=== PATIENT | male | born 1950 | race Caucasian/White ===

== ENCOUNTER → 2019-05-21 14:17 | Outpatient (CLI) | payer MEDICARE, SELFPAY ==
--- NOTE | ~2019-05-21 | XR_ITS ---
XR toe 2nd RT min 2V 05/21/2019 14:43 Indication: Contusion of the right second toe Procedure: 3 views right second toe Comparison: No prior studies for comparison. Findings: Mild polyarticular osteoarthritis. Arterial calcifications are present. No acute fracture o r traumatic malalignment is seen. No focal soft tissue abnormality. No foreign bodies. Impression: 1: No acute fracture. Reviewed, dictated and finalized at location A. Impression: 1: No acute fracture.
== END ==
PROVIDERS: PCP Family Medicine; Visit Provider Physician Assistant
DX: S90.129A Contusion of unspecified lesser toe(s) without damage to nail, initial encounter (principal)
CPT/HCPCS: 73660

== ENCOUNTER 2019-06-08 11:21 | Inpatient (IN) | payer MEDICARE, SELFPAY ==
--- NOTE | ~2019-06-08 | US_ITS ---
EXAMINATION: US renal BI DATE: 06/10/2019 08:31 INDICATION: Right kidney disease with acute renal insufficiency TECHNIQUE: Multiple ultrasound grayscale images of the kidneys were obtained. COMPARISON: 08/19/2017 FINDINGS: The right kidney measures 11.5 x 5.5 x 6.1 cm. The left kidney measures 11.1 x 5.9 x 7.6 cm. The kidn eys demonstrate normal echogenicity. There is no hydronephrosis in either kidney. No stones identifi ed. There is diffuse bladder wall thickening. Prostatomegaly which impresses upon the base of the araceli dder. IMPRESSION: 1. Normal kidneys without hydronephrosis. 2. Diffuse bladder wall thickening with differential including chronic outlet obstruction from the en larged prostate or cystitis either acute or chronic. Reviewed, dictated and finalized at location A. IMPRESSION: 1. Normal kidneys without hydronephrosis. 2. Diffuse bladder wall thickening with differential including chronic outlet o bstruction from the enlarged prostate or cystitis either acute or chronic.
--- NOTE | ~2019-06-08 | XR_ITS ---
EXAMINATION: XR ribs BI 3V w CXR 2V INDICATION: Bilateral rib pain after fall TECHNIQUE: AP and lateral views of the chest and 3 views of the bilateral ribs were obtained on 10 ra diographs. COMPARISON: 08/18/2017 FINDINGS: The lungs are free of acute opacities. There is no pleural effusion or pneumothorax. The ca rdiomediastinal silhouette is normal. There are healed fractures of the right fifth through ninth rib s and the left sixth and seventh ribs. There is an acute displaced fracture of the left rib. There is a nondisplaced left ninth rib fracture. IMPRESSION: 1. Acute, displaced left 10th rib fracture an nondisplaced left ninth rib fracture. 2. Healed bilateral rib fractures. Reviewed, dictated and finalized at location B. IMPRESSION: 1. Acute, displaced left 10th rib fracture an nondisplaced left ninth rib fract ure. 2. Healed bilateral rib fractures.
[2019-06-08 11:20] VITALS: BP 134/59; PULSE 76; RESP 12; TEMP 36.6; O2SAT 93
--- NOTE | 2019-06-08 11:57 | ECG_ITS ---
Measurements Intervals [place] Rate: 74 P: 40 AK: 240 QRS: -47 QRSD: 154 T: 14 QT: 415 QTc: 461 Interpretive Statements SINUS RHYTHM WITH SINUS ARRHYTHMIA WITH FIRST DEGREE AV BLOCK ATRIAL PREMATURE COMPLEX RIGHT BUNDLE BRANCH BLOCK LEFT ANTERIOR FASCICULAR BLOCK BASELINE ARTIFACT- I, II, AVR, AVL, AVF ABNORMAL ECG Electronically Signed On 06-08-2019 14:46:39 CDT by Yury Lawrence D.O.
[2019-06-08 12:07] LABS: Basophils Percent Auto 0.3 % (0.2-1.2); Eosinophils Absolute Auto 0.1 K/mm3 (0-0.3); Hematocrit 35.9 % (42.0-52.0); Hemoglobin 11.8 g/dL (14.0-18.0); Immature Granulocyte Absolute 0.06 K/mm3 (0.00-0.031); Immature Granulocyte Percent A 0.5 % (0-0.5); Lymphocytes Absolute Auto 0.84 K/mm3 (0.9-3.2); Lymphocytes Percent Auto 6.7 % (18.3-44.2); Mean Corpuscular HGB Conc 32.9 g/dl (32-36); Mean Corpuscular Hemoglobin 30.4 pg (26-34); Mean Corpuscular Volume 92.5 fl (80-100); Mean Platelet Volume 10.2 fl (7.4-10.4); Monocytes Percent Auto 7.9 % (2.6-8.5); Neutrophils Absolute Auto 10.6 K/mm3 (1.3-6.7); Neutrophils Percent Auto 83.6 % (45.5-73.1); Platelet Count Result 182 k/mm3 (150-375); Red Blood Count 3.88 M/mm3 (4.6-6.20); White Blood Count 12.6 K/mm3 (4.5-10.0)
[2019-06-08 12:16] LABS: INR 1.1; Prothrombin Time 14.2 Seconds (11.1-14.7)
[2019-06-08 12:17] LABS: Partial Thromboplastin Time 30.1 SECONDS (22.3-36.8)
[2019-06-08 12:24] LABS: Alanine Aminotransferase 13 U/L (4-50); Albumin Level 3.7 g/dL (3.5-5.1); Alkaline Phosphatase 58 U/L (38-126); Aspartate Amino Transferase 21 U/L (17-59); Bilirubin,Total 0.8 mg/dL (0.2-1.3); Blood Urea Nitrogen 52 mg/dL (9-20); Calcium 8.4 mg/dL (8.4-10.2); Carbon Dioxide 26 mmol/L (22-30); Chloride 103 mmol/L (98-107); Estimated Glomerular Filt Rate 19; Glucose 165 mg/dL (75-110); Potassium 4.3 mmol/L (3.4-5.0); Sodium 134 mmol/L (137-145)
[2019-06-08] MEDS: SODIUM CHLORIDE 0.9% IV 1,000 ML 999 ML IV CONT (13:12)
--- NOTE | 2019-06-08 13:12 | ED.GIBLEED ---
HPI - GI Bleed General Chief complaint: GI Bleed Stated complaint: bloody stools Time Seen by Provider: 06/08/19 11:33 Source: patient Mode of arrival: ambulatory History of Present Illness HPI Narrative: This is a 68 year old male that presents to the ER for multiple falls since yesterday. Reports he falls a lot at baseline, but since yesterday has had a couple ground level falls resulting in bilateral rib pain. Reports he was getting lightheaded when he stood up. Denies hitting his head or loss of consciousness. Reports over the last couple of days he has had multiple episodes of diarrhea with bright red blood. Reports no previous history of GI bleed. Reports he had a colonoscopy here about 5 years ago which showed 2 polyps that were removed. Denies fever, chest pain, shortness of breath, abdominal pain, dysuria, neck pain, back pain, or numbness. Related Data Home Medications Medication Instructions Recorded Confirmed amlodipine 2.5 mg tablet 2.5 mg PO DAILY 01/26/19 05/18/19 aspirin 81 mg tablet,delayed 81 mg PO DAILY 01/26/19 05/18/19 release atorvastatin 10 mg tablet 10 mg PO DAILY 01/26/19 05/18/19 blood sugar diagnostic #10 each 01/26/19 05/18/19 clopidogrel 75 mg tablet 75 mg PO DAILY 01/26/19 05/18/19 duloxetine 60 mg capsule,delayed 60 mg PO DAILY 01/26/19 05/18/19 release indapamide 2.5 mg tablet 2.5 mg PO DAILY 01/26/19 05/18/19 insulin detemir U-100 100 unit/mL 70 unit SUB-Q DAILY ml 01/26/19 05/18/19 (3 mL) subcutaneous pen insulin lispro 100 unit/mL 6 unit SUB-Q .COMPLEX 01/26/19 05/18/19 subcutaneous pen pen needle, diabetic 32 gauge x #50 each 01/26/19 05/18/19 1/ tamsulosin 0.4 mg capsule 0.4 mg PO DAILY 01/26/19 05/18/19 eszopiclone 3 mg tablet 3 mg PO .QHS tablet 01/29/19 05/18/19 eszopiclone 1 mg tablet 1 mg PO ONCE 05/18/19 05/18/19 lisinopril 40 mg PO DAILY 06/08/19 Allergies Allergy/AdvReac Type Severity Reaction Status Date / Time barley Allergy Severe abdominal Verified 05/21/19 13:33 pain wheat Allergy Severe abdominal Verified 05/21/19 13:33 pain atorvastatin Allergy Unknown Muscle pain Verified 06/08/19 11:26 pregabalin Allergy Unknown Unknown Verified 06/08/19 11:26 rosuvastatin Allergy Unknown Muscle pain Verified 06/08/19 11:26 [id number]-[id number] Reductase Allergy Unknown muscle Verified 06/08/19 11:26 Inhibitor crampin Barley Flour Allergy Severe abdominal Uncoded 05/21/19 13:33 pain Oat Allergy Severe abdominal Uncoded 05/21/19 13:33 pain Confluence Allergy Severe abdominal Uncoded 05/21/19 13:33 pain Confluence Flour Allergy Severe abdominal Uncoded 05/21/19 13:33 pain Gluten Flour Allergy Intermediate Other Uncoded 05/21/19 13:33 Review of Systems Review of Systems: Narrative: CONSTITUTIONAL: Denies fever CARDIOVASCULAR: Denies chest pain, or edema. RESPIRATORY: Denies dyspnea. GASTROINTESTINAL: Reports diarrhea. Denies abdominal pain, nausea, vomiting GENITOURINARY: Denies dysuria or hematuria. MUSCULOSKELETAL: Reports myalgia. Denies back pain NEUROLOGIC: Denies headache, numbness All systems reviewed & are unremarkable except as noted in HPI and below PMFSH Past Medical History Medical History (Updated 06/08/19 @ 15:06 by Diana Plummer PA-C) Chronic insomnia History of CVA (cerebrovascular accident) HLD (hyperlipidemia) HTN (hypertension), benign Long-term insulin use Surgical History Surgical History (System 02/19/19 @ 12:10 by [place] Plummer) H/O vitrectomy History of cervical spinal surgery Status post cataract extraction Social History Social History (Updated 05/21/19 @ 13:34 by Arlin Diaz) Smoking packs per day: 1 Smoking cigarettes per day: 20.0 Years smoked: 12 Smoking pack-years: 12.00 Smoking status: Former smoker Tobacco type: cigarettes Second hand tobacco smoke exposure: No Smoking end date: 03/14/11 Alcohol intake: never Substance use: never Substance use type: does not use
[2019-06-08 13:53] LABS: Add Urine Microscopic? YES; Appearance Urine Clear (Clear); Bacteria Urine Trace /hpf; Bilirubin Urine Negative (Negative); Blood Urine 1+ (Negative); Color Urine Yellow (Yellow); Glucose Urine UA Negative (Negative); Ketones Urine Negative (Negative); Leukocyte Esterase Ur 1+ LEU/UL (Negative); Mucus Urine Rare /lpf; Nitrate Urine Negative (Negative); Protein Urine 3+ mg/dL (Negative); RBC Urine 0-2 /hpf (0-2); Specific Grav Ur 1.017 (1.001-1.035); Squamous Epithelial Cell Urine Rare /hpf (Few); Urobilinogen Urine Negative mg/dL (<2.0)
[2019-06-08 13:55] VITALS: BP 123/57; BP 141/123; BP 150/62; PULSE 75; PULSE 80; PULSE 86
[2019-06-08 15:12] LABS: Hematocrit 36.2 % (42.0-52.0); Hemoglobin 11.8 g/dL (14.0-18.0)
[2019-06-08 16:18] VITALS: BP 167/63; PULSE 109; RESP 16; O2SAT 100
--- NOTE | 2019-06-08 16:21 | ADMGEN ---
This patient, Dewayne Fagan, was admitted to 3 [facility] Surg Room 312-01. Patient/family oriented to hospital policies and general routines including ID bracelet, bed and alarms, visiting hours, pain management, procedures, bathroom and other care routines, personal items, smoking policy, room service/diet, and visiting hours. Valuables list has been completed. Information on how to activate the Rapid Response Team has been discussed. Patient/Family are encouraged to report perceived risks to care and to ask questions if they do not understand what they are told or what they should do.
[2019-06-08 16:23] VITALS: BMI 37.7
[2019-06-08 16:38] VITALS: BP 162/78; PULSE 69; RESP 18; TEMP 37; O2SAT 99
[2019-06-08] MEDS: SODIUM CHLORIDE 0.9% IV 1,000 ML 125 ML IV CONT (17:09)
--- NOTE | 2019-06-08 17:23 | PM.CNNEP ---
Assessment and Plan Assessment and plan (1) SERGIO (acute kidney injury): Code(s): N17.9 - Acute kidney failure, unspecified Status: Acute (2) Chronic kidney disease, stage IV (severe): Code(s): N18.4 - Chronic kidney disease, stage 4 (severe) Status: Chronic (3) Acute GI bleeding: Code(s): K92.2 - Gastrointestinal hemorrhage, unspecified Status: Acute (4) Diabetes: Code(s): E11.9 - Type 2 diabetes mellitus without complications Status: Chronic (5) Rib fractures: Code(s): S22.39XA - Fracture of one rib, unspecified side, initial encounter for closed fracture Status: Acute (6) Multiple falls: Code(s): R29.6 - Repeated falls Status: Chronic Assessment and Plan: . Additional Plan Dewayne appears to have an acute kidney injury/acute renal failure on top of his baseline kidney disease based on his admission labs. As already noted, his baseline creatinine normally runs around 2-2.6 mg/dL with admission creatinine of 3.3 mg/dL. My concern would be that given his symptoms on presentation perhaps maybe relative hypotension or GI blood loss may have precipitated this rise in his creatinine carried this could been further worsened by the fact that he is on diuretic therapy (indapamide) as well as an Herman inhibitor (lisinopril). For further evaluation of his rise in his creatinine, I will check urine electrolytes, urine senna fills and a renal ultrasound to make sure we are not missing any time a anatomical issues/ problems. His independent and lisinopril will be held and gentle IV fluid resuscitation has already been instituted. Hopefully, with conservative therapy, his kidney function will improve but I cannot deny the possibility that given his risk factors, this could also be a component of simple kidney disease progression. He has no critical electrolyte abnormalities and his volume status appears to be stable but I would follow the trend of these two parameters as well as urine output to assess improvement in his kidney function. I will continue follow the patient with you while he remains hospitalized to make further conditions based on his hospital course. Thank you for allowing me to participate in the care this patient. History of Present Illness Reason for Consult Consult date: 06/08/19 Reason for consult: acute renal failure (on chronic kidney disease) Chief Complaint Chief complaint: GI bleed/SERGIO History of Present Illness Narrative: The patient is a 68 year old male with a past medical history as outlined below who presented to the [facility] ER with a complaint of bright red rectal bleeding. The patient has been having recurrent falls -- yesterday he fell as he was getting out of the shower and had a very difficult time getting up. He attributes this fall to generalized weakness. No precipitating symptoms before the fall with regard to chest pain, shortness of breath, dizziness or lightheadedness; no reported loss of consciousness or seizure like activity either. His frequent falling started about 3 days ago -- he fell between the toilet and wall in the bathroom and hurt his ribs with resulting bilateral rib pain with deep breaths. Further complicating matters is that he has noted hematochezia for the past 2 - 3 days as well. He has no previous history of GI bleeds and denies any history of diverticular disease or hemorrhoids but he is on ASA and plavix as well as a history of celiac disease. Work-up and evaluation in the emergency room demonstrated the patient to be hemodynamically stable with routine blood tests that demonstrated his hemoglobin/ hematocrit to be little bit lower than baseline associated with an elevated BUN and creatinine above his baseline. His chest x-ray demonstrated bilateral rib fractures. Due to the above symptoms and labs/imaging as noted, he was admitted to the hospital for further care. Renal consultation was
--- NOTE | 2019-06-08 18:24 | PC.NURSE ---
Patient attempted to have a bowel movement. It appeared to only be blood. Spoke with Nae in the lab and said she said not to send it as this would not give accurate results for WBC smear and stool culture.
[2019-06-08 21:39] LABS: Hematocrit 35.9 % (42.0-52.0); Hemoglobin 11.7 g/dL (14.0-18.0)
[2019-06-08 22:00] VITALS: BP 183/63; PULSE 92; RESP 18; TEMP 37.1; O2SAT 99
[2019-06-09] VITALS (7 sets, daily range): BP systolic 150–163; BP diastolic 62–70; PULSE 56–88; RESP 16–20; TEMP 36.6–37.2; O2SAT 96–100
[2019-06-09] MEDS: carvediloL 25 MG TABLET PO ×3 (00:31→20:19)
[2019-06-09] MEDS: MELATONIN 3 MG TABLET PO (00:31)
[2019-06-09] MEDS: SODIUM CHLORIDE 0.9% IV 1,000 ML 125 ML IV CONT ×3 (00:32→18:52)
--- NOTE | 2019-06-09 03:29 | PM.IMHP ---
H&P: HPI History of Present Illness Chief complaint: GI bleed/SERGIO Narrative: This is a pleasant 68 year old Diabetic male who presented to the hospital with a complaint of bright red rectal bleeding for the past two days. Yesterday the patient fell as he was getting out of the shower and had a very difficult time getting up. He believes he fell because he was just very weak. He denies any chest pain or shortness of breath. No loss of consciosness or seizure like activity. No loss of urine or tongue biting reported. The patient is known to be on aspirin and plavix but is not on any anticoagulants. He has no previous history of GI bleeds and denies any history of diverticular disease or hemorrhoids. He does however have a history of celiac disease. He reports having multiple recent falls including a fall three days ago when he fell between the toilet and wall in the bathroom and hurt his ribs b/l. Since then he has had bilateral rib pain with deep breaths. CXR demonstrated b/l rib fractures as well as an acute left sided displaced rib fracture. The patient was also found to have an H/H of 11.7/35.9. GI has been consulted by ER provider and we have been asked to admit the patient to the hospital for further care. He also denies fevers, chills, cough, sore throat, chest pain, abdominal pain, dysuria, hematuria, or focal neurological deficits. He reports diarrhea 2 days ago. No other complaints. His last colonoscopy was 5 years ago when he had 2 polyps removed. Review of Systems Review of Systems: All systems reviewed & are unremarkable except as noted in HPI and below PMFSH Past Medical History Medical History Chronic insomnia History of CVA (cerebrovascular accident) HLD (hyperlipidemia) HTN (hypertension), benign Long-term insulin use Surgical History Surgical History H/O vitrectomy History of cervical spinal surgery Status post cataract extraction Family History Family History Father Celiac disease Son Celiac disease Sibling Family history of obesity Hypertension Cerebrovascular accident Family history of diabetes mellitus in first degree relative Family history of heart disease in male family member before age 55 Grandparent Family history of mental disorder Mother Cerebrovascular accident Family history of arthritis Family history of hearing loss Father Family history of congestive heart failure Family history of heart disease in male family member before age 55 Social History Social History Smoking packs per day: 1 Smoking cigarettes per day: 20.0 Years smoked: 18 Smoking pack-years: 18.00 Smoking status: Former smoker Tobacco type: cigarettes, pipe and cigars Second hand tobacco smoke exposure: No Smoking end date: 03/14/11 Alcohol intake: former Substance use: never Substance use type: does not use Gender identity (if verbalized by the patient): Male Spiritual care concerns: No Agree to blood products: Yes Meds Home Medications and Allergies Home Medications Medication Instructions Recorded Confirmed Type amlodipine 2.5 mg tablet 2.5 mg PO DAILY 01/26/19 06/08/19 History aspirin 81 mg tablet,delayed 81 mg PO DAILY 01/26/19 06/08/19 History release atorvastatin 10 mg tablet 10 mg PO DAILY 01/26/19 06/08/19 History blood sugar diagnostic #10 each 01/26/19 06/08/19 History clopidogrel 75 mg tablet 75 mg PO DAILY 01/26/19 06/08/19 History duloxetine 60 mg capsule,delayed 60 mg PO DAILY 01/26/19 06/08/19 History release indapamide 2.5 mg tablet 2.5 mg PO DAILY 01/26/19 06/08/19 History insulin detemir U-100 100 unit/mL 70 unit SUB-Q DAILY ml 01/26/19 06/08/19 History (3 mL) subcutaneous pen insulin lispro 100 unit/mL 6 unit SUB-Q .COMPLE
[2019-06-09 06:46] LABS: Blood Urea Nitrogen 41 mg/dL (9-20); Carbon Dioxide 26 mmol/L (22-30); Chloride 106 mmol/L (98-107); Estimated CRCL calculation 30 ml/min; Estimated Glomerular Filt Rate 21; Glucose 213 mg/dL (75-110); Potassium 3.7 mmol/L (3.4-5.0); Sodium 136 mmol/L (137-145)
[2019-06-09 06:54] LABS: Basophils Absolute Auto 0.1 K/mm3 (0.0-0.1); Basophils Percent Auto 0.4 % (0.2-1.2); Eosinophils Absolute Auto 0.2 K/mm3 (0-0.3); Eosinophils Percent Auto 1.5 % (0-4.4); Hematocrit 33.5 % (42.0-52.0); Hemoglobin 10.8 g/dL (14.0-18.0); Immature Granulocyte Absolute 0.05 K/mm3 (0.00-0.031); Immature Granulocyte Percent A 0.4 % (0-0.5); Lymphocytes Absolute Auto 1.28 K/mm3 (0.9-3.2); Lymphocytes Percent Auto 11.1 % (18.3-44.2); Mean Corpuscular HGB Conc 32.2 g/dl (32-36); Mean Corpuscular Hemoglobin 30.3 pg (26-34); Mean Corpuscular Volume 94.1 fl (80-100); Mean Platelet Volume 10.8 fl (7.4-10.4); Monocytes Absolute Auto 1.1 K/mm3 (0.1-0.6); Monocytes Percent Auto 9.1 % (2.6-8.5); Neutrophils Absolute Auto 8.9 K/mm3 (1.3-6.7); Neutrophils Percent Auto 77.5 % (45.5-73.1); Platelet Count Result 174 k/mm3 (150-375); Red Blood Count 3.56 M/mm3 (4.6-6.20); Red Cell Distribution Width 13.1 % (11.5-14.5); White Blood Count 11.5 K/mm3 (4.5-10.0)
[2019-06-09 08:21] LABS: Hematocrit 33.2 % (42.0-52.0); Hemoglobin 10.8 g/dL (14.0-18.0)
--- NOTE | 2019-06-09 09:48 | WPDGICN ---
Assessment and Plan Assessment and plan (1) Acute diarrhea: Code(s): R19.7 - Diarrhea, unspecified Status: Acute Assessment and Plan: due to sudden onset I suspect this is infectious. Ischemic colitis possible but I would expect significant abdominal pain and he has had none. Stool cultures have been ordered but specimens provided by the patient were discarded because they were bloody I explained to the staff that it is okay to send stool that has blood in it. Will also start antibiotics (2) Acute GI bleeding: Code(s): K92.2 - Gastrointestinal hemorrhage, unspecified Status: Acute Assessment and Plan: Secondary to whenever is causing colitis (3) Chronic kidney disease, stage IV (severe): Code(s): N18.4 - Chronic kidney disease, stage 4 (severe) Status: Chronic Assessment and Plan: being followed by Nephrology. GI Consult Note Consult date/time: 06/09/19 09:48 HPI: Dewayne Fagan is a 68 year old male Admitted yesterday because of rectal bleeding diarrhea and recent falls. He states that he has been following occasionally because he had a stroke 2 years ago leaving him with residual weakness in his left side. In particular his left knee seems to get about. On Tuesday he fell and injured infected certain he cracked ribs as left side and possibly also on the right. The next day he began having diarrhea and towards the end of this 1st round of diarrhea he saw blood in his stools. Since then his stools have been more blood than anything. He denies abdominal pain. He has had a prior colonoscopy that revealed polyps. He has never had diverticulitis he denies nausea or vomiting he had not been traveling recently. He denies fever or chills. There is no history of liver disease jaundice hepatitis or pancreatic disease. He carries a diagnosis of celiac disease. This was First diagnosed in his father, and 2 of his sons have the same diagnosis. He is an insulin-dependent diabetic. He has chronic kidney disease followed and managed by Dr. Song. He has hypertension and had a stroke a few years ago Review of Systems Review of Systems: All systems reviewed & are unremarkable except as noted in HPI and below PMFSH Past Medical History Medical History Chronic insomnia History of CVA (cerebrovascular accident) HLD (hyperlipidemia) HTN (hypertension), benign Long-term insulin use Surgical History Surgical History H/O vitrectomy History of cervical spinal surgery Status post cataract extraction Family History Family History Father Celiac disease Son Celiac disease Sibling Family history of obesity Hypertension Cerebrovascular accident Family history of diabetes mellitus in first degree relative Family history of heart disease in male family member before age 55 Grandparent Family history of mental disorder Mother Cerebrovascular accident Family history of arthritis Family history of hearing loss Father Family history of congestive heart failure Family history of heart disease in male family member before age 55 Social History Social History Smoking packs per day: 1 Smoking cigarettes per day: 20.0 Years smoked: 18 Smoking pack-years: 18.00 Smoking status: Former smoker Tobacco type: cigarettes, pipe and cigars Second hand tobacco smoke exposure: No Smoking end date: 03/14/11 Alcohol intake: former Substance use: never Substance use type: does not use Gender identity (if verbalized by the patient): Male Spiritual care concerns: No Agree to blood products: Yes Meds Home Medications and Allergies Home Medications Medication Instructions Recorded Confirmed Type amlodipine 2.5 mg tablet 2.5 mg
[2019-06-09] MEDS: AMLODIPINE BESYLATE 2.5 MG TABLET PO (09:54)
[2019-06-09] MEDS: DULOXETINE 60 MG CAPSULE.DR PO (09:54)
[2019-06-09] MEDS: ATORVASTATIN 10 MG TABLET PO (09:54)
[2019-06-09] MEDS: lisinopriL 20 MG TABLET 40 MG PO (09:55)
[2019-06-09] MEDS: INDAPAMIDE 2.5 MG TABLET PO (09:55)
[2019-06-09] MEDS: TAMSULOSIN HCL 0.4 MG CAPSULE PO (09:56)
[2019-06-09] MEDS: INSULIN ASPART (*BKC) 100 UNITS/ML SUB-Q ×2 (10:08→12:32)
[2019-06-09 10:13] LABS: Glucose Point of Care 221 (65-105)
[2019-06-09] MEDS: levoFLOXacin 500 MG/D5W 100 ML 500 MG/100 ML BAG 100 MG IVPB (12:30)
[2019-06-09] MEDS: INSULIN DETEMIR 100 UNITS/ML 20 UNITS SUB-Q (12:33)
[2019-06-09 12:58] LABS: Glucose Point of Care 290 (65-105)
--- NOTE | 2019-06-09 13:52 | PM.PNNEP ---
Progress Note: A&P Assessment and Plan (1) SERGIO (acute kidney injury): Code(s): N17.9 - Acute kidney failure, unspecified Status: Acute Assessment and Plan: etiology not clear due to low H/H(?) relative hypoperfusion + concurrent use of diuretic and ROLDAN-I(?) no critical electrolytes and making some urine (2) Chronic kidney disease, stage IV (severe): Code(s): N18.4 - Chronic kidney disease, stage 4 (severe) Status: Chronic Assessment and Plan: baseline creatinine due to HTN, DM, vascular disease, and age component of disease progression contributing to # 1(?) (3) Acute GI bleeding: Code(s): K92.2 - Gastrointestinal hemorrhage, unspecified Status: Acute Assessment and Plan: Gi consultation recommnedations noted follow H/H (4) Diabetes: Qualifiers: Chronic kidney disease stage: stage 4 (severe) Diabetes mellitus complication detail: with chronic kidney disease Diabetes mellitus complication status: with kidney complications 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 stock clerk insulin use: with intermediate use Diabetes mellitus type: type 2 Qualified Code(s): E11.22 - Type 2 diabetes mellitus with diabetic chronic kidney disease; N18.4 - Chronic kidney disease, stage 4 (severe); Z79.4 - milk receiver (current) use of insulin Code(s): E11.9 - Type 2 diabetes mellitus without complications Status: Chronic Assessment and Plan: follow accuchecks on Levemir and SSI (5) Rib fractures: Qualifiers: Encounter type: initial encounter Fracture type: closed Laterality: bilateral Rib fracture type: multiple ribs Qualified Code(s): S22.43XA - Multiple fractures of ribs, bilateral, initial encounter for closed fracture Code(s): S22.39XA - Fracture of one rib, unspecified side, initial encounter for closed fracture Status: Acute Assessment and Plan: due to frequent falling pain control (6) Multiple falls: Code(s): R29.6 - Repeated falls Status: Chronic Assessment and Plan: etiology? PT/OT Will continue to follow. Subjective Date/time seen: 06/09/19 13:52 No apparent distress voiced at the time of my visit; seen by GI earlier today with assesment/recommendations noted; no events overnight or earlier this AM. Exam Narrative: Exam Narrative: General: WD/WN male in NAD Heart: normal S1 and S2; no rub Lungs: clear to auscultation Abdomen: soft, nontender, nondistended, positive bowel sounds Extremities: no cyanosis or clubbing; no edema Skin: warm and dry Objective Data Vital Signs Vital Signs: Vital Signs Temp Pulse Resp BP Pulse Ox 06/09/19 09:53 72 06/09/19 09:50 72 16 163/70 H 97 06/09/19 06:00 36.6 C 68 18 154/65 H 96 06/09/19 00:31 88 06/08/19 22:00 37.1 C 92 18 183/63 H 99 06/08/19 16:38 37.0 C 69 18 162/78 H 99 06/08/19 16:18 109 H 16 167/63 H 100 Intake/Output Intake/Output: Intake & Output 06/06/19 06/07/19 06/08/19 06/09/19 23:59 23:59 23:59 23:59 Intake Total 1510 2150 Output Total 200 350 Balance 1310 1800 Meds/Results Medications: Active Medications Generic Name Dose Route Start Last Admin Trade Name Freq PRN Reason Stop Dose Admin Hydrocodone Bitart/Acetaminophen 1 tab 06/09/19 03:21 Chloe 5-325 Mg PO 06/10/19 07:00 Q4H PRN Moderate Pain (4-6) Amlodipine Besylate 2.5 mg 06/09/19 09:00 06/09/19 09:54 Norvasc PO 2.5 mg DAILY EMMA Administration Atorvastatin Calcium 10 mg 06/09/19 09:00 06/09/19 09:54 Lipitor PO 10 mg DAILY EMMA Administration Carvedilol 25 mg 06/08/19 23:30 06/09/19 09:53 Coreg PO 25 mg Q12HR EMMA Administration Dextrose 12.5 gm 06/09/19 03:24 Dextrose 50% Syringe IV PUSH PRN PRN Hypoglycemia Protocol Duloxetine HCl 60 mg 06/09/19 09:00 06/09/19 09:54 Cymbalta PO 60 mg DAILY EMMA Administration Glu
--- NOTE | 2019-06-09 15:54 | PM.IMPN ---
Progress Note: A&P Assessment and Plan (1) Acute GI bleeding: Code(s): K92.2 - Gastrointestinal hemorrhage, unspecified Status: Acute Assessment and Plan: , transfuse prn. Looks to be acute blood loss anemia from lower GI bleed. GI has seen and feels is probably infectious in etiology and has started antibiotics.. Hold ASA and plavix therapy. Repeat colonoscopy to follow (2) Rib fractures: Qualifiers: Encounter type: initial encounter Rib fracture type: multiple ribs Fracture type: closed Laterality: bilateral Qualified Code(s): S22.43XA - Multiple fractures of ribs, bilateral, initial encounter for closed fracture Code(s): S22.39XA - Fracture of one rib, unspecified side, initial encounter for closed fracture Status: Acute Assessment and Plan: Pain control as needed. (3) Multiple falls: Code(s): R29.6 - Repeated falls Status: Chronic Assessment and Plan: Fall precautions. (4) Chronic kidney disease, stage IV (severe): Code(s): N18.4 - Chronic kidney disease, stage 4 (severe) Status: Chronic Assessment and Plan: Nephrology has been consulted by ER provider. Creatinine similar to what it has been in the past (5) Diabetes: Qualifiers: Diabetes mellitus type: type 2 Diabetes mellitus manager action insulin use: with manager action use Diabetes mellitus complication status: with kidney complications Diabetes mellitus complication detail: with chronic kidney disease Chronic kidney disease stage: stage 4 (severe) Qualified Code(s): E11.22 - Type 2 diabetes mellitus with diabetic chronic kidney disease; N18.4 - Chronic kidney disease, stage 4 (severe); Z79.4 - [facility] (current) use of insulin Code(s): E11.9 - Type 2 diabetes mellitus without complications Status: Chronic Assessment and Plan: Accuchecks, SSI coverage, Continue home insulin therapy. Hypoglycemic protocol. Blood sugar low this a.m. slowly decrease HS left Meritus 25 units (6) HLD (hyperlipidemia): Qualifiers: Hyperlipidemia type: unspecified Qualified Code(s): E78.5 - Hyperlipidemia, unspecified Code(s): E78.5 - Hyperlipidemia, unspecified Status: Chronic Assessment and Plan: Continue atorvastatin. (7) HTN (hypertension), benign: Code(s): I10 - Essential (primary) hypertension Status: Chronic Assessment and Plan: Stable. Monitor blood presure. Continue coreg. Subjective Date/time seen: 06/09/19 15:54 Interval history: Date of visit 06/08 60-year-old hypertensive type 2 diabetic with stage 3-4 renal failure admitted with bloody loose stools. Seen by GI and AFib feel is probably of infectious in etiology. Antibiotics have been added. Been over 5 years since his last colonoscope been scheduled for that soon. No abdominal pain no fever no chills Exam Narrative: Exam Narrative: Blood pressure 150/62 pulse is 56 regular afebrile Lungs clear CV regular rate rhythm no murmurs Had a soft nontender Extremities without edema distal pulses are 2+ Objective Data Vital Signs Vital Signs: Vital Signs - 24 hr 06/08/19 16:18 06/08/19 16:38 06/08/19 22:00 Temperature 37.0 C 37.1 C Pulse Rate 109 H 69 92 Respiratory Rate 16 18 18 Blood Pressure 167/63 H 162/78 H 183/63 H Pulse Oximetry 100 99 99 06/09/19 00:31 06/09/19 06:00 06/09/19 09:50 Temperature 36.6 C Pulse Rate 88 68 72 Respiratory Rate 18 16 Blood Pressure 154/65 H 163/70 H Pulse Oximetry 96 97 06/09/19 09:53 06/09/19 14:00 Temperature 37.2 C Pulse Rate 72 56 L Respiratory Rate 20 Blood Pressure 158/62 H Pulse Oximetry 96 Intake/Output Intake/Output: Intake & Output 06/06/19 06/07/19 06/08/19 06/09/19 23:59 23:59 23:59 23:59 Intake Total 1510 2270 Output Total 200 350 Balance 1310 1920 Meds/Results Medications: Active Medications Generic Name Dose Route Start Last Admin Trade N
[2019-06-09 16:14] LABS: Hematocrit 32.7 % (42.0-52.0); Hemoglobin 10.7 g/dL (14.0-18.0); Mean Corpuscular HGB Conc 32.7 g/dl (32-36); Mean Corpuscular Hemoglobin 30.7 pg (26-34); Mean Platelet Volume 10.3 fl (7.4-10.4); Platelet Count Result 169 k/mm3 (150-375); Red Blood Count 3.48 M/mm3 (4.6-6.20); Red Cell Distribution Width 13.2 % (11.5-14.5)
[2019-06-09 17:34] LABS: Glucose Point of Care 124 (65-105)
[2019-06-09] MEDS: INSULIN DETEMIR 100 UNITS/ML 30 UNITS SUB-Q (20:18)
[2019-06-09 20:48] LABS: Creatinine Urine 44.9 mg/dL
[2019-06-09 20:49] LABS: Sodium Urine Random 110 meq/L
[2019-06-09 20:54] LABS: Total Protein Urine Random 225 mg/dL
[2019-06-09 21:32] LABS: Glucose Point of Care 167 (65-105)
[2019-06-10] VITALS (7 sets, daily range): BP systolic 146–184; BP diastolic 45–82; PULSE 46–80; RESP 18; TEMP 36.4–37; O2SAT 96–98
[2019-06-10] MEDS: SODIUM CHLORIDE 0.9% IV 1,000 ML 125 ML IV CONT (03:22)
[2019-06-10 06:43] LABS: Basophils Percent Auto 0.3 % (0.2-1.2); Eosinophils Absolute Auto 0.2 K/mm3 (0-0.3); Eosinophils Percent Auto 2.7 % (0-4.4); Hematocrit 33.4 % (42.0-52.0); Hemoglobin 10.8 g/dL (14.0-18.0); Immature Granulocyte Absolute 0.02 K/mm3 (0.00-0.031); Immature Granulocyte Percent A 0.2 % (0-0.5); Lymphocytes Absolute Auto 1.29 K/mm3 (0.9-3.2); Lymphocytes Percent Auto 14.9 % (18.3-44.2); Mean Corpuscular HGB Conc 32.3 g/dl (32-36); Mean Corpuscular Hemoglobin 30.6 pg (26-34); Mean Corpuscular Volume 94.6 fl (80-100); Mean Platelet Volume 10.3 fl (7.4-10.4); Monocytes Absolute Auto 0.9 K/mm3 (0.1-0.6); Monocytes Percent Auto 9.9 % (2.6-8.5); Neutrophils Absolute Auto 6.2 K/mm3 (1.3-6.7); Platelet Count Result 171 k/mm3 (150-375); Red Blood Count 3.53 M/mm3 (4.6-6.20); Red Cell Distribution Width 13.1 % (11.5-14.5); White Blood Count 8.7 K/mm3 (4.5-10.0)
[2019-06-10 07:36] LABS: Blood Urea Nitrogen 28 mg/dL (9-20); Calcium 8.3 mg/dL (8.4-10.2); Carbon Dioxide 26 mmol/L (22-30); Chloride 108 mmol/L (98-107); Estimated CRCL calculation 37 ml/min; Estimated Glomerular Filt Rate 27; Glucose 122 mg/dL (75-110); Potassium 3.6 mmol/L (3.4-5.0); Sodium 137 mmol/L (137-145)
[2019-06-10 09:29] LABS: Glucose Point of Care 151 (65-105)
--- NOTE | 2019-06-10 09:37 | PM.PNNEP ---
Progress Note: A&P Assessment and Plan (1) SERGIO (acute kidney injury): Code(s): N17.9 - Acute kidney failure, unspecified Status: Acute Assessment and Plan: etiology not clear but resolving due to low H/H(?) relative hypoperfusion + concurrent use of diuretic and ROLDAN-I(?) no critical electrolytes and making urine creatinine appears back to baseline (2) Chronic kidney disease, stage IV (severe): Code(s): N18.4 - Chronic kidney disease, stage 4 (severe) Status: Chronic Assessment and Plan: due to HTN, DM, vascular disease, and age creatinine usually runs ~ 2.0 - 2.6mg/dl (3) Acute GI bleeding: Code(s): K92.2 - Gastrointestinal hemorrhage, unspecified Status: Acute Assessment and Plan: Gastroenterology following follow H/H -- fairly stable suspect infection precipitated anemia secondary to inflammation further intervention now versus as an outpatient? (4) Diabetes: Qualifiers: Chronic kidney disease stage: stage 4 (severe) Diabetes mellitus complication detail: with chronic kidney disease Diabetes mellitus complication status: with kidney complications Diabetes mellitus residential insulin use: with supervisor intermediates use Diabetes mellitus type: type 2 Qualified Code(s): E11.22 - Type 2 diabetes mellitus with diabetic chronic kidney disease; N18.4 - Chronic kidney disease, stage 4 (severe); Z79.4 - [facility] (current) use of insulin Code(s): E11.9 - Type 2 diabetes mellitus without complications Status: Chronic Assessment and Plan: follow accuchecks on Levemir and SSI (5) Rib fractures: Qualifiers: Encounter type: initial encounter Fracture type: closed Laterality: bilateral Rib fracture type: multiple ribs Qualified Code(s): S22.43XA - Multiple fractures of ribs, bilateral, initial encounter for closed fracture Code(s): S22.39XA - Fracture of one rib, unspecified side, initial encounter for closed fracture Status: Acute Assessment and Plan: due to frequent falling pain control (6) Multiple falls: Code(s): R29.6 - Repeated falls Status: Chronic Assessment and Plan: etiology? continue PT/OT Will continue to follow. Subjective Date/time seen: 06/10/19 09:37 Seems to be doing reasonably well; no new issues or problems voiced at this time; has not been walking around much so he does not know if he is stable on his feet as of yet. Exam Narrative: Exam Narrative: General: WD/WN male in NAD Heart: normal S1 and S2; no rub Lungs: clear to auscultation Abdomen: soft, nontender, nondistended, positive bowel sounds Extremities: no cyanosis or clubbing; no edema Skin: warm and intact Objective Data Vital Signs Vital Signs: Vital Signs Temp Pulse Resp BP Pulse Ox 06/10/19 09:22 46 L 06/10/19 09:17 46 L 18 146/45 H 98 06/10/19 06:00 36.4 C 57 L 18 184/82 H 98 06/09/19 22:00 36.6 C 84 16 150/67 H 100 06/09/19 20:19 86 06/09/19 14:00 37.2 C 56 L 20 158/62 H 96 06/09/19 09:53 72 06/09/19 09:50 72 16 163/70 H 97 Intake/Output Intake/Output: Intake & Output 06/07/19 06/08/19 06/09/19 06/10/19 23:59 23:59 23:59 23:59 Intake Total 1510 3890 1350 Output Total 200 950 Balance 1310 2940 1350 Meds/Results Medications: Active Medications Generic Name Dose Route Start Last Admin Trade Name Freq PRN Reason Stop Dose Admin Amlodipine Besylate 2.5 mg 06/09/19 09:00 06/09/19 09:54 Norvasc PO 2.5 mg DAILY EMMA Administration Atorvastatin Calcium 10 mg 06/09/19 09:00 06/09/19 09:54 Lipitor PO 10 mg DAILY EMMA Administration Carvedilol 25 mg 06/08/19 23:30 06/10/19 09:22 Coreg PO Not Given Q12HR EMMA Dextrose 12.5 gm 06/09/19 03:24 Dextrose 50% Syringe IV PUSH PRN PRN Hypoglycemia Protocol Duloxetine HCl 60 mg 06/09/19 09:00 06/09/19 09:54
[2019-06-10] MEDS: AMLODIPINE BESYLATE 2.5 MG TABLET PO (09:56)
[2019-06-10] MEDS: ATORVASTATIN 10 MG TABLET PO (09:57)
[2019-06-10] MEDS: TAMSULOSIN HCL 0.4 MG CAPSULE PO (09:57)
[2019-06-10] MEDS: DULOXETINE 60 MG CAPSULE.DR PO (09:57)
[2019-06-10] MEDS: lisinopriL 20 MG TABLET 40 MG PO (09:57)
[2019-06-10] MEDS: levoFLOXacin 500 MG/D5W 100 ML 500 MG/100 ML BAG 100 MG IVPB (09:58)
--- NOTE | 2019-06-10 10:28 | WPDGIPROGNO ---
Progress Note: A&P Assessment and Plan (1) Acute diarrhea: Code(s): R19.7 - Diarrhea, unspecified Status: Acute Assessment and Plan: No stools today. C dif is Negative, other cultures pending (2) Acute GI bleeding: Code(s): K92.2 - Gastrointestinal hemorrhage, unspecified Status: Acute Assessment and Plan: No further bleedin, stble counts from my perspective, he can be treated as OP, home on 5 days of Levaquin, and call office for culture rsults tomorrow Subjective Date/time seen: 06/10/19 10:28 Review of Systems Gastrointestinal: Gastrointestinal: Denies hematochezia, Denies GI cramping, Denies diarrhea and Denies vomiting Exam GI: GI Palp: No abdominal tenderness and No Guarding due to palpation present (GI) Auscultation: normal bowel sounds Objective Data Vital Signs Vital Signs: Vital Signs - 24 hr 06/09/19 14:00 06/09/19 20:19 06/09/19 22:00 Temperature 37.2 C 36.6 C Pulse Rate 56 L 86 84 Respiratory Rate 20 16 Blood Pressure 158/62 H 150/67 H Pulse Oximetry 96 100 06/10/19 06:00 06/10/19 09:17 06/10/19 09:22 Temperature 36.4 C Pulse Rate 57 L 46 L 46 L Respiratory Rate 18 18 Blood Pressure 184/82 H 146/45 H Pulse Oximetry 98 98 Intake/Output Intake/Output: Intake & Output 06/07/19 06/08/19 06/09/19 06/10/19 23:59 23:59 23:59 23:59 Intake Total 1510 3890 1350 Output Total 200 950 Balance 1310 2940 1350 Meds/Results Medications: Active Medications Generic Name Dose Route Start Last Admin Trade Name Freq PRN Reason Stop Dose Admin Amlodipine Besylate 2.5 mg 06/09/19 09:00 06/10/19 09:56 Norvasc PO 2.5 mg DAILY EMMA Administration Atorvastatin Calcium 10 mg 06/09/19 09:00 06/10/19 09:57 Lipitor PO 10 mg DAILY EMMA Administration Carvedilol 25 mg 06/08/19 23:30 06/10/19 09:22 Coreg PO Not Given Q12HR EMMA Dextrose 12.5 gm 06/09/19 03:24 Dextrose 50% Syringe IV PUSH PRN PRN Hypoglycemia Protocol Duloxetine HCl 60 mg 06/09/19 09:00 06/10/19 09:57 Cymbalta PO 60 mg DAILY EMMA Administration Glucagon 1 mg 06/09/19 03:24 Glucagon For Inj IM PRN PRN Hypoglycemia Protocol Glucose 15 gm 06/09/19 03:24 Glutose 15 PO PRN PRN Hypoglycemia Protocol Sodium Chloride 1,000 mls @ 75 mls/hr 06/08/19 14:40 06/10/19 03:22 Normal Saline Iv IV CONT 125 mls/hr .[id number] EMMA Administration Dextrose 1,000 mls @ 100 mls/hr 06/09/19 03:24 Dextrose 5% 1,000 Ml IVPB PRN PRN Hypoglycemia Protocol Levofloxacin/Dextrose 500 mg in 100 mls @ 100 mls/hr 06/09/19 10:00 06/10/19 09:58 Levaquin 500 Mg/D5w 100 Ml IVPB 100 mls/hr Q24H EMMA Administration Indapamide 2.5 mg 06/09/19 09:00 06/10/19 09:47 Lozol PO Not Given DAILY EMMA Insulin Aspart 3 - 6 units 06/09/19 08:00 06/10/19 09:16 Novolog SUB-Q Not Given [facility] Protocol Insulin Detemir 50 units 06/10/19 09:07 Levemir SUB-Q HS EMMA Lisinopril 40 mg 06/09/19 09:00 06/10/19 09:57 Prinivil PO 40 mg DAILY EMMA Administration Melatonin 3 mg 06/09/19 00:14 06/09/19 00:31 Melatonin PO 3 mg HS PRN Administration Insomnia Tamsulosin HCl 0.4 mg 06/09/19 09:00 06/10/19 09:57 Flomax PO 0.4 mg DAILY EMMA Administration Radiology Results: ITS Impressions Ribs w/Chest X-Ray 06/08/19 12:27 IMPRESSION: 1. Acute, displaced left 10th rib fracture an nondisplaced left ninth rib fracture. 2. Healed bilateral rib fractures. Renal Ultrasound 06/10/19 08:54 IMPRESSION: 1. Normal kidneys without hydronephrosis. 2. Diffuse bladder wall thickening with differential including chronic outlet obstruction from the enlarged prostate or cystitis either acute or chronic. Labs Labs: Laboratory Results - last 24 hr 06/09/19 06/09/19 06/09/19 12:29 16:00 17:28 WBC 10.0 RB
[2019-06-10] MEDS: ACETAMINOPHEN 325 MG TABLET 650 MG PO (13:09)
[2019-06-10] MEDS: SODIUM CHLORIDE 0.9% IV 1,000 ML 75 ML IV CONT (13:13)
--- NOTE | 2019-06-10 14:49 | PM.IMPN ---
Progress Note: A&P Assessment and Plan (1) Acute GI bleeding: Code(s): K92.2 - Gastrointestinal hemorrhage, unspecified Status: Acute Assessment and Plan: Looks to be acute blood loss anemia from lower GI bleed. GI has seen and feels is probably infectious in etiology and has started antibiotics.. Hold ASA and plavix therapy. Repeat colonoscopy to follow (2) Rib fractures: Qualifiers: Encounter type: initial encounter Rib fracture type: multiple ribs Fracture type: closed Laterality: bilateral Qualified Code(s): S22.43XA - Multiple fractures of ribs, bilateral, initial encounter for closed fracture Code(s): S22.39XA - Fracture of one rib, unspecified side, initial encounter for closed fracture Status: Acute Assessment and Plan: Pain control as needed. (3) Multiple falls: Code(s): R29.6 - Repeated falls Status: Chronic Assessment and Plan: Fall precautions. (4) Chronic kidney disease, stage IV (severe): Code(s): N18.4 - Chronic kidney disease, stage 4 (severe) Status: Chronic Assessment and Plan: Nephrology has been consulted by ER provider. 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 Hypoglycemic protocol. Blood sugar low this a.m. slowly decrease HS dose some (6) HLD (hyperlipidemia): Qualifiers: Hyperlipidemia type: unspecified Qualified Code(s): E78.5 - Hyperlipidemia, unspecified Code(s): E78.5 - Hyperlipidemia, unspecified Status: Chronic Assessment and Plan: Continue atorvastatin. (7) HTN (hypertension), benign: Code(s): I10 - Essential (primary) hypertension Status: Chronic Assessment and Plan: Stable. Monitor blood presure. Continue coreg. Subjective Date/time seen: 06/10/19 14:49 Interval history: Date of visit 06/09 60-year-old hypertensive type 2 diabetic with stage 3-4 renal failure admitted with bloody loose stools. Seen by GI and AFib feel is probably of infectious in etiology. Antibiotics have been added. Been over 5 years since his last colonoscope been scheduled for that soon. No abdominal pain no fever no chills Exam Narrative: Exam Narrative: Blood pressure 146/45 pulse is 78 regular afebrile Lungs clear CV regular rate rhythm no murmurs Had a soft nontender Extremities without edema distal pulses are 2+ Objective Data Vital Signs Vital Signs: Vital Signs - 24 hr 06/09/19 20:19 06/09/19 22:00 06/10/19 06:00 Temperature 36.6 C 36.4 C Pulse Rate 86 84 57 L Respiratory Rate 16 18 Blood Pressure 150/67 H 184/82 H Pulse Oximetry 100 98 06/10/19 09:17 06/10/19 09:22 Temperature Pulse Rate 46 L 46 L Respiratory Rate 18 Blood Pressure 146/45 H Pulse Oximetry 98 Intake/Output Intake/Output: Intake & Output 06/07/19 06/08/19 06/09/19 06/10/19 23:59 23:59 23:59 23:59 Intake Total 1510 3890 2570 Output Total 200 950 Balance 1310 2940 2570 Meds/Results Medications: Active Medications Generic Name Dose Route Start Last Admin Trade Name Freq PRN Reason Stop Dose Admin Acetaminophen 650 mg 06/10/19 11:45 06/10/19 13:09 Tylenol Tablet PO 650 mg Q6H PRN Administration Mild Pain
[2019-06-10] MEDS: carvediloL 25 MG TABLET PO (20:38)
[2019-06-10] MEDS: INSULIN DETEMIR 100 UNITS/ML 50 UNITS SUB-Q (20:45)
[2019-06-10 21:07] LABS: Glucose Point of Care 210 (65-105)
[2019-06-11 06:00] VITALS: BP 183/71; PULSE 61; RESP 18; TEMP 36.8; O2SAT 97
[2019-06-11 06:19] LABS: Basophils Percent Auto 0.5 % (0.2-1.2); Eosinophils Absolute Auto 0.3 K/mm3 (0-0.3); Eosinophils Percent Auto 3.1 % (0-4.4); Hematocrit 33.4 % (42.0-52.0); Hemoglobin 10.7 g/dL (14.0-18.0); Immature Granulocyte Absolute 0.03 K/mm3 (0.00-0.031); Immature Granulocyte Percent A 0.4 % (0-0.5); Lymphocytes Percent Auto 17.5 % (18.3-44.2); Mean Corpuscular Hemoglobin 30.1 pg (26-34); Mean Corpuscular Volume 93.8 fl (80-100); Mean Platelet Volume 10.2 fl (7.4-10.4); Monocytes Absolute Auto 0.9 K/mm3 (0.1-0.6); Monocytes Percent Auto 10.6 % (2.6-8.5); Neutrophils Absolute Auto 5.5 K/mm3 (1.3-6.7); Neutrophils Percent Auto 67.9 % (45.5-73.1); Platelet Count Result 179 k/mm3 (150-375); Red Blood Count 3.56 M/mm3 (4.6-6.20); Red Cell Distribution Width 12.8 % (11.5-14.5)
[2019-06-11 06:37] LABS: Blood Urea Nitrogen 28 mg/dL (9-20); Carbon Dioxide 26 mmol/L (22-30); Chloride 105 mmol/L (98-107); Estimated CRCL calculation 37 ml/min; Estimated Glomerular Filt Rate 27; Glucose 111 mg/dL (75-110); Potassium 3.6 mmol/L (3.4-5.0); Sodium 140 mmol/L (137-145)
--- NOTE | 2019-06-11 08:11 | PM.PNNEP ---
Progress Note: A&P Assessment and Plan (1) SERGIO (acute kidney injury): Code(s): N17.9 - Acute kidney failure, unspecified Status: Acute Assessment and Plan: etiology not clear Perhaps dehydration/hypoperfusion from anemia Improved with fluids and supportive care He is back to his baseline (2) Chronic kidney disease, stage IV (severe): Code(s): N18.4 - Chronic kidney disease, stage 4 (severe) Status: Chronic Assessment and Plan: due to HTN, DM, vascular disease, and age creatinine usually runs ~ 2.0 - 2.6mg/dl (3) Diabetes: Qualifiers: Diabetes mellitus type: type 2 Diabetes mellitus shelter insulin use: with shelter use Diabetes mellitus complication status: with kidney complications Diabetes mellitus complication detail: with chronic kidney disease Chronic kidney disease stage: stage 4 (severe) Qualified Code(s): E11.22 - Type 2 diabetes mellitus with diabetic chronic kidney disease; N18.4 - Chronic kidney disease, stage 4 (severe); Z79.4 - [facility] (current) use of insulin Code(s): E11.9 - Type 2 diabetes mellitus without complications Status: Chronic Assessment and Plan: follow accuchecks on Levemir and SSI (4) Rib fractures: Qualifiers: Encounter type: initial encounter Rib fracture type: multiple ribs Fracture type: closed Laterality: bilateral Qualified Code(s): S22.43XA - Multiple fractures of ribs, bilateral, initial encounter for closed fracture Code(s): S22.39XA - Fracture of one rib, unspecified side, initial encounter for closed fracture Status: Acute Assessment and Plan: due to frequent falling pain control (5) Multiple falls: Code(s): R29.6 - Repeated falls Status: Chronic Assessment and Plan: etiology? continue PT/OT Will continue to follow. (6) Anemia: Code(s): D64.9 - Anemia, unspecified Status: Acute Assessment and Plan: Hemoglobin has been low. GI saw and feels that is not from GI bleeding Considering colonoscopy as an outpatient Patient has renal insufficiency and also had infection which could lead to anemia as well. Hemoglobin is too good for EPO administration. Subjective Date/time seen: 06/11/19 08:11 Interval history: Patient is feeling okay today. He says he enjoyed his regular food yesterday. No nausea and vomiting. He has a little bit of a dry cough. No fever. Review of Systems Cardiovascular: Cardiovascular: Reports no additional cardiovascular complaints Respiratory: Respiratory: Reports no additional respiratory complaints Gastrointestinal: Gastrointestinal: Reports no additional gastrointestinal complaints Genitourinary: Genitourinary: Reports no additional male genitourinary complaints Exam Narrative: Exam Narrative: General: WD/WN male in NAD Heart: normal S1 and S2; no rub Lungs: clear Abdomen: soft, nontender, nondistended, positive bowel sounds Extremities: no cyanosis or clubbing; no edema Skin: warm and intact without rash Objective Data Vital Signs Vital Signs: Vital Signs - 24 hr 06/10/19 09:17 06/10/19 09:22 06/10/19 14:00 Temperature 36.7 C Pulse Rate 46 L 46 L 80 Respiratory Rate 18 18 Blood Pressure 146/45 H 179/73 H Pulse Oximetry 98 98 06/10/19 20:00 06/10/19 20:38 06/10/19 22:00 Temperature 37.0 C Pulse Rate 80 80 80 Respiratory Rate 18 18 Blood Pressure 168/63 H Pulse Oximetry 98 96 06/11/19 06:00 Temperature 36.8 C Pulse Rate 61 Respiratory Rate 18 Blood Pressure 183/71 H Pulse Oximetry 97 Intake/Output Intake/Output: Intake & Output 06/08/19 06/09/19 06/10/19 06/11/19 23:59 23:59 23:59 23:59 Intake Total 1510 3890 4200 120 Output Total 200 950 Balance 1310 2940 4200 120 Meds/Results Medications: Active Medications Generic Name Dose Route Start Last Admin Trade Name Freq PRN Reason Stop Dose Admin Acetaminop
[2019-06-11 09:24] VITALS: PULSE 61
[2019-06-11] MEDS: ATORVASTATIN 10 MG TABLET PO (09:24)
[2019-06-11] MEDS: AMLODIPINE BESYLATE 2.5 MG TABLET PO (09:24)
[2019-06-11] MEDS: DULOXETINE 60 MG CAPSULE.DR PO (09:24)
[2019-06-11] MEDS: carvediloL 25 MG TABLET PO (09:24)
[2019-06-11] MEDS: levoFLOXacin 500 MG/D5W 100 ML 500 MG/100 ML BAG 100 MG IVPB (09:25)
[2019-06-11] MEDS: INDAPAMIDE 2.5 MG TABLET PO (09:25)
[2019-06-11] MEDS: TAMSULOSIN HCL 0.4 MG CAPSULE PO (09:25)
[2019-06-11] MEDS: lisinopriL 20 MG TABLET 40 MG PO (09:25)
[2019-06-11 09:42] LABS: Glucose Point of Care 162 (65-105)
--- NOTE | 2019-06-11 17:20 | PM.DS ---
DS: Diagnosis Admitting Diagnosis Admitting Diagnosis: Gastrointestinal hemorrhage, unspecified Discharge Diagnosis (1) Acute GI bleeding: Code(s): K92.2 - Gastrointestinal hemorrhage, unspecified Status: Acute Assessment and Plan: acute blood loss anemia from lower GI bleed. GI has seen and feels is probably infectious in etiology and has started antibiotics.. Hold ASA for 10 days after discharge and restart plavix therapy. Repeat colonoscopy to follow as outpatient Hemoglobin remained stable last 3 days and 10.7 the day of discharge (2) Rib fractures: Qualifiers: Encounter type: initial encounter Rib fracture type: multiple ribs Fracture type: closed Laterality: bilateral Qualified Code(s): S22.43XA - Multiple fractures of ribs, bilateral, initial encounter for closed fracture Code(s): S22.39XA - Fracture of one rib, unspecified side, initial encounter for closed fracture Status: Acute Assessment and Plan: Pain control as needed. (3) Multiple falls: Code(s): R29.6 - Repeated falls Status: Chronic Assessment and Plan: Fall precautions. Seen by OT/PT here (4) Chronic kidney disease, stage IV (severe): Code(s): N18.4 - Chronic kidney disease, stage 4 (severe) Status: Chronic Assessment and Plan: . 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 Hypoglycemic protocol. Fasting blood sugar day of discharge 111. Oral intake was less than his Levemir was less and will be increased back to his usual home dose on discharge (6) HLD (hyperlipidemia): Qualifiers: Hyperlipidemia type: unspecified Qualified Code(s): E78.5 - Hyperlipidemia, unspecified Code(s): E78.5 - Hyperlipidemia, unspecified Status: Chronic Assessment and Plan: Continue atorvastatin. (7) HTN (hypertension), benign: Code(s): I10 - Essential (primary) hypertension Status: Chronic Assessment and Plan: Stable. Monitor blood presure. Continue coreg, lisinopril, and indapamide with low-dose amlodipine. Systolic pressures were or is higher in a.m. but came down nicely after meds were taken DS: Summary Hospital Course Hospital Course: 68-year-old white male presented with the primary blood per rectum. Seen in consultation by Gastroenterology who felt that his symptoms were more infectious etiology. Treated with Levaquin for 3 days here and will finished 7 day course at home. Hemoglobin remains stable last 2-3 days prior to discharge to 10.7. He will follow-up with gastroenterology for probable repeat colonoscope. Aspirin will be held for 10 days and Plavix will be restarted Initial creatinine was 3.3 which felt back to baseline at 2.4. Renal sonogram revealed no obstruction but bladder wall thickening compatible with BPH. Patient does relate difficulty starting stream at times and urgency and will continue his Flomax FBS the day of discharge 03/24 and he will resume his usual regime of Levemir and lispro Time Spent with Patient Time attestation: Total time spent providing and/or coordinating discharge services: 35 minutes Exam Narrative: Exam Narrative: Condition on di
[2019-06-14 17:53] LABS: Chloride Rand Ur 108 mmol/L (32-290); Chloride/Creatinine Rand Ur 230 (23-275); Creatinine Random Urine 47 mg/dL (20-320)
== END 2019-06-11 11:35 | disposition home or self-care (01) | DRG 392 ==
LOC: ANHED 15:06 → ANH3MEDSUR 15:52
PROVIDERS: Family Medicine; Internal Medicine Nephrology; Physician Assistant; Admitting Provider Internal Medicine; Emergency Provider Emergency Medicine; PCP Family Medicine; Visit Provider Internal Medicine
DX: A09 Infectious gastroenteritis and colitis, unspecified (principal); S22.43XA Multiple fractures of ribs, bilateral, initial encounter for closed fracture; D62 Acute posthemorrhagic anemia; N17.9 Acute kidney failure, unspecified; N18.4 Chronic kidney disease, stage 4 (severe); I69.354 Hemiplegia and hemiparesis following cerebral infarction affecting left non-dominant side; E11.9 Type 2 diabetes mellitus without complications; I12.9 Hypertensive chronic kidney disease with stage 1 through stage 4 chronic kidney disease, or unspecified chronic kidney disease; Z79.82 Long term (current) use of aspirin; Z79.02 Long term (current) use of antithrombotics/antiplatelets; K90.0 Celiac disease; G47.00 Insomnia, unspecified; E78.5 Hyperlipidemia, unspecified; I10 Essential (primary) hypertension; Z79.4 Long term (current) use of insulin; Z98.49 Cataract extraction status, unspecified eye; Z87.891 Personal history of nicotine dependence; W19.XXXA Unspecified fall, initial encounter; Z91.81 History of falling; T46.5X5A Adverse effect of other antihypertensive drugs, initial encounter; T46.4X5A Adverse effect of angiotensin-converting-enzyme inhibitors, initial encounter; E11.22 Type 2 diabetes mellitus with diabetic chronic kidney disease; E86.0 Dehydration; N40.0 Benign prostatic hyperplasia without lower urinary tract symptoms; R39.15 Urgency of urination
CPT/HCPCS: 36415; 71045; 71111; 76775; 80048; 80053; 81001; 81050; 82436; 82570; 84156; 84300; 85014; 85018; 85025; 85027; 85610; 85730; 85999; 86850; 86900; 86901; 87045; 87046; 87086; 87324; 87427; 89055; 93005; 96361; 96365; 97161; 97165; 99285; A9270; G0378; J0131; J1815; J1956; J7030

== ENCOUNTER 2019-10-12 00:32 | Outpatient (CLI) | payer MEDICARE, SELFPAY ==
[2019-10-12 20:43] LABS: SARS-CoV-2 RNA PCR Negative
== END 2019-10-12 00:33 | disposition home or self-care (01) ==
LOC: ANHCOVIDDT 00:33
PROVIDERS: PCP Family Medicine; Visit Provider Internal Medicine Gastroenterology
DX: Z01.812 Encounter for preprocedural laboratory examination (principal); Z11.59 Encounter for screening for other viral diseases
CPT/HCPCS: 87635; C9803; U0003

== ENCOUNTER 2019-10-15 01:06 | Day surgery (SDC) | payer MEDICARE, SELFPAY ==
[2019-10-08 14:11] VITALS: BMI 37.9
[2019-10-15] MEDS: LACTATED RINGERS 1,000 ML 150 ML IV CONT (07:53)
[2019-10-15 08:00] VITALS: BP 150/50; PULSE 72; RESP 20; TEMP 36.5; O2SAT 99
[2019-10-15 08:00] LABS: Glucose Point of Care 169 (65-105)
--- NOTE | 2019-10-15 08:02 | PM.HPGS ---
History of Present Illness History of Present Illness Consent: Risks, benefits, and alternatives have been discussed and questions answered. Patient agrees to proceed with procedure. Chief complaint: Hx of Polyps Narrative: Dewayne Fagan is a 68 year old W male referred for screening colonoscopy secondary history of colonic polyps. Last colonoscopy was 7 years ago at which time 2 adenomatous polyps were removed. Patient is asymptomatic. His brother did have polyps. Patient was admitted to [facility] in May of this year and seen by Dr. Fuller for bloody diarrhea felt to be infectious in origin symptoms have resolved. Patient discontinued his Plavix 4 days ago [facility] Past Medical History Medical History Anemia Chronic insomnia History of CVA (cerebrovascular accident) HLD (hyperlipidemia) HTN (hypertension), benign Hy kid NOS w cr kid I-IV Long-term insulin use Numbness of arm Surgical History Surgical History H/O vitrectomy History of cervical spinal surgery Status post cataract extraction Family History Family History Father Celiac disease Son Celiac disease Sibling Family history of obesity Hypertension Cerebrovascular accident Family history of diabetes mellitus in first degree relative Family history of heart disease in male family member before age 55 Grandparent Family history of mental disorder Mother Cerebrovascular accident Family history of arthritis Family history of hearing loss Father Family history of congestive heart failure Family history of heart disease in male family member before age 55 Social History Social History Smoking packs per day: 1 Smoking cigarettes per day: 20.0 Years smoked: 18 Smoking pack-years: 18.00 Smoking status: Former smoker Tobacco type: cigarettes, pipe and cigars Second hand tobacco smoke exposure: No Smoking end date: 03/14/11 Alcohol intake: former Substance use: never Substance use type: does not use Gender identity (if verbalized by the patient): Male Spiritual care concerns: No Agree to blood products: Yes Meds Home Medications and Allergies Home Medications Medication Instructions Recorded Confirmed Type amlodipine 2.5 mg tablet 2.5 mg PO DAILY 01/26/19 10/08/19 History blood sugar diagnostic #10 each 01/26/19 06/08/19 History indapamide 2.5 mg tablet 2.5 mg PO DAILY 01/26/19 10/08/19 History insulin lispro 100 unit/mL 6 unit SUB-Q .COMPLEX 01/26/19 10/08/19 History subcutaneous pen pen needle, diabetic 32 gauge x #50 each 01/26/19 06/08/19 History 1/4 carvedilol 25 mg tablet 25 mg PO Q12H #180 tablet 05/04/19 10/08/19 Rx lisinopril 40 mg PO DAILY 06/08/19 10/08/19 History duloxetine 60 mg capsule,delayed 60 mg PO DAILY #90 cap 06/12/19 10/08/19 Rx release tamsulosin 0.4 mg capsule 0.4 mg PO DAILY #90 cap 06/12/19 10/08/19 Rx clopidogrel 75 mg tablet 75 mg PO DAILY #90 tablet 09/07/19 10/08/19 Rx atorvastatin 40 mg PO DAILY 10/08/19 10/08/19 History eszopiclone 1 mg tablet 1 mg PO HS #30 tablet 10/08/19 10/08/19 Rx eszopiclone 3 mg tablet 3 mg PO .QHS #30 tablet 10/08/19 10/08/19 Rx insulin detemir U-100 [Levemir 60 unit SUB-Q DAILY 10/08/19 10/08/19 History FlexTouch U-100 Insuln] Allergies Allergy/AdvReac Type Severity Reaction Status Date / Time barley Allergy Severe abdominal Verified 10/15/19 07:36 pain wheat Allergy Severe abdominal Verified 10/15/19 07:36 pain atorvastatin Allergy Unknown Muscle pain Verified 10/15/19 07:36 pregabalin Allergy Unknown Unknown Verified 10/15/19 07:36 rosuvastatin Allergy Unknown Muscle pain Verified 10/15/19 07:36 Cbvwpsj-Svc-Ebr Reductase Allergy Unknown muscle Verified 10/15/19 07:36 Inhibitor crampin Ba
--- NOTE | 2019-10-15 08:13 | WPDANESEPPF ---
Anes - Initial Pre Proc Eval Procedure: Operation Date: 10/15/19 08:30 Proposed Procedures p Screening Colonoscopy - Kwabena Lopez MD Date/Time: 10/15/19 08:13 Surgeon: Kwabena Lopez MD Pre Op Diagnosis: Hx of Polyps Patient Data Age: 68 Gender: M Height: 1.82 m Weight: 124.9 kg Last Vital Signs Temp 36.5 C 10/15/19 08:00 Pulse 72 10/15/19 08:00 Resp 20 10/15/19 08:00 BP 150/50 H 10/15/19 08:00 Pulse Ox 99 10/15/19 08:00 Allergies Allergy/AdvReac Type Severity Reaction Status Date / Time barley Allergy Severe abdominal Verified 10/15/19 07:36 pain wheat Allergy Severe abdominal Verified 10/15/19 07:36 pain atorvastatin Allergy Unknown Muscle pain Verified 10/15/19 07:36 pregabalin Allergy Unknown Unknown Verified 10/15/19 07:36 rosuvastatin Allergy Unknown Muscle pain Verified 10/15/19 07:36 Yeizrgg-Fzi-Mpm Reductase Allergy Unknown muscle Verified 10/15/19 07:36 Inhibitor crampin Barley Flour Allergy Severe abdominal Uncoded 10/15/19 07:36 pain Oat Allergy Severe abdominal Uncoded 10/15/19 07:36 pain [place] Allergy Severe abdominal Uncoded 10/15/19 07:36 pain [place] Flour Allergy Severe abdominal Uncoded 10/15/19 07:36 pain Gluten Flour Allergy Intermediate Other Uncoded 10/03/19 10:00 Home Medications Medication Instructions Recorded Confirmed Type amlodipine 2.5 mg tablet 2.5 mg PO DAILY 01/26/19 10/08/19 History blood sugar diagnostic #10 each 01/26/19 06/08/19 History indapamide 2.5 mg tablet 2.5 mg PO DAILY 01/26/19 10/08/19 History insulin lispro 100 unit/mL 6 unit SUB-Q .COMPLEX 01/26/19 10/08/19 History subcutaneous pen pen needle, diabetic 32 gauge x #50 each 01/26/19 06/08/19 History 1/4 carvedilol 25 mg tablet 25 mg PO Q12H #180 tablet 05/04/19 10/08/19 Rx lisinopril 40 mg PO DAILY 06/08/19 10/08/19 History duloxetine 60 mg capsule,delayed 60 mg PO DAILY #90 cap 06/12/19 10/08/19 Rx release tamsulosin 0.4 mg capsule 0.4 mg PO DAILY #90 cap 06/12/19 10/08/19 Rx clopidogrel 75 mg tablet 75 mg PO DAILY #90 tablet 09/07/19 10/08/19 Rx atorvastatin 40 mg PO DAILY 10/08/19 10/08/19 History eszopiclone 1 mg tablet 1 mg PO HS #30 tablet 10/08/19 10/08/19 Rx eszopiclone 3 mg tablet 3 mg PO .QHS #30 tablet 10/08/19 10/08/19 Rx insulin detemir U-100 [Levemir 60 unit SUB-Q DAILY 10/08/19 10/08/19 History FlexTouch U-100 Insuln] Laboratory Tests 10/15/19 07:56 POC Capillary Glucose 169 mg/dl H mg/dl (65-105) Patient hx anesthesia problems: none Family hx anesthesia problems: none PMFSH Past Medical History Medical History (Updated 10/15/19 @ 08:14 by Eduin Gao DO) Anemia Chronic insomnia History of CVA (cerebrovascular accident) 2017 - LLE weak HLD (hyperlipidemia) HTN (hypertension), benign Hy kid NOS w cr kid I-IV Long-term insulin use Numbness of arm Type 2 diabetes mellitus with diabetic neuropathy, unspecified Surgical History Surgical History H/O vitrectomy History of cervical spinal surgery Status post cataract extraction Family History Family History Father Celiac disease Son Celiac disease Sibling Family history of obesity Hypertension Cerebrovascular accident Family history of diabetes mellitus in first degree relative Family history of heart disease in male family member before age 55 Grandparent Family history of mental disorder Mother Cerebrovascular accident Family history of arthritis Family history of hearing loss Father Family history of congestive heart failure Family history of heart disease in male family member before age 55 Social History Social History Smoking packs per day: 1 Smoking cigarettes per day: 20.0 Years smoked: 18 Smoking pack-years: 18.00 Smoking
[2019-10-15] MEDS: SODIUM CHLORIDE 0.9% IV 500 ML IV CONT (08:46)
[2019-10-15 09:40] VITALS: BP 113/58; PULSE 64; RESP 22; O2SAT 99
[2019-10-15 09:44] LABS: Glucose Point of Care 168 (65-105)
[2019-10-15 09:50] VITALS: BP 136/65; PULSE 68; RESP 18; O2SAT 100
[2019-10-15 10:00] VITALS: BP 114/63; PULSE 61; RESP 21; O2SAT 99
[2019-10-15 10:10] VITALS: BP 131/71; PULSE 62; RESP 19; O2SAT 97
== END 2019-10-15 10:26 | disposition home or self-care (01) ==
PROVIDERS: PCP Family Medicine; Visit Provider Internal Medicine Gastroenterology
PROC: 0DJD8ZZ Inspection of Lower Intestinal Tract, Via Natural or Artificial Opening Endoscopic (ICD-10-PCS; CPT 45378; principal; 2019-10-15 08:30)
DX: Z12.11 Encounter for screening for malignant neoplasm of colon (principal); D12.2 Benign neoplasm of ascending colon; K63.5 Polyp of colon; K64.8 Other hemorrhoids; I10 Essential (primary) hypertension; E78.5 Hyperlipidemia, unspecified; E11.40 Type 2 diabetes mellitus with diabetic neuropathy, unspecified; Z79.4 Long term (current) use of insulin; Z79.02 Long term (current) use of antithrombotics/antiplatelets; Z87.891 Personal history of nicotine dependence; E66.9 Obesity, unspecified; Z68.37 Body mass index [BMI] 37.0-37.9, adult
CPT/HCPCS: 45380; 45385; 88305; J2704; J7040; J7120

== ENCOUNTER 2019-12-24 10:16 | Outpatient (CLI) | payer MEDICARE, SELFPAY ==
--- NOTE | ~2019-12-24 | MR_ITS ---
EXAMINATION: MR cervical spine wo con DATE: 12/24/2019 11:17 INDICATION: Cervical myelopathy. TECHNIQUE: Magnetic resonance imaging (MRI) of the cervical spine was performed without intravenous c ontrast. Sequences included sagittal T2-weighted FSE, sagittal STIR FSE, sagittal T1-weighted FSE, ax ial MERGE, and axial T2-weighted FSE. COMPARISON: None FINDINGS: There is 2 mm retrolisthesis of C3 on C4. There is interbody fusion at C6-C7. There is mode rately decreased disc height from C3-C4 through C5-C6. At C5-C6, there is increased T2-weighted signa l intensity in the spinal cord, consistent with myelomalacia. The following disc levels are specifica lly discussed: C2-C3: The disc does not extend beyond the endplate margin. There is mild right and moderate left unc overtebral joint osteoarthritis. There is severe bilateral facet joint osteoarthritis. There is mild left neural foraminal stenosis. There is no central canal stenosis. C3-C4: The disc is bulging. There is severe bilateral uncovertebral joint osteoarthritis. There is mi ld bilateral facet joint osteoarthritis. There is severe bilateral neural foraminal stenosis. There i s mild central canal stenosis with ventral indentation of the spinal cord. C4-C5: The disc is bulging. There is moderate bilateral uncovertebral joint osteoarthritis. There is severe right and moderate left facet joint osteoarthritis. There is moderate bilateral neural foramin al stenosis. There is mild central canal stenosis. C5-C6: The disc is bulging. There is severe bilateral uncovertebral joint osteoarthritis. There is mo derate bilateral facet joint osteoarthritis. There is moderate bilateral neural foraminal stenosis. T here is moderate central canal stenosis with ventral and dorsal indentation of spinal cord. C6-C7: There is mild bilateral uncovertebral joint hypertrophy. There is mild bilateral facet joint o steoarthritis. There is mild bilateral neural foraminal stenosis. There is no central canal stenosis. C7-T1: The disc does not extend beyond the endplate margin. There is no uncovertebral joint osteoarth ritis. There is severe right and moderate left facet joint osteoarthritis. There is mild bilateral ne ural foraminal stenosis. There is no central canal stenosis. IMPRESSION: 1. Myelomalacia at C5-C6. 2. Moderate cervical spondylosis. 3. Anterior fusion at C6-C7. Reviewed, dictated and finalized at location A.
== END 2019-12-24 10:17 | disposition home or self-care (01) ==
PROVIDERS: PCP Family Medicine; Visit Provider Psychiatry & Neurology Neurology
DX: G95.9 Disease of spinal cord, unspecified (principal); M47.812 Spondylosis without myelopathy or radiculopathy, cervical region; Z98.1 Arthrodesis status
CPT/HCPCS: 72141

== ENCOUNTER 2020-01-03 09:53 | Outpatient (CLI) | payer MEDICARE, SELFPAY ==
--- NOTE | 2020-01-03 11:30 | NEURO_ITS ---
Patient Number: [id number] Impression: # Complains of numbness of both hands. # Bilateral Carpal Tunnel Syndrome , left more than right. # No ulnar neuropathy. # Needle/EMG exam of Abd Poll Brevis abnormal bilaterally. # Clinical correlation recommended. Nerve Conduction Studies Anti Sensory Summary Table Stim Site NR Peak (ms) P-T Amp (?V) Site1 Site2 Delta-P (ms) Dist (cm) Jason (m/s) Left Median Anti Sensory (2-3nd Digit) NO RESPONSE Wrist NR Wrist 2-3nd Digit 14.0 Wrist NR Wrist 2-3nd Digit 14.0 Right Median Anti Sensory (2-3nd Digit) Wrist 4.8 5.8 Wrist 2-3nd Digit 4.8 14.0 29 Wrist 5.6 18.6 Wrist 2-3nd Digit 4.8 14.0 29 Left Radial Anti Sensory (Base 1st Digit) Wrist 3.0 7.9 Wrist Base 1st Digit 3.0 0.0 Right Radial Anti Sensory (Base 1st Digit) Wrist 3.3 5.9 Wrist Base 1st Digit 3.3 0.0 Left Ulnar Anti Sensory (5th Digit) Wrist 3.1 20.7 Wrist 5th Digit 3.1 14.0 45 Right Ulnar Anti Sensory (5th Digit) Wrist 3.2 19.3 Wrist 5th Digit 3.2 14.0 44 Motor Summary Table Stim Site NR Onset (ms) O-P Amp (mV) Site1 Site2 Delta-0 (ms) Dist (cm) Jason (m/s) Left Median Motor (Abd Poll Brev) Wrist 6.1 1.0 Elbow Wrist 6.9 30.0 43 Elbow 13.0 0.8 Right Median Motor (Abd Poll Brev) Wrist 5.1 1.3 Elbow Wrist 6.1 29.0 48 Elbow 11.2 1.3 Left Ulnar Motor (Abd Dig Minimi) Wrist 3.0 4.3 A Elbow Wrist 6.7 31.0 46 A Elbow 9.7 3.1 Right Ulnar Motor (Abd Dig Minimi) Wrist 3.3 4.4 A Elbow Wrist 6.5 31.0 48 A Elbow 9.8 2.3 F Wave Studies NR F-Lat (ms) L-R F-Lat (ms) Left Median (Mrkrs) (Abd Poll Brev) 34.30 0.83 Right Median (Mrkrs) (Abd Poll Brev) 35.13 0.83 Left Ulnar (Mrkrs) (Abd Dig Min) 29.94 0.02 Right Ulnar (Mrkrs) (Abd Dig Min) 29.92 0.02 EMG Side Muscle Nerve Root Ins Act Fibs Amp Dur Recrt Comment Right 1stDorInt Ulnar C8-T1 Nml Nml Nml Nml Nml Right Ext Indicis Radial (Post Int) C7-8 Nml Nml Nml Nml Nml Right Ext Digitorum Radial (Post Int) C7-8 Nml Nml Nml Nml Nml Right BrachioRad Radial C5-6 Nml Nml Nml Nml Nml Right PronatorTeres Median C6-7 Nml Nml Nml Nml Nml Right Abd Poll Brev Median C8-T1 Nml Nml Nml >12ms Reduced Left 1stDorInt Ulnar C8-T1 Nml Nml Nml Nml Nml Left Ext Indicis Radial (Post Int) C7-8 Nml Nml Nml Nml Nml Left Ext Digitorum Radial (Post Int) C7-8 Nml Nml Nml Nml Nml Left BrachioRad Radial C5-6 Nml Nml Nml Nml Nml Left PronatorTeres Median C6-7 Nml Nml Nml Nml Nml Left Abd Poll Brev Median C8-T1 Nml Nml Nml >12ms Reduced MTDD
== END 2020-01-03 09:54 | disposition home or self-care (01) ==
PROVIDERS: PCP Family Medicine; Visit Provider Family Medicine
DX: R20.0 Anesthesia of skin (principal); G56.03 Carpal tunnel syndrome, bilateral upper limbs
CPT/HCPCS: 95886; 95911

== ENCOUNTER 2020-02-07 11:19 | Inpatient (IN) | payer MEDICARE, SELFPAY ==
[2020-02-07] VITALS (33 sets, daily range): BP systolic 052–168; BP diastolic 56–86; PULSE 55–97; RESP 11–22; TEMP 35.8–36.8; O2SAT 86–100; BMI 37.1
--- NOTE | ~2020-02-07 | CT_ITS ---
EXAMINATION: CT brain wo con DATE: 02/07/2020 11:47 INDICATION: Double vision, walking to the right. History of cerebrovascular accident. Patient on anti coagulant therapy. TECHNIQUE: Computed tomography (CT) of the head was performed without intravenous contrast. The mA wa s adjusted according to patient size. Iterative reconstruction technique was employed. Exam dose: 60 5.33 mGy-cm total exam DLP. COMPARISON: 08/18/2017 CT brain FINDINGS: Bilateral vertebral artery and carotid siphon internal carotid artery calcifications. There is nonspecific diminished attenuation of the subcortical and periventricular cerebral white matter, likely due to chronic small vessel ischemic change. There is moderate central and cortical cerebral v olume loss. No intracranial mass lesion or hemorrhage, midline shift or mass effect or subdural or epidural hemat beny is detected. No orbital mass lesion. No fracture or bone destruction of the cranial vault. Included paranasal sinuses and mastoid air cell s are unremarkable. IMPRESSION: Cerebral atherosclerosis and chronic small vessel ischemic changes of the cerebral white matter Cerebral atrophy Reviewed, dictated and finalized at Location [facility]. Reviewed, dictated and finalized at location A. RHOUSE MECHANIC SUPERVISOR
--- NOTE | ~2020-02-07 | MR_ITS ---
EXAMINATION: MR brain/brain stem wo con DATE: 02/08/2020 09:31 INDICATION: Stroke. Cranial nerve III palsy. TECHNIQUE: Magnetic resonance imaging (MRI) of the brain and brainstem was performed without intraven ous contrast. Sequences included sagittal and axial T1-weighted FSE, axial diffusion-weighted FS EPI, axial T2*-weighted GRE, axial T2-weighted FLAIR Propeller, axial T2-weighted Propeller, small field- of-view coronal FIESTA, small [id number] coronal T1-weighted FSE, and small [id number] axial T1 -weighted SPGR. Apparent diffusion coefficient (ADC) maps were created. COMPARISON: Brain MRI 08/19/2017, head CT 02/07/2020 FINDINGS: There is a punctate old microhemorrhage in left thalamus. There are old lacunar infarcts in the doron and bilateral thalami. There are scattered areas of nonspecific increased T2-weighted signa l intensity in the cerebral white matter. There is no acute ischemic infarct or abnormal mass lesion. The ventricles are normal in size. There is mild mucosal thickening in the ethmoid sinuses. There ar e likely changes of ocular lens replacement surgeries. The mastoid air cells are normal. IMPRESSION: 1. Old lacunar infarcts in the doron and bilateral thalami. 2. Stable extensive nonspecific cerebral white matter disease, which likely represents chronic small vessel ischemic disease. Reviewed, dictated and finalized at location A. RAMMING DEVELOPMENT PROJECT MANAGER IMPRESSION: 1. Old lacunar infarcts in the doron and bilateral thalami. 2. Stable extensive nonspecific cerebral white matter disease, which likely rep resents chronic small vessel ischemic disease.
--- NOTE | ~2020-02-07 | XR_ITS ---
XR chest 1V portable DATE: 02/07/2020 12:11 INDICATION: Double vision, leaning to the right. History of cerebrovascular accident TECHNIQUE: Portable AP chest on 02/07/2020 1203 hours COMPARISON: 06/08/2019 AP and lateral chest PA and lateral chest FINDINGS: Normal heart size. No hilar or mediastinal enlargement. There is mild elevation of the right leaf of the diaphragm. Approximately 1 cm nodular density overlying the right lower lung base, likely corresponding to a mala cified pulmonary granuloma on 07/21/2017 chest radiograph. No pulmonary infiltrate or consolidation, pleural effusion or pulmonary vascular congestion or pneumo thorax. IMPRESSION: No active cardiopulmonary disease Reviewed, dictated and finalized at location A. [facility] TECHNICIAN
--- NOTE | 2020-02-07 11:23 | ECG_ITS ---
Measurements Intervals Mobile Rate: 69 P: 55 MN: 233 QRS: -72 QRSD: 137 T: 19 QT: 402 QTc: 431 Interpretive Statements SINUS RHYTHM WITH FIRST DEGREE AV BLOCK SUPRAVENTRICULAR BIGEMINY AND ATRIAL PREMATURE COMPLEX RIGHT BUNDLE BRANCH BLOCK LEFT ANTERIOR FASCICULAR BLOCK ABNORMAL ECG Electronically Signed On 02-07-2020 16:05:11 FARE COLLECTOR by Yury Lawrence D.O.
[2020-02-07 11:33] LABS: Glucose Point of Care 182 (65-105)
--- NOTE | 2020-02-07 11:34 | ED.NEUROSD ---
HPI - Neuro Symptoms/Deficit General Chief Complaint: Suspected CVA Stated Complaint: double vision Time Seen by Provider: 02/07/20 11:23 History of Present Illness HPI Narrative: Patient is a 69-year-old male who presents ER with concerns for CVA. Patient reports at midnight last night he noticed he had double vision. This is persisted throughout the day. Reports it makes it difficult for him to walk any moves to the right side. When he closes each of his eyes he has normal vision. No loss of vision and visual jones. No arm weakness or numbness. No slurred speech. Has history of previous CVA. He is on Plavix. Related Data Home Medications Medication Instructions Recorded Confirmed amlodipine 2.5 mg tablet 2.5 mg PO DAILY 01/26/19 10/08/19 blood sugar diagnostic #10 each 01/26/19 06/08/19 indapamide 2.5 mg tablet 2.5 mg PO DAILY 01/26/19 10/08/19 pen needle, diabetic 32 gauge x #50 each 01/26/19 06/08/1903/17 lisinopril 40 mg PO DAILY 06/08/19 10/08/19 Allergies Allergy/AdvReac Type Severity Reaction Status Date / Time barley Allergy Severe abdominal Verified 11/01/19 16:08 pain wheat Allergy Severe abdominal Verified 11/01/19 16:08 pain atorvastatin Allergy Unknown Muscle pain Verified 11/01/19 16:08 pregabalin Allergy Unknown Unknown Verified 11/01/19 16:08 rosuvastatin Allergy Unknown Muscle pain Verified 11/01/19 16:08 Mchrbvz-Vwb-Wjw Reductase Allergy Unknown muscle Verified 11/01/19 16:08 Inhibitor crampin Barley Flour Allergy Severe abdominal Uncoded 11/01/19 16:08 pain Oat Allergy Severe abdominal Uncoded 11/01/19 16:08 pain [place] Allergy Severe abdominal Uncoded 11/01/19 16:08 pain [place] Flour Allergy Severe abdominal Uncoded 11/01/19 16:08 pain Gluten Flour Allergy Intermediate Other Uncoded 11/01/19 16:08 Review of Systems Review of Systems: All systems reviewed & are unremarkable except as noted in HPI and below Eyes: Eyes: Denies blurry vision, Denies change in vision and Reports diplopia Neurologic: Denies Abnormal speech present, Reports dizziness, Denies focal weakness and Denies numbness [facility] Past Medical History Medical History (Updated 02/07/20 @ 13:34 by Rk Webber MD) Anemia Arthritis Chronic insomnia Colon polyps History of CVA (cerebrovascular accident) 2018 - LLE weak HLD (hyperlipidemia) HTN (hypertension), benign Hy kid NOS w cr kid I-IV Long-term insulin use Numbness of arm Type 2 diabetes mellitus with diabetic neuropathy, unspecified Surgical History Surgical History H/O vitrectomy History of cervical spinal surgery Status post cataract extraction Family History Family History Father Celiac disease Son Celiac disease Sibling Family history of obesity Hypertension Cerebrovascular accident Family history of diabetes mellitus in first degree relative Family history of heart disease in male family member before age 55 Grandparent Family history of mental disorder Mother Cerebrovascular accident Family history of arthritis Family history of hearing loss Father Family history of congestive heart failure Family history of heart disease in male family member before age 55 Social History Social History Smoking packs per day: 1 Smoking cigarettes per day: 20.0 Years smoked: 18 Smoking pack-years: 18.00 Smoking status: Former smoker Tobacco type: cigarettes, pipe and cigars Second hand tobacco smoke exposure: No Smoking end date: 03/14/11 Alcohol intake: former Substance use: never Substance use type: does not use Gender identity (if verbalized by the patient): Male Spiritual care concerns: No Agree to blood products: Yes Exam Narrative: Exam Narrative: GENERAL: Well-appearing, well-nourished, and in no acute
[2020-02-07 11:38] LABS: Basophils Absolute Auto 0.1 K/mm3 (0.0-0.1); Basophils Percent Auto 0.8 % (0.2-1.2); Eosinophils Absolute Auto 0.2 K/mm3 (0-0.3); Eosinophils Percent Auto 2.6 % (0-4.4); Hematocrit 35.2 % (42.0-52.0); Hemoglobin 11.9 g/dL (14.0-18.0); Immature Granulocyte Absolute 0.02 K/mm3 (0.00-0.031); Immature Granulocyte Percent A 0.3 % (0-0.5); Lymphocytes Absolute Auto 1.19 K/mm3 (0.9-3.2); Lymphocytes Percent Auto 16.4 % (18.3-44.2); Mean Corpuscular HGB Conc 33.8 g/dl (32-36); Mean Corpuscular Hemoglobin 31.4 pg (26-34); Mean Corpuscular Volume 92.9 fl (80-100); Mean Platelet Volume 9.8 fl (7.4-10.4); Monocytes Absolute Auto 0.7 K/mm3 (0.1-0.6); Neutrophils Absolute Auto 5.1 K/mm3 (1.3-6.7); Neutrophils Percent Auto 70.9 % (45.5-73.1); Platelet Count Result 197 k/mm3 (150-375); Red Blood Count 3.79 M/mm3 (4.6-6.20); Red Cell Distribution Width 12.8 % (11.5-14.5); White Blood Count 7.3 K/mm3 (4.5-10.0)
[2020-02-07 11:48] LABS: INR 1.1; Prothrombin Time 14.3 Seconds (11.1-14.7)
[2020-02-07 11:49] LABS: Partial Thromboplastin Time 28.8 SECONDS (22.3-36.8)
[2020-02-07 11:53] LABS: Anion Gap 7 mmol/L (8-16); Blood Urea Nitrogen 60 mg/dL (9-20); Calcium 8.4 mg/dL (8.4-10.2); Carbon Dioxide 30 mmol/L (22-30); Chloride 101 mmol/L (98-107); Estimated CRCL calculation 26 ml/min; Estimated Glomerular Filt Rate 19; Glucose 194 mg/dL (75-110); Potassium 4.1 mmol/L (3.4-5.0); Sodium 138 mmol/L (137-145)
[2020-02-07 12:05] LABS: Troponin I < 0.012 ng/mL (0.000-0.034)
--- NOTE | 2020-02-07 14:45 | PC.NURSE ---
This patient, Dewayne Fagan, was admitted to Medical Room 340-01. Patient/family oriented to hospital policies and general routines including ID bracelet, bed and alarms, visiting hours, pain management, procedures, bathroom and other care routines, personal items, smoking policy, room service/diet, and visiting hours. Information on how to activate the Rapid Response Team has been discussed. Patient/Family are encouraged to report perceived risks to care and to ask questions if they do not understand what they are told or what they should do.
--- NOTE | 2020-02-07 15:00 | PM.IMHP ---
H&P: HPI History of Present Illness Date/Time: 02/07/20 15:00 Chief complaint: Double vision. Narrative: Dewayne Fagan is a 69-year-old male with history of cerebrovascular accident, insulin-dependent diabetes, hypertension, anemia, chronic kidney disease, and several other comorbidities who presented to the emergency department earlier today with reports of double vision. He was in his usual state of health when he went to bed last night and got up several times to urinate as per his usual. One of those times he noticed that his vision was a bit blurry but he did not think much of it. Upon waking this morning he had binocular diplopia and came in for evaluation. Triage note states that the patient was also ?leaning to the right? however he denied this to me. He denies headache, neck ache, vertigo, and focal weakness (aside from his chronic, intermittent left lower leg weakness from previous stroke). No facial droop, dysphagia, or dysarthria. Review of Systems Review of Systems: Narrative: Twelve systems were reviewed with pertinent positives and negatives as per HPI. No fever, chills, or sweats. No recent cold or flu symptoms. Diabetes is well controlled with a recent hemoglobin A1c of 6.2%. He does have neuropathy in his feet, and that is unchanged. From his previous lower okay has some mild left lower extremity weakness, more so in his left knee ?sometimes it just gives out. He recently had an EMG due to symptoms of carpal tunnel. He denies sick contacts. Except as documented, all other systems were reviewed and are negative. [facility] Past Medical History Medical History (Updated 02/07/20 @ 15:34 by Cara De Leon PA-C) Anxiety Arthritis Benign prostatic hyperplasia Celiac disease Cerebrovascular accident (~2018) 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 CAMILLA was unremarkable. Chronic anemia Chronic insomnia Chronic kidney disease, stage 4 (severe) Creatinine ranges between 2.8 and 3.30. Colon polyps Depression Diabetic peripheral neuropathy Hyperlipidemia Hypertension Insulin dependent type 2 diabetes mellitus Kidney stones Numbness of arm Surgical History Surgical History (Updated 02/07/20 @ 15:31 by Cara De Leon PA-C) History of cataract extraction History of cervical spinal surgery History of surgical procedure on eye proper using laser History of vitrectomy Status post cataract extraction Family History Family History Father Celiac disease Son Celiac disease Sibling Family history of obesity Hypertension Cerebrovascular accident Family history of diabetes mellitus in first degree relative Family history of heart disease in male family member before age 55 Grandparent Family history of mental disorder Mother Cerebrovascular accident Family history of arthritis Family history of hearing loss Father Family history of congestive heart failure Family history of heart disease in male family member before age 55 Social History Social History (Updated 02/07/20 @ 19:32 by Cara De Leon PA-C) Social History: Surrogate decision maker: Monica Fagan, . Code status: Full code. Smoking packs per day: 1 Smoking cigarettes per day: 20.0 Years smoked: 18 Smoking pack-years: 18.00 Smoking status: Former smoker Tobacco type: cigarettes, pipe and cigars Second hand tobacco smoke exposure: No Smoking end date: 12/27/07 Alcohol intake: former Substance use: never Substance use type: does not use Additional living arrangements comments: Resides with his in [place]. Additional occupation/education comments: Retired from [employer]. Gender identity (if verbalized by the patient): Male Spiritual care concerns: No Agree to blood products: Yes Meds Home Medications and Allergies Home Medications Medication Instructions Recorded Confirmed T
[2020-02-07] MEDS: SODIUM CHLORIDE 0.9% IV 1,000 ML 100 ML IV CONT (16:12)
[2020-02-07] MEDS: INSULIN ASPART (*BKC) 100 UNITS/ML SUB-Q (22:24)
[2020-02-07 23:02] LABS: Glucose Point of Care 270 (65-105)
[2020-02-08] VITALS (8 sets, daily range): BP systolic 150–188; BP diastolic 63–96; PULSE 52–92; RESP 14–18; TEMP 36.1–36.6; O2SAT 95–100
[2020-02-08 06:07] LABS: Hematocrit 33.6 % (42.0-52.0); Hemoglobin 11.6 g/dL (14.0-18.0); Mean Corpuscular HGB Conc 34.5 g/dl (32-36); Mean Corpuscular Volume 92.6 fl (80-100); Mean Platelet Volume 10.2 fl (7.4-10.4); Platelet Count Result 189 k/mm3 (150-375); Red Blood Count 3.63 M/mm3 (4.6-6.20); Red Cell Distribution Width 12.8 % (11.5-14.5); White Blood Count 6.7 K/mm3 (4.5-10.0)
[2020-02-08 06:22] LABS: Alanine Aminotransferase 14 U/L (4-50); Albumin Level 3.6 g/dL (3.5-5.1); Alkaline Phosphatase 58 U/L (38-126); Anion Gap 9 mmol/L (8-16); Aspartate Amino Transferase 21 U/L (17-59); Bilirubin,Total 0.9 mg/dL (0.2-1.3); Blood Urea Nitrogen 55 mg/dL (9-20); Calcium 8.4 mg/dL (8.4-10.2); Carbon Dioxide 25 mmol/L (22-30); Chloride 105 mmol/L (98-107); Estimated CRCL calculation 31 ml/min; Estimated Glomerular Filt Rate 22; Glucose 200 mg/dL (75-110); Magnesium 2.1 mg/dL (1.6-2.3); Potassium 3.7 mmol/L (3.4-5.0); Sodium 139 mmol/L (137-145)
[2020-02-08 07:35] LABS: Glucose Point of Care 206 (65-105)
[2020-02-08] MEDS: INSULIN ASPART (*BKC) 100 UNITS/ML SUB-Q ×2 (07:42→11:56)
[2020-02-08] MEDS: ASPIRIN 81 MG ENTERIC TABLET PO (10:44)
[2020-02-08 11:27] LABS: Glucose Point of Care 256 (65-105)
--- NOTE | 2020-02-08 11:27 | WPDNEURCNPN ---
Assessment and Plan Assessment and plan (1) Stroke-like symptom: Code(s): R29.90 - Unspecified symptoms and signs involving the nervous system Status: Acute (2) CN III palsy, right eye: Code(s): H49.01 - Third [oculomotor] nerve palsy, right eye Status: Acute (3) Type 2 diabetes mellitus with diabetic neuropathy, unspecified: Code(s): E11.40 - Type 2 diabetes mellitus with diabetic neuropathy, unspecified Status: Acute (4) History of CVA (cerebrovascular accident): Code(s): Z86.73 - Personal history of transient ischemic attack (TIA), and cerebral infarction without residual deficits Status: Acute Additional Plan rule out the possibility of brainstem involvement in addition to the possibility of only isolated 3rd nerve involvement on the basis of Diabetes mellitus Consult date: 02/08/20 Time Seen: 11:15 HPI: Dewayne Fagan is a 69 year old male with history of cerebrovascular accident in addition to 1. Insulin-dependent diabetes mellitus 2. Hypertension 3. Chronic kidney disease 4. Anemia presented to the emergency room of [facility] with complaints of double vision upon waking up this morning he was with binocular diplopia with leaning to the right side without associated headache or neck ache or vertigo but with history of chronic intermittent left lower extremity weakness from previous stroke. Evaluation documented negative CT scan for the bleed except the chronic small-vessel ischemic changes, MRI of the brain is pending and chest x-ray without any acute parenchyma disc disease, routine labs with hyperglycemia and elevated BUN and creatinine PMFSH Past Medical History Medical History Anxiety Arthritis Benign prostatic hyperplasia Celiac disease Cerebrovascular accident (~2018) 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 CAMILLA was unremarkable. Chronic anemia Chronic insomnia Chronic kidney disease, stage 4 (severe) Creatinine ranges between 2.8 and 3.30. Colon polyps Depression Diabetic peripheral neuropathy Hyperlipidemia Hypertension Insulin dependent type 2 diabetes mellitus Kidney stones Numbness of arm Surgical History Surgical History History of cataract extraction History of cervical spinal surgery History of surgical procedure on eye proper using laser History of vitrectomy Status post cataract extraction Family History Family History Father Celiac disease Son Celiac disease Sibling Family history of obesity Hypertension Cerebrovascular accident Family history of diabetes mellitus in first degree relative Family history of heart disease in male family member before age 55 Grandparent Family history of mental disorder Mother Cerebrovascular accident Family history of arthritis Family history of hearing loss Father Family history of congestive heart failure Family history of heart disease in male family member before age 55 Social History Social History Social History: Surrogate decision maker: Monica Fagan, . Code status: Full code. Smoking packs per day: 1 Smoking cigarettes per day: 20.0 Years smoked: 18 Smoking pack-years: 18.00 Smoking status: Former smoker Tobacco type: cigarettes, pipe and cigars Second hand tobacco smoke exposure: No Smoking end date: 12/27/07 Alcohol intake: former Substance use: never Substance use type: does not use Additional living arrangements comments: Resides with his in [place]. Additional occupation/education comments: Retired from [employer]. Gender identity (if verbalized by the patient): Male Spiritual care concerns: No Agree to blood products: Yes Meds Home Medications and Allergies Home Medications Medicat
[2020-02-08] MEDS: carvediloL 25 MG TABLET BY MOUTH (12:05)
[2020-02-08] MEDS: ATORVASTATIN 40 MG TABLET PO (12:05)
[2020-02-08] MEDS: DULoxetine HCL 60 MG CAPSULE.DR PO (12:05)
[2020-02-08] MEDS: TAMSULOSIN HCL 0.4 MG CAPSULE PO (12:05)
--- NOTE | 2020-02-08 16:01 | PM.DS ---
DS: Admitting Diagnosis Admitting Diagnosis Admitting Diagnosis: Double vision. 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: Code(s): E11.49 - Type 2 diabetes mellitus with other diabetic neurological complication; G52.9 - Cranial nerve disorder, unspecified Status: Acute Assessment and Plan: Patient presented with double vision which has improved but not resolved this hospitalization -MRI of the brain is negative for acute pathology -neurology consulted and made the diagnosis of cranial nerve palsy -patient plans to follow-up with neurology in 6 weeks and ophthalmology (2) Hypertension: Code(s): I10 - Essential (primary) hypertension Status: Inactive Assessment and Plan: Last blood pressure 174/96 and was probably running high due to holding his blood pressure medications until we ruled out CVA. Continue home medications and follow-up with primary care physician (3) Insulin dependent type 2 diabetes mellitus: Code(s): E11.9 - Type 2 diabetes mellitus without complications; Z79.4 - ocean transportation intermediary (current) use of insulin Status: Inactive Assessment and Plan: Last glucose 256 -Levemir and Humalog at home (4) Chronic kidney disease, stage 4 (severe): Code(s): N18.4 - Chronic kidney disease, stage 4 (severe) Status: Inactive Assessment and Plan: At baseline -of note, patient is on lisinopril. He should follow up with primary care physician to see if this should be discontinued (5) Chronic anemia: Code(s): D64.9 - Anemia, unspecified Status: Inactive Assessment and Plan: -hgb 11.6, stable (6) Benign prostatic hyperplasia: Code(s): N40.0 - Benign prostatic hyperplasia without lower urinary tract symptoms Status: Inactive Assessment and Plan: Continue flomax (7) CN III palsy, right eye: Code(s): H49.01 - Third [oculomotor] nerve palsy, right eye Status: Acute DS: Summary Hospital Course Reason for hospitalization: double vision Hospital Course: Patient is a 69-year-old male with a past medical history of diabetes, history of CVA, and chronic kidney disease who presented emergency room for double vision. Head CT was negative for acute pathology and chest x-ray was negative. Patient was admitted to the hospitalist service and monitored. Underwent MRI which did not show any acute pathology. His double vision improved as did his neuro exam. The day of discharge he was able to tell me how many fingers I was holding with each individual eye and was able to do [id number] with both eyes open. He was able to read things on the distance such as the clock. No other neurological deficits were noted. He was on telemetry which showed 1 episode of missed beat with a possible 1st degree block. Patient did not have any chest pain, shortness of breath, or passing out. He had his typical foot numbness that he attributes to his peripheral neuropathy and is chronic and unchanged. The day of discharge she had no further complaints and is going to follow-up with neurology and his eye doctor. He was educated about the worrisome signs and symptoms to come back to emergency room for and was discharged in stable condition Status at Discharge Overall status at discharge: patient is progressing back to baseline Time Spent with Patient Time attestation: Total time spent providing and/or coordinating discharge services:36 min Time spent: Greater than 30 minutes Exam Narrative: Exam Narrative: General: Overweight patient resting comfortably in bed in no acute distress HEENT: normocephalic Neck: supple Neuro: Alert and oriented x4. Cranial nerves 2-12 intact. Able to do rapid alternating movement and finger-nose. Able to tell me how many fingers I was holding up with each eye. CV:RRR. Telemetry reviewed which look like normal sinus rhythm with 1 e
== END 2020-02-08 16:59 | disposition home or self-care (01) | DRG 74 ==
LOC: ANHED 13:34 → ANH3MED 14:18
PROVIDERS: Physician Assistant; Admitting Provider Student in an Organized Health Care Education/Training Program; Emergency Provider Emergency Medicine; PCP Family Medicine; Visit Provider Internal Medicine
DX: E11.41 Type 2 diabetes mellitus with diabetic mononeuropathy (principal); N18.4 Chronic kidney disease, stage 4 (severe); H49.01 Third [oculomotor] nerve palsy, right eye; E11.22 Type 2 diabetes mellitus with diabetic chronic kidney disease; I12.9 Hypertensive chronic kidney disease with stage 1 through stage 4 chronic kidney disease, or unspecified chronic kidney disease; E11.42 Type 2 diabetes mellitus with diabetic polyneuropathy; D64.9 Anemia, unspecified; N40.0 Benign prostatic hyperplasia without lower urinary tract symptoms; E78.5 Hyperlipidemia, unspecified; K90.0 Celiac disease; I69.344 Monoplegia of lower limb following cerebral infarction affecting left non-dominant side; Z79.4 Long term (current) use of insulin; Z79.899 Other long term (current) drug therapy; Z86.010 Personal history of colon polyps; Z87.891 Personal history of nicotine dependence; Z98.49 Cataract extraction status, unspecified eye
CPT/HCPCS: 36415; 70450; 70551; 71045; 80048; 80053; 82948; 83735; 84484; 85025; 85027; 85610; 85730; 93005; 96360; 96361; 99285; A9270; G0378; J1815; J7030

== ENCOUNTER 2020-03-15 01:21 | Outpatient (CLI) | payer MEDICARE, SELFPAY ==
[2020-03-15 20:08] LABS: SARS-CoV-2 RNA PCR Negative
== END 2020-03-15 01:22 | disposition home or self-care (01) ==
LOC: ANHCOVIDDT 01:21
PROVIDERS: PCP Family Medicine; Visit Provider Plastic Surgery
DX: Z01.812 Encounter for preprocedural laboratory examination (principal); Z20.822 Contact with and (suspected) exposure to COVID-19
CPT/HCPCS: C9803; U0003

== ENCOUNTER 2020-03-19 01:07 | Day surgery (SDC) | payer MEDICARE, SELFPAY ==
[2020-03-05 15:01] VITALS: BMI 36.6
[2020-03-19 06:38] VITALS: BP 149/67; PULSE 62; RESP 20; TEMP 36.6; O2SAT 99
[2020-03-19] MEDS: LACTATED RINGERS 1,000 ML 30 ML IV CONT (07:09)
[2020-03-19 07:11] LABS: Glucose Point of Care 109 (65-105)
--- NOTE | 2020-03-19 07:12 | WPDHPUPDATE1 ---
History and Physical Update Update Date/Time: 03/19/20 07:12 History and Physical has been reviewed, including an updated exam of the patient. There are NO changes in the patient's condition. Risks, benefits, and alternatives have been discussed and questions answered. Patient agrees to proceed with procedure.
--- NOTE | 2020-03-19 07:37 | WPDANESEPPF ---
Anes - Initial Pre Proc Eval Procedure: Operation Date: 03/19/20 08:30 Proposed Procedures p Bilateral Open Carpal Tunnel Release - Jordan Kyle MD Date/Time: 03/19/20 07:37 Surgeon: Jordan Kyle MD Pre Op Diagnosis: Bilateral Carpal Tunnel Syndrome Patient Data Age: 69 Gender: M Height: 6 ft Weight: 123.6 kg Last Vital Signs Temp 97.9 F 03/19/20 06:38 Pulse 62 03/19/20 06:38 Resp 20 03/19/20 06:38 BP 149/67 H 03/19/20 06:38 Pulse Ox 99 03/19/20 06:38 Allergies Allergy/AdvReac Type Severity Reaction Status Date / Time barley Allergy Severe abdominal Verified 03/19/20 07:18 pain wheat Allergy Severe abdominal Verified 03/19/20 07:18 pain pregabalin Allergy Unknown Confusion Verified 03/19/20 07:18 rosuvastatin Allergy Unknown Muscle pain Verified 03/19/20 07:18 Efmjilj-Ghz-Jna Reductase Allergy Unknown muscle Verified 03/19/20 07:18 Inhibitor crampin Barley Flour Allergy Severe abdominal Uncoded 03/19/20 07:18 pain Oat Allergy Severe abdominal Uncoded 03/19/20 07:18 pain [place] Allergy Severe abdominal Uncoded 03/19/20 07:18 pain [place] Flour Allergy Severe abdominal Uncoded 03/19/20 07:18 pain Gluten Flour Allergy Intermediate Other Uncoded 03/19/20 07:18 Home Medications Medication Instructions Recorded Confirmed Type amlodipine 2.5 mg tablet 2.5 mg PO DAILY 01/26/19 03/19/20 History indapamide 2.5 mg tablet 2.5 mg PO DAILY 01/26/19 03/05/20 History lisinopril 40 mg PO DAILY 06/08/19 03/05/20 History duloxetine 60 mg capsule,delayed 60 mg PO DAILY #90 cap 06/12/19 03/19/20 Rx release tamsulosin 0.4 mg capsule 0.4 mg PO DAILY #90 cap 06/12/19 03/05/20 Rx clopidogrel 75 mg tablet 75 mg PO DAILY #90 tablet 09/07/19 03/19/20 Rx atorvastatin 40 mg tablet 40 mg PO DAILY #30 tablet 01/03/20 03/19/20 Rx carvedilol 25 mg BID 02/08/20 03/19/20 History insulin lispro [Humalog KwikPen 6 unit SUB-Q TIDWM 02/08/20 03/05/20 History Insulin] insulin detemir U-100 100 unit/mL See Rx Instructions .ROUTE 02/10/20 03/05/20 Rx (3 mL) subcutaneous pen .COMPLEX #15 ml blood sugar diagnostic See Rx Instructions .ROUTE 03/03/20 03/05/20 Rx .COMPLEX #100 strip aspirin [Aspirin Low Dose] 81 mg PO DAILY 03/05/20 03/19/20 History cholecalciferol (vitamin D3) 50 mcg PO DAILY 03/05/20 03/19/20 History eszopiclone 1 mg tablet 1 mg PO HS #30 tablet 03/10/20 Rx eszopiclone 3 mg tablet 3 mg PO .QHS #30 tablet 03/10/20 Rx pen needle, diabetic 32 gauge x #100 ea 03/12/20 Rx 1/ Laboratory Tests 03/19/20 07:07 POC Capillary Glucose 109 mg/dl mg/dl (65-105) Patient hx anesthesia problems: none Family hx anesthesia problems: none PMFSH Past Medical History Medical History (Updated 02/13/20 @ 13:27 by Jose Guadalupe Walker MD) Anxiety Arthritis Benign prostatic hyperplasia Carpal tunnel syndrome on both sides Celiac disease Cerebrovascular accident (~2018) 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 CAMILLA was unremarkable. Chronic anemia Chronic insomnia Chronic kidney disease, stage 4 (severe) Creatinine ranges between 2.8 and 3.30. Chronic kidney disease, stage 4 (severe) Colon polyps Depression Diabetic peripheral neuropathy Hy kid NOS w cr kid I-IV Hyperlipidemia Hypertension Insulin dependent type 2 diabetes mellitus Kidney stones Numbness of arm Surgical History Surgical History History of cataract extraction History of cervical spinal surgery History of surgical procedure on eye proper using laser History of vitrectomy Status post cataract extraction Family History Family History Father Celiac disease Son Celiac disease Sibling Family history of obesity Hypertension Cerebrovascular accident Family history of diabetes mellitus in first degree relative Family history of heart disease in male family member b
[2020-03-19] MEDS: LIDO 1%/EPINEPHRINE 1:100,000 50 ML VIAL 20 ML INFILTRATE (08:44)
[2020-03-19] MEDS: BACITRACIN OINTMENT 15 GM TUBE 1 APPLIC TOPICAL (08:53)
[2020-03-19 09:04] VITALS: BP 128/50; PULSE 56; RESP 14; O2SAT 96
--- NOTE | 2020-03-19 09:08 | PM.PROC ---
Procedure Note - Detailed Date of procedure: 03/19/20 Pre-op diagnosis: Bilateral Carpal Tunnel Syndrome Post-op diagnosis: same Procedure performed: Bilateral open carpal tunnel release Description of procedure: The to palmar wrist were marked for carpal tunnel release in the holding area as the patient waited there. His questions were answered. He was taken to the operating room and placed supine on the operating table. A time-out was held and confirmed he was given IV sedation as the extremity was prepped and draped in usual fashion. The 2 sites were remarked and locally infiltrated with 1% lidocaine with epinephrine. The surgery was done on the right side 1st. The tourniquet on the right was inflated to 250 mmHg. She had been placed at the forearm. The incision was made in the palm and carried bluntly through the subcutaneous tissue. Palmaris brevis was in countered and incised. The palmar fascia was divided along with the carpal ligament. With 3 point retraction and placed the full extent of the ligament was divided distally and proximally. No unusual anatomy was noted. The skin wound was closed with interrupted 4-0 nylon suture. The bandage was applied by the circulating nurse as we moved to the left hand. On the left side the carpal tendon incision was made again and dissection was carried bluntly through the subcutaneous tissue to the palmar fascia again on this side there was a fair amount of of palmaris brevis muscle. This was divided with a knife. The palmar fascia and carpal ligament were incised with a 15. Blade. Under 3 point retraction the ligament was divided distally and proximally to completely release it. No unusual anatomy was noted. The wound was closed with intradermal 4-0 nylon suture. The usual bandage was applied. He is discharged with instructions in wound care and follow-up. He has a prescription for hydrocodone 5/325 10. Anesthesia: MAC Surgeon: Jordan Kyle MD Estimated blood loss (mL): 1 Tourniquet time (min): 15 Drains: No Packing: No Pathology: none sent Complications: No immediate complications Condition: stable Disposition: same day
[2020-03-19 09:27] LABS: Glucose Point of Care 117 (65-105)
[2020-03-19 09:30] VITALS: BP 110/62; PULSE 52; RESP 20
[2020-03-19 10:00] VITALS: BP 114/54; PULSE 56; RESP 20
== END 2020-03-19 10:14 | disposition home or self-care (01) ==
PROVIDERS: PCP Family Medicine; Visit Provider Plastic Surgery
PROC: (CPT 64721; principal; 2020-03-19 08:30)
DX: G56.03 Carpal tunnel syndrome, bilateral upper limbs (principal); Z79.4 Long term (current) use of insulin; Z79.02 Long term (current) use of antithrombotics/antiplatelets; Z79.82 Long term (current) use of aspirin; I12.9 Hypertensive chronic kidney disease with stage 1 through stage 4 chronic kidney disease, or unspecified chronic kidney disease; N18.4 Chronic kidney disease, stage 4 (severe); E11.22 Type 2 diabetes mellitus with diabetic chronic kidney disease; E78.5 Hyperlipidemia, unspecified; D64.9 Anemia, unspecified; F41.8 Other specified anxiety disorders; N40.0 Benign prostatic hyperplasia without lower urinary tract symptoms; K90.0 Celiac disease; E11.42 Type 2 diabetes mellitus with diabetic polyneuropathy; Z86.73 Personal history of transient ischemic attack (TIA), and cerebral infarction without residual deficits; Z87.891 Personal history of nicotine dependence; E66.9 Obesity, unspecified; Z68.37 Body mass index [BMI] 37.0-37.9, adult
CPT/HCPCS: 64721; A9270; J2405; J2704; J3010; J7120

== ENCOUNTER 2020-08-29 10:00 | Outpatient (RCR) | payer MEDICARE, SELFPAY ==
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
--- NOTE | 2020-08-04 11:51 | PTOPEVAL ---
PHYSICAL THERAPY RE-EVALUATION AND UPDATED PLAN OF CARE 08-04-20 Refer to the clinical summary below for his status with today's reevaluation compared to the initial eval. Continue PT 2x/week for 3 weeks, to further increase his LE strength and safety with gait balance. Thank you for referring Dewayne Fagan to [facility].? Please review, sign, date and return this plan of care SOLOMON. I agree with and certify that the following plan of care is medically necessary. Referring Physician Date Referring Provider: Jose Guadalupe Walker MD Assessment Status Re-evaluation Subjective Information Alex reports: feel like is Query Text:As Reported By Patient/ walking better; is doing his Family leg exercises at home; in the house,is not using the cane, only when he goes out; has not had any falls; is doing OK on the stairs, but they take a long time to go down and has shortness of breath; agrees to continue therapy; Pain Assessment Timing of Pain Assessment Timing of Pain Assessment Assessment Self Report Self Report Pain Level 0 Pain Score Pain Score 0: Self Report Additional Pain Score Comments some pain in R knee Lower Extremity Muscle Strength Testing General Lower Extremity Strength Gross Lower Extremity Strength functional strength testing: -supine SLR R 20/L 20 reps -side lying hip abduction R to 10' 20 / L to 0' 20 reps - single leg standing without UE use R and L: 1-2 seconds; with 1 UE hold: R 4/ L 2 seconds Transfer Assessment Chair Transfer Assessment Sit to Stand Chair Transfer Ability Independent Stand to Sit Chair Transfer Ability Independent Chair Transfer Comments sit/stand without use of UE's; when fatigued, sits before he is completely backed up to the chair and plops with rotated hips/trunk Balance Assessment Tinetti Balance Assessment Sitting Balance Steady, safe Ability to Arise Able, w/o using arms Attempts to Arise Arises on 1st attempt Immediate Standing Balance Steady w/o support Standing Balance Steady, wide stance Nudged Response Steady Standing with Eyes Closed Steady Step Pattern Turning 360 Degrees Discontinuous steps Stability Turning 360 Degrees Unsteady, grabs/staggers Sitting Down Uses arms or unsteady Initiation of Gait No hesitancy Right Foot Step Length
--- NOTE | 2020-08-29 10:56 | PTOPEVAL ---
PHYSICAL THERAPY DISCHARGE 08-29-20 Refer to the clinical summary for his status with today's reeval, compared to the last reevaluation. The goals were partially achieved. He agrees to discharge and will continue with his home exercises and increase his walking as tolerated, with the R knee pain. Thank you for referring Dewayne Fagan to [facility].? Please review, sign, date and return this plan of care SOLOMON. I agree with and certify that the following plan of care is medically necessary. Referring Physician Date Referring Provider: Jose Guadalupe Walker MD Document 08/29/20 10:00 LAMONTE (Rec: 08/29/20 10:47 LAMONTE [id number]) Assessment Status Discharge Subjective Information Alex reports: in general, am Query Text:As Reported By Patient/ doing better; knee pain is Family limiting him, going to see ortho dr to see about possibility of surgery; have not had any falls; feels like he wants to be finished with the therapy; Pain Assessment Timing of Pain Assessment Timing of Pain Assessment Assessment Pain Scale Pain Scale Used Numeric (1 - 10) Self Report Pain Assessment Right Knee(s) Reported Pain Level 9 Pain Frequency Chronic,Continuous Pain Score Pain Score 9: Self Report Interventions Used Interventions Used By Clinicians Education Lower Extremity Muscle Strength Testing General Lower Extremity Strength Gross Lower Extremity Strength supine SLR R 20 /L reps; side lying hip abduction R 20/ L 20 reps Transfer Assessment Chair Transfer Assessment Sit to Stand Chair Transfer Ability Independent Stand to Sit Chair Transfer Ability Independent Cues Needed for Chair Transfer Verbal Chair Transfer Comments inconsistant with safety: with fatigue, rushes to sit down and is not safe, almost sits on arm rest and half on seat of chair; sit to stand, sometimes required several attempts to stand up/ not able to do on first attempt; Balance Assessment Tinetti Balance Assessment Sitting Balance Steady, safe Ability to Arise Able, w/o using arms Attempts to Arise Arises on 1st attempt Immediate Standing Balance Steady w/o support Standing Balance Steady, wide stance Nudged Response Steady Standing with Eyes Closed Steady Step Pattern Turning 360 Degrees Discontinuous steps Stability Turning 360 Degrees Unsteady, grabs/staggers S
== END 2020-09-01 08:52 | disposition home or self-care (01) ==
LOC: ANHPT 10:00
PROVIDERS: PCP Family Medicine; Referring Provider Family Medicine; Visit Provider Family Medicine
DX: R29.6 Repeated falls (principal); R26.9 Unspecified abnormalities of gait and mobility; Z86.73 Personal history of transient ischemic attack (TIA), and cerebral infarction without residual deficits
CPT/HCPCS: 97110; 97161

== ENCOUNTER → 2020-09-05 11:04 | Outpatient (CLI) | payer MEDICARE, SELFPAY ==
--- NOTE | ~2020-09-05 | XR_ITS ---
EXAMINATION: XR knee RT 3V DATE: 09/05/2020 11:41 INDICATION: Right knee pain TECHNIQUE: Weight bearing anteroposterior, sunrise, and flexed lateral views of the right knee were o btained COMPARISON: None. FINDINGS: Alignment is normal. No fracture. Mild tricompartmental osteoarthritis with mild joint space during the medial and lateral compartments and small marginal osteophytes in all 3 compartments. Small right knee joint effusion. Mild scattered vascular calcifications. Soft tissues are otherwise unremarkable . IMPRESSION: 1. Mild tricompartmental osteoarthritis of the right knee with small right knee joint effusion. No ac tetlin osseous abnormality. Reviewed, dictated and finalized at location A. IMPRESSION: 1. Mild tricompartmental osteoarthritis of the right knee with small right knee joint effusion. No acute osseous abnormality.
== END ==
PROVIDERS: PCP Family Medicine; Visit Provider Physician Assistant
DX: M25.561 Pain in right knee (principal); M17.11 Unilateral primary osteoarthritis, right knee; M25.461 Effusion, right knee
CPT/HCPCS: 73562

== ENCOUNTER 2021-01-20 13:30 | Outpatient (RCR) | payer MEDICARE, SELFPAY ==
--- NOTE | 2020-11-26 12:15 | PTOPEVAL ---
Thank you for referring Dewayne Fagan to [facility].? The patient is scheduled to be seen for therapy? 2x/week for 8 weeks. Please review, sign, date and return this plan of care SOLOMON. I agree with and certify that the following plan of care is medically necessary. Referring Physician Date Attending Provider: Jose Guadalupe Walker MD Diagnosis CVA Onset 2017 Additional Evaluation Detail He received therapy at [facility] form 07/02 to 09/01 to address balance and falls. Per daughter he twisted ankle during his last of therapy and should not have been DC from therapy. Subjective Information He does not perform his HEP. Query Text:As Reported By Patient/ He spends most of his days in Family the recliner watching TV. Does not perform household task. Per daughter he had 4 falls in October. He was able to transfer off the floor without assistance. He will use the cane for most mobility task or rollator for longer community distance. He will go outside on the deck without AD, but furniture walk. Prior Level of Function Home Setting Home Type House,Multiple Levels Environmental Barriers Railing, Ascend Right,Stairs, Greater than 4 Living Situation With Adult Child,With Spouse Support Available Local Family Support Mobility Assistive Devices (Used Last 3 Cane,Walker, Rollator,Walker, Months) Wheeled Comments Additional Prior Level of Function O & A x 3 Comments Pain Assessment Timing of Pain Assessment Assessment Self Report Self Report Pain Level 0 Lower Extremity Muscle Strength Testing Hip Strength Left Hip Flexion Strength 3+ Fair + Hip Extension Strength 3- Fair - Hip Abduction Strength 3- Fair - Right Hip Flexion Strength 3 Fair Hip Extension Strength 3- Fair - Hip Abduction Strength 3- Fair - Knee Strength Left Knee Flexion Strength 3+ Fair + Knee Extension Strength 3 Fair Right Knee Flexion Strength 3 Fair Knee Extension Strength 3+ Fair + Ankle Strength Left Ankle Dorsiflexion Strength 4 Good Right Ankle Dorsiflexion Strength 4 Good Posture Posture Standing Position Head/C-Spine Posture Forward Head Thor
--- NOTE | 2021-01-13 11:29 | PCPTNOTE ---
Patient called & cancelled scheduled appointment this date due to falling & his knee is to sore to exercise today.
--- NOTE | 2021-01-23 10:24 | PCPTNOTE ---
Patient called & cancelled scheduled appointment this date due to due to recovering from colonoscopy.
--- NOTE | 2021-02-13 11:29 | PCPTNOTE ---
Admitting Provider: Attending Provider: Jose Guadalupe Walker MD Patient:Dewayne Fagan Date of :1950 Physical Therapy Discharge Summary Patient has not returned for any further treatments since 01/20/2021, therefore he will be discharged at this time. Patient?s initial visit was on 11/26/2020 10:00 and he had a total 14 of visits with 2 missed visits. The goals have been partially met at this time. Thank you for referring this patient to [facility]. Please review, sign, date and return this discharge summary SOLOMON. I have been updated about the patient's current status and I agree with discharge from the above service at this time. Referring Physician Date
== END 2021-02-17 09:55 | disposition home or self-care (01) ==
LOC: ANHPT 13:30
PROVIDERS: PCP Family Medicine; Visit Provider Family Medicine
DX: I69.30 Unspecified sequelae of cerebral infarction (principal); R26.81 Unsteadiness on feet
CPT/HCPCS: 97110; 97112; 97116; 97163; 97530

== ENCOUNTER 2021-01-22 02:15 | Day surgery (SDC) | payer MEDICARE, SELFPAY ==
[2021-01-08 09:02] VITALS: BMI 36.6
--- NOTE | 2021-01-21 14:26 | WPDANESEPPF ---
Anes - Initial Pre Proc Eval Procedure: Operation Date: 01/22/21 09:00 Proposed Procedures p Screening Colonoscopy - Derik Fuller MD Date/Time: 01/21/21 14:26 Surgeon: Derik Fuller MD Pre Op Diagnosis: hx of colon polyps Patient Data Age: 70 Gender: M Height: 1.83 m Weight: 122.5 kg Allergies Allergy/AdvReac Type Severity Reaction Status Date / Time barley Allergy Severe abdominal Verified 01/22/21 07:44 pain wheat Allergy Severe abdominal Verified 01/22/21 07:44 pain pregabalin Allergy Unknown Confusion Verified 01/22/21 07:44 rosuvastatin Allergy Unknown Muscle pain Verified 01/22/21 07:44 Uvhjomf-MWO-LiS Reductase Allergy Unknown muscle Verified 01/22/21 07:44 Inhibitor crampin [Nsuuwyj-Mmn-Eka Reductase Inhibitor] Barley Flour Allergy Severe abdominal Uncoded 01/22/21 07:44 pain Oat Allergy Severe abdominal Uncoded 01/22/21 07:44 pain [place] Allergy Severe abdominal Uncoded 01/22/21 07:44 pain [place] Flour Allergy Severe abdominal Uncoded 01/22/21 07:44 pain Gluten Flour Allergy Intermediate Other Uncoded 01/22/21 07:44 Home Medications Medication Instructions Recorded Confirmed Type amlodipine 2.5 mg tablet 2.5 mg PO DAILY 01/26/19 01/08/21 History indapamide 2.5 mg tablet 2.5 mg PO DAILY 01/26/19 01/08/21 History lisinopril 40 mg PO DAILY 06/08/19 01/08/21 History blood sugar diagnostic See Rx Instructions .ROUTE 03/03/20 01/08/21 Rx .COMPLEX #100 strip aspirin [Aspirin Low Dose] 81 mg PO DAILY 03/05/20 01/08/21 History cholecalciferol (vitamin D3) 50 mcg PO DAILY 03/05/20 01/08/21 History pen needle, diabetic 32 gauge x #100 ea 03/12/20 11/10/20 Rx 1/4 clopidogrel 75 mg tablet 75 mg PO DAILY #90 tablet 05/30/20 01/08/21 Rx duloxetine 60 mg capsule,delayed 60 mg PO DAILY #90 cap 05/30/20 01/08/21 Rx release tamsulosin 0.4 mg capsule 0.4 mg PO DAILY #90 cap 05/30/20 01/08/21 Rx flash glucose scanning reader #1 ea 06/16/20 11/10/20 Rx flash glucose sensor #1 ea 09/11/20 11/10/20 Rx carvedilol 25 mg tablet 25 mg PO BID #180 tablet 10/17/20 01/08/21 Rx eszopiclone 1 mg tablet 1 mg PO HS #30 tablet 11/06/20 01/08/21 Rx eszopiclone 3 mg tablet 3 mg PO .QHS #30 tablet 11/06/20 01/08/21 Rx insulin detemir U-100 100 unit/mL See Rx Instructions .ROUTE 11/10/20 01/08/21 Rx (3 mL) subcutaneous pen .COMPLEX #15 ml atorvastatin 40 mg tablet See Rx Instructions .ROUTE 12/29/20 01/08/21 Rx .COMPLEX #30 tablet insulin lispro 100 unit/mL 8 unit SUB-Q TIDWM #15 ml 12/30/20 01/08/21 Rx subcutaneous pen Patient hx anesthesia problems: none Family hx anesthesia problems: none Results Review: All pre-operative results and documents have been reviewed as part of the pre-operative evaluation. 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 CAMILLA was unremarkable. Chronic anemia Chronic insomnia Chronic kidney disease, stage 4 (severe) Creatinine ranges between 2.8 and 3.30. Chronic kidney disease, stage 4 (severe) Colon polyps Depression Diabetic peripheral neuropathy History of stroke with current residual effects Hy kid NOS w cr kid I-IV Hyperlipidemia Hypertension Insulin dependent type 2 diabetes mellitus Kidney stones Numbness of arm Surgical History Surgical History History of cataract extraction History of cervical spinal surgery History of surgical procedure on eye proper using laser History of vitrectomy Status post cataract extraction Family History Family History Father Celiac disease Son Celiac disease Sibling Family history of obesity Hypertension Cerebrovascular
--- NOTE | 2021-01-21 16:24 | PM.HPGS ---
History of Present Illness History of Present Illness Consent: Risks, benefits, and alternatives have been discussed and questions answered. Patient agrees to proceed with procedure. Chief complaint: hx of colon polyps Narrative: Dewayne Fagan is a 70 year old male with a history of colon polyps. A little over 1 year ago he had a broad flat polyp that was removed piecemeal, by Dr. Lopez, perhaps not completely. Follow-up in 1 year had been recommended Review of Systems Review of Systems: All systems reviewed & are unremarkable except as noted in HPI and below PMFSH Past Medical History Medical History Anxiety Arthritis Benign prostatic hyperplasia Carpal tunnel syndrome on both sides s/p release Celiac disease Cerebrovascular accident (~2018) 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 CAMILLA was unremarkable. Chronic anemia Chronic insomnia Chronic kidney disease, stage 4 (severe) Creatinine ranges between 2.8 and 3.30. Chronic kidney disease, stage 4 (severe) Colon polyps Depression Diabetic peripheral neuropathy History of stroke with current residual effects Hy kid NOS w cr kid I-IV Hyperlipidemia Hypertension Insulin dependent type 2 diabetes mellitus Kidney stones Numbness of arm Surgical History Surgical History History of cataract extraction History of cervical spinal surgery History of surgical procedure on eye proper using laser History of vitrectomy Status post cataract extraction Family History Family History Father Celiac disease Son Celiac disease Sibling Family history of obesity Hypertension Cerebrovascular accident Family history of diabetes mellitus in first degree relative Family history of heart disease in male family member before age 55 Grandparent Family history of mental disorder Mother Cerebrovascular accident Family history of arthritis Family history of hearing loss Father Family history of congestive heart failure Family history of heart disease in male family member before age 55 Social History Social History Social History: Surrogate decision maker: Monica Fagan, . Code status: Full code. Smoking packs per day: 1 Smoking cigarettes per day: 20.0 Years smoked: 20 Smoking pack-years: 20.00 Smoking status: Former smoker Tobacco type: cigarettes, pipe and cigars Second hand tobacco smoke exposure: No Smoking end date: 03/14/89 Alcohol intake: former Substance use: never Substance use type: does not use Living arrangements: with family Additional living arrangements comments: Resides with his in [place]. Additional occupation/education comments: Retired from [employer]. Gender identity (if verbalized by the patient): Male Spiritual care concerns: No Agree to blood products: Yes Meds Home Medications and Allergies Home Medications Medication Instructions Recorded Confirmed Type amlodipine 2.5 mg tablet 2.5 mg PO DAILY 01/26/19 01/08/21 History indapamide 2.5 mg tablet 2.5 mg PO DAILY 01/26/19 01/08/21 History lisinopril 40 mg PO DAILY 06/08/19 01/08/21 History blood sugar diagnostic See Rx Instructions .ROUTE 03/03/20 01/08/21 Rx .COMPLEX #100 strip aspirin [Aspirin Low Dose] 81 mg PO DAILY 03/05/20 01/08/21 History cholecalciferol (vitamin D3) 50 mcg PO DAILY 03/05/20 01/08/21 History pen needle, diabetic 32 gauge x #100 ea 03/12/20 11/10/20 Rx 1/4 clopidogrel 75 mg tablet 75 mg PO DAILY #90 tablet 05/30/20 01/08/21 Rx duloxetine 60 mg capsule,delayed 60 mg PO DAILY #90 cap 05/30/20 01/08/21 Rx release tamsulosin 0.4 mg capsule 0.4 mg PO DAILY #90 cap 05/30/20 01/08/21 Rx flash glucose scanning reader #1 ea 06/16/20 11/10/20 Rx flash glucos
[2021-01-22 07:46] VITALS: BP 152/70; PULSE 94; RESP 18; TEMP 36.6; O2SAT 94
[2021-01-22] MEDS: LACTATED RINGERS 1,000 ML 150 ML IV CONT (08:01)
[2021-01-22 08:02] LABS: Glucose Point of Care 209 mg/dl (65-105)
[2021-01-22 09:16] VITALS: BP 148/51; PULSE 74; RESP 22; O2SAT 96
[2021-01-22 09:26] VITALS: BP 125/60; PULSE 72; RESP 21; O2SAT 96
[2021-01-22 09:36] VITALS: BP 127/62; PULSE 67; RESP 16; O2SAT 98
== END 2021-01-22 09:50 | disposition home or self-care (01) ==
PROVIDERS: PCP Family Medicine; Visit Provider Internal Medicine Gastroenterology
PROC: 0DJD8ZZ Inspection of Lower Intestinal Tract, Via Natural or Artificial Opening Endoscopic (ICD-10-PCS; CPT 45378; principal; 2021-01-22 09:00)
DX: Z09 Encounter for follow-up examination after completed treatment for conditions other than malignant neoplasm (principal); Z86.010 Personal history of colon polyps; I12.9 Hypertensive chronic kidney disease with stage 1 through stage 4 chronic kidney disease, or unspecified chronic kidney disease; E11.22 Type 2 diabetes mellitus with diabetic chronic kidney disease; N18.4 Chronic kidney disease, stage 4 (severe); E11.42 Type 2 diabetes mellitus with diabetic polyneuropathy; F41.8 Other specified anxiety disorders; N40.0 Benign prostatic hyperplasia without lower urinary tract symptoms; I69.354 Hemiplegia and hemiparesis following cerebral infarction affecting left non-dominant side; E78.5 Hyperlipidemia, unspecified; K90.0 Celiac disease; Z87.891 Personal history of nicotine dependence; Z79.82 Long term (current) use of aspirin; Z79.02 Long term (current) use of antithrombotics/antiplatelets; Z79.4 Long term (current) use of insulin
CPT/HCPCS: 45378; 82948; J2704; J7120

== ENCOUNTER 2021-05-17 14:10 | Emergency (ER) | payer MEDICARE, SELFPAY ==
[2021-05-17 14:28] VITALS: BP 127/51; PULSE 78; RESP 16; TEMP 35.9; O2SAT 78
--- NOTE | 2021-05-17 14:56 | ED.GENADULT ---
HPI - General Adult General Chief complaint: Extremity Injury, Upper Stated complaint: Left arm injury Source: patient and family Mode of arrival: ambulatory Limitations: physical limitation History of Present Illness HPI narrative: Patient presents for evaluation of a wound to the left forearm. He states that he cut himself on a chair at home just [employer]. He has a very difficult time expressing the mechanism of injury, but from what I gather, he was having a challenging time lowering himself to his chair. He lowered himself to the ground and cut himself on the chair in the process. He did not hit his head nor did he have a LOC. He has a skin tear to left forearm. Dry dressing was applied to time of my evaluation. He is diabetic but states his blood sugars have been running between 100-150 at home. Last documented tetanus was 2004. Pt does not know date of last tetanus. He is right hand dominant. He denies considerable pain. No additional complaints or concerns. Related Data Home Medications Medication Instructions Recorded Confirmed amlodipine 2.5 mg tablet 2.5 mg PO DAILY 01/26/19 03/16/21 indapamide 2.5 mg tablet 2.5 mg PO DAILY 01/26/19 03/16/21 lisinopril 40 mg PO DAILY 06/08/19 03/16/21 aspirin [Aspirin Low Dose] 81 mg PO DAILY 03/05/20 03/16/21 cholecalciferol (vitamin D3) 50 mcg PO DAILY 03/05/20 03/16/21 Allergies Allergy/AdvReac Type Severity Reaction Status Date / Time barley Allergy Severe abdominal Verified 04/23/21 13:10 pain wheat Allergy Severe abdominal Verified 04/23/21 13:10 pain pregabalin Allergy Unknown Confusion Verified 04/23/21 13:10 rosuvastatin Allergy Unknown Muscle pain Verified 04/23/21 13:10 Uujtauf-ETT-TeR Reductase Allergy Unknown muscle Verified 04/23/21 13:10 Inhibitor crampin [Kmflchv-Lep-Lnm Reductase Inhibitor] Barley Flour Allergy Severe abdominal Uncoded 03/16/21 14:55 pain Oat Allergy Severe abdominal Uncoded 03/16/21 14:55 pain [place] Allergy Severe abdominal Uncoded 03/16/21 14:55 pain [place] Flour Allergy Severe abdominal Uncoded 03/16/21 14:55 pain Gluten Flour Allergy Intermediate Other Uncoded 01/03/22 14:55 Review of Systems Review of Systems: CONSTITUTIONAL: Denies fever, chills, or sweats. EYES: Denies visual changes, redness, or discharge. ENT: Denies rhinorrhea, congestion, sore throat, or otalgia. CARDIOVASCULAR: Denies chest pain, palpitations, or edema. RESPIRATORY: Denies cough or dyspnea. GASTROINTESTINAL: Denies abdominal pain, nausea, vomiting, or diarrhea. GENITOURINARY: Denies dysuria or hematuria. SKIN: Reports wound to left forearm. Denies rash or itching. MUSCULOSKELETAL: Denies back pain, joint pain, or myalgia. NEUROLOGIC: Denies headache, numbness, dizziness, or weakness. PSYCHIATRIC: Denies anxiety or depression. [facility] Past Medical History Medical History Anxiety Arthritis Benign prostatic hyperplasia Carpal tunnel syndrome on both sides s/p release Celiac disease Cerebrovascular accident (~2018) 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 CAMILLA was unremarkable. Chronic anemia Chronic insomnia Chronic kidney disease, stage 4 (severe) Creatinine ranges between 2.8 and 3.30. Chronic kidney disease, stage 4 (severe) Colon polyps Depression Diabetic peripheral neuropathy History of stroke with current residual effects Hy kid NOS w cr kid I-IV Hyperlipidemia Hypertension Insulin dependent type 2 diabetes mellitus Kidney stones Numbness of arm Surgical History Surgical History History of cataract extraction History of cervical spinal surgery History of surgical procedure on eye proper using laser History of vitrectomy Status post cataract extraction Family History Family History Father Celiac disease Son
[2021-05-17] MEDS: TETANUS,DIPHTHERIA,AC PERTUSSIS ADULT (0.5 ML) BOOSTRIX IM (15:35)
== END 2021-05-17 15:45 | disposition home or self-care (01) ==
PROVIDERS: Emergency Provider Nurse Practitioner; PCP Family Medicine
DX: S51.812A Laceration without foreign body of left forearm, initial encounter (principal); W45.8XXA Other foreign body or object entering through skin, initial encounter; Z23 Encounter for immunization; Z87.891 Personal history of nicotine dependence; N40.0 Benign prostatic hyperplasia without lower urinary tract symptoms; E78.5 Hyperlipidemia, unspecified; I10 Essential (primary) hypertension; I12.9 Hypertensive chronic kidney disease with stage 1 through stage 4 chronic kidney disease, or unspecified chronic kidney disease; E11.22 Type 2 diabetes mellitus with diabetic chronic kidney disease; N18.4 Chronic kidney disease, stage 4 (severe); Z79.4 Long term (current) use of insulin; E11.42 Type 2 diabetes mellitus with diabetic polyneuropathy; I69.354 Hemiplegia and hemiparesis following cerebral infarction affecting left non-dominant side; M19.90 Unspecified osteoarthritis, unspecified site; Z79.82 Long term (current) use of aspirin
CPT/HCPCS: 90471; 90715; 99213; G0463

== ENCOUNTER 2021-07-01 01:22 | Emergency (ER) | payer MEDICARE, SELFPAY ==
[2021-07-01] VITALS (26 sets, daily range): BP systolic 117–168; BP diastolic 51–91; PULSE 64–91; RESP 11–20; TEMP 36.6; O2SAT 96
--- NOTE | ~2021-07-01 | CT_ITS ---
EXAMINATION: CT facial & cervical spine wo EXAM DATE: 07/01/2021 05:43 INDICATION: Fall, facial injury. TECHNIQUE: Spiral CT of the facial bones was acquired in the axial plane. Coronal reformatted images were also reviewed. Spiral CT of the cervical spine was performed without contrast. Axial images we re reviewed. Coronal and sagittal reformatted images were also reviewed. The dose-length product (DL P) for this examination was 630.06 mGy-cm. The exposure was tailored according to patient size, and iterative reconstruction (ASIR) was used as additional dose reduction technique. There is no prior s tudy for comparison. FINDINGS: FACIAL CT: There are bilateral nasal bone nondisplaced fractures, which could be acute given the ove rlying soft tissue swelling. Orbits, mandible, nasal septum appear intact. The orbits, globes and ex traocular muscles are unremarkable. The visualized sinuses and mastoid air cells are well aerated. CERVICAL CT: There is no evidence of acute cervical fracture. The odontoid process is intact. Pre-d ens space is normal. Prevertebral soft tissue is normal. There are no soft tissue abnormalities billy ntified. There is no disc space widening or traumatic vertebral body subluxation suspected. There i s advanced cervical disc disease and arthropathy. A detailed level by level evaluation of spondylosi s can be added as addendum if requested. IMPRESSION: 1. Bilateral nondisplaced nasal bone fractures, probably acute. 2. Advanced cervical spondylosis without fracture. Reviewed, dictated and finalized at location A.
--- NOTE | ~2021-07-01 | CT_ITS ---
EXAMINATION: CT brain wo con EXAM DATE: 07/01/2021 05:43 INDICATION: Fall, head injury. Facial injury. TECHNIQUE: Spiral CT of the head was performed without contrast. Axial, coronal and sagittal images were reviewed. The dose-length product (DLP) for this examination was 681.00 mGy-cm. The exposure w as tailored according to patient size, and iterative reconstruction (ASIR) was used as additional dos e reduction technique. Comparison is made to prior examination from 02/07/2020. FINDINGS: There is no acute intraparenchymal hemorrhage. No evidence of intraparenchymal brain mass lesion. No evidence of acute infarction. Please note that initial head CT has limited sensitivity f or small or acute infarctions. There is moderate periventricular and subcortical hypodensity, nonspec ific but probably related to small vessel ischemic disease. There is moderate prominence of the sul ci and ventricles related to cerebral atrophy. There is intracranial carotid arteriosclerosis. The re are no extra-axial collections. There is no mass effect or midline shift. Is a bone fractures bet ter visualized on facial CT same date Patient has had bilateral ocular lens surgery. Soft tissue is unremarkable. The visualized sinuses and mastoid air cells are well aerated. IMPRESSION: 1. No acute intracranial findings. 2. Chronic age related findings. Reviewed, dictated and finalized at location A.
--- NOTE | 2021-07-01 02:17 | ED.FALL ---
HPI - Fall General Chief Complaint: Fall <Quinton Vega APRN - Last Filed: 07/01/21 02:20> Stated Complaint: GLF HYPOTENSION <Quinton Vega APRN - Last Filed: 07/01/21 02:20> Time Seen by Provider: 07/01/21 02:07 <Quinton Vega APRN - Last Filed: 07/01/21 02:20> History of Present Illness HPI Narrative: 70-year-old male presents to the emergency room via EMS for evaluation of facial injury sustained from a fall from standing position. Patient states that he stood up too quickly out of bed and fell striking his face on the floor. Patient denies syncope or presyncope. Patient states that he is clumsy and falls on semiregular basis. Patient is also on Plavix and aspirin. Patient denies LOC, or altered mental status. Patient denies nausea, vomiting. <Quinton Vega APRN - Last Filed: 07/01/21 02:20> Related Data Home Medications: Home Medications Medication Instructions Recorded Confirmed amlodipine 2.5 mg tablet 2.5 mg PO DAILY 01/26/19 05/19/21 indapamide 2.5 mg tablet 2.5 mg PO DAILY 01/26/19 05/19/21 lisinopril 40 mg PO DAILY 06/08/19 05/19/21 aspirin [Aspirin Low Dose] 81 mg PO DAILY 03/05/20 05/19/21 cholecalciferol (vitamin D3) 50 mcg PO DAILY 03/05/20 05/19/21 <Quinton Vega APRN - Last Filed: 07/01/21 02:20> Allergies/Adverse Reactions: Allergies Allergy/AdvReac Type Severity Reaction Status Date / Time barley Allergy Severe abdominal Verified 05/19/21 13:55 pain wheat Allergy Severe abdominal Verified 05/19/21 13:55 pain pregabalin Allergy Unknown Confusion Verified 05/19/21 13:55 rosuvastatin Allergy Unknown Muscle pain Verified 05/19/21 13:55 Utmgtts-OLL-NiB Reductase Allergy Unknown muscle Verified 05/19/21 13:55 Inhibitor crampin [Rwvuaur-Mhc-Fbw Reductase Inhibitor] Barley Flour Allergy Severe abdominal Uncoded 05/19/21 13:55 pain Oat Allergy Severe abdominal Uncoded 05/19/21 13:55 pain [place] Allergy Severe abdominal Uncoded 05/19/21 13:55 pain [place] Flour Allergy Severe abdominal Uncoded 05/19/21 13:55 pain Gluten Flour Allergy Intermediate Other Uncoded 05/19/21 13:55 <Quinton Vega APRN - Last Filed: 07/01/21 02:20> Review of Systems Review of Systems: CONSTITUTIONAL: Denies fever, chills, or sweats. EYES: Denies visual changes, redness, or discharge. ENT: Denies rhinorrhea, congestion, sore throat, or otalgia. CARDIOVASCULAR: Denies chest pain, palpitations, or edema. RESPIRATORY: Denies cough or dyspnea. GASTROINTESTINAL: Reports constipation GENITOURINARY: Denies dysuria or hematuria. SKIN: Denies rash or itching. MUSCULOSKELETAL: Reports nasal pain NEUROLOGIC: Denies headache, numbness, dizziness, or weakness. PSYCHIATRIC: Denies anxiety or depression. <Quinton Vega APRN - Last Filed: 07/01/21 02:20> [facility] Past Medical History Medical History: Medical History Anxiety Arthritis Benign prostatic hyperplasia Carpal tunnel syndrome on both sides s/p release Celiac disease Cerebrovascular accident (~2018) 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 CAMILLA was unremarkable. Chronic anemia Chronic insomnia Chronic kidney disease, stage 4 (severe) Creatinine ranges between 2.8 and 3.30. Chronic kidney disease, stage 4 (severe) Colon polyps Depression Diabetic peripheral neuropathy History of stroke with current residual effects Hy kid NOS w cr kid I-IV Hyperlipidemia Hypertension Insulin dependent type 2 diabetes mellitus Kidney stones Numbness of arm <Quinton Vega APRN - Last Filed: 07/01/21 02:20> Surgical History Surgical History: Surgical History History of cataract extraction History of cervical spinal surgery History of surgical procedure on eye proper using laser History of vitrectomy Status post cataract extraction <Quinton Vega, AP
[2021-07-01] MEDS: SODIUM CHLORIDE 0.9% IV 500 ML 999 ML IV CONT (03:01)
[2021-07-01 03:16] LABS: Basophils Absolute Auto 0.1 K/mm3 (0.0-0.1); Basophils Percent Auto 0.4 % (0.2-1.2); Eosinophils Percent Auto 0.2 % (0-4.4); Hematocrit 40.1 % (42.0-52.0); Hemoglobin 13.2 g/dL (14.0-18.0); Immature Granulocyte Absolute 0.06 K/mm3 (0.00-0.031); Immature Granulocyte Percent A 0.4 % (0-0.5); Lymphocytes Absolute Auto 0.79 K/mm3 (0.9-3.2); Lymphocytes Percent Auto 5.8 % (18.3-44.2); Mean Corpuscular HGB Conc 32.9 g/dl (32-36); Mean Corpuscular Hemoglobin 32.2 pg (26-34); Mean Corpuscular Volume 97.8 fl (80-100); Mean Platelet Volume 9.5 fl (7.4-10.4); Monocytes Absolute Auto 0.6 K/mm3 (0.1-0.6); Monocytes Percent Auto 4.7 % (2.6-8.5); Neutrophils Percent Auto 88.5 % (45.5-73.1); Platelet Count Result 204 k/mm3 (150-375); Red Cell Distribution Width 13.5 % (11.5-14.5); White Blood Count 13.5 K/mm3 (4.5-10.0)
[2021-07-01 03:27] LABS: INR 1.1; Prothrombin Time 14.1 Seconds (11.1-14.7)
[2021-07-01 03:28] LABS: Partial Thromboplastin Time 26.5 SECONDS (22.3-36.8)
[2021-07-01 03:34] LABS: Alanine Aminotransferase 15 U/L (4-50); Albumin Level 3.6 g/dL (3.5-5.1); Alkaline Phosphatase 67 U/L (38-126); Anion Gap 11 mmol/L (8-16); Aspartate Amino Transferase 31 U/L (17-59); Blood Urea Nitrogen 83 mg/dL (9-20); Calcium 7.6 mg/dL (8.4-10.2); Carbon Dioxide 20 mmol/L (22-30); Chloride 106 mmol/L (98-107); Estimated Glomerular Filt Rate 14; Glucose 233 mg/dL (65-110); Potassium 4.2 mmol/L (3.4-5.0); Sodium 137 mmol/L (137-145)
== END 2021-07-01 08:00 | disposition home or self-care (01) ==
PROVIDERS: Emergency Provider Nurse Practitioner Family; PCP Family Medicine
DX: S02.2XXA Fracture of nasal bones, initial encounter for closed fracture (principal); M47.812 Spondylosis without myelopathy or radiculopathy, cervical region; Z87.891 Personal history of nicotine dependence; M19.90 Unspecified osteoarthritis, unspecified site; N40.0 Benign prostatic hyperplasia without lower urinary tract symptoms; I12.9 Hypertensive chronic kidney disease with stage 1 through stage 4 chronic kidney disease, or unspecified chronic kidney disease; E11.22 Type 2 diabetes mellitus with diabetic chronic kidney disease; N18.4 Chronic kidney disease, stage 4 (severe); F41.9 Anxiety disorder, unspecified; F32.9 Major depressive disorder, single episode, unspecified; Z79.4 Long term (current) use of insulin; E78.5 Hyperlipidemia, unspecified; D64.9 Anemia, unspecified; W01.0XXA Fall on same level from slipping, tripping and stumbling without subsequent striking against object, initial encounter
CPT/HCPCS: 36415; 70450; 70486; 72125; 80053; 85025; 85610; 85730; 96360; 99284; J7040

== ENCOUNTER 2021-07-01 15:39 | Inpatient (IN) | payer MEDICARE, SELFPAY ==
[2021-07-01] VITALS (26 sets, daily range): BP systolic 115–173; BP diastolic 48–136; PULSE 85–108; RESP 13–21; TEMP 36.8–37.1; O2SAT 87–100; BMI 35.8; BMI 37.7
--- NOTE | ~2021-07-01 | NM_ITS ---
EXAMINATION: NM renal flow and function DATE: 07/09/2021 14:13 INDICATION: Acute kidney injury. TECHNIQUE: 8.5 mCi Tc-99m MAG3 was administered IV. The patient was scanned in the supine position. A posterior abdominal radionuclide angiogram was obtained. A subsequent time course of static images of the kidneys, ureters, and bladder was obtained. COMPARISON: CT abdomen and pelvis 07/04/2021 FINDINGS: The posterior abdominal radionuclide angiogram and sequential static images show normal siz e, position, and morphology of the kidneys. Peak renal parenchymal uptake was 10 min in right kidney and 10 min in left kidney (normal peak 3-5 minutes). The relative early renal uptake was 52% on the right and 48% on the left (<40% is abnormal). No abnormalities of the ureters or bladder are seen. T1/2 for clearance of activity from the right kidney and proximal collecting system was >>20 minutes. T1/2 for clearance of activity from the left kidney and proximal collecting system was >>20 minutes. IMPRESSION: 1. Symmetric kidney function. 2. Delayed contrast clearance from the kidneys, consistent with decreased renal function. Reviewed, dictated and finalized at location A. IMPRESSION: 1. Symmetric kidney function. 2. Delayed contrast clearance from the kidneys, consistent with decreased olu l function.
--- NOTE | ~2021-07-01 | CT_ITS ---
EXAMINATION: CT abdomen pelvis wo con DATE: 07/04/2021 15:42 INDICATION: abdominal pain persistent TECHNIQUE: Computed tomography (CT) of the abdomen and pelvis was performed without intravenous contr ast. The dose-length product was 1771.49 mGy-cm. COMPARISON: 07/01/2021. FINDINGS: Lower thorax: Lungs clear. Aortic valve and coronary artery calcification. Liver: Normal. Biliary/Gallbladder: Gallbladder is normal. No bile duct dilation. Spleen: Normal. Pancreas: No mass or duct dilation. Adrenals:No mass. Kidneys: Moderate bilateral perinephric stranding. Mild pelviectasis caliectasis and ureterectasis bi laterally. No stone or mass. GI tract: No small or large bowel dilation. Normal appendix. Significant interval reduction in the fi ndings of colitis. Mesentery/Peritoneum: No ascites, mass, or free air. Retroperitoneum: No mass. Pelvis: Marked bladder distention. Marked prostatomegaly. Small bilateral inguinal hernias. Bones/Soft Tissues: Soft tissues and body wall unremarkable. No acute osseous finding. Additional Findings: None. IMPRESSION: Marked bladder distention, with mild bilateral hydronephrosis. Consider ascending infection in the di fferential. Significantly improved colitis. Reviewed, dictated and finalized at location K. IMPRESSION: Marked bladder distention, with mild bilateral hydronephrosis. Consider ascendi ng infection in the differential. Significantly improved colitis.
--- NOTE | ~2021-07-01 | US_ITS ---
EXAMINATION: US renal BI DATE: 07/03/2021 13:01 INDICATION: Renal failure TECHNIQUE: Multiple ultrasound grayscale images of the kidneys were obtained. COMPARISON: None. FINDINGS: The right kidney measures 11.5 x 5.2 x 5.4 cm. The left kidney measures 11.3 x 5.5 x 5.5 cm. The kidn eys demonstrate normal echogenicity. There is no hydronephrosis in either kidney. No stones identifi ed. The bladder is normal. IMPRESSION: 1. Normal kidneys without hydronephrosis. Reviewed, dictated and finalized at location A.
--- NOTE | ~2021-07-01 | CT_ITS ---
EXAMINATION: CT abdomen pelvis wo con DATE: 07/01/2021 17:53 INDICATION: Weakness and bloody stools TECHNIQUE: Computed tomography (CT) of the abdomen and pelvis was performed without intravenous contr ast. The dose-length product (DLP) was 1635.35 mGy-cm. Automated exposure control and iterative recon struction technique were employed. COMPARISON: None FINDINGS: The lung bases are clear. The heart size is normal. Calcified coronary artery atheroscleros is is noted. Punctate calcifications in otherwise normal appearing liver and spleen likely represent healed granulomatous disease. The gallbladder and adrenal glands are normal. There is an area of fatt y infiltration and the tail of the pancreas. The kidneys are unremarkable. There is liquid stool thro ughout the colon to the level of the rectum. There is mild fat stranding surrounding the sigmoid colo n and rectum. There is calcified atherosclerosis of the aorta and many of the other arteries. No path ologically enlarged abdominal or pelvic lymph nodes are identified. There is no free intraperitoneal gas or evidence of bowel obstruction. There is circumferential wall thickening of the bladder. There is severe lumbar spondylosis. IMPRESSION: 1. Liquid stool throughout the colon with fat stranding surrounding the sigmoid colon and rectum, pos sible colitis Reviewed, dictated and finalized at location F. IMPRESSION: 1. Liquid stool throughout the colon with fat stranding surrounding the sigmoid colon and rectum, possible colitis
--- NOTE | ~2021-07-01 | MR_ITS ---
EXAMINATION: MR brain/brain stem wo con DATE: 07/07/2021 15:48 INDICATION: Mental status changes TECHNIQUE: Magnetic resonance imaging (MRI) of the brain and brainstem was performed without intraven ous contrast. Sequences included sagittal and axial T1-weighted SE, axial diffusion-weighted FS SE, a xial T2*-weighted GRE, axial T2-weighted FLAIR. Apparent diffusion coefficient (ADC) maps were create d. COMPARISON: None. FINDINGS: Small old lacunar infarcts in the right central doron and right thalamus. There are no areas of restri cted diffusion to suggest acute infarction. No intracranial hemorrhage or abnormal intracranial mass lesion. There are scattered areas of nonspecific increased T2-weighted signal intensity in the cerebr al white matter, predominantly involving the deep and periventricular white matter. There are no intr aparenchymal signal abnormalities seen on the other pulse sequences. Symmetric prominence of the sulc i and ventricles consistent with moderate age-appropriate diffuse cerebral volume loss. There are no abnormal extra-axial fluid collections. Flow voids are seen in the cerebral arteries on the T2-weight ed sequences consistent with their expected patency. Changes of bilateral intraocular lens replacemen t. Visualized orbits and soft tissues are unremarkable. IMPRESSION: 1. No acute intracranial process. 2. Small old lacunar infarcts at the right thalamus and right doron. 3. Age-related changes including moderate diffuse volume loss and moderate scattered periventricular predominant white matter T2 hyperintensity consistent with chronic small vessel ischemic disease. Reviewed, dictated and finalized at location B. IMPRESSION: 1. No acute intracranial process. 2. Small old lacunar infarcts at the right thalamus and right doron. 3. Age-related changes including moderate diffuse volume loss and moderate scat tered periventricular predominant white matter T2 hyperintensity consistent wit h chronic small vessel ischemic disease.
--- NOTE | ~2021-07-01 | XR_ITS ---
EXAMINATION: XR chest 1V portable DATE: 07/05/2021 11:34 INDICATION: Congestion TECHNIQUE: frontal view of the chest was obtained. COMPARISON: Chest radiograph dated 02/07/2020 FINDINGS: The lungs remain clear with no focal airspace opacities, pulmonary edema, pleural effusion or pneumot horax. The cardiomediastinal silhouette is normal. A few age-indeterminate bilateral rib fractures. IMPRESSION: 1. No acute cardiopulmonary disease. Reviewed, dictated and finalized at location A.
[2021-07-01 17:07] LABS: Hematocrit 36.7 % (42.0-52.0); Hemoglobin 12.1 g/dL (14.0-18.0); Mean Corpuscular Hemoglobin 31.9 pg (26-34); Mean Corpuscular Volume 96.8 fl (80-100); Mean Platelet Volume 9.9 fl (7.4-10.4); Platelet Count Result 225 k/mm3 (150-375); Red Blood Count 3.79 M/mm3 (4.6-6.20); White Blood Count 22.1 K/mm3 (4.5-10.0)
[2021-07-01 17:15] LABS: Anion Gap 13 mmol/L (8-16); Blood Urea Nitrogen 92 mg/dL (9-20); Calcium 8.1 mg/dL (8.4-10.2); Carbon Dioxide 20 mmol/L (22-30); Chloride 100 mmol/L (98-107); Estimated CRCL calculation 16 ml/min; Estimated Glomerular Filt Rate 11; Glucose 317 mg/dL (65-110); Potassium 4.9 mmol/L (3.4-5.0); Sodium 133 mmol/L (137-145)
[2021-07-01 17:36] LABS: Band Neutrophils Percent 7 % (0-6); Lymphocytes Absolute Manual 1.32 K/mm3 (1.1-4.5); Monocytes Absolute Manual 1.54 K/mm3 (0.1-0.90); Monocytes Percent Manual 7 % (3-9); Neutrophils Absolute Manual 19.22 K/mm3 (1.3-6.7); Neutrophils Percent Manual 80 % (46-73); Platelet Estimate Adequate (Adequate); Total Cells Counted 100
[2021-07-01] MEDS: SODIUM CHLORIDE 0.9% IV 1,000 ML 150 ML IV CONT (18:30)
--- NOTE | 2021-07-01 18:51 | ED.GENADULT ---
HPI - General Adult General Chief complaint: Weakness Stated complaint: weakness Time Seen by Provider: 07/01/21 16:34 Source: patient and family Mode of arrival: EMS Limitations: no limitations History of Present Illness HPI narrative: 70-year-old with a history of hypertension, hyperlipidemia, diabetes, anemia, CKD here with complaints of rectal bleeding since this morning. Patient was seen earlier this morning for fall. Patient was discharged home .He states this evening he been having maroon-colored stools. He states he has been feeling lightheaded he denies any fever or chills no history of nausea or vomiting. Onset (ago): day(s) (1) Severity: moderate Exacerbating factors: none Associated symptoms: weakness Treatments prior to arrival: none Related Data Home Medications Medication Instructions Recorded Confirmed amlodipine 2.5 mg tablet 2.5 mg PO DAILY 01/26/19 05/19/21 indapamide 2.5 mg tablet 2.5 mg PO DAILY 01/26/19 05/19/21 lisinopril 40 mg PO DAILY 06/08/19 05/19/21 aspirin [Aspirin Low Dose] 81 mg PO DAILY 03/05/20 05/19/21 cholecalciferol (vitamin D3) 50 mcg PO DAILY 03/05/20 05/19/21 Allergies Allergy/AdvReac Type Severity Reaction Status Date / Time barley Allergy Severe abdominal Verified 05/19/21 13:55 pain wheat Allergy Severe abdominal Verified 05/19/21 13:55 pain pregabalin Allergy Unknown Confusion Verified 05/19/21 13:55 rosuvastatin Allergy Unknown Muscle pain Verified 05/19/21 13:55 Aymtyhc-UZG-FzU Reductase Allergy Unknown muscle Verified 05/19/21 13:55 Inhibitor crampin [Gjtcfed-Ijv-Djc Reductase Inhibitor] Barley Flour Allergy Severe abdominal Uncoded 05/19/21 13:55 pain Oat Allergy Severe abdominal Uncoded 05/19/21 13:55 pain [place] Allergy Severe abdominal Uncoded 05/19/21 13:55 pain [place] Flour Allergy Severe abdominal Uncoded 05/19/21 13:55 pain Gluten Flour Allergy Intermediate Other Uncoded 05/19/21 13:55 Review of Systems Review of Systems: All systems reviewed & are unremarkable except as noted in HPI and below Constitutional: Constitutional: Reports no additional constitutional complaints Eyes: Eyes: Reports no additional eye complaints ENT: Reports system reviewed and no additional complaints, except as documented Cardiovascular: Cardiovascular: Reports no additional cardiovascular complaints Respiratory: Respiratory: Reports no additional respiratory complaints Gastrointestinal: Gastrointestinal: Reports as per HPI Musculoskeletal: Musculoskeletal: Reports no additional musculoskeletal complaints Neurologic: Reports system reviewed and no additional complaints, except as documented Endocrine: Endocrine: Reports no additional endocrine complaints [facility] Past Medical History Medical History Anxiety Arthritis Benign prostatic hyperplasia Carpal tunnel syndrome on both sides s/p release Celiac disease Cerebrovascular accident (~2018) 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 CAMILLA was unremarkable. Chronic anemia Chronic insomnia Chronic kidney disease, stage 4 (severe) Creatinine ranges between 2.8 and 3.30. Chronic kidney disease, stage 4 (severe) Colon polyps Depression Diabetic peripheral neuropathy History of stroke with current residual effects Hy kid NOS w cr kid I-IV Hyperlipidemia Hypertension Insulin dependent type 2 diabetes mellitus Kidney stones Numbness of arm Surgical History Surgical History History of cataract extraction History of cervical spinal surgery History of surgical procedure on eye proper using laser History of vitrectomy Status post cataract extraction Family History Family History Father Celiac disease Son Celiac disease Sibling Family history of obesity Hypertension Cerebrovascular accident Famil
[2021-07-01 19:07] LABS: Lactic Acid Reflex 1.5 mmol/L (0.7-2.1)
[2021-07-01] MEDS: FAMOTIDINE 20 MG/2 ML VIAL IV PUSH (20:17)
[2021-07-01] MEDS: ATORVASTATIN 40 MG TABLET PO (21:42)
[2021-07-01] MEDS: carvediloL 25 MG TABLET PO (21:43)
[2021-07-01] MEDS: SODIUM CHLORIDE 0.9% IV 1,000 ML 999 ML IV CONT (21:44)
[2021-07-01 21:52] LABS: Glucose Point of Care 291 mg/dl (65-105)
[2021-07-01] MEDS: INSULIN GLARGINE (*BKC) 100 UNITS/ML 60 UNITS SUB-Q (22:16)
--- NOTE | 2021-07-02 00:15 | PM.IMHP ---
H&P: HPI History of Present Illness Date/Time: 07/02/21 00:15 Chief Complaint: Bloody stools Narrative: 70-year-old male with past medical history of short-term memory loss, CVA, insulin-dependent diabetes mellitus, chronic kidney disease, hypertension, and celiac disease who presented to the ER with bright red blood per rectum. Source of information is nursing report and review of past medical records. The patient is alert oriented x3 but cannot give details of current situation. 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 At the time of my evaluation the patient had actually denied having had recent falls. When he was initially evaluated in the ER he reported that he fell because he stood up too fast and was just clumsy. Later in the day the called EMS because the patient was becoming more weak. The noted that the patient had incontinent a bloody stools. According to nursing report patient has chronic urinary incontinence. Evidently the patient reported that he ?might have had a bloody stool earlier in the day? but did not mention it during his prior ER visit. EMS noted the patient's glucoses were around 400. The patient was unable to tell as if he had taken his insulin recently. The patient reports 1 time that his rectal bleeding has been going on for 3 weeks with associated diarrhea. When at the 2nd time the patient reported that is been going on for 3 days. Next and he told me that is been going on since last time he had come to the hospital which was earlier that morning. Review of Systems Review of Systems: Review of systems limited. The patient is a poor historian. The patient has residual memory deficits due to prior CVA. [facility] Past Medical History Medical History (Updated 07/02/21 @ 09:25 by Kirti Montana, ) Anxiety Arthritis Benign prostatic hyperplasia Carpal tunnel syndrome on both sides s/p release Celiac disease Cerebrovascular accident (~2018) 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 CAMILLA was unremarkable. Chronic anemia Chronic insomnia Chronic kidney disease, stage 4 (severe) Creatinine ranges between 2.8 and 3.30. Colon polyps Depression Diabetic peripheral neuropathy Diabetic retinopathy History of stroke with current residual effects Hyperlipidemia Hypertension Insulin dependent type 2 diabetes mellitus Kidney stones Numbness of arm Surgical History Surgical History History of cataract extraction History of cervical spinal surgery History of surgical procedure on eye proper using laser History of vitrectomy Status post cataract extraction Family History Family History Father Celiac disease Son Celiac disease Sibling Family history of obesity Hypertension Cerebrovascular accident Family history of diabetes mellitus in first degree relative Family history of heart disease in male family member before age 55 Grandparent Family history of mental disorder Mother Cerebrovascular accident Family history of arthritis Family history of hearing loss Father Family history of congestive heart failure Family history of heart disease in male family member before age 55 Social History Social History Social History: Surrogate decision maker: Monica Fagan, . Code status: Full code. Smoking packs per day: 1 Smoking cigarettes per day: 20.0 Years smoked: 20 Smoking pack-years: 20.00 Smoking status: Former smoker Tobacco type: cigarettes and cigars Second hand tobacco smoke exposure: No Smoking end date: 03/14/89 Alcohol intake: never Substance use: never Substance use type: does not use Additional living arrangements comments:
[2021-07-02 06:00] VITALS: BP 177/70; PULSE 87; RESP 22; TEMP 36.9; O2SAT 100
[2021-07-02 07:07] LABS: Basophils Absolute Auto 0.1 K/mm3 (0.0-0.1); Basophils Percent Auto 0.5 % (0.2-1.2); Eosinophils Percent Auto 0.1 % (0-4.4); Hematocrit 32.8 % (42.0-52.0); Hemoglobin 10.8 g/dL (14.0-18.0); Immature Granulocyte Absolute 0.09 K/mm3 (0.00-0.031); Immature Granulocyte Percent A 0.5 % (0-0.5); Lymphocytes Absolute Auto 1.28 K/mm3 (0.9-3.2); Lymphocytes Percent Auto 7.2 % (18.3-44.2); Mean Corpuscular HGB Conc 32.9 g/dl (32-36); Mean Corpuscular Hemoglobin 32.1 pg (26-34); Mean Corpuscular Volume 97.6 fl (80-100); Mean Platelet Volume 9.4 fl (7.4-10.4); Monocytes Absolute Auto 1.1 K/mm3 (0.1-0.6); Neutrophils Absolute Auto 15.2 K/mm3 (1.3-6.7); Neutrophils Percent Auto 85.7 % (45.5-73.1); Platelet Count Result 186 k/mm3 (150-375); Red Blood Count 3.36 M/mm3 (4.6-6.20); Red Cell Distribution Width 14.1 % (11.5-14.5); White Blood Count 17.8 K/mm3 (4.5-10.0)
[2021-07-02 07:18] LABS: Alanine Aminotransferase 14 U/L (4-50); Albumin Level 3.5 g/dL (3.5-5.1); Alkaline Phosphatase 47 U/L (38-126); Anion Gap 11 mmol/L (8-16); Aspartate Amino Transferase 31 U/L (17-59); Bilirubin,Total 1.1 mg/dL (0.2-1.3); Blood Urea Nitrogen 87 mg/dL (9-20); Calcium 7.9 mg/dL (8.4-10.2); Carbon Dioxide 21 mmol/L (22-30); Chloride 105 mmol/L (98-107); Estimated CRCL calculation 19 ml/min; Estimated Glomerular Filt Rate 12; Glucose 175 mg/dL (65-110); Potassium 3.9 mmol/L (3.4-5.0); Sodium 137 mmol/L (137-145)
[2021-07-02 07:43] LABS: Glucose Point of Care 161 mg/dl (65-105)
[2021-07-02 08:00] VITALS: BP 137/65; PULSE 89; RESP 18; TEMP 36.6; O2SAT 99
[2021-07-02 10:03] VITALS: PULSE 89
[2021-07-02] MEDS: CHOLECALCIFEROL 1,000 UNITS TABLET 2000 UNITS PO (10:03)
[2021-07-02] MEDS: INSULIN ASPART (*BKC) 100 UNITS/ML 6 UNITS SUB-Q ×3 (10:03→17:22)
[2021-07-02] MEDS: carvediloL 25 MG TABLET PO ×2 (10:03→20:17)
[2021-07-02] MEDS: FAMOTIDINE 20 MG/2 ML VIAL IV PUSH ×2 (10:04→20:26)
[2021-07-02] MEDS: TAMSULOSIN HCL 0.4 MG CAPSULE PO (10:04)
[2021-07-02] MEDS: amLODIPine BESYLATE 2.5 MG TABLET PO (10:04)
[2021-07-02 10:40] LABS: Glucose Point of Care 227 mg/dl (65-105)
[2021-07-02 11:43] LABS: Glucose Point of Care 187 mg/dl (65-105)
[2021-07-02 14:00] VITALS: BP 128/59; PULSE 76; RESP 18; TEMP 36.8; O2SAT 97
[2021-07-02 16:45] LABS: Glucose Point of Care 140 mg/dl (65-105)
--- NOTE | 2021-07-02 16:55 | PM.IMPN ---
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.4 - intermediate card tender (current) use of insulin Status: Acute (3) Bright red blood per rectum: Code(s): K62.5 - Hemorrhage of anus and rectum Status: Acute (4) Acute renal failure superimposed on stage 4 chronic kidney disease: Qualifiers: Acute renal failure type: unspecified Qualified Code(s): N17.9 - Acute kidney failure, unspecified; N18.4 - Chronic kidney disease, stage 4 (severe) Code(s): N17.9 - Acute kidney failure, unspecified; N18.4 - Chronic kidney disease, stage 4 (severe) Status: Acute (5) Uncontrolled hypertension: Code(s): I10 - Essential (primary) hypertension Status: Acute Additional Plan # Colitis likely infectious with associated bright red blood per rectum. The patient has been placed on empiric antibiotic therapy with Zosyn. Stool cultures and blood cultures are pending. Gastroenterology has been consulted. Monitor H&H hold aspirin Plavix # GI bleed with bright red blood per rectum. Likely due to underlying colitis. IV Zosyn as ordered stool cultures. GI has been consulted will continue to monitor his H&H # acute on chronic renal failure likely due to colitis and diarrhea. Bladder scan demonstrated only 45 mL of postvoid residual. He is incontinent to his bladder. IV fluid and hydration. Baseline creatinine around 2-3. Will hold the patient's home lisinopril and diuretic therapy. Continue gentle hydration # recurrent falls CT head was negative # acute nondisplaced nasal bone fractures bilaterally noted on CT 07/01/2021 # hypertension uncontrolled on admission resume home medication Coreg and Norvasc hydralazine p.r.n. as ordered # type 2 diabetes mellitus with hyperglycemia on long-term insulin therapy. Home Levemir sliding scale insulin. Adjust as needed # history of BPH # history of cerebrovascular accident 2017 # Chronic anemia # hypertension # hyperlipidemia # history of kidney stones # diabetic peripheral neuropathy # colon polyps # cervical spine surgery # DVT prophylaxis SCDs due to bite with blood per rectum # code status full code Subjective Date/time seen: 07/02/21 16:55 Interval history: HPI:70-year-old male with past medical history of short-term memory loss, CVA, insulin-dependent diabetes mellitus, chronic kidney disease, hypertension, and celiac disease who presented to the ER with bright red blood per rectum. Source of information is nursing report and review of past medical records. The patient is alert oriented x3 but cannot give details of current situation. 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 At the time of my evaluation the patient had actually denied having had recent falls. When he was initially evaluated in the ER he reported that he fell because he stood up too fast and was just clumsy. Later in the day the called EMS because the patient was becoming more weak. The noted that the patient had incontinent a bloody stools. According to nursing report patient has chronic urinary incontinence. Evidently the patient reported that he ?might have had a bloody stool earlier in the day? but did not mention it during his prior ER visit. EMS noted the patient's glucoses were around 400. The patient was unable to tell as if he had taken his insulin recently. The patient reports 1 time that his rectal bleeding has been going on for 3 weeks with associated diarrhea. When at the 2nd time the patient reported that is been going on for 3 days. Next and he told me that is been going on since
[2021-07-02] MEDS: SODIUM CHLORIDE 0.9% IV 1,000 ML 100 ML IV CONT (17:24)
--- NOTE | 2021-07-02 17:41 | WPDGICN ---
Assessment and Plan Assessment and plan (1) Colitis: Code(s): K52.9 - Noninfective gastroenteritis and colitis, unspecified Status: Acute Assessment and Plan: could be infectious vs ischemic colitis on iv antibiotics he had a recent colonoscopy less than a year ago repeat lactic acid, liquid diet for now medical management for now (2) Bright red blood per rectum: Code(s): K62.5 - Hemorrhage of anus and rectum Status: Acute Assessment and Plan: continue to monitor (3) Acute renal failure superimposed on stage 4 chronic kidney disease: Qualifiers: Acute renal failure type: unspecified Qualified Code(s): N17.9 - Acute kidney failure, unspecified; N18.4 - Chronic kidney disease, stage 4 (severe) Code(s): N17.9 - Acute kidney failure, unspecified; N18.4 - Chronic kidney disease, stage 4 (severe) Status: Acute Assessment and Plan: by primary team (4) Type 2 diabetes mellitus with hyperglycemia, with long-term current use of insulin: Code(s): E11.65 - Type 2 diabetes mellitus with hyperglycemia; Z79.4 - custodial (current) use of insulin Status: Acute (5) Fall: Code(s): W19.XXXA - Unspecified fall, initial encounter Status: Acute (6) Celiac disease: Code(s): K90.0 - Celiac disease Status: Inactive (7) Uncontrolled hypertension: Code(s): I10 - Essential (primary) hypertension Status: Acute (8) Multiple falls: Code(s): R29.6 - Repeated falls Status: Chronic (9) Nasal fracture: Code(s): S02.2XXA - Fracture of nasal bones, initial encounter for closed fracture Status: Acute GI Consult Note Consult date/time: 07/02/21 17:41 Reason for consult: rectal bleeding, colitis HPI: Dewayne Fagan is a 70 year old male with history of short-term memory loss, CVA, insulin-dependent diabetes mellitus, chronic kidney disease with creatinine ~ 3, hypertension, and celiac disease who was brought to the ER with bright red blood per rectum. The patient is alert oriented x3 but is poor historian and part of history also obtained from records. He had an episode of fall at home and CT scan demonstrated bilateral nasal bone fractures but then patient returned to ER after noted that he also had loose stool associated with blood and incontinence. Also found to have glucose 400's, wbc 22k, hb 11, creatinine 4, lactic acid normal. CT scan showed colitis, admitted to hospital and started on antibiotics. Stool sample and blood culture pending. Last colonoscopy 01/[address] Fuller and normal (previously had polyp). Review of Systems Constitutional: Constitutional: Reports weakness Eyes: Eyes: Reports no additional eye complaints ENT: Comments: recent fall with nasal fracture Cardiovascular: Cardiovascular: Denies chest pain Respiratory: Respiratory: Denies dyspnea Gastrointestinal: Gastrointestinal: Reports diarrhea Genitourinary: Genitourinary: Reports urinary incontinence Musculoskeletal: Musculoskeletal: Denies back pain Integumentary/Breasts: Skin/Breast: Denies dry skin Neurologic: Denies headache(s) Psychiatric: Psychiatric: Reports no additional psychiatric complaints [facility] Past Medical History Medical History (Updated 07/02/21 @ 17:48 by Jonathan Bolton MD) Anxiety Arthritis Benign prostatic hyperplasia Carpal tunnel syndrome on both sides s/p release Celiac disease Cerebrovascular accident (~2018) 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 CAMILLA was unremarkable. Chronic anemia Chronic insomnia Chronic kidney disease, stage 4 (severe) Creatinine ranges between 2.8 and 3.30. Colon polyps Depression Diabetic peripheral neuropathy Diabetic retinopathy Fall History of stroke with current residual effects Hyperlipidemia Hypertension Insulin dependent type 2 diabetes mellitus Kidney stones Nasal fracture Numbness of arm Surgical History Surgi
[2021-07-02 20:17] VITALS: PULSE 83
[2021-07-02] MEDS: ATORVASTATIN 40 MG TABLET PO (20:17)
[2021-07-02] MEDS: INSULIN GLARGINE (*BKC) 100 UNITS/ML 60 UNITS SUB-Q (20:17)
[2021-07-02 20:32] LABS: Bacteria Urine Trace /hpf; Mucus Urine Rare /lpf; RBC Urine 0-2 /hpf (0-2); Squamous Epithelial Cell Urine Rare /hpf (Few); WBC Urine 0-3 /hpf (0-3)
[2021-07-02 20:38] LABS: Appearance Urine Clear (Clear); Bilirubin Urine Negative (Negative); Blood Urine 2+ (Negative); Color Urine Yellow (Yellow); Glucose Urine UA Negative (Negative); Ketones Urine Negative (Negative); Leukocyte Esterase Ur Negative LEU/UL (NEGATIVE); Nitrate Urine Negative (Negative); Protein Urine 3+ mg/dL (Negative); Urobilinogen Urine 0.2 mg/dL (<2.0)
[2021-07-02 20:59] LABS: Add Urine Microscopic? YES
[2021-07-02 21:48] VITALS: BP 173/76; PULSE 80; RESP 18; TEMP 37; O2SAT 98
[2021-07-02 21:54] LABS: Glucose Point of Care 167 mg/dl (65-105)
[2021-07-03] MEDS: QUEtiapine FUMARATE 25 MG TABLET PO (00:43)
[2021-07-03 06:00] VITALS: BP 109/90; PULSE 103; RESP 20; TEMP 36.7; O2SAT 98
[2021-07-03 06:55] LABS: Basophils Absolute Auto 0.1 K/mm3 (0.0-0.1); Basophils Percent Auto 0.4 % (0.2-1.2); Eosinophils Absolute Auto 0.2 K/mm3 (0-0.3); Eosinophils Percent Auto 1.3 % (0-4.4); Hematocrit 33.4 % (42.0-52.0); Hemoglobin 11.1 g/dL (14.0-18.0); Immature Granulocyte Absolute 0.07 K/mm3 (0.00-0.031); Immature Granulocyte Percent A 0.5 % (0-0.5); Lymphocytes Absolute Auto 1.07 K/mm3 (0.9-3.2); Lymphocytes Percent Auto 7.7 % (18.3-44.2); Mean Corpuscular HGB Conc 33.2 g/dl (32-36); Mean Corpuscular Hemoglobin 32.2 pg (26-34); Mean Corpuscular Volume 96.8 fl (80-100); Mean Platelet Volume 9.8 fl (7.4-10.4); Monocytes Absolute Auto 0.8 K/mm3 (0.1-0.6); Neutrophils Absolute Auto 11.8 K/mm3 (1.3-6.7); Neutrophils Percent Auto 84.1 % (45.5-73.1); Platelet Count Result 202 k/mm3 (150-375); Red Blood Count 3.45 M/mm3 (4.6-6.20); Red Cell Distribution Width 13.9 % (11.5-14.5)
[2021-07-03 07:01] LABS: Lactic Acid Reflex 0.7 mmol/L (0.7-2.1)
[2021-07-03 07:09] LABS: Alanine Aminotransferase 14 U/L (4-50); Albumin Level 3.7 g/dL (3.5-5.1); Alkaline Phosphatase 61 U/L (38-126); Anion Gap 10 mmol/L (8-16); Aspartate Amino Transferase 35 U/L (17-59); Bilirubin,Total 1.6 mg/dL (0.2-1.3); Blood Urea Nitrogen 70 mg/dL (9-20); Calcium 8.2 mg/dL (8.4-10.2); Carbon Dioxide 20 mmol/L (22-30); Chloride 106 mmol/L (98-107); Estimated CRCL calculation 19 ml/min; Estimated Glomerular Filt Rate 13; Glucose 92 mg/dL (65-110); Magnesium 2.2 mg/dL (1.6-2.3); Potassium 3.4 mmol/L (3.4-5.0); Sodium 136 mmol/L (137-145)
[2021-07-03 11:28] VITALS: PULSE 103
[2021-07-03] MEDS: carvediloL 25 MG TABLET PO ×2 (11:28→21:31)
[2021-07-03] MEDS: amLODIPine BESYLATE 2.5 MG TABLET PO (11:28)
[2021-07-03] MEDS: CHOLECALCIFEROL 1,000 UNITS TABLET 2000 UNITS PO (11:28)
[2021-07-03] MEDS: TAMSULOSIN HCL 0.4 MG CAPSULE PO (11:28)
[2021-07-03] MEDS: INSULIN ASPART (*BKC) 100 UNITS/ML 6 UNITS SUB-Q ×2 (11:31→17:15)
--- NOTE | 2021-07-03 11:48 | PM.IMPN ---
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.4 - medical terminologist (current) use of insulin Status: Acute (3) Bright red blood per rectum: Code(s): K62.5 - Hemorrhage of anus and rectum Status: Acute (4) Acute renal failure superimposed on stage 4 chronic kidney disease: Qualifiers: Acute renal failure type: unspecified Qualified Code(s): N17.9 - Acute kidney failure, unspecified; N18.4 - Chronic kidney disease, stage 4 (severe) Code(s): N17.9 - Acute kidney failure, unspecified; N18.4 - Chronic kidney disease, stage 4 (severe) Status: Acute (5) Uncontrolled hypertension: Code(s): I10 - Essential (primary) hypertension Status: Acute Additional Plan # Colitis likely infectious with associated bright red blood per rectum. The patient has been placed on empiric antibiotic therapy with Zosyn. Stool cultures and blood cultures are pending. Gastroenterology has been consulted. Monitor H&H hold aspirin Plavix. Still having intermittent bright red blood per rectum. # GI bleed with bright red blood per rectum. Likely due to underlying colitis. IV Zosyn as ordered stool cultures. GI has been consulted will continue to monitor his H&H # acute on chronic renal failure likely due to colitis and diarrhea. Bladder scan demonstrated only 45 mL of postvoid residual. He is incontinent to his bladder. IV fluid and hydration. Baseline creatinine around 2-3. Will hold the patient's home lisinopril and diuretic therapy. Continue gentle hydration. Renal ultrasound ordered which is pending. Creatinine slowly improved not back to baseline yet. Continue IV hydration # acute encephalopathy likely due to all above. Continue to monitor recent CT head was negative. Delirium most likely # recurrent falls CT head was negative # acute nondisplaced nasal bone fractures bilaterally noted on CT 07/01/2021 # hypertension uncontrolled on admission resume home medication Coreg and Norvasc hydralazine p.r.n. as ordered # type 2 diabetes mellitus with hyperglycemia on long-term insulin therapy. Home Levemir sliding scale insulin. Adjust as needed # history of BPH # history of cerebrovascular accident 2018 # Chronic anemia # hypertension # hyperlipidemia # history of kidney stones # diabetic peripheral neuropathy # colon polyps # cervical spine surgery # DVT prophylaxis SCDs due to bite with blood per rectum # code status full code Subjective Date/time seen: 07/03/21 11:48 Interval history: HPI:70-year-old male with past medical history of short-term memory loss, CVA, insulin-dependent diabetes mellitus, chronic kidney disease, hypertension, and celiac disease who presented to the ER with bright red blood per rectum. Source of information is nursing report and review of past medical records. The patient is alert oriented x3 but cannot give details of current situation. The patient evidently had fallen in the stablehand hours of the and came to the ER for evaluation and had a CT scan which demonstrated bilateral nasal bone fractures. At the time of my evaluation the patient had actually denied having had recent falls. When he was initially evaluated in the ER he reported that he fell because he stood up too fast and was just clumsy. Later in the day the called EMS because the patient was becoming more weak. The noted that the patient had incontinent a bloody stools. According to nursing report patient has chronic urinary incontinence. Evidently the patient reported that he ?might have had a bloody stool earlier in the day? but did not mention it during his prior ER visit. EMS noted the patient's glucoses were around 400. The patie
[2021-07-03 12:32] LABS: Glucose Point of Care 161 mg/dl (65-105)
[2021-07-03] MEDS: FAMOTIDINE 20 MG/2 ML VIAL IV PUSH ×2 (13:42→21:32)
[2021-07-03 14:00] VITALS: BP 80/48; PULSE 60; RESP 18; TEMP 36.1; O2SAT 94
[2021-07-03 14:08] VITALS: O2SAT 96
--- NOTE | 2021-07-03 14:20 | PCOTNOTE ---
The OT treatment was unable to be completed this date. Will continue per plan of care.
--- NOTE | 2021-07-03 15:29 | WPDGIPROGNO ---
Progress Note: A&P Assessment and Plan (1) Colitis: Code(s): K52.9 - Noninfective gastroenteritis and colitis, unspecified Status: Acute Assessment and Plan: could be infections vs ischemic leukocytosis but is trending down and lactic acid normal colonoscopy less than a year ago (2) Bright red blood per rectum: Code(s): K62.5 - Hemorrhage of anus and rectum Status: Acute Assessment and Plan: from colitis hb ~ 10 and stable (3) Type 2 diabetes mellitus with hyperglycemia, with long-term current use of insulin: Code(s): E11.65 - Type 2 diabetes mellitus with hyperglycemia; Z79.4 - detention (current) use of insulin Status: Acute (4) Fall: Code(s): W19.XXXA - Unspecified fall, initial encounter Status: Acute (5) Chronic kidney disease, stage 4 (severe): Code(s): N18.4 - Chronic kidney disease, stage 4 (severe) Status: Acute Assessment and Plan: advanced kidney disease (6) Leukocytosis: Code(s): D72.829 - Elevated white blood cell count, unspecified Status: Acute Assessment and Plan: on abx, wbc trending down Subjective Date/time seen: 07/03/21 15:29 Interval history: he was confused last night and today is resting. is at bedside. Had blood in stool but no abdominal pain Review of Systems Review of Systems: All systems reviewed & are unremarkable except as noted in HPI and below Exam Const: Other: sleepy but arousable, earlier was sleepy HENMT: General nose exam: Normal nares present Eyes: Sclera: sclerae normal Neck: Neck: supple Resp: Auscultation: clear to auscultation bilaterally Cardio: Rate: regular rate GI: GI Palp: Yes Soft to palpation and No Tenderness to palpation present (GI) Auscultation: normal bowel sounds Skin: General skin exam: no rashes or lesions noted Extrem: General: normal to inspection Objective Data Vital Signs Vital Signs: Vital Signs - 24 hr 07/02/21 20:17 07/02/21 21:48 07/03/21 06:00 Temperature 98.6 F 98.0 F Pulse Rate 83 80 103 H Respiratory Rate 18 20 Blood Pressure 173/76 H 109/90 Pulse Oximetry 98 98 07/03/21 11:07/03/21 14:00 Temperature 96.9 F L Pulse Rate 103 H 60 Respiratory Rate 18 Blood Pressure 80/48 L Pulse Oximetry 94 Intake/Output Intake/Output: Intake & Output 06/30/21 07/01/21 07/02/21 07/03/21 23:59 23:59 23:59 23:59 Intake Total 50 1280 468 Output Total 280 Balance 50 1000 468 Meds/Results Medications: Active Medications Generic Name Dose Route Start Last Admin Trade Name Freq PRN Reason Stop Dose Admin Acetaminophen 650 mg 07/01/21 18:34 Acetaminophen 325 Mg Tablet PO Q4H PRN Mild Pain (1-3) or Fever Amlodipine Besylate 2.5 mg 07/02/21 09:00 07/03/21 11:28 Amlodipine Besylate 2.5 Mg Tablet PO 2.5 mg DAILY EMMA Administration Atorvastatin Calcium 40 mg 07/01/21 21:00 07/02/21 20:17 Atorvastatin 40 Mg Tablet PO 40 mg HS EMMA Administration Carvedilol 25 mg 07/01/21 21:00 07/03/21 11:28 Carvedilol 25 Mg Tablet PO 25 mg Q12HR EMMA Administration Dextrose 12.5 gm 07/01/21 20:17 Dextrose 50% 25 Gm/50 Ml Syringe IV PUSH PRN PRN Hypoglycemia Protocol Famotidine 20 mg 07/01/21 21:00 07/03/21 13:42 Famotidine 20 Mg/2 Ml Vial IV PUSH 20 mg Q12HR EMMA Administration Glucagon 1 mg 07/01/21 20:17 Glucagon For Inj 1 Mg Vial IM PRN PRN Hypoglycemia Protocol Glucose 15 gm 07/01/21 20:17 Glucose Oral Gel 15 Gm Of Glucse In 37.5 Gm Tube PO PRN PRN Hypoglycemia Protocol Hydralazine HCl 10 mg 07/02/21 09:31 Hydralazine Hcl 20 Mg/Ml Vial IV PUSH Q4H PRN SBP greater than 160 Piperacillin Sod/Tazobactam Sod 2.25 gm in 50 mls @ 100 mls/hr 07/02/21 05:00 07/03/21 13:54 Zosyn 2.25 Gm/D5w 50 Ml IVPB 100 mls/hr Q8HR EMMA Administration Dextrose 1,000 mls @ 100 mls/
[2021-07-03 15:56] LABS: Glucose Point of Care 157 mg/dl (65-105)
[2021-07-03] MEDS: SODIUM CHLORIDE 0.9% IV 1,000 ML 100 ML IV CONT (17:14)
[2021-07-03 21:31] VITALS: PULSE 94
[2021-07-03] MEDS: ATORVASTATIN 40 MG TABLET PO (21:32)
[2021-07-03 21:52] VITALS: BP 194/77; PULSE 94; RESP 18; TEMP 36.7; O2SAT 97
[2021-07-03 22:08] LABS: Glucose Point of Care 119 mg/dl (65-105)
--- NOTE | 2021-07-03 23:39 | PC.NURSE ---
Patients blood sugar HS was 119. at bedside and states pt has history of low blood sugars and agreed with creative services writer to hold scheduled 60 units of Lantus given patients poor appetite/intake today and current blood sugar
[2021-07-04 06:00] VITALS: BP 164/89; PULSE 54; RESP 16; TEMP 36.8; O2SAT 97
[2021-07-04 08:00] VITALS: PULSE 95; RESP 14; O2SAT 97
[2021-07-04 08:17] LABS: Glucose Point of Care 159 mg/dl (65-105)
[2021-07-04] MEDS: SODIUM CHLORIDE 0.9% IV 1,000 ML 100 ML IV CONT ×2 (09:29→18:56)
[2021-07-04] MEDS: INSULIN ASPART (*BKC) 100 UNITS/ML 6 UNITS SUB-Q ×3 (09:30→18:57)
[2021-07-04] MEDS: CHOLECALCIFEROL 1,000 UNITS TABLET 2000 UNITS PO (09:31)
[2021-07-04] MEDS: TAMSULOSIN HCL 0.4 MG CAPSULE PO (09:31)
[2021-07-04] MEDS: FAMOTIDINE 20 MG/2 ML VIAL IV PUSH ×2 (09:31→21:55)
[2021-07-04] MEDS: amLODIPine BESYLATE 2.5 MG TABLET PO (09:32)
[2021-07-04] MEDS: carvediloL 25 MG TABLET PO ×2 (09:32→21:55)
[2021-07-04 12:28] LABS: Glucose Point of Care 180 mg/dl (65-105)
--- NOTE | 2021-07-04 13:23 | WPDGIPROGNO ---
Progress Note: A&P Assessment and Plan (1) Colitis: Code(s): K52.9 - Noninfective gastroenteritis and colitis, unspecified Status: Acute Assessment and Plan: clinically better could be infectious vs ischemic leukocytosis was trending down normal lactic acid on antibiotics, will advance diet colonoscopy less than a year ago (2) Bright red blood per rectum: Code(s): K62.5 - Hemorrhage of anus and rectum Status: Acute Assessment and Plan: from colitis hb ~ 10 and stable almost resolved (3) Leukocytosis: Code(s): D72.829 - Elevated white blood cell count, unspecified Status: Acute Assessment and Plan: on abx, wbc trending down (4) Chronic kidney disease, stage 4 (severe): Code(s): N18.4 - Chronic kidney disease, stage 4 (severe) Status: Acute Assessment and Plan: advanced kidney disease (5) Fall: Code(s): W19.XXXA - Unspecified fall, initial encounter Status: Acute (6) Type 2 diabetes mellitus with hyperglycemia, with long-term current use of insulin: Code(s): E11.65 - Type 2 diabetes mellitus with hyperglycemia; Z79.4 - terminal manager (current) use of insulin Status: Acute Subjective Date/time seen: 07/04/21 13:23 Interval history: more awake today, says that patient looks better and last BM only with tinged of blood (improved), no pain. Review of Systems Review of Systems: All systems reviewed & are unremarkable except as noted in HPI and below Exam Const: Other: awake, comfortable in bed HENMT: General nose exam: Normal nares present Eyes: Sclera: sclerae normal Neck: Neck: supple Resp: Auscultation: clear to auscultation bilaterally Cardio: Rate: regular rate GI: GI Palp: Yes Soft to palpation and No Tenderness to palpation present (GI) Auscultation: normal bowel sounds Skin: General skin exam: no rashes or lesions noted Neuro: Speech: normal speech Extrem: General: normal to inspection Psych: Affect: normal affect Objective Data Vital Signs Vital Signs: Vital Signs - 24 hr 07/03/21 14:00 07/03/21 14:08 07/03/21 21:31 Temperature 96.9 F L Pulse Rate 60 94 Respiratory Rate 18 Blood Pressure 80/48 L Pulse Oximetry 94 96 07/03/21 21:52 07/04/21 06:00 Temperature 98.1 F 98.3 F Pulse Rate 94 54 L Respiratory Rate 18 16 Blood Pressure 194/77 H 164/89 H Pulse Oximetry 97 97 Intake/Output Intake/Output: Intake & Output 07/01/21 07/02/21 07/03/21 07/04/21 23:59 23:59 23:59 23:59 Intake Total 50 1280 1568 1640 Output Total 280 Balance 50 1000 1568 1640 Meds/Results Medications: Active Medications Generic Name Dose Route Start Last Admin Trade Name Freq PRN Reason Stop Dose Admin Acetaminophen 650 mg 07/01/21 18:34 Acetaminophen 325 Mg Tablet PO Q4H PRN Mild Pain (1-3) or Fever Amlodipine Besylate 2.5 mg 07/02/21 09:00 07/04/21 09:32 Amlodipine Besylate 2.5 Mg Tablet PO 2.5 mg DAILY EMMA Administration Atorvastatin Calcium 40 mg 07/01/21 21:00 07/03/21 21:32 Atorvastatin 40 Mg Tablet PO 40 mg HS EMMA Administration Carvedilol 25 mg 07/01/21 21:00 07/04/21 09:32 Carvedilol 25 Mg Tablet PO 25 mg Q12HR EMMA Administration Dextrose 12.5 gm 07/01/21 20:17 Dextrose 50% 25 Gm/50 Ml Syringe IV PUSH PRN PRN Hypoglycemia Protocol Famotidine 20 mg 07/01/21 21:00 07/04/21 09:31 Famotidine 20 Mg/2 Ml Vial IV PUSH 20 mg Q12HR EMMA Administration Glucagon 1 mg 07/01/21 20:17 Glucagon For Inj 1 Mg Vial IM PRN PRN Hypoglycemia Protocol Glucose 15 gm 07/01/21 20:17 Glucose Oral Gel 15 Gm Of Glucse In 37.5 Gm Tube PO PRN PRN Hypoglycemia Protocol Hydralazine HCl 10 mg 07/02/21 09:31 Hydralazine Hcl 20 Mg/Ml Vial IV PUSH Q4H PRN SBP greater than 160 Piperacillin Sod/Tazobactam Sod 2.25 gm in 50 mls @ 100 mls/hr 07/02/21 05:
[2021-07-04] MEDS: MORPHINE SULFATE (*CRX) 4 MG/ML INJ IV PUSH (13:32)
--- NOTE | 2021-07-04 13:50 | PM.IMPN ---
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.4 - termite treater (current) use of insulin Status: Acute (3) Bright red blood per rectum: Code(s): K62.5 - Hemorrhage of anus and rectum Status: Acute (4) Acute renal failure superimposed on stage 4 chronic kidney disease: Qualifiers: Acute renal failure type: unspecified Qualified Code(s): N17.9 - Acute kidney failure, unspecified; N18.4 - Chronic kidney disease, stage 4 (severe) Code(s): N17.9 - Acute kidney failure, unspecified; N18.4 - Chronic kidney disease, stage 4 (severe) Status: Acute (5) Uncontrolled hypertension: Code(s): I10 - Essential (primary) hypertension Status: Acute Additional Plan # Colitis likely infectious with associated bright red blood per rectum. The patient has been placed on empiric antibiotic therapy with Zosyn. Stool cultures and blood cultures are pending. Gastroenterology has been consulted. Monitor H&H hold aspirin Plavix. Bright red blood per rectum slowing down Abdominal pain is still persistent will check CT abdomen and pelvis to further evaluate repeat lactic acid is well # GI bleed with bright red blood per rectum. Likely due to underlying colitis. IV Zosyn as ordered stool cultures. GI has been consulted will continue to monitor his H&H # acute on chronic renal failure likely due to colitis and diarrhea. Bladder scan demonstrated only 45 mL of postvoid residual. He is incontinent to his bladder. IV fluid and hydration. Baseline creatinine around 2-3. Will hold the patient's home lisinopril and diuretic therapy. Continue gentle hydration. Renal ultrasound ordered is negative for hydronephrosis. Creatinine slowly improved not back to baseline yet. Continue IV hydration # acute encephalopathy likely due to all above. Continue to monitor recent CT head was negative. Delirium most likely # recurrent falls CT head was negative # acute nondisplaced nasal bone fractures bilaterally noted on CT 07/01/2021 # hypertension uncontrolled on admission resume home medication Coreg and Norvasc hydralazine p.r.n. as ordered # type 2 diabetes mellitus with hyperglycemia on long-term insulin therapy. Home Levemir sliding scale insulin. Adjust as needed # history of BPH # history of cerebrovascular accident 2018 # Chronic anemia # hypertension # hyperlipidemia # history of kidney stones # diabetic peripheral neuropathy # colon polyps # cervical spine surgery # DVT prophylaxis SCDs due to bite with blood per rectum # code status full code Subjective Date/time seen: 07/04/21 13:50 Interval history: HPI:70-year-old male with past medical history of short-term memory loss, CVA, insulin-dependent diabetes mellitus, chronic kidney disease, hypertension, and celiac disease who presented to the ER with bright red blood per rectum. Source of information is nursing report and review of past medical records. The patient is alert oriented x3 but cannot give details of current situation. The patient evidently had fallen in the early intervention specialist hours of the and came to the ER for evaluation and had a CT scan which demonstrated bilateral nasal bone fractures. At the time of my evaluation the patient had actually denied having had recent falls. When he was initially evaluated in the ER he reported that he fell because he stood up too fast and was just clumsy. Later in the day the called EMS because the patient was becoming more weak. The noted that the patient had incontinent a bloody stools. According to nursing report patient has chronic urinary incontinence. Evidently the patient reported that he ?might have had
[2021-07-04 13:51] LABS: Basophils Percent Auto 0.3 % (0.2-1.2); Eosinophils Absolute Auto 0.1 K/mm3 (0-0.3); Eosinophils Percent Auto 0.4 % (0-4.4); Hematocrit 32.2 % (42.0-52.0); Hemoglobin 10.6 g/dL (14.0-18.0); Immature Granulocyte Absolute 0.07 K/mm3 (0.00-0.031); Immature Granulocyte Percent A 0.6 % (0-0.5); Lymphocytes Absolute Auto 0.65 K/mm3 (0.9-3.2); Lymphocytes Percent Auto 5.2 % (18.3-44.2); Mean Corpuscular HGB Conc 32.9 g/dl (32-36); Mean Corpuscular Hemoglobin 32.3 pg (26-34); Mean Corpuscular Volume 98.2 fl (80-100); Mean Platelet Volume 9.5 fl (7.4-10.4); Monocytes Percent Auto 7.6 % (2.6-8.5); Neutrophils Absolute Auto 10.8 K/mm3 (1.3-6.7); Neutrophils Percent Auto 85.9 % (45.5-73.1); Platelet Count Result 207 k/mm3 (150-375); Red Blood Count 3.28 M/mm3 (4.6-6.20); White Blood Count 12.5 K/mm3 (4.5-10.0)
[2021-07-04 14:00] VITALS: BP 110/74; PULSE 95; RESP 14; TEMP 36.3; O2SAT 97
[2021-07-04 14:02] LABS: Alanine Aminotransferase 13 U/L (4-50); Albumin Level 3.4 g/dL (3.5-5.1); Alkaline Phosphatase 51 U/L (38-126); Anion Gap 9 mmol/L (8-16); Aspartate Amino Transferase 30 U/L (17-59); Bilirubin,Total 1.7 mg/dL (0.2-1.3); Blood Urea Nitrogen 66 mg/dL (9-20); Calcium 7.9 mg/dL (8.4-10.2); Carbon Dioxide 19 mmol/L (22-30); Chloride 108 mmol/L (98-107); Estimated CRCL calculation 17 ml/min; Estimated Glomerular Filt Rate 11; Glucose 206 mg/dL (65-110); Magnesium 2.2 mg/dL (1.6-2.3); Potassium 3.9 mmol/L (3.4-5.0); Sodium 136 mmol/L (137-145)
--- NOTE | 2021-07-04 14:26 | PCPTNOTE ---
Pt refused physical therapy today. Will cont per POC tomorrow.
[2021-07-04 18:15] LABS: Creatinine Urine 58.6 mg/dL
[2021-07-04 18:16] LABS: Sodium Urine Random 54 meq/L
[2021-07-04 18:56] LABS: Glucose Point of Care 161 mg/dl (65-105)
[2021-07-04 18:58] LABS: Total Protein Urine Random 266 mg/dL; Ur Ttl Prot Creatinine Ratio 4.54 mg/mg (0-0.20)
[2021-07-04 19:58] LABS: Eosinophil Urine Rare % (None Seen)
[2021-07-04 21:33] VITALS: O2SAT 95
[2021-07-04 21:41] VITALS: BP 142/72; PULSE 73; RESP 18; TEMP 35.9; O2SAT 95
[2021-07-04 21:55] VITALS: PULSE 73
[2021-07-04] MEDS: ATORVASTATIN 40 MG TABLET PO (21:55)
[2021-07-04 22:11] LABS: Glucose Point of Care 122 mg/dl (65-105)
[2021-07-05] MEDS: SODIUM CHLORIDE 0.9% IV 1,000 ML 150 ML IV CONT (03:57)
[2021-07-05 06:00] VITALS: BP 142/59; PULSE 66; RESP 18; TEMP 35.9; O2SAT 100
[2021-07-05 07:31] LABS: Albumin Level 3.3 g/dL (3.5-5.1); Anion Gap 8 mmol/L (8-16); Blood Urea Nitrogen 63 mg/dL (9-20); Calcium 8.1 mg/dL (8.4-10.2); Carbon Dioxide 21 mmol/L (22-30); Chloride 111 mmol/L (98-107); Estimated CRCL calculation 17 ml/min; Estimated Glomerular Filt Rate 11; Glucose 130 mg/dL (65-110); Phosphorus 4.8 mg/dL (2.5-4.5); Potassium 3.9 mmol/L (3.4-5.0); Sodium 140 mmol/L (137-145)
[2021-07-05 08:04] LABS: Glucose Point of Care 125 mg/dl (65-105)
[2021-07-05] MEDS: INSULIN ASPART (*BKC) 100 UNITS/ML 6 UNITS SUB-Q ×3 (09:04→17:11)
[2021-07-05 09:05] VITALS: PULSE 66
[2021-07-05] MEDS: carvediloL 25 MG TABLET PO ×2 (09:05→21:14)
[2021-07-05] MEDS: CHOLECALCIFEROL 1,000 UNITS TABLET 2000 UNITS PO (09:05)
[2021-07-05] MEDS: TAMSULOSIN HCL 0.4 MG CAPSULE PO (09:06)
[2021-07-05] MEDS: FAMOTIDINE 20 MG/2 ML VIAL IV PUSH ×2 (09:06→21:13)
[2021-07-05] MEDS: amLODIPine BESYLATE 2.5 MG TABLET PO (09:06)
[2021-07-05] MEDS: SODIUM CHLORIDE 0.9% IV 1,000 ML 50 ML IV CONT (11:23)
[2021-07-05 11:39] LABS: Glucose Point of Care 165 mg/dl (65-105)
--- NOTE | 2021-07-05 11:47 | WPDGIPROGNO ---
Progress Note: A&P Assessment and Plan (1) Colitis: Code(s): K52.9 - Noninfective gastroenteritis and colitis, unspecified Status: Acute Assessment and Plan: clinically better, wbc trending down, no pain could be infectious vs ischemic he had normal lactic acid on antibiotics, he is eating more- advance diet colonoscopy less than a year ago, no need to repeat another one (2) Bright red blood per rectum: Code(s): K62.5 - Hemorrhage of anus and rectum Status: Acute Assessment and Plan: from colitis hb ~ 10 and stable almost resolved (3) Leukocytosis: Code(s): D72.829 - Elevated white blood cell count, unspecified Status: Acute Assessment and Plan: on abx, wbc trending down (4) Chronic kidney disease, stage 4 (severe): Code(s): N18.4 - Chronic kidney disease, stage 4 (severe) Status: Acute Assessment and Plan: advanced kidney disease, will need follow-up with nephrology (5) Fall: Code(s): W19.XXXA - Unspecified fall, initial encounter Status: Acute (6) Type 2 diabetes mellitus with hyperglycemia, with long-term current use of insulin: Code(s): E11.65 - Type 2 diabetes mellitus with hyperglycemia; Z79.4 - assisted (current) use of insulin Status: Acute Subjective Date/time seen: 07/05/21 11:47 Interval history: is at bedside and she can tell that he is doing better. He is up in chair, feels comfortable and denies pain. Review of Systems Review of Systems: All systems reviewed & are unremarkable except as noted in HPI and below Exam Const: Other: awake, up in chair HENMT: General nose exam: Normal nares present Eyes: Sclera: sclerae normal Neck: Neck: supple Resp: Auscultation: clear to auscultation bilaterally Cardio: Rate: regular rate GI: GI Palp: Yes Soft to palpation and No Tenderness to palpation present (GI) Auscultation: normal bowel sounds Skin: General skin exam: no rashes or lesions noted Neuro: Speech: normal speech Extrem: General: normal to inspection Psych: Affect: normal affect Objective Data Vital Signs Vital Signs: Vital Signs - 24 hr 07/04/21 14:00 07/04/21 21:33 07/04/21 21:41 Temperature 97.4 F L 96.7 F L Pulse Rate 95 73 Respiratory Rate 14 18 Blood Pressure 110/74 142/72 H Pulse Oximetry 97 95 95 07/04/21 21:55 07/05/21 06:00 07/05/21 09:05 Temperature 96.7 F L Pulse Rate 73 66 66 Respiratory Rate 18 Blood Pressure 142/59 H Pulse Oximetry 100 Intake/Output Intake/Output: Intake & Output 07/02/21 07/03/21 07/04/21 07/05/21 23:59 23:59 23:59 23:59 Intake Total 1280 1568 3720 2490 Output Total 280 1550 1500 Balance 1000 1568 2170 990 Meds/Results Medications: Active Medications Generic Name Dose Route Start Last Admin Trade Name Freq PRN Reason Stop Dose Admin Acetaminophen 650 mg 07/01/21 18:34 Acetaminophen 325 Mg Tablet PO Q4H PRN Mild Pain (1-3) or Fever Amlodipine Besylate 2.5 mg 07/02/21 09:00 07/05/21 09:06 Amlodipine Besylate 2.5 Mg Tablet PO 2.5 mg DAILY EMMA Administration Atorvastatin Calcium 40 mg 07/01/21 21:00 07/04/21 21:55 Atorvastatin 40 Mg Tablet PO 40 mg HS EMMA Administration Carvedilol 25 mg 07/01/21 21:00 07/05/21 09:05 Carvedilol 25 Mg Tablet PO 25 mg Q12HR EMMA Administration Dextrose 12.5 gm 07/01/21 20:17 Dextrose 50% 25 Gm/50 Ml Syringe IV PUSH PRN PRN Hypoglycemia Protocol Famotidine 20 mg 07/01/21 21:00 07/05/21 09:06 Famotidine 20 Mg/2 Ml Vial IV PUSH 20 mg Q12HR EMMA Administration Fluticasone Propionate 1 spray 07/05/21 11:20 Fluticasone Propionate 0.05% Na Spr 16 Gm Btl (*Bkc) NASAL Q12HR EMMA Glucagon 1 mg 07/01/21 20:17 Glucagon For Inj 1 Mg Vial IM PRN PRN Hypoglycemia Protocol Glucose 15 gm 07/01/21 20:17 Glucose Oral Gel 15 Gm Of Glucse In 37.5 Gm Tube PO
[2021-07-05] MEDS: FLUTICASONE PROPIONATE 0.05% NA SPR 16 GM BTL (*BKC) 1 SPRAY NASAL ×2 (12:30→21:14)
--- NOTE | 2021-07-05 12:38 | PM.CNNEP ---
Assessment and Plan Assessment and plan (1) SERGIO (acute kidney injury): Code(s): N17.9 - Acute kidney failure, unspecified Status: Acute Assessment and Plan: possibly due to a combination of infection (colitis), volume depletion, and urinary retention/obstruction suspect some worsening with ongoing use of diuretic (indapamide) and ROLDAN-I (lisinopril) ELECTRICAL TEST TECHNICIAN evaluation to date: most recent CT scan with mild bilateral hydronephrosis (done on 07/04/21) renal ultrasound without any acute changes (done on 07/03/21) urine electrolytes are nonprerenal urine eosinophils are rare reasonable urine output noted probably okay to reduce/back-off on IVF resuscitation follow trend of repeat labs and UOP (2) Chronic kidney disease, stage IV (severe): Code(s): N18.4 - Chronic kidney disease, stage 4 (severe) Status: Chronic Assessment and Plan: baseline creatinine runs 2.8 - 3.4mg/dl in the last couple of years due to HTN, DM, and age-related change based on outpatient evaluation (3) Colitis: Code(s): K52.9 - Noninfective gastroenteritis and colitis, unspecified Status: Acute Assessment and Plan: as evidence by initial CT scan improvement noted by repeat CT scan follow culture data on antibiotics Gastroenterology following (4) Anemia: Code(s): D64.9 - Anemia, unspecified Status: Acute Assessment and Plan: suspect due to several issues: BRBPR colitis SERGIO CKD acute illness follow trend of H/H (5) Hypertension: Code(s): I10 - Essential (primary) hypertension Status: Chronic Assessment and Plan: reasonable control at this time follow trend of hemodynamics (6) Diabetes: Qualifiers: Chronic kidney disease stage: stage 4 (severe) Diabetes mellitus complication detail: with chronic kidney disease Diabetes mellitus complication status: with kidney complications Diabetes mellitus termite control technician insulin use: with senior living use Diabetes mellitus type: type 2 Qualified Code(s): E11.22 - Type 2 diabetes mellitus with diabetic chronic kidney disease; N18.4 - Chronic kidney disease, stage 4 (severe); Z79.4 - middle or intermediate school principal (current) use of insulin Code(s): E11.9 - Type 2 diabetes mellitus without complications Status: Chronic Assessment and Plan: follow accuchecks glycemic control Discussed case with Dr. Corbett. Will continue to follow. History of Present Illness Reason for Consult Consult date: 07/05/21 Reason for consult: acute renal failure (on chronic kidney disease) Chief Complaint Chief complaint: colitis History of Present Illness Narrative: The patient is 70-year-old male with a past medical history as outlined below who presented to [facility] Emergency room due to complaints of bright red blood per rectum. Most of the information I have obtained is from review of the electronic medical record and discussion with the physicians/nurses involved in his care as the patient is unable to give a complete account of the events that led to his presentation and subsequent admission to the hospital due to his current confusion. Approximately 3-4 days ago, the patient sustained a fall and was evaluated in the ER and found to have bilateral nasal bone fractures. He reported that he fell because he stood up too fast and lost his footing due to his clumsiness. However, over the course of that day, it seems he was becoming more and more weaker. Furthermore, his noted that he was incontinent of stool and the stool itself appeared to be bloody. On his initial ER visit for the a for mentioned fault, he did not mention anything to the physicians or nurses at that time that he had bloody stools. Due to his profound weakness, the nursing staff at his facility called EMS for further evaluation and was reported that he had significant hyperglycemia with blood sugars in the 4
--- NOTE | 2021-07-05 12:38 | P.CONNP_ITS ---
Assessment and Plan Assessment and plan (1) SERGIO (acute kidney injury): Code(s): N17.9 - Acute kidney failure, unspecified Status: Acute Assessment and Plan: * possibly due to a combination of infection (colitis), volume depletion, and urinary retention/obstruction * suspect some worsening with ongoing use of diuretic (indapamide) and ROLDAN-I (lisinopril) RN ACUTE CARE * evaluation to date: * most recent CT scan with mild bilateral hydronephrosis (done on 07/04/21) * renal ultrasound without any acute changes (done on 07/03/21) * urine electrolytes are nonprerenal * urine eosinophils are rare * reasonable urine output noted * probably okay to reduce/back-off on IVF resuscitation * follow trend of repeat labs and UOP (2) Chronic kidney disease, stage IV (severe): Code(s): N18.4 - Chronic kidney disease, stage 4 (severe) Status: Chronic Assessment and Plan: * baseline creatinine runs 2.8 - 3.4mg/dl in the last couple of years * due to HTN, DM, and age-related change based on outpatient evaluation (3) Colitis: Code(s): K52.9 - Noninfective gastroenteritis and colitis, unspecified Status: Acute Assessment and Plan: * as evidence by initial CT scan * improvement noted by repeat CT scan * follow culture data * on antibiotics * Gastroenterology following (4) Anemia: Code(s): D64.9 - Anemia, unspecified Status: Acute Assessment and Plan: * suspect due to several issues: * BRBPR * colitis * SERGIO * CKD * acute illness * follow trend of H/H (5) Hypertension: Code(s): I10 - Essential (primary) hypertension Status: Chronic Assessment and Plan: * reasonable control at this time * follow trend of hemodynamics (6) Diabetes: Qualifiers: Chronic kidney disease stage: stage 4 (severe) Diabetes mellitus complication detail: with chronic kidney disease Diabetes mellitus complication status: with kidney complications Diabetes mellitus jail insulin use: with jail use Diabetes mellitus type: type 2 Qualified Code(s): E11.22 - Type 2 diabetes mellitus with diabetic chronic kidney disease; N18.4 - Chronic kidney disease, stage 4 (severe); Z79.4 - intermediate (current) use of insulin Code(s): E11.9 - Type 2 diabetes mellitus without complications Status: Chronic Assessment and Plan: * follow accuchecks * glycemic control Discussed case with Dr. Corbett. Will continue to follow. History of Present Illness Reason for Consult Consult date: 07/05/21 Reason for consult: acute renal failure (on chronic kidney disease) Chief Complaint Chief complaint: colitis History of Present Illness Narrative: The patient is 70-year-old male with a past medical history as outlined below who presented to [facility] Emergency room due to complaints of bright red blood per rectum. Most of the information I have obtained is from review of the electronic medical record and discussion with the physicians/nurses involved in his care as the patient is unable to give a complete account of the events that led to his presentation and subsequent admission to the hospital due to his current confusion. Approximately 3-4 days ago, the patient sustained a fall and was evaluated in the ER and found to have bilateral nasal bone fractures. He reported that he fell because he stood up too fast and lost his footing due to his clumsiness. However, over the course of that day, it seems he was becoming more and more wea
[2021-07-05 14:00] VITALS: BP 94/53; PULSE 53; RESP 18; TEMP 36.2; O2SAT 99
--- NOTE | 2021-07-05 14:45 | PM.IMPN ---
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 Status: Acute (3) Bright red blood per rectum: Code(s): K62.5 - Hemorrhage of anus and rectum Status: Acute (4) Acute renal failure superimposed on stage 4 chronic kidney disease: Qualifiers: Acute renal failure type: unspecified Qualified Code(s): N17.9 - Acute kidney failure, unspecified; N18.4 - Chronic kidney disease, stage 4 (severe) Code(s): N17.9 - Acute kidney failure, unspecified; N18.4 - Chronic kidney disease, stage 4 (severe) Status: Acute (5) Uncontrolled hypertension: Code(s): I10 - Essential (primary) hypertension Status: Acute Additional Plan # Colitis likely infectious with associated bright red blood per rectum. The patient has been placed on empiric antibiotic therapy with Zosyn. Stool cultures and blood cultures are pending. Gastroenterology has been consulted. Monitor H&H hold aspirin Plavix. Bright red blood per rectum slowing down Abdominal pain is still persistent will check CT abdomen and pelvis to further evaluate repeat lactic acid is well. Be CT scan with improving colitis however noted to have bilateral mild hydronephrosis with bladder distention Continue Zosyn # GI bleed with bright red blood per rectum. Likely due to underlying colitis. IV Zosyn as ordered stool cultures. GI has been consulted will continue to monitor his H&H # acute on chronic renal failure likely due to colitis and diarrhea. Bladder scan demonstrated only 45 mL of postvoid residual. He is incontinent to his bladder. IV fluid and hydration. Baseline creatinine around 2-3. Will hold the patient's home lisinopril and diuretic therapy. Continue gentle hydration. Renal ultrasound ordered is negative for hydronephrosis. Creatinine slowly improved not back to baseline yet. Continue IV hydration Repeat CT scan showed obstruction with bladder distention and bilateral hydronephrosis. Sutton has been placed 07/04/2021 which been draining well. Renal failure is still persistent Renal has been consulted. Discussed with Renal Slow the IV fluid to 50 cc an hour Mildly congestion noted will add Flonase nasal spray. Check chest x-ray # acute encephalopathy likely due to all above. Continue to monitor recent CT head was negative. Delirium most likely # recurrent falls CT head was negative # acute nondisplaced nasal bone fractures bilaterally noted on CT 07/01/2021 # hypertension uncontrolled on admission resume home medication Coreg and Norvasc hydralazine p.r.n. as ordered # type 2 diabetes mellitus with hyperglycemia on long-term insulin therapy. Home Levemir sliding scale insulin. Adjust as needed # history of BPH # history of cerebrovascular accident 2017 # Chronic anemia # hypertension # hyperlipidemia # history of kidney stones # diabetic peripheral neuropathy # colon polyps # cervical spine surgery # DVT prophylaxis SCDs due to blood per rectum # code status full code Subjective Date/time seen: 07/05/21 14:45 Interval history: HPI:70-year-old male with past medical history of short-term memory loss, CVA, insulin-dependent diabetes mellitus, chronic kidney disease, hypertension, and celiac disease who presented to the ER with bright red blood per rectum. Source of information is nursing report and review of past medical records. The patient is alert oriented x3 but cannot give details of current situation. 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 At the time of
[2021-07-05 16:57] LABS: Glucose Point of Care 153 mg/dl (65-105)
[2021-07-05 21:14] VITALS: PULSE 79
[2021-07-05] MEDS: ATORVASTATIN 40 MG TABLET PO (21:14)
[2021-07-05] MEDS: INSULIN GLARGINE (*BKC) 100 UNITS/ML 60 UNITS SUB-Q (21:15)
[2021-07-05 21:44] LABS: Glucose Point of Care 197 mg/dl (65-105)
[2021-07-05 21:59] VITALS: BP 124/54; PULSE 60; RESP 18; TEMP 36.7; O2SAT 97
[2021-07-06] VITALS (7 sets, daily range): BP systolic 137–154; BP diastolic 50–64; PULSE 62–76; RESP 18–20; TEMP 36.7–36.9; O2SAT 96–98
[2021-07-06 06:50] LABS: Basophils Percent Auto 0.4 % (0.2-1.2); Eosinophils Absolute Auto 0.5 K/mm3 (0-0.3); Eosinophils Percent Auto 5.2 % (0-4.4); Hematocrit 29.5 % (42.0-52.0); Hemoglobin 9.8 g/dL (14.0-18.0); Immature Granulocyte Absolute 0.06 K/mm3 (0.00-0.031); Immature Granulocyte Percent A 0.7 % (0-0.5); Lymphocytes Absolute Auto 1.31 K/mm3 (0.9-3.2); Lymphocytes Percent Auto 14.4 % (18.3-44.2); Mean Corpuscular HGB Conc 33.2 g/dl (32-36); Mean Corpuscular Hemoglobin 31.9 pg (26-34); Mean Corpuscular Volume 96.1 fl (80-100); Mean Platelet Volume 9.3 fl (7.4-10.4); Monocytes Percent Auto 10.5 % (2.6-8.5); Neutrophils Absolute Auto 6.3 K/mm3 (1.3-6.7); Neutrophils Percent Auto 68.8 % (45.5-73.1); Platelet Count Result 191 k/mm3 (150-375); Red Blood Count 3.07 M/mm3 (4.6-6.20); Red Cell Distribution Width 13.4 % (11.5-14.5); White Blood Count 9.1 K/mm3 (4.5-10.0)
[2021-07-06 06:58] LABS: Alanine Aminotransferase 17 U/L (4-50); Albumin Level 3.1 g/dL (3.5-5.1); Alkaline Phosphatase 65 U/L (38-126); Anion Gap 7 mmol/L (8-16); Aspartate Amino Transferase 29 U/L (17-59); Bilirubin,Total 0.9 mg/dL (0.2-1.3); Blood Urea Nitrogen 61 mg/dL (9-20); Calcium 7.5 mg/dL (8.4-10.2); Carbon Dioxide 21 mmol/L (22-30); Chloride 110 mmol/L (98-107); Estimated CRCL calculation 19 ml/min; Estimated Glomerular Filt Rate 13; Glucose 181 mg/dL (65-110); Phosphorus 3.5 mg/dL (2.5-4.5); Potassium 3.4 mmol/L (3.4-5.0); Sodium 138 mmol/L (137-145)
[2021-07-06 07:41] LABS: Glucose Point of Care 165 mg/dl (65-105)
[2021-07-06] MEDS: CHOLECALCIFEROL 1,000 UNITS TABLET 2000 UNITS PO (08:21)
[2021-07-06] MEDS: FAMOTIDINE 20 MG/2 ML VIAL IV PUSH ×2 (08:21→22:12)
[2021-07-06] MEDS: FLUTICASONE PROPIONATE 0.05% NA SPR 16 GM BTL (*BKC) 1 SPRAY NASAL ×2 (08:21→22:12)
[2021-07-06] MEDS: amLODIPine BESYLATE 2.5 MG TABLET PO (08:22)
[2021-07-06] MEDS: TAMSULOSIN HCL 0.4 MG CAPSULE PO (08:22)
[2021-07-06] MEDS: carvediloL 25 MG TABLET PO ×2 (08:23→22:05)
--- NOTE | 2021-07-06 08:51 | PC.NURSE ---
pt upset about breakfast deliveried, states pt is gluten free diet, ordered dietian consult, call and reordered tray, encourage to bring food in from home r/t recurrent issue. special delivery carrier Abby called pt advocate, advocate to speak with .
--- NOTE | 2021-07-06 08:54 | PC.NURSE ---
gave dietary phone number to , speaking with dietary department about food products.
[2021-07-06] MEDS: INSULIN ASPART (*BKC) 100 UNITS/ML 6 UNITS SUB-Q ×3 (09:31→17:07)
--- NOTE | 2021-07-06 11:33 | WPDGIPROGNO ---
Progress Note: A&P Assessment and Plan (1) Colitis: Code(s): K52.9 - Noninfective gastroenteritis and colitis, unspecified Status: Acute Assessment and Plan: significantly improved, wbc now is normal could be infectious vs ischemic he had normal lactic acid tolerating diet he can go home with 5 more days of oral antibiotics colonoscopy less than a year ago, no need to repeat another one will follow from [place], call if questions (2) Bright red blood per rectum: Code(s): K62.5 - Hemorrhage of anus and rectum Status: Acute Assessment and Plan: from colitis hb ~ 10 and stable (3) Leukocytosis: Code(s): D72.829 - Elevated white blood cell count, unspecified Status: Acute Assessment and Plan: on abx normal today (4) Chronic kidney disease, stage 4 (severe): Code(s): N18.4 - Chronic kidney disease, stage 4 (severe) Status: Acute Assessment and Plan: advanced kidney disease nephrology on board (5) Fall: Code(s): W19.XXXA - Unspecified fall, initial encounter Status: Acute (6) Type 2 diabetes mellitus with hyperglycemia, with long-term current use of insulin: Code(s): E11.65 - Type 2 diabetes mellitus with hyperglycemia; Z79.4 - USP (current) use of insulin Status: Acute Subjective Date/time seen: 07/06/21 11:33 Interval history: no more diarrhea per , patient is doing well and tolerating diet Review of Systems Review of Systems: All systems reviewed & are unremarkable except as noted in HPI and below Exam Const: Other: awake, up in chair HENMT: General nose exam: Normal nares present Eyes: Sclera: sclerae normal Neck: Neck: supple Resp: Auscultation: clear to auscultation bilaterally Cardio: Rate: regular rate GI: GI Palp: Yes Soft to palpation and No Tenderness to palpation present (GI) Auscultation: normal bowel sounds Skin: General skin exam: no rashes or lesions noted Neuro: Speech: normal speech Extrem: General: normal to inspection Psych: Affect: normal affect Objective Data Vital Signs Vital Signs: Vital Signs - 24 hr 07/05/21 14:00 07/05/21 21:14 07/05/21 21:59 Temperature 97.2 F L 98.1 F Pulse Rate 53 L 79 60 Respiratory Rate 18 18 Blood Pressure 94/53 L 124/54 L Pulse Oximetry 99 97 07/06/21 05:46 07/06/21 08:00 07/06/21 08:23 Temperature 98.1 F Pulse Rate 74 74 74 Respiratory Rate 20 20 Blood Pressure 148/50 H Pulse Oximetry 98 96 07/06/21 08:45 Temperature Pulse Rate Respiratory Rate Blood Pressure Pulse Oximetry 96 Intake/Output Intake/Output: Intake & Output 07/03/21 07/04/21 07/05/21 07/06/21 23:59 23:59 23:59 23:59 Intake Total 1568 3720 3270 1070 Output Total 1550 3350 2350 Balance 1568 3886 -50 -9490 Meds/Results Medications: Active Medications Generic Name Dose Route Start Last Admin Trade Name Freq PRN Reason Stop Dose Admin Acetaminophen 650 mg 07/01/21 18:34 Acetaminophen 325 Mg Tablet PO Q4H PRN Mild Pain (1-3) or Fever Amlodipine Besylate 2.5 mg 07/02/21 09:00 07/06/21 08:22 Amlodipine Besylate 2.5 Mg Tablet PO 2.5 mg DAILY EMMA Administration Atorvastatin Calcium 40 mg 07/01/21 21:00 07/05/21 21:14 Atorvastatin 40 Mg Tablet PO 40 mg HS EMMA Administration Carvedilol 25 mg 07/01/21 21:00 07/06/21 08:23 Carvedilol 25 Mg Tablet PO 25 mg Q12HR EMMA Administration Dextrose 12.5 gm 07/01/21 20:17 Dextrose 50% 25 Gm/50 Ml Syringe IV PUSH PRN PRN Hypoglycemia Protocol Famotidine 20 mg 07/01/21 21:00 07/06/21 08:21 Famotidine 20 Mg/2 Ml Vial IV PUSH 20 mg Q12HR EMMA Administration Fluticasone Propionate 1 spray 07/05/21 11:20 07/06/21 08:21 Fluticasone Propionate 0.05% Na Spr 16 Gm Btl (*Bkc) NASAL 1 spray Q12HR EMMA Administration Glucagon 1 mg 07/01/21 20:17 Glucagon For Inj 1 Mg Vial IM PRN PRN Hy
[2021-07-06 11:44] LABS: Glucose Point of Care 235 mg/dl (65-105)
[2021-07-06] MEDS: INSULIN ASPART (*BKC) 100 UNITS/ML SUB-Q (12:20)
--- NOTE | 2021-07-06 12:57 | P.PNNP_ITS ---
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 * evaluation to date: * most recent CT scan with mild bilateral hydronephrosis (done on 07/04/21) * renal ultrasound without any acute changes (done on 07/03/21) * urine electrolytes are non-prerenal * urine eosinophils are rare * reasonable urine output * follow trend of repeat labs and UOP (2) Chronic kidney disease, stage IV (severe): Code(s): N18.4 - Chronic kidney disease, stage 4 (severe) Status: Chronic Assessment and Plan: * baseline creatinine runs 2.8 - 3.4mg/dl in the last couple of years * due to HTN, DM, and age-related change based on outpatient evaluation (3) Colitis: Code(s): K52.9 - Noninfective gastroenteritis and colitis, unspecified Status: Acute Assessment and Plan: * as evidence by initial CT scan * improvement noted by repeat CT scan * follow culture data * on antibiotics * Gastroenterology following (4) Anemia: Code(s): D64.9 - Anemia, unspecified Status: Acute Assessment and Plan: * suspect due to several issues: * BRBPR * colitis * SERGIO * CKD * acute illness * follow trend of H/H (5) Hypertension: Code(s): I10 - Essential (primary) hypertension Status: Chronic Assessment and Plan: * reasonable control at this time * follow trend of hemodynamics (6) Diabetes: Qualifiers: Chronic kidney disease stage: stage 4 (severe) Diabetes mellitus complication detail: with chronic kidney disease Diabetes mellitus complication status: with kidney complications Diabetes mellitus intermediate teacher insulin use: with intermediate teacher use Diabetes mellitus type: type 2 Qualified Code(s): E11.22 - Type 2 diabetes mellitus with diabetic chronic kidney disease; N18.4 - Chronic kidney disease, stage 4 (severe); Z79.4 - [facility] (current) use of insulin Code(s): E11.9 - Type 2 diabetes mellitus without complications Status: Chronic Assessment and Plan: * follow accuchecks * glycemic control Will continue to follow. Subjective Date/time seen: 07/06/21 12:57 Overall, seems to be making slow and steady improvement -- he states he feels much better in general; tolerating oral intake and having normal bowel movements; good urnie output with joseph catheter in place; no other acute issues/events overnight or earlier this AM. Exam Narrative: General: WD/WN male in NAD Heart: normal S1 and S2; no rub Lungs: clear to auscultation Abdomen: soft, nontender, nondistended, positive bowel sounds Extremities: no cyanosis or clubbing; no edema Skin: warm and dry Objective Data Vital Signs Vital Signs: Vital Signs Temp Pulse Resp BP Pulse Ox 07/06/21 08:45 96 07/06/21 08:23 74 07/06/21 08:00 74 20 96 07/06/21 05:46 36.7 C 74 20 148/50 H 98 07/05/21 21:59 36.7 C 60 18 124/54 L 97 07/05/21 21:14 79 07/05/21 14:00 36.2 C L 53 L 18 94/53 L 99 Intake/Output Intake/Ou
--- NOTE | 2021-07-06 12:57 | PM.PNNEP ---
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: most recent CT scan with mild bilateral hydronephrosis (done on 07/04/21) renal ultrasound without any acute changes (done on 07/03/21) urine electrolytes are non-prerenal urine eosinophils are rare reasonable urine output follow trend of repeat labs and UOP (2) Chronic kidney disease, stage IV (severe): Code(s): N18.4 - Chronic kidney disease, stage 4 (severe) Status: Chronic Assessment and Plan: baseline creatinine runs 2.8 - 3.4mg/dl in the last couple of years due to HTN, DM, and age-related change based on outpatient evaluation (3) Colitis: Code(s): K52.9 - Noninfective gastroenteritis and colitis, unspecified Status: Acute Assessment and Plan: as evidence by initial CT scan improvement noted by repeat CT scan follow culture data on antibiotics Gastroenterology following (4) Anemia: Code(s): D64.9 - Anemia, unspecified Status: Acute Assessment and Plan: suspect due to several issues: BRBPR colitis SERGIO CKD acute illness follow trend of H/H (5) Hypertension: Code(s): I10 - Essential (primary) hypertension Status: Chronic Assessment and Plan: reasonable control at this time follow trend of hemodynamics (6) Diabetes: Qualifiers: Chronic kidney disease stage: stage 4 (severe) Diabetes mellitus complication detail: with chronic kidney disease Diabetes mellitus complication status: with kidney complications 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 Subjective Date/time seen: 07/06/21 12:57 Overall, seems to be making slow and steady improvement -- he states he feels much better in general; tolerating oral intake and having normal bowel movements; good urnie output with joseph catheter in place; no other acute issues/events overnight or earlier this AM. Exam Narrative: General: WD/WN male in NAD Heart: normal S1 and S2; no rub Lungs: clear to auscultation Abdomen: soft, nontender, nondistended, positive bowel sounds Extremities: no cyanosis or clubbing; no edema Skin: warm and dry Objective Data Vital Signs Vital Signs: Vital Signs Temp Pulse Resp BP Pulse Ox 07/06/21 08:45 96 07/06/21 08:23 74 07/06/21 08:00 74 20 96 07/06/21 05:46 36.7 C 74 20 148/50 H 98 07/05/21 21:59 36.7 C 60 18 124/54 L 97 07/05/21 21:14 79 07/05/21 14:00 36.2 C L 53 L 18 94/53 L 99 Intake/Output Intake/Output: Intake & Output 07/03/21 07/04/21 07/05/21 07/06/21 23:59 23:59 23:59 23:59 Intake Total 1568 3720 3270 1660 Output Total 1550 3350 2350 Balance 1568 2170 -80 -416 Meds/Results Medications: Active Medications Generic Name Dose Route Start Last Admin Trade Name Freq PRN Reason Stop Dose Admin Acetaminophen 650 mg 07/01/21 18:34 Acetaminophen 325 Mg Tablet PO Q4H PRN Mild Pain (1-3) or Fever Amlodipine Besylate 2.5 mg 07/02/21 09:00 07/06/21 08:22 Amlodipine Besylate 2.5 Mg Tablet PO 2.5 mg DAILY EMMA Administration Atorvastatin Calcium 40 mg 07/01/21 21:00 07/05/21 2
[2021-07-06] MEDS: SODIUM CHLORIDE 0.9% IV 1,000 ML 50 ML IV CONT (13:07)
--- NOTE | 2021-07-06 14:53 | PM.IMPN ---
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 Status: Acute (3) Bright red blood per rectum: Code(s): K62.5 - Hemorrhage of anus and rectum Status: Acute (4) Acute renal failure superimposed on stage 4 chronic kidney disease: Qualifiers: Acute renal failure type: unspecified Qualified Code(s): N17.9 - Acute kidney failure, unspecified; N18.4 - Chronic kidney disease, stage 4 (severe) Code(s): N17.9 - Acute kidney failure, unspecified; N18.4 - Chronic kidney disease, stage 4 (severe) Status: Acute (5) Uncontrolled hypertension: Code(s): I10 - Essential (primary) hypertension Status: Acute Additional Plan # Colitis likely infectious with associated bright red blood per rectum. The patient has been placed on empiric antibiotic therapy with Zosyn. Stool cultures and blood cultures are pending. Gastroenterology has been consulted. Monitor H&H hold aspirin Plavix. Bright red blood per rectum slowing down Abdominal pain is still persistent will check CT abdomen and pelvis to further evaluate repeat lactic acid is well. Be CT scan with improving colitis however noted to have bilateral mild hydronephrosis with bladder distention Continue Zosyn (start date 07/02/21) # GI bleed with bright red blood per rectum. Likely due to underlying colitis. IV Zosyn as ordered stool cultures. GI has been consulted; will continue to monitor his H&H. # acute on chronic renal failure likely due to colitis and diarrhea. Bladder scan demonstrated only 45 mL of postvoid residual. He is incontinent to his bladder. IV fluid and hydration. Baseline creatinine around 2-3. Will hold the patient's home lisinopril and diuretic therapy. Continue gentle hydration. Renal ultrasound ordered is negative for hydronephrosis. Creatinine slowly improved not back to baseline yet. Continue IV hydration Repeat CT scan showed obstruction with bladder distention and bilateral hydronephrosis. Joseph has been placed 07/04/2021 which been draining well. Renal failure is still persistent Renal has been consulted. Discussed with Renal Slow the IV fluid to 50 cc an hour Mildly congestion noted will add Flonase nasal spray. Chest x-ray negative for any congestion. will stop ivf. # acute encephalopathy likely due to all above. Continue to monitor recent CT head was negative. Delirium most likely. this has imporved. # recurrent falls CT head was negative # acute nondisplaced nasal bone fractures bilaterally noted on CT 07/01/2021 # hypertension uncontrolled on admission resume home medication Coreg and Norvasc hydralazine p.r.n. as ordered # type 2 diabetes mellitus with hyperglycemia on long-term insulin therapy. Home Levemir sliding scale insulin. Adjust as needed # history of BPH # history of cerebrovascular accident 2017 # Chronic anemia # hypertension # hyperlipidemia # history of kidney stones # diabetic peripheral neuropathy # colon polyps # cervical spine surgery # DVT prophylaxis SCDs due to blood per rectum # code status full code # urinary retention with bilateral hydronephrosis: joseph placed 07/04/2021. drainging well. renal function improving now. Subjective Date/time seen: 07/06/21 14:53 Interval history: HPI:70-year-old male with past medical history of short-term memory loss, CVA, insulin-dependent diabetes mellitus, chronic kidney disease, hypertension, and celiac disease who presented to the ER with bright red blood per rectum. Source of information is nursing report and review of past medical records. The patient is alert oriented x3 but cannot give details of curre
[2021-07-06 16:16] LABS: Glucose Point of Care 116 mg/dl (65-105)
[2021-07-06] MEDS: polyethylene glycoL 3350 17 GM POWD.PACK PO (16:24)
[2021-07-06] MEDS: ATORVASTATIN 40 MG TABLET PO (22:05)
[2021-07-06 22:27] LABS: Glucose Point of Care 126 mg/dl (65-105)
[2021-07-07] VITALS (10 sets, daily range): BP systolic 125–155; BP diastolic 69–95; PULSE 54–84; RESP 16–20; TEMP 36.3–36.9; O2SAT 94–98
--- NOTE | 2021-07-07 07:10 | PC.NURSE ---
critical PTT >200.0 provider notified, lab to redraw.
[2021-07-07 07:31] LABS: Glucose Point of Care 129 mg/dl (65-105)
[2021-07-07] MEDS: FAMOTIDINE 20 MG/2 ML VIAL IV PUSH ×2 (08:23→21:12)
[2021-07-07] MEDS: carvediloL 25 MG TABLET PO ×2 (08:23→21:12)
[2021-07-07] MEDS: amLODIPine BESYLATE 2.5 MG TABLET PO (08:23)
[2021-07-07] MEDS: INSULIN ASPART (*BKC) 100 UNITS/ML 6 UNITS SUB-Q ×3 (08:23→17:17)
[2021-07-07] MEDS: TAMSULOSIN HCL 0.4 MG CAPSULE PO (08:23)
[2021-07-07] MEDS: FLUTICASONE PROPIONATE 0.05% NA SPR 16 GM BTL (*BKC) 1 SPRAY NASAL ×2 (08:23→21:12)
[2021-07-07] MEDS: CHOLECALCIFEROL 1,000 UNITS TABLET 2000 UNITS PO (08:23)
[2021-07-07 09:24] LABS: Albumin Level 3.3 g/dL (3.5-5.1); Anion Gap 6 mmol/L (8-16); Blood Urea Nitrogen 55 mg/dL (9-20); Carbon Dioxide 25 mmol/L (22-30); Chloride 108 mmol/L (98-107); Estimated CRCL calculation 20 ml/min; Estimated Glomerular Filt Rate 14; Glucose 151 mg/dL (65-110); Phosphorus 4.1 mg/dL (2.5-4.5); Potassium 3.4 mmol/L (3.4-5.0); Sodium 139 mmol/L (137-145)
[2021-07-07] MEDS: polyethylene glycoL 3350 17 GM POWD.PACK PO (10:12)
--- NOTE | 2021-07-07 10:23 | PM.PNNEP ---
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: most recent CT scan with mild bilateral hydronephrosis (done on 07/04/21) renal ultrasound without any acute changes (done on 07/03/21) urine electrolytes are non-prerenal urine eosinophils are rare reasonable urine output follow trend of repeat labs and UOP (2) Chronic kidney disease, stage IV (severe): Code(s): N18.4 - Chronic kidney disease, stage 4 (severe) Status: Chronic Assessment and Plan: baseline creatinine runs 2.8 - 3.4mg/dl in the last couple of years due to HTN, DM, and age-related change based on outpatient evaluation (3) Colitis: Code(s): K52.9 - Noninfective gastroenteritis and colitis, unspecified Status: Acute Assessment and Plan: as evidence by initial CT scan improvement noted by repeat CT scan follow culture data on antibiotics Gastroenterology following (4) Anemia: Code(s): D64.9 - Anemia, unspecified Status: Acute Assessment and Plan: suspect due to several issues: BRBPR colitis SERGIO CKD acute illness follow trend of H/H (5) Hypertension: Code(s): I10 - Essential (primary) hypertension Status: Chronic Assessment and Plan: reasonable control at this time follow trend of hemodynamics (6) Diabetes: Qualifiers: Diabetes mellitus type: type 2 Diabetes mellitus intermediate designer insulin use: with intermediate designer use Diabetes mellitus complication status: with kidney complications Diabetes mellitus complication detail: with chronic kidney disease Chronic kidney disease stage: stage 4 (severe) Qualified Code(s): E11.22 - Type 2 diabetes mellitus with diabetic chronic kidney disease; N18.4 - Chronic kidney disease, stage 4 (severe); Z79.4 - senior care (current) use of insulin Code(s): E11.9 - Type 2 diabetes mellitus without complications Status: Chronic Assessment and Plan: follow accuchecks glycemic control Will continue to follow. Subjective Date/time seen: 07/07/21 10:23 Continues to feel better each day; mentation seems to improving as well; eating and drinking okay without any issues or problems; continues to make good urine output as well; no issues/evetns overnight or earlier this morning. Exam Narrative: General: WD/WN male in NAD Heart: normal S1 and S2; no rub Lungs: clear to auscultation Abdomen: soft, nontender, nondistended, positive bowel sounds Extremities: no cyanosis or clubbing; no edema Skin: warm and intact Objective Data Vital Signs Vital Signs: Vital Signs Temp Pulse Resp BP Pulse Ox 07/07/21 08:23 80 07/07/21 08:00 80 20 97 07/07/21 05:36 36.5 C 54 L 20 155/69 H 97 07/06/21 22:05 76 07/06/21 21:55 36.9 C 62 18 154/62 H 97 07/06/21 14:00 36.9 C 73 20 137/64 97 Intake/Output Intake/Output: Intake & Output 07/04/21 07/05/21 07/06/21 07/07/21 23:59 23:59 23:59 23:59 Intake Total 3720 3270 2110 650 Output Total 1550 3350 3700 2250 Balance 2170 -80 -1590 -1600 Meds/Results Medications: Active Medications Generic Name Dose Route Start Last Admin Trade Name Freq PRN Reason Stop Dose Admin Acetaminophen 650 mg 07/01/21 18:34 Acetaminophen 325 Mg Tablet PO Q4H PRN Mild Pain (1-3) or Fever Amlodipine Besylate 2.5 mg 07/02/21 09:00 07/07/21 08:23 Amlodipine Besylate 2.5 Mg Tablet PO 2.5 mg DAILY EMMA Administration Atorvastatin Calcium 40 mg 07/01/21 21:00 07/06/21 22:05 Atorvastatin 40 Mg Tablet PO 40 mg HS EMMA Admi
--- NOTE | 2021-07-07 10:23 | P.PNNP_ITS ---
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 TRIALS NURSE * evaluation to date: * most recent CT scan with mild bilateral hydronephrosis (done on 07/04/21) * renal ultrasound without any acute changes (done on 07/03/21) * urine electrolytes are non-prerenal * urine eosinophils are rare * reasonable urine output * follow trend of repeat labs and UOP (2) Chronic kidney disease, stage IV (severe): Code(s): N18.4 - Chronic kidney disease, stage 4 (severe) Status: Chronic Assessment and Plan: * baseline creatinine runs 2.8 - 3.4mg/dl in the last couple of years * due to HTN, DM, and age-related change based on outpatient evaluation (3) Colitis: Code(s): K52.9 - Noninfective gastroenteritis and colitis, unspecified Status: Acute Assessment and Plan: * as evidence by initial CT scan * improvement noted by repeat CT scan * follow culture data * on antibiotics * Gastroenterology following (4) Anemia: Code(s): D64.9 - Anemia, unspecified Status: Acute Assessment and Plan: * suspect due to several issues: * BRBPR * colitis * SERGIO * CKD * acute illness * follow trend of H/H (5) Hypertension: Code(s): I10 - Essential (primary) hypertension Status: Chronic Assessment and Plan: * reasonable control at this time * follow trend of hemodynamics (6) Diabetes: Qualifiers: Diabetes mellitus type: type 2 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 Subjective Date/time seen: 07/07/21 10:23 Continues to feel better each day; mentation seems to improving as well; eating and drinking okay without any issues or problems; continues to make good urine output as well; no issues/evetns overnight or earlier this morning. Exam Narrative: General: WD/WN male in NAD Heart: normal S1 and S2; no rub Lungs: clear to auscultation Abdomen: soft, nontender, nondistended, positive bowel sounds Extremities: no cyanosis or clubbing; no edema Skin: warm and intact Objective Data Vital Signs Vital Signs: Vital Signs Temp Pulse Resp BP Pulse Ox 07/07/21 08:23 80 07/07/21 08:00 80 20 97 07/07/21 05:36 36.5 C 54 L 20 155/69 H 97 07/06/21 22:05 76 07/06/21 21:55 36.9 C 62 18 154/62 H 97 07/06/21 14:00 36.9 C 73 20 137/64 97 Intake/Output Intake/Output: Intake & Output 07/04/21 0
[2021-07-07 11:48] LABS: Glucose Point of Care 247 mg/dl (65-105)
[2021-07-07] MEDS: INSULIN ASPART (*BKC) 100 UNITS/ML SUB-Q ×2 (13:39→17:17)
--- NOTE | 2021-07-07 14:02 | PC.NURSE ---
Reported to Md Corbett that was concerned about pt, pt wasn't eating by himself, sleepy, and not following command, assessed by this nurse. Pt didn't follow commands, would not tell me his name, did respond to pain. Pt acted annoyed by assessment. Bs 264 insulin gave since pt started eating again. reported pt not able to use straw, this nurse asked pt to drink, pt was able to use straw, placed on tele 84 Sr. Reported to Md Corbett stated pt was awake this morning, and had difficulty sleeping last night. Later therapy admitted but pt made very inappropriate remarks to therapeutist. Informed Md Corbett again.
--- NOTE | 2021-07-07 14:11 | PCOTNOTE ---
Attempted to work with pt. however, pt. refusing to communicate only making very inappropriate statements to ARNOLD, confirming this was out of character - tried to encourage participation prior to remarks, however pt. unwilling to participate frequently grabbing at self. Will continue plan of care tomorrow. RN notified, RN confirmed was contacted and aware of status.
--- NOTE | 2021-07-07 14:15 | PM.IMPN ---
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.4 - lobsterman (current) use of insulin Status: Acute (3) Bright red blood per rectum: Code(s): K62.5 - Hemorrhage of anus and rectum Status: Acute (4) Acute renal failure superimposed on stage 4 chronic kidney disease: Qualifiers: Acute renal failure type: unspecified Qualified Code(s): N17.9 - Acute kidney failure, unspecified; N18.4 - Chronic kidney disease, stage 4 (severe) Code(s): N17.9 - Acute kidney failure, unspecified; N18.4 - Chronic kidney disease, stage 4 (severe) Status: Acute (5) Uncontrolled hypertension: Code(s): I10 - Essential (primary) hypertension Status: Acute Additional Plan # Colitis likely infectious with associated bright red blood per rectum. The patient has been placed on empiric antibiotic therapy with Zosyn. Stool cultures and blood cultures are pending. Gastroenterology has been consulted. Monitor H&H hold aspirin Plavix. Bright red blood per rectum slowing down Abdominal pain is still persistent hence [address] abdomen and pelvis to further evaluate repeat lactic acid is well. His CT scan noted with improving colitis however noted to have bilateral mild hydronephrosis with bladder distention, lactic acid remained normal Continue Zosyn (start date 07/02/21) # GI bleed with bright red blood per rectum. Likely due to underlying colitis. IV Zosyn as ordered stool cultures. GI has been consulted; will continue to monitor his H&H. # acute on chronic renal failure likely due to colitis and diarrhea. Bladder scan demonstrated only 45 mL of postvoid residual. He is incontinent to his bladder. IV fluid and hydration. Baseline creatinine around 2-3. Will hold the patient's home lisinopril and diuretic therapy. Continue gentle hydration. Renal ultrasound ordered is negative for hydronephrosis. Creatinine slowly improved not back to baseline yet. Continue IV hydration Repeat CT scan showed obstruction with bladder distention and bilateral hydronephrosis. Joseph has been placed 07/04/2021 which been draining well. Renal failure is still persistent Renal has been consulted. Discussed with Renal Slow the IV fluid to 50 cc an hour Mildly congestion noted will add Flonase nasal spray. Chest x-ray negative for any congestion. Stopped IV fluid 07/06/2021 # acute encephalopathy likely due to all above. Continue to monitor recent CT head was negative. Delirium most likely. this has imporved. # recurrent falls CT head was negative # acute nondisplaced nasal bone fractures bilaterally noted on CT 07/01/2021 # hypertension uncontrolled on admission resume home medication Coreg and Norvasc hydralazine p.r.n. as ordered # type 2 diabetes mellitus with hyperglycemia on long-term insulin therapy. Home Levemir sliding scale insulin. Adjust as needed # history of BPH # history of cerebrovascular accident 2017 # Chronic anemia # hypertension # hyperlipidemia # history of kidney stones # diabetic peripheral neuropathy # colon polyps # cervical spine surgery # DVT prophylaxis SCDs due to blood per rectum # code status full code # urinary retention with bilateral hydronephrosis: joseph placed 07/04/2021. drainging well. renal function improving now. Good amount a urine Subjective Date/time seen: 07/07/21 14:15 Interval history: HPI:70-year-old male with past medical history of short-term memory loss, CVA, insulin-dependent diabetes mellitus, chronic kidney disease, hypertension, and celiac disease who presented to the ER with bright red blood per rectum. Source of information is nursing report and review of past medica
--- NOTE | 2021-07-07 14:26 | PC.NURSE ---
On 07/07/21, the student, Petty Brandon, provided care and completed [place] documentation on this patient. I have reviewed the student's documentation and agree with the findings. At time of VS check, student reported to myself that pt's mental status had changed and he was behaving inappropriately. I assessed the patient and notified the primary RN, Jojo, of pt condition. at bedside. RN Jojo aware of pt condition.
[2021-07-07 14:28] LABS: Glucose Point of Care 264 mg/dl (65-105)
--- NOTE | 2021-07-07 14:32 | PC.NURSE ---
Called Md Corbett again, remains concerned, inquired about MRI, and stroke work up. Awaiting call back.
--- NOTE | 2021-07-07 14:48 | PC.NURSE ---
MRI of brain r/t change in mental status reported by .
--- NOTE | 2021-07-07 15:02 | ECG_ITS ---
Measurements Intervals Bantry Rate: 75 P: 26 PA: 206 QRS: -73 QRSD: 136 T: -4 QT: 403 QTc: 452 Interpretive Statements SINUS RHYTHM WITH MARKED SINUS ARRHYTHMIA RIGHT BUNDLE BRANCH BLOCK [120+ ms QRS DURATION, UPRIGHT V1, 40+ ms S IN I/aVL/V4/V5/V6] LEFT ANTERIOR FASCICULAR BLOCK [QRS AXIS <= -45, QR IN I, RS IN II] POOR R-WAVE PROGRESSION COMPARED TO ECG 02/07/2020 11:26:25 SINUS ARRHYTHMIA NOW PRESENT Electronically Signed On 07-08-2021 13:39:11 CDT by Christianne Vieira M.D.
--- NOTE | 2021-07-07 15:34 | PC.NURSE ---
pt at mri of brain.
[2021-07-07] MEDS: SODIUM CHLORIDE 0.9% IV 1,000 ML 50 ML IV CONT (16:13)
[2021-07-07 16:14] LABS: Add Urine Microscopic? YES; Appearance Urine Cloudy (Clear); Bacteria Urine Trace /hpf; Bilirubin Urine Negative (Negative); Blood Urine 2+ (Negative); Color Urine Yellow (Yellow); Glucose Urine UA 2+ mg/dL (Negative); Ketones Urine Negative (Negative); Leukocyte Esterase Ur Negative LEU/UL (Negative); Mucus Urine Rare /lpf; Nitrate Urine Negative (Negative); Protein Urine 3+ mg/dL (Negative); RBC Urine >75 /hpf (0-2); Specific Grav Ur 1.014 (1.001-1.035); Squamous Epithelial Cell Urine Rare /hpf (Few); Urobilinogen Urine Negative mg/dL (<2.0); WBC Urine 31-50 /hpf
--- NOTE | 2021-07-07 16:19 | PC.NURSE ---
ekg done, sinus rhythm with sinus arrhythmia RBBB 120 ms qrs duration upright v1 40 ms s in I/avl/v4/v5/v6 left anteroir fascicular block -45 qr in I rs in II possible septal myocardial infarction of indeterminate age 30 ms q wave in V1/v2 abnormal ekg vent rate 75 pr 206ms qrs 136 ms qt/qtc 403/432 ms prt axes 26-73 -4 reported to MD Corbett.
--- NOTE | 2021-07-07 16:25 | PC.NURSE ---
ua sent to lab for analysis.
[2021-07-07 16:29] LABS: Alveolar/Arterial O2 Gradient 25.8 mmHg; Base Excess ABG -1.9 mEq/l (+/-2.0); Fractional Inspired Oxygen 21 %; HCO3 ABG 21.8 mEq/l (22.0-26.0); Oxygen Content ABG 13.8 %vol (16.0-22.0); Oxygen Saturation ABG 96.7 % (95.0-100.0); Oxyhemoglobin 95.3 % THb (90.0-100.0); PO2 ABG 84.4 mmHg (80.0-100.0); PO2 FiO2 Ratio Arterial Blood 4.02 %; Total Hemoglobin 10.2 g/dL (12.0-18.0); pH ABG 7.437 (7.350-7.450)
[2021-07-07 16:30] LABS: Modified Allen's Test Pass; Site Drawn LEFT RADIAL
[2021-07-07 17:03] LABS: Glucose Point of Care 214 mg/dl (65-105)
--- NOTE | 2021-07-07 17:25 | PC.NURSE ---
called Md Corbett to report ABG's and urine culture sent for reflex. Awaiting call back.
--- NOTE | 2021-07-07 18:21 | PC.NURSE ---
inquired about sleeping pill to help with sleeping, pt takes luesta 4mg pO at HS, MD Corbett to restart medication tonight to help with sleeping. Son to bring in luesta from home, pharmacy will need to verify medication once here. Pt to start tonight at [facility].
--- NOTE | 2021-07-07 20:19 | PHAR ---
DRUG NAME: ESZOPICLONE INGREDIENTS: ESZOPICLONE -- 3 MG RELATED DOCUMENTS: DRUGDEX EVALUATIONS - ESZOPICLONE COLOR: BLUE SHAPE: [place] IMPRINT: E9 , 93 FORM: ORAL TABLET
--- NOTE | 2021-07-07 20:55 | PHAR ---
DRUG NAME: ESZOPICLONE INGREDIENTS: ESZOPICLONE -- 1 MG RELATED DOCUMENTS: DRUGDEX EVALUATIONS - ESZOPICLONE COLOR: LIGHT BLUE SHAPE: [place] IMPRINT: E7 , 93 FORM: ORAL TABLET
[2021-07-07] MEDS: ATORVASTATIN 40 MG TABLET PO (21:12)
[2021-07-07] MEDS: INSULIN GLARGINE (*BKC) 100 UNITS/ML 60 UNITS SUB-Q (21:19)
[2021-07-07 21:30] LABS: Glucose Point of Care 141 mg/dl (65-105)
[2021-07-08 06:00] VITALS: BP 163/86; PULSE 76; RESP 18; TEMP 36.5; O2SAT 98
[2021-07-08 06:05] LABS: Basophils Percent Auto 0.4 % (0.2-1.2); Eosinophils Absolute Auto 0.4 K/mm3 (0-0.3); Eosinophils Percent Auto 3.9 % (0-4.4); Hemoglobin 10.1 g/dL (14.0-18.0); Immature Granulocyte Absolute 0.05 K/mm3 (0.00-0.031); Immature Granulocyte Percent A 0.5 % (0-0.5); Lymphocytes Absolute Auto 1.86 K/mm3 (0.9-3.2); Lymphocytes Percent Auto 17.8 % (18.3-44.2); Mean Corpuscular HGB Conc 33.7 g/dl (32-36); Mean Corpuscular Volume 94.9 fl (80-100); Mean Platelet Volume 9.4 fl (7.4-10.4); Monocytes Absolute Auto 1.1 K/mm3 (0.1-0.6); Monocytes Percent Auto 10.8 % (2.6-8.5); Neutrophils Percent Auto 66.6 % (45.5-73.1); Platelet Count Result 211 k/mm3 (150-375); Red Blood Count 3.16 M/mm3 (4.6-6.20); Red Cell Distribution Width 12.9 % (11.5-14.5); White Blood Count 10.5 K/mm3 (4.5-10.0)
[2021-07-08 06:15] LABS: Alanine Aminotransferase 16 U/L (4-50); Albumin Level 3.2 g/dL (3.5-5.1); Alkaline Phosphatase 41 U/L (38-126); Anion Gap 6 mmol/L (8-16); Aspartate Amino Transferase 26 U/L (17-59); Bilirubin,Total 1.1 mg/dL (0.2-1.3); Blood Urea Nitrogen 52 mg/dL (9-20); Calcium 7.9 mg/dL (8.4-10.2); Carbon Dioxide 26 mmol/L (22-30); Chloride 107 mmol/L (98-107); Estimated CRCL calculation 21 ml/min; Estimated Glomerular Filt Rate 14; Glucose 118 mg/dL (65-110); Magnesium 1.5 mg/dL (1.6-2.3); Phosphorus 4.1 mg/dL (2.5-4.5); Potassium 3.5 mmol/L (3.4-5.0); Sodium 139 mmol/L (137-145)
[2021-07-08 07:23] LABS: Glucose Point of Care 112 mg/dl (65-105)
[2021-07-08] MEDS: amLODIPine BESYLATE 2.5 MG TABLET PO (08:37)
[2021-07-08] MEDS: INSULIN ASPART (*BKC) 100 UNITS/ML 6 UNITS SUB-Q ×3 (08:38→17:03)
[2021-07-08] MEDS: carvediloL 25 MG TABLET PO ×2 (08:38→20:33)
[2021-07-08] MEDS: CHOLECALCIFEROL 1,000 UNITS TABLET 2000 UNITS PO (08:38)
[2021-07-08] MEDS: TAMSULOSIN HCL 0.4 MG CAPSULE PO (08:38)
[2021-07-08] MEDS: FLUTICASONE PROPIONATE 0.05% NA SPR 16 GM BTL (*BKC) 1 SPRAY NASAL ×2 (08:38→20:33)
--- NOTE | 2021-07-08 10:30 | PM.IMPN ---
Progress Note: A&P Additional Plan #Acute colitis likely infectious with associated bright red blood per rectum: -continue empiric antibiotic therapy with Zosyn (start date is 07/02/21) -stool cultures and blood cultures are in process. -Gastroenterology has been consulted. Monitoring H&H hold aspirin Plavix. -Bright red blood per rectum slowing down -Abdominal pain was persistent hence the patient has had 3 CT abdomen and pelvis exams for further evaluation. His CT scan noted improving colitis however noted to have bilateral mild hydronephrosis with bladder distention, lactic acid remained normal. #GI bleed with bright red blood per rectum. Likely due to underlying colitis. IV Zosyn as ordered stool cultures. GI is following; will continue to monitor his H&H. #Acute on chronic renal failure likely due to colitis and diarrhea: -Bladder scan demonstrated only 45 mL of postvoid residual. He is incontinent to his bladder. IV fluid and hydration. Baseline creatinine around 2-3. -Hold the patient's home lisinopril and diuretic therapy. -Continue gentle hydration. -Renal ultrasound ordered is negative for hydronephrosis. Creatinine slowly improved not back to baseline yet. Continue IV hydration -Repeat CT scan showed obstruction with bladder distention and bilateral hydronephrosis. Joseph has been placed 07/04/2021 which been draining well. -Renal failure is still persistent -Cosmetology Instructor is following, the patient was on slow IV fluid of 50 cc an hour -Mildly congestion noted will add Flonase nasal spray. Chest x-ray negative for any congestion. -Stopped IV fluid 07/06/2021. #Acute hypomagnesemia: -Mg of 1.5 -related to diuresis. -IV MgS 4gram given -check magnesium level tomorrow. #Acute encephalopathy likely due to all above. Continue to monitor recent CT head was negative. Delirium most likely. this has improved. # recurrent falls CT head was negative # acute nondisplaced nasal bone fractures bilaterally noted on CT 07/01/2021 # hypertension uncontrolled on admission resume home medication Coreg and Norvasc hydralazine p.r.n. as ordered # type 2 diabetes mellitus with hyperglycemia on long-term insulin therapy. Home Levemir sliding scale insulin. Adjust as needed # history of BPH # history of cerebrovascular accident 2017 # Chronic anemia # hypertension # hyperlipidemia # history of kidney stones # diabetic peripheral neuropathy # colon polyps # cervical spine surgery #Depression and Chronic pain: home Cymbalta restarted on 07/08/21. # DVT prophylaxis SCDs due to blood per rectum # code status full code # urinary retention with bilateral hydronephrosis: joseph placed 07/04/2021. draining well. renal function improving now. Good amount a urine Time Spent With Patient Time with patient: 15 - 25 minutes Subjective Date/time seen: 07/08/21 10:30 Patient seen lying comfortably in bed, he denies having any complains. His was present at bedside, all questions were answered, she asked that his home Cymbalta be restarted. Review of Systems Review of Systems: All systems reviewed & are unremarkable except as noted in HPI and below Exam Const: General: cooperative, comfortable and no acute distress Resp: Effort & Inspection: normal respiratory effort and able to speak in complete sentences Auscultation: clear to auscultation bilaterally Cardio: Rate: regular rate Rhythm: regular rhythm Heart sounds: S1 normal heart sound present and S2 normal heart sound present GI: Inspection: normal to inspection Auscultation: normal bowel sounds Skin: General skin exam: normal color Extrem: General: normal to inspection Objective Data Vital Signs Vital Signs: Vital Signs - 24 hr 07/07/21 14:00 07/07/21 14:17 07/07/21 14:52 Temperature 97.4 F L Pulse Rate 84 80 75 Respiratory Rate 18 16 Blood Pressure 153/90 H 125/89 Pulse Oximetry 98 95 07/07/21 20:00 07/07/21 21:12 07/07
[2021-07-08 11:42] LABS: Glucose Point of Care 106 mg/dl (65-105)
--- NOTE | 2021-07-08 11:43 | PCOTNOTE ---
Attempted to see pt. for occupational therapy treatment. Pt. refused to participate in treatment.
[2021-07-08] MEDS: MAGNESIUM SULF 4 GM/WATER100ML 4 GM/100 ML BAG IVPB (12:09)
--- NOTE | 2021-07-08 12:53 | PM.PNNEP ---
Progress Note: A&P Assessment and Plan (1) SERGIO (acute kidney injury): Code(s): N17.9 - Acute kidney failure, unspecified Status: Acute Assessment and Plan: slow improvement noted possibly due to a combination of infection (colitis), volume depletion, and urinary retention/obstruction suspect some worsening with ongoing use of diuretic (indapamide) and ROLDAN-I (lisinopril) [facility] SH[employer] LEAD evaluation to date: most recent CT scan with mild bilateral hydronephrosis (done on 07/04/21) renal ultrasound without any acute changes (done on 07/03/21) urine electrolytes are non-prerenal urine eosinophils are rare reasonable urine output possible slow recovery due to component of ATN(?) check renal scan tomorrow follow trend of repeat labs and UOP (2) Chronic kidney disease, stage IV (severe): Code(s): N18.4 - Chronic kidney disease, stage 4 (severe) Status: Chronic Assessment and Plan: baseline creatinine runs 2.8 - 3.4mg/dl in the last couple of years due to HTN, DM, and age-related change based on outpatient evaluation (3) Colitis: Code(s): K52.9 - Noninfective gastroenteritis and colitis, unspecified Status: Acute Assessment and Plan: as evidence by initial CT scan improvement noted by repeat CT scan follow culture data on antibiotics Gastroenterology following (4) Anemia: Code(s): D64.9 - Anemia, unspecified Status: Acute Assessment and Plan: suspect due to several issues: BRBPR colitis SERGIO CKD acute illness follow trend of H/H (5) Hypertension: Code(s): I10 - Essential (primary) hypertension Status: Chronic Assessment and Plan: reasonable control at this time follow trend of hemodynamics (6) Diabetes: Qualifiers: Diabetes mellitus type: type 2 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 Subjective Date/time seen: 07/08/21 12:53 Continues to make slow improvement as noted by mentation as well as slow improvement in kidney function; continues to make good urine output at this time; at bedside and we discussed the situation; no apparent distress noted otherwise. Exam Narrative: General: WD/WN male in NAD Heart: normal S1 and S2; no rub Lungs: clear to auscultation Abdomen: soft, nontender, nondistended, positive bowel sounds Extremities: no cyanosis or clubbing; no edema Skin: no rash or nodules Objective Data Vital Signs Vital Signs: Vital Signs Temp Pulse Resp BP Pulse Ox 07/08/21 06:00 36.5 C 76 18 163/86 H 98 07/07/21 22:40 94 07/07/21 21:59 36.9 C 66 18 136/95 H 98 07/07/21 21:12 73 07/07/21 20:00 60 Intake/Output Intake/Output: Intake & Output 07/05/21 07/06/21 07/07/21 07/08/21 23:59 23:59 23:59 23:59 Intake Total 3270 2110 2170 4988 Output Total 3350 3700 4600 2150 Balance -80 -2200 -7700 2838 Meds/Results Medications: Active Medications Generic Name Dose Route Start Last Admin Trade Name Freq PRN Reason Stop Dose Admin Acetaminophen 650 mg 07/01/21 18:34 07/08/21 14:31 Acetaminophen 325 Mg Tablet PO 650 mg Q4H PRN Administration Mild Pain (1-3) or Fever Amlodipine Besylate 2.5 mg 07/02/21 09:00 07/08/21 08:37 Amlodipine Besylate 2.5 Mg Tablet PO 2.5 mg DAILY EMMA Administration Atorvastatin Calcium 40 mg
--- NOTE | 2021-07-08 12:53 | P.PNNP_ITS ---
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 * evaluation to date: * most recent CT scan with mild bilateral hydronephrosis (done on 07/04/21) * renal ultrasound without any acute changes (done on 07/03/21) * urine electrolytes are non-prerenal * urine eosinophils are rare * reasonable urine output * possible slow recovery due to component of ATN(?) * check renal scan tomorrow * follow trend of repeat labs and UOP (2) Chronic kidney disease, stage IV (severe): Code(s): N18.4 - Chronic kidney disease, stage 4 (severe) Status: Chronic Assessment and Plan: * baseline creatinine runs 2.8 - 3.4mg/dl in the last couple of years * due to HTN, DM, and age-related change based on outpatient evaluation (3) Colitis: Code(s): K52.9 - Noninfective gastroenteritis and colitis, unspecified Status: Acute Assessment and Plan: * as evidence by initial CT scan * improvement noted by repeat CT scan * follow culture data * on antibiotics * Gastroenterology following (4) Anemia: Code(s): D64.9 - Anemia, unspecified Status: Acute Assessment and Plan: * suspect due to several issues: * BRBPR * colitis * SERGIO * CKD * acute illness * follow trend of H/H (5) Hypertension: Code(s): I10 - Essential (primary) hypertension Status: Chronic Assessment and Plan: * reasonable control at this time * follow trend of hemodynamics (6) Diabetes: Qualifiers: Diabetes mellitus type: type 2 Diabetes mellitus mcc insulin use: with mcc use Diabetes mellitus complication status: with kidney complications Diabetes mellitus complication detail: with chronic kidney disease Chronic kidney disease stage: stage 4 (severe) Qualified Code(s): E11.22 - Type 2 diabetes mellitus with diabetic chronic kidney disease; N18.4 - Chronic kidney disease, stage 4 (severe); Z79.4 - MCC (current) use of insulin Code(s): E11.9 - Type 2 diabetes mellitus without complications Status: Chronic Assessment and Plan: * follow accuchecks * glycemic control Will continue to follow. Subjective Date/time seen: 07/08/21 12:53 Continues to make slow improvement as noted by mentation as well as slow improvement in kidney function; continues to make good urine output at this time; at bedside and we discussed the situation; no apparent distress noted otherwise. Exam Narrative: General: WD/WN male in NAD Heart: normal S1 and S2; no rub Lungs: clear to auscultation Abdomen: soft, nontender, nondistended, positive bowel sounds Extremities: no cyanosis or clubbing; no edema Skin: no rash or nodules Objective Data Vital Signs Vital Signs: Vital Signs Temp Pulse Resp BP Pulse Ox 07/08/21 06:00 36.5 C 76 18 163/86 H 98 07/07/21 22:40 94 07/07/21 21:59 36.9 C 66 18 136/95 H 98 07/07/21 21:12 73 07/07/21 20:00 60 Intake/Output Intake/Output: In
[2021-07-08 14:00] VITALS: BP 142/84; PULSE 56; RESP 12; TEMP 36.6; O2SAT 99
[2021-07-08 14:07] LABS: Chloride Rand Ur 54 mmol/L (32-290); Chloride/Creatinine Rand Ur 93 (23-275); Creatinine Random Urine 58 mg/dL (20-320)
[2021-07-08] MEDS: ACETAMINOPHEN 325 MG TABLET 650 MG PO (14:31)
[2021-07-08 16:19] LABS: Glucose Point of Care 176 mg/dl (65-105)
[2021-07-08] MEDS: DULoxetine HCL 60 MG CAPSULE.DR PO (17:03)
[2021-07-08] MEDS: SODIUM CHLORIDE 0.9% IV 1,000 ML 50 ML IV CONT (18:31)
[2021-07-08 20:27] LABS: Glucose Point of Care 191 mg/dl (65-105)
[2021-07-08 20:33] VITALS: PULSE 59
[2021-07-08] MEDS: FAMOTIDINE 20 MG/2 ML VIAL IV PUSH (20:33)
[2021-07-08] MEDS: INSULIN GLARGINE (*BKC) 100 UNITS/ML 60 UNITS SUB-Q (20:33)
[2021-07-08] MEDS: ATORVASTATIN 40 MG TABLET PO (20:34)
[2021-07-08 21:21] VITALS: O2SAT 96
[2021-07-08 21:47] VITALS: BP 166/80; PULSE 59; RESP 16; TEMP 36.8; O2SAT 93
[2021-07-09] VITALS (8 sets, daily range): BP systolic 140–182; BP diastolic 51–73; PULSE 54–71; RESP 15–19; TEMP 36.1–36.5; O2SAT 96–98
[2021-07-09] MEDS: hydrALAZINE HCL 20 MG/ML VIAL 10 MG IV PUSH (05:56)
[2021-07-09 06:17] LABS: Anion Gap 9 mmol/L (8-16); Blood Urea Nitrogen 53 mg/dL (9-20); Calcium 7.8 mg/dL (8.4-10.2); Carbon Dioxide 23 mmol/L (22-30); Chloride 107 mmol/L (98-107); Estimated CRCL calculation 22 ml/min; Estimated Glomerular Filt Rate 15; Glucose 150 mg/dL (65-110); Magnesium 2.3 mg/dL (1.6-2.3); Potassium 3.5 mmol/L (3.4-5.0); Sodium 139 mmol/L (137-145)
[2021-07-09 07:43] LABS: Glucose Point of Care 151 mg/dl (65-105)
[2021-07-09] MEDS: TAMSULOSIN HCL 0.4 MG CAPSULE PO (08:23)
[2021-07-09] MEDS: carvediloL 25 MG TABLET PO ×2 (08:23→20:33)
[2021-07-09] MEDS: DULoxetine HCL 60 MG CAPSULE.DR PO (08:23)
[2021-07-09] MEDS: INSULIN ASPART (*BKC) 100 UNITS/ML 6 UNITS SUB-Q ×3 (08:23→17:15)
[2021-07-09] MEDS: CHOLECALCIFEROL 1,000 UNITS TABLET 2000 UNITS PO (08:23)
--- NOTE | 2021-07-09 08:23 | PM.IMPN ---
Progress Note: A&P Additional Plan #Acute colitis likely infectious with associated bright red blood per rectum: -continue empiric antibiotic therapy with Zosyn (start date was 07/02/21) -stool cultures and blood cultures are in process. -Gastroenterology is following. -Monitoring H&H hold aspirin Plavix. -Bright red blood per rectum slowing down -Abdominal pain was persistent hence the patient has had 3 CT abdomen and pelvis exams for further evaluation. His CT scan noted improving colitis however noted to have bilateral mild hydronephrosis with bladder distention, lactic acid remained normal. -No tenderness on abdominal exam, no hematochezia/ melena. #GI bleed with bright red blood per rectum. Likely due to underlying colitis. IV Zosyn as ordered stool cultures. GI is following; will continue to monitor his H&H. -no further bleeding. #Acute on chronic renal failure likely due to colitis and diarrhea: slowly resolving -Bladder scan demonstrated only 45 mL of postvoid residual. He is incontinent to his bladder. IV fluid and hydration. Baseline creatinine around 2-3. -Hold the patient's home lisinopril and diuretic therapy. -Continue gentle hydration. -Renal ultrasound ordered is negative for hydronephrosis. Creatinine slowly improved not back to baseline yet. Continue IV hydration -Repeat CT scan showed obstruction with bladder distention and bilateral hydronephrosis. Joseph has been placed 07/04/2021 which been draining well. -Renal failure is still persistent -Echocardiologist is following, the patient was on slow IV fluid of 50 cc an hour -Mildly congestion noted will add Flonase nasal spray. Chest x-ray negative for any congestion. -Stopped IV fluid 07/06/2021. -Creatinine is down to 2.9 from max of 5.2 on admission, follow up [facility] tomorrow. #Penile pain around his Joseph: -likely local irritation hence lidocaine urojet X1 ordered. -do urinalysis to r/o UTI (although the patient is already on IV Zosyn) #Acute hypomagnesemia: resolved -Mg of 1.5, related to diuresis--> managed with IV MgS 4gram, improved to 2.3 today. #Acute encephalopathy likely due to all above. Continue to monitor recent CT head was negative. Delirium most likely. this has improved. # recurrent falls CT head was negative # acute nondisplaced nasal bone fractures bilaterally noted on CT 07/01/2021 # hypertension uncontrolled on admission resume home medication Coreg and Norvasc hydralazine p.r.n. as ordered # type 2 diabetes mellitus with hyperglycemia on long-term insulin therapy. Home Levemir sliding scale insulin. Adjust as needed # history of BPH # history of cerebrovascular accident 2017 # Chronic anemia # hypertension # hyperlipidemia # history of kidney stones # diabetic peripheral neuropathy # colon polyps # cervical spine surgery #Depression and Chronic pain: home Cymbalta restarted on 07/08/21. # DVT prophylaxis SCDs due to blood per rectum # code status full code # urinary retention with bilateral hydronephrosis: joseph placed 07/04/2021. draining well. renal function improving now. Good amount a urine Subjective Date/time seen: 07/09/21 08:23 Patient seen sitting up in chair. He endorsed malaise and also complained of pain at the tip of his penis around the Joseph catheter. was present at bedside, all questions were answered. Exam Const: General: cooperative, comfortable and no acute distress Resp: Effort & Inspection: normal respiratory effort and able to speak in complete sentences Auscultation: clear to auscultation bilaterally Cardio: Rate: regular rate Rhythm: regular rhythm Heart sounds: S1 normal heart sound present GI: Inspection: normal to inspection GI Palp: Yes Soft to palpation Auscultation: normal bowel sounds Extrem: General: normal to inspection Objective Data Vital Signs Vital Signs: Vital Signs - 24 hr 07/08/21 14:00 07/08/21 20:33 07/08/21 21:21 Temperature 97.8 F Pulse
[2021-07-09] MEDS: FAMOTIDINE 20 MG/2 ML VIAL IV PUSH ×2 (08:24→20:33)
[2021-07-09] MEDS: FLUTICASONE PROPIONATE 0.05% NA SPR 16 GM BTL (*BKC) 1 SPRAY NASAL ×2 (08:24→20:33)
[2021-07-09] MEDS: amLODIPine BESYLATE 5 MG TABLET PO (08:53)
[2021-07-09] MEDS: ACETAMINOPHEN 325 MG TABLET 650 MG PO (10:10)
--- NOTE | 2021-07-09 12:03 | P.PNNP_ITS ---
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 * evaluation to date: * most recent CT scan with mild bilateral hydronephrosis (done on 07/04/21) * renal ultrasound without any acute changes (done on 07/03/21) * urine electrolytes are non-prerenal * urine eosinophils are rare * reasonable urine output * possible slow recovery due to component of ATN(?) * check renal scan tomorrow * follow trend of repeat labs and UOP (2) Chronic kidney disease, stage IV (severe): Code(s): N18.4 - Chronic kidney disease, stage 4 (severe) Status: Chronic Assessment and Plan: * baseline creatinine runs 2.8 - 3.4mg/dl in the last couple of years * due to HTN, DM, and age-related change based on outpatient evaluation (3) Colitis: Code(s): K52.9 - Noninfective gastroenteritis and colitis, unspecified Status: Acute Assessment and Plan: * as evidence by initial CT scan * improvement noted by repeat CT scan * follow culture data * on antibiotics * Gastroenterology following (4) Anemia: Code(s): D64.9 - Anemia, unspecified Status: Acute Assessment and Plan: * suspect due to several issues: * BRBPR * colitis * SERGIO * CKD * acute illness * follow trend of H/H (5) Hypertension: Code(s): I10 - Essential (primary) hypertension Status: Chronic Assessment and Plan: * reasonable control at this time * follow trend of hemodynamics (6) Diabetes: Qualifiers: Chronic kidney disease stage: stage 4 (severe) Diabetes mellitus complication detail: with chronic kidney disease Diabetes mellitus complication status: with kidney complications Diabetes mellitus intermediate card tender insulin use: with intermediate card tender use Diabetes mellitus type: type 2 Qualified Code(s): E11.22 - Type 2 diabetes mellitus with diabetic chronic kidney disease; N18.4 - Chronic kidney disease, stage 4 (severe); Z79.4 - USP (current) use of insulin Code(s): E11.9 - Type 2 diabetes mellitus without complications Status: Chronic Assessment and Plan: * follow accuchecks * glycemic control Will continue to follow. Subjective Date/time seen: 07/09/21 12:03 No apparent distress voiced aside from generalized fatigue along with joseph catheter presence; renal function continues to slowly improve and good urine output; scheduled for renal scan this afternoon; no other issues/events overn ight or earlier this AM. Exam Narrative: General: WD/WN male in NAD Heart: normal S1 and S2; no rub Lungs: clear to auscultation Abdomen: soft, nontender, nondistended, positive bowel sounds Extremities: no cyanosis or clubbing; no edema Skin: warm and dry Objective Data Vital Signs Vital Signs: Vital Signs Temp Pulse Resp BP Pulse Ox 07/09/21 08:23 59 L 07/09/21 06:57 36.4 C 59 L 18 182/73 H 98 07/09/21 06:36 141/51 H 07/09/21 06:00 36.4 C 71 15 182/73 H 98 07/08/21 21:47 36.8 C 59 L 16 166/80 H 93 07/08/21 21:21 96
--- NOTE | 2021-07-09 12:03 | PM.PNNEP ---
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: most recent CT scan with mild bilateral hydronephrosis (done on 07/04/21) renal ultrasound without any acute changes (done on 07/03/21) urine electrolytes are non-prerenal urine eosinophils are rare reasonable urine output possible slow recovery due to component of ATN(?) check renal scan tomorrow follow trend of repeat labs and UOP (2) Chronic kidney disease, stage IV (severe): Code(s): N18.4 - Chronic kidney disease, stage 4 (severe) Status: Chronic Assessment and Plan: baseline creatinine runs 2.8 - 3.4mg/dl in the last couple of years due to HTN, DM, and age-related change based on outpatient evaluation (3) Colitis: Code(s): K52.9 - Noninfective gastroenteritis and colitis, unspecified Status: Acute Assessment and Plan: as evidence by initial CT scan improvement noted by repeat CT scan follow culture data on antibiotics Gastroenterology following (4) Anemia: Code(s): D64.9 - Anemia, unspecified Status: Acute Assessment and Plan: suspect due to several issues: BRBPR colitis SERGIO CKD acute illness follow trend of H/H (5) Hypertension: Code(s): I10 - Essential (primary) hypertension Status: Chronic Assessment and Plan: reasonable control at this time follow trend of hemodynamics (6) Diabetes: Qualifiers: Chronic kidney disease stage: stage 4 (severe) Diabetes mellitus complication detail: with chronic kidney disease Diabetes mellitus complication status: with kidney complications Diabetes mellitus terminal supervisor insulin use: with terminal supervisor use Diabetes mellitus type: type 2 Qualified Code(s): E11.22 - Type 2 diabetes mellitus with diabetic chronic kidney disease; N18.4 - Chronic kidney disease, stage 4 (severe); 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 Subjective Date/time seen: 07/09/21 12:03 No apparent distress voiced aside from generalized fatigue along with joseph catheter presence; renal function continues to slowly improve and good urine output; scheduled for renal scan this afternoon; no other issues/events overnight or earlier this AM. Exam Narrative: General: WD/WN male in NAD Heart: normal S1 and S2; no rub Lungs: clear to auscultation Abdomen: soft, nontender, nondistended, positive bowel sounds Extremities: no cyanosis or clubbing; no edema Skin: warm and dry Objective Data Vital Signs Vital Signs: Vital Signs Temp Pulse Resp BP Pulse Ox 07/09/21 08:23 59 L 07/09/21 06:57 36.4 C 59 L 18 182/73 H 98 07/09/21 06:36 141/51 H 07/09/21 06:00 36.4 C 71 15 182/73 H 98 07/08/21 21:47 36.8 C 59 L 16 166/80 H 93 07/08/21 21:21 96 07/08/21 20:33 59 L Intake/Output Intake/Output: Intake & Output 07/06/21 07/07/21 07/08/21 07/09/21 23:59 23:59 23:59 23:59 Intake Total 2110 2170 5038 600 Output Total 3700 4600 2150 1200 Balance -1590 -2430 2888 -600 Meds/Results Medications: Active Medications Generic Name Dose Route Start Last Admin Trade Name Freq PRN Reason Stop Dose Admin Acetaminophen 650 mg 07/01/21 18:34 07/09/21 10:10 Acetaminophen 325 Mg Tablet PO 650 mg Q4H PRN Administration Mild Pain (1-3) or Fever Amlodipine Besylate 5 mg 07/09/21 09:00 07/09/21 08:53 Amlodipine Besylate
[2021-07-09 12:18] LABS: Glucose Point of Care 182 mg/dl (65-105)
[2021-07-09] MEDS: SODIUM CHLORIDE 0.9% IV 1,000 ML 50 ML IV CONT (14:18)
[2021-07-09 15:13] LABS: Add Urine Microscopic? YES; Appearance Urine Cloudy (Clear); Bacteria Urine Trace /hpf; Bilirubin Urine Negative (Negative); Blood Urine 2+ (Negative); Color Urine Yellow (Yellow); Glucose Urine UA 1+ mg/dL (Negative); Ketones Urine Negative (Negative); Leukocyte Esterase Ur Negative LEU/UL (NEGATIVE); Mucus Urine Rare /lpf; Nitrate Urine Negative (Negative); Protein Urine 3+ mg/dL (Negative); RBC Urine >75 /hpf (0-2); Specific Grav Ur 1.017 (1.001-1.035); Squamous Epithelial Cell Urine Rare /hpf (Few); Urobilinogen Urine Negative mg/dL (<2.0)
--- NOTE | 2021-07-09 15:34 | PCOTNOTE ---
The OT treatment was not completed 07/09/21. Will continue per plan of care.
[2021-07-09] MEDS: LIDOCAINE HCL 2% GEL UROJET 10 ML PKG MUCOUS MEM (17:30)
[2021-07-09 19:57] LABS: Glucose Point of Care 213 mg/dl (65-105)
[2021-07-09] MEDS: ATORVASTATIN 40 MG TABLET PO (20:32)
[2021-07-09] MEDS: INSULIN GLARGINE (*BKC) 100 UNITS/ML 60 UNITS SUB-Q (20:33)
[2021-07-10 05:40] VITALS: BP 171/69; PULSE 70; RESP 16; TEMP 36.9; O2SAT 99
[2021-07-10 06:17] LABS: Basophils Percent Auto 0.5 % (0.2-1.2); Eosinophils Absolute Auto 0.3 K/mm3 (0-0.3); Eosinophils Percent Auto 3.4 % (0-4.4); Hematocrit 29.8 % (42.0-52.0); Hemoglobin 9.8 g/dL (14.0-18.0); Immature Granulocyte Absolute 0.05 K/mm3 (0.00-0.031); Immature Granulocyte Percent A 0.6 % (0-0.5); Lymphocytes Absolute Auto 1.42 K/mm3 (0.9-3.2); Lymphocytes Percent Auto 17.7 % (18.3-44.2); Mean Corpuscular HGB Conc 32.9 g/dl (32-36); Mean Corpuscular Volume 97.4 fl (80-100); Mean Platelet Volume 9.4 fl (7.4-10.4); Monocytes Absolute Auto 0.8 K/mm3 (0.1-0.6); Monocytes Percent Auto 9.3 % (2.6-8.5); Neutrophils Absolute Auto 5.5 K/mm3 (1.3-6.7); Neutrophils Percent Auto 68.5 % (45.5-73.1); Platelet Count Result 236 k/mm3 (150-375); Red Blood Count 3.06 M/mm3 (4.6-6.20)
[2021-07-10 06:33] LABS: Anion Gap 5 mmol/L (8-16); Blood Urea Nitrogen 54 mg/dL (9-20); Calcium 7.7 mg/dL (8.4-10.2); Carbon Dioxide 24 mmol/L (22-30); Chloride 108 mmol/L (98-107); Estimated CRCL calculation 22 ml/min; Estimated Glomerular Filt Rate 15; Glucose 101 mg/dL (65-110); Potassium 3.5 mmol/L (3.4-5.0); Sodium 137 mmol/L (137-145)
[2021-07-10 08:08] LABS: Glucose Point of Care 98 mg/dl (65-105)
[2021-07-10] MEDS: carvediloL 25 MG TABLET PO ×2 (08:34→20:46)
[2021-07-10] MEDS: DULoxetine HCL 60 MG CAPSULE.DR PO (08:34)
[2021-07-10] MEDS: FAMOTIDINE 20 MG/2 ML VIAL IV PUSH ×2 (08:34→20:46)
[2021-07-10] MEDS: amLODIPine BESYLATE 5 MG TABLET PO (08:34)
[2021-07-10] MEDS: polyethylene glycoL 3350 17 GM POWD.PACK PO (08:34)
[2021-07-10] MEDS: FLUTICASONE PROPIONATE 0.05% NA SPR 16 GM BTL (*BKC) 1 SPRAY NASAL ×2 (08:34→20:46)
[2021-07-10] MEDS: CHOLECALCIFEROL 1,000 UNITS TABLET 2000 UNITS PO (08:34)
[2021-07-10] MEDS: TAMSULOSIN HCL 0.4 MG CAPSULE PO (08:34)
[2021-07-10] MEDS: INSULIN ASPART (*BKC) 100 UNITS/ML 6 UNITS SUB-Q ×2 (08:35→17:26)
[2021-07-10] MEDS: SODIUM CHLORIDE 0.9% IV 1,000 ML 50 ML IV CONT (08:39)
[2021-07-10] MEDS: ACETAMINOPHEN 325 MG TABLET 650 MG PO (09:25)
--- NOTE | 2021-07-10 10:40 | P.PNNP_ITS ---
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: * most recent CT scan with mild bilateral hydronephrosis (done on 07/04/21) * renal ultrasound without any acute changes (done on 07/03/21) * urine electrolytes are non-prerenal * urine eosinophils are rare * reasonable urine output * possible slow recovery due to component of ATN * renal scan seems consistent with ATN as well * there may be a component of kidney disease progression as well * follow trend of repeat labs and UOP (2) Chronic kidney disease, stage IV (severe): Code(s): N18.4 - Chronic kidney disease, stage 4 (severe) Status: Chronic Assessment and Plan: * baseline creatinine runs 2.8 - 3.4mg/dl in the last couple of years * due to HTN, DM, and age-related change based on outpatient evaluation (3) Colitis: Code(s): K52.9 - Noninfective gastroenteritis and colitis, unspecified Status: Acute Assessment and Plan: * as evidence by initial CT scan * improvement noted by repeat CT scan * follow culture data * on antibiotics * Gastroenterology following (4) Anemia: Code(s): D64.9 - Anemia, unspecified Status: Acute Assessment and Plan: * suspect due to several issues: * BRBPR * colitis * SERGIO * CKD * acute illness * follow trend of H/H (5) Hypertension: Code(s): I10 - Essential (primary) hypertension Status: Chronic Assessment and Plan: * a bit elevated at this time * pain issues may be playing a role * follow trend of hemodynamics (6) Diabetes: Qualifiers: Chronic kidney disease stage: stage 4 (severe) Diabetes mellitus complication detail: with chronic kidney disease Diabetes mellitus complication status: with kidney complications Diabetes mellitus termination clerk insulin use: with snf use Diabetes mellitus type: type 2 Qualified Code(s): E11.22 - Type 2 diabetes mellitus with diabetic chronic kidney disease; N18.4 - Chronic kidney disease, stage 4 (severe); Z79.4 - detention (current) use of insulin Code(s): E11.9 - Type 2 diabetes mellitus without complications Status: Chronic Assessment and Plan: * follow accuchecks * glycemic control Will continue to follow. Subjective Date/time seen: 07/10/21 10:40 Appears to be doing fairly well; major complaint is that of discomfort with joseph catheter; mentation seems stable if not better; continues to make good urine output; no apparent distress voiced; at bedside and we discussed the situation. Exam Narrative: General: WD/WN male in NAD Heart: normal S1 and S2; no rub Lungs: clear to auscultation Abdomen: soft, nontender, nondistended, positive bowel sounds Extremities: no cyanosis or clubbing; trace edema Skin: warm and intact Objective Data Vital Signs Vital Signs: Vital Signs Temp Pulse Resp BP Pulse Ox 07/10/21 05:40 36.9 C 70 16 171/69 H 99 07/09/21 21:40 36.1 C L 54 L 16 176/57 H 98 07/09/21 21:22
--- NOTE | 2021-07-10 10:40 | PM.PNNEP ---
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: most recent CT scan with mild bilateral hydronephrosis (done on 07/04/21) renal ultrasound without any acute changes (done on 07/03/21) urine electrolytes are non-prerenal urine eosinophils are rare reasonable urine output possible slow recovery due to component of ATN renal scan seems consistent with ATN as well there may be a component of kidney disease progression as well follow trend of repeat labs and UOP (2) Chronic kidney disease, stage IV (severe): Code(s): N18.4 - Chronic kidney disease, stage 4 (severe) Status: Chronic Assessment and Plan: baseline creatinine runs 2.8 - 3.4mg/dl in the last couple of years due to HTN, DM, and age-related change based on outpatient evaluation (3) Colitis: Code(s): K52.9 - Noninfective gastroenteritis and colitis, unspecified Status: Acute Assessment and Plan: as evidence by initial CT scan improvement noted by repeat CT scan follow culture data on antibiotics Gastroenterology following (4) Anemia: Code(s): D64.9 - Anemia, unspecified Status: Acute Assessment and Plan: suspect due to several issues: BRBPR colitis SERGIO CKD acute illness follow trend of H/H (5) Hypertension: Code(s): I10 - Essential (primary) hypertension Status: Chronic Assessment and Plan: a bit elevated at this time pain issues may be playing a role follow trend of hemodynamics (6) Diabetes: Qualifiers: Chronic kidney disease stage: stage 4 (severe) Diabetes mellitus complication detail: with chronic kidney disease Diabetes mellitus complication status: with kidney complications Diabetes mellitus terminal makeup operator insulin use: with terminal makeup operator use Diabetes mellitus type: type 2 Qualified Code(s): E11.22 - Type 2 diabetes mellitus with diabetic chronic kidney disease; N18.4 - Chronic kidney disease, stage 4 (severe); Z79.4 - terminal makeup operator (current) use of insulin Code(s): E11.9 - Type 2 diabetes mellitus without complications Status: Chronic Assessment and Plan: follow accuchecks glycemic control Will continue to follow. Subjective Date/time seen: 07/10/21 10:40 Appears to be doing fairly well; major complaint is that of discomfort with joseph catheter; mentation seems stable if not better; continues to make good urine output; no apparent distress voiced; at bedside and we discussed the situation. Exam Narrative: General: WD/WN male in NAD Heart: normal S1 and S2; no rub Lungs: clear to auscultation Abdomen: soft, nontender, nondistended, positive bowel sounds Extremities: no cyanosis or clubbing; trace edema Skin: warm and intact Objective Data Vital Signs Vital Signs: Vital Signs Temp Pulse Resp BP Pulse Ox 07/10/21 05:40 36.9 C 70 16 171/69 H 99 07/09/21 21:40 36.1 C L 54 L 16 176/57 H 98 07/09/21 21:22 96 07/09/21 20:33 60 07/09/21 14:00 36.5 C 66 19 140/66 96 Intake/Output Intake/Output: Intake & Output 07/07/21 07/08/21 07/09/21 07/10/21 23:59 23:59 23:59 23:59 Intake Total 2170 5038 2390 1870 Output Total 4600 2150 1800 1000 Balance -2430 2888 590 870 Meds/Results Medications: Active Medications Generic Name Dose Route Start Last Admin Trade Name Freq PRN Reason Stop Dose Admin Acetaminophen 650 mg 07/01/21 18:34 07/10/21 09:25 Acetaminophen 325 Mg Tablet PO 650 mg Q4H PRN Administration Mild Pain (1-3) or Fever Amlodipine
--- NOTE | 2021-07-10 10:42 | PM.IMPN ---
Progress Note: A&P Additional Plan #Acute colitis likely infectious with associated bright red blood per rectum: -continue empiric antibiotic therapy with Zosyn (start date was 07/02/21) -stool cultures and blood cultures are in process. -Gastroenterology is following. -Monitoring H&H hold aspirin Plavix. -Bright red blood per rectum slowing down -Abdominal pain was persistent hence the patient has had 3 CT abdomen and pelvis exams for further evaluation. His CT scan noted improving colitis however noted to have bilateral mild hydronephrosis with bladder distention, lactic acid remained normal. -No tenderness on abdominal exam, no hematochezia/ melena. #GI bleed with bright red blood per rectum. Likely due to underlying colitis. IV Zosyn as ordered stool cultures. GI is following; will continue to monitor his H&H. -no further bleeding. -Hb is stable between 9-10 #Acute on chronic renal failure likely due to colitis and diarrhea: slowly resolving, ? ATN -Bladder scan demonstrated only 45 mL of postvoid residual. He is incontinent to his bladder. IV fluid and hydration. Baseline creatinine around 2-3. -Hold the patient's home lisinopril and diuretic therapy. -Continue gentle hydration. -Renal ultrasound ordered is negative for hydronephrosis. Creatinine slowly improved not back to baseline yet. Continue IV hydration -Repeat CT scan showed obstruction with bladder distention and bilateral hydronephrosis. Joseph has been placed 07/04/2021 which been draining well. -Renal failure is still persistent -Director Of Student Aid is following, the patient was on slow IV fluid of 50 cc an hour -Mildly congestion noted will add Flonase nasal spray. Chest x-ray negative for any congestion. -Stopped IV fluid 07/06/2021. -Creatinine is currently 4.0 from max of 5.2 on admission, per redye hand it is possibly ATN -renal scan on 07/09/21 reports decreased contrast clearance. -follow up BMP tomorrow. #Penile tip pain around his Joseph since 07/09/21: -likely local irritation hence lidocaine urojet X1 given on 07/09/21 with some temporary improvement. -urine culture from 07/07/21 finalized with no growth. -equivocal urinalysis on 07/09/21, the patient is already on IV Zosyn. -follow up urine culture from 07/09/21. -discontinue joseph for a trial of void today, however if he fails it then he will need Joseph to be replaced. The patient was happy with this plan. #Acute hypomagnesemia: resolved -Mg of 1.5, related to diuresis--> managed with IV MgS 4gram, improved to 2.3 today. #Acute encephalopathy likely due to all above. Continue to monitor recent CT head was negative. Delirium most likely. this has improved. # recurrent falls CT head was negative # acute nondisplaced nasal bone fractures bilaterally noted on CT 07/01/2021 # hypertension uncontrolled on admission resume home medication Coreg and Norvasc hydralazine p.r.n. as ordered # type 2 diabetes mellitus with hyperglycemia on long-term insulin therapy. Home Levemir sliding scale insulin. Adjust as needed # history of BPH # history of cerebrovascular accident 2017 # Chronic anemia # hypertension # hyperlipidemia # history of kidney stones # diabetic peripheral neuropathy # colon polyps # cervical spine surgery #Depression and Chronic pain: home Cymbalta restarted on 07/08/21. # DVT prophylaxis SCDs due to blood per rectum # code status full code # urinary retention with bilateral hydronephrosis: joseph placed 07/04/2021. draining well. Time Spent With Patient Time with patient: 15 - 25 minutes Subjective Date/time seen: 07/10/21 10:42 Patient seen lying in bed, at bedside. He endorsed penile tip pain, says the lidocaine urogel only worked temporarily yesterday. No new complains. Exam Const: General: cooperative, comfortable and no acute distress Chest: Chest palpation & inspection: normal inspection of the chest Resp: Effort & Inspection: normal respiratory effort and ab
--- NOTE | 2021-07-10 11:33 | PCOTNOTE ---
Attempted to see patient this am, however patient refused stating, I don't want to get up because of the pain. Pt reported pain from catheter. RN present and aware. Pt laying crooked in bed, however patient refused assistance with repositioning. I don't want to move.
[2021-07-10 12:18] LABS: Glucose Point of Care 67 mg/dl (65-105)
[2021-07-10 12:42] LABS: Glucose Point of Care 99 mg/dl (65-105)
[2021-07-10 14:00] VITALS: BP 150/54; PULSE 56; RESP 18; TEMP 36.5; O2SAT 97
[2021-07-10 16:58] LABS: Glucose Point of Care 190 mg/dl (65-105)
[2021-07-10 20:46] VITALS: PULSE 82
[2021-07-10] MEDS: ATORVASTATIN 40 MG TABLET PO (20:46)
[2021-07-10] MEDS: INSULIN GLARGINE (*BKC) 100 UNITS/ML 60 UNITS SUB-Q (20:47)
[2021-07-10 21:55] VITALS: BP 154/85; PULSE 61; RESP 18; TEMP 36.9; O2SAT 98
[2021-07-10 21:59] LABS: Glucose Point of Care 198 mg/dl (65-105)
[2021-07-11] VITALS (8 sets, daily range): BP systolic 123–165; BP diastolic 50–100; PULSE 63–83; RESP 16–20; TEMP 36–36.7; O2SAT 97
[2021-07-11] MEDS: hydrALAZINE HCL 20 MG/ML VIAL 10 MG IV PUSH (05:29)
[2021-07-11 07:52] LABS: Glucose Point of Care 65 mg/dl (65-105)
--- NOTE | 2021-07-11 07:53 | PC.NURSE ---
x2 juices given pt bs 65, all insulin held, provider informed, protocol implemented.
[2021-07-11] MEDS: CHOLECALCIFEROL 1,000 UNITS TABLET 2000 UNITS PO (08:10)
[2021-07-11] MEDS: FAMOTIDINE 20 MG/2 ML VIAL IV PUSH ×2 (08:10→20:53)
[2021-07-11] MEDS: FLUTICASONE PROPIONATE 0.05% NA SPR 16 GM BTL (*BKC) 1 SPRAY NASAL ×2 (08:10→20:55)
[2021-07-11] MEDS: TAMSULOSIN HCL 0.4 MG CAPSULE PO (08:10)
[2021-07-11] MEDS: amLODIPine BESYLATE 5 MG TABLET PO (08:10)
[2021-07-11] MEDS: DULoxetine HCL 60 MG CAPSULE.DR PO (08:11)
[2021-07-11] MEDS: carvediloL 25 MG TABLET PO ×2 (08:11→20:53)
[2021-07-11 08:17] LABS: Glucose Point of Care 65 mg/dl (65-105)
--- NOTE | 2021-07-11 08:32 | PM.IMPN ---
Progress Note: A&P Additional Plan #Acute colitis likely infectious with associated bright red blood per rectum: improving -continue empiric antibiotic therapy with IV Zosyn (start date was 07/02/21) -stool cultures and blood cultures are in process. -Gastroenterology is following. -Monitoring H&H hold aspirin Plavix. -Bright red blood per rectum slowing down -Abdominal pain was persistent hence the patient has had 3 CT abdomen and pelvis exams for further evaluation. His CT scan noted improving colitis however noted to have bilateral mild hydronephrosis with bladder distention, lactic acid remained normal. -No tenderness on abdominal exam, no hematochezia/ melena. -today is day 10 of IV Zosyn, recommend to switch to PO antibiotics from tomorrow. #GI bleed with bright red blood per rectum. Likely due to underlying colitis. IV Zosyn as ordered stool cultures. GI is following; will continue to monitor his H&H. -no further bleeding. -Hb is stable between 9-10 #Acute on chronic renal failure likely due to colitis and diarrhea: slowly resolving, ? ATN VS CKD progression -Bladder scan demonstrated only 45 mL of postvoid residual. He is incontinent to his bladder. IV fluid and hydration. Baseline creatinine around 2-3. -Hold the patient's home lisinopril and diuretic therapy. -Continue gentle hydration. -Renal ultrasound ordered is negative for hydronephrosis. Creatinine slowly improved not back to baseline yet. Continue IV hydration -Repeat CT scan showed obstruction with bladder distention and bilateral hydronephrosis. Joseph has been placed 07/04/2021 which been draining well. -Renal failure is still persistent -Glass Breaker is following, the patient was on slow IV fluid of 50 cc an hour -Mildly congestion noted will add Flonase nasal spray. Chest x-ray negative for any congestion. -Stopped IV fluid 07/06/2021. -Creatinine is currently 4.0 from max of 5.2 on admission, per hydrate thickener operator it is possibly ATN -renal scan on 07/09/21 reported decreased contrast clearance. -follow up BMP tomorrow. #Penile tip pain around his Joseph since 07/09/21: -likely local irritation hence lidocaine urojet X1 given on 07/09/21 with some temporary improvement. -urine culture from 07/07/21 finalized with no growth. -equivocal urinalysis on 07/09/21, the patient is already on IV Zosyn. -follow up urine culture from 07/09/21. -failed his trial of void on 07/10/21. -hence a fresh new Joseph was placed, patient stated that he no longer has pain with this new joseph. #Type 2 diabetes mellitus with hyperglycemia: #Fasting hypoglycemia today: -FBG of 65 hence his AM insulin was held and orange juice was giveen. -on long-term insulin therapy. Home Levemir sliding scale insulin. Adjust as needed #Acute hypomagnesemia: resolved -Mg of 1.5, related to diuresis--> managed with IV MgS 4gram, improved to 2.3 most recently #Acute encephalopathy likely due to all above. Continue to monitor recent CT head was negative. Delirium most likely. this has improved. # recurrent falls CT head was negative # acute nondisplaced nasal bone fractures bilaterally noted on CT 07/01/2021 # hypertension uncontrolled on admission resume home medication Coreg and Norvasc hydralazine p.r.n. as ordered # history of BPH # history of cerebrovascular accident 2017 # Chronic anemia # hypertension # hyperlipidemia # history of kidney stones # diabetic peripheral neuropathy # colon polyps # cervical spine surgery #Depression and Chronic pain: home Cymbalta restarted on 07/08/21. # DVT prophylaxis SCDs due to blood per rectum # code status full code # urinary retention with bilateral hydronephrosis: joseph placed 07/04/2021. Time Spent With Patient Time with patient: 15 - 25 minutes Subjective Date/time seen: 07/11/21 08:32 Patient seen sitting up in bedside chair. He endorsed feeling well, he no longer had pain at the tip of penis since he got a new Joseph catheter placed.
[2021-07-11] MEDS: GLUCOSE ORAL GEL 15 GM OF GLUCSE IN 37.5 GM TUBE PO (08:37)
[2021-07-11 09:46] LABS: Glucose Point of Care 107 mg/dl (65-105)
--- NOTE | 2021-07-11 10:02 | P.PNNP_ITS ---
Progress Note: A&P Assessment and Plan (1) SERGIO (acute kidney injury): Code(s): N17.9 - Acute kidney failure, unspecified Status: Acute Assessment and Plan: * was slowly improving but a tad up again by AM labs * possibly due to a combination of infection (colitis), volume depletion, and urinary retention/obstruction * evaluation to date: * most recent CT scan with mild bilateral hydronephrosis (done on 07/04/21) * renal ultrasound without any acute changes (done on 07/03/21) * urine electrolytes are non-prerenal * urine eosinophils are rare * renal scan shows uptake without excretion. * reasonable urine output * there may be a component of kidney disease progression as well * Check another creatinine tomorrow. (2) Chronic kidney disease, stage IV (severe): Code(s): N18.4 - Chronic kidney disease, stage 4 (severe) Status: Chronic Assessment and Plan: * baseline creatinine runs 2.8 - 3.4mg/dl in the last couple of years * due to HTN, DM, and age-related change based on outpatient evaluation (3) Colitis: Code(s): K52.9 - Noninfective gastroenteritis and colitis, unspecified Status: Acute Assessment and Plan: * as evidence by initial CT scan * improvement noted by repeat CT scan * Symptoms better. * Gastroenterology following (4) Anemia: Code(s): D64.9 - Anemia, unspecified Status: Acute Assessment and Plan: * suspect due to several issues: * BRBPR * colitis * SERGIO * CKD * acute illness * Hemoglobin 9.8 yesterday. Check another tomorrow (5) Hypertension: Code(s): I10 - Essential (primary) hypertension Status: Chronic Assessment and Plan: * systolic 150-170. * He is on amlodipine 5 and carvedilol 25. * Will increase former to 10 * follow trend of hemodynamics (6) Diabetes: Qualifiers: Diabetes mellitus type: type 2 Diabetes mellitus rat exterminator insulin use: with rat exterminator use Diabetes mellitus complication status: with kidney complications Diabetes mellitus complication detail: with chronic kidney disease Chronic kidney disease stage: stage 4 (severe) Qualified Code(s): E11.22 - Type 2 diabetes mellitus with diabetic chronic kidney disease; N18.4 - Chronic kidney disease, stage 4 (severe); Z79.4 - technician terminal and repeater (current) use of insulin Code(s): E11.9 - Type 2 diabetes mellitus without complications Status: Chronic Assessment and Plan: * follow accuchecks * glycemic control Will continue to follow. Subjective Date/time seen: 07/11/21 10:02 Interval history: Patient feels okay. No chest pain or shortness of breath. His belly is doing fine. No diarrhea or constipation. He is regular. He has been eating well he says. Exam Narrative: General: WD/WN male in NAD Heart: normal S1 and S2; no rub Or gallop Lungs: clear to auscultation Abdomen: soft, nontender, nondistended, positive bowel sounds Extremities: no cyanosis or clubbing; trace edema Skin: no rash Objective Data Vital Signs Vital Signs: Vital Signs - 24 hr 07/10/21 14:00 07/10/21 20:46 07/10/21 21:55 Temperature 36.5 C 36.9 C Pulse Rate 56 L 82 61 Respiratory Rate 18 18 Blood Pressure 150/54 H 154/85 H Pulse Oximetry 97 98 07/11/21 05:44 07/11/21 06:37 07/11/21 08:00 Temperature 36.7 C
--- NOTE | 2021-07-11 10:02 | PM.PNNEP ---
Progress Note: A&P Assessment and Plan (1) SERGIO (acute kidney injury): Code(s): N17.9 - Acute kidney failure, unspecified Status: Acute Assessment and Plan: was slowly improving but a tad up again by AM labs possibly due to a combination of infection (colitis), volume depletion, and urinary retention/obstruction evaluation to date: most recent CT scan with mild bilateral hydronephrosis (done on 07/04/21) renal ultrasound without any acute changes (done on 07/03/21) urine electrolytes are non-prerenal urine eosinophils are rare renal scan shows uptake without excretion. reasonable urine output there may be a component of kidney disease progression as well Check another creatinine tomorrow. (2) Chronic kidney disease, stage IV (severe): Code(s): N18.4 - Chronic kidney disease, stage 4 (severe) Status: Chronic Assessment and Plan: baseline creatinine runs 2.8 - 3.4mg/dl in the last couple of years due to HTN, DM, and age-related change based on outpatient evaluation (3) Colitis: Code(s): K52.9 - Noninfective gastroenteritis and colitis, unspecified Status: Acute Assessment and Plan: as evidence by initial CT scan improvement noted by repeat CT scan Symptoms better. Gastroenterology following (4) Anemia: Code(s): D64.9 - Anemia, unspecified Status: Acute Assessment and Plan: suspect due to several issues: BRBPR colitis SERGIO CKD acute illness Hemoglobin 9.8 yesterday. Check another tomorrow (5) Hypertension: Code(s): I10 - Essential (primary) hypertension Status: Chronic Assessment and Plan: systolic 150-170. He is on amlodipine 5 and carvedilol 25. Will increase former to 10 follow trend of hemodynamics (6) Diabetes: Qualifiers: Diabetes mellitus type: type 2 Diabetes mellitus termination clerk insulin use: with termination clerk use Diabetes mellitus complication status: with kidney complications Diabetes mellitus complication detail: with chronic kidney disease Chronic kidney disease stage: stage 4 (severe) Qualified Code(s): E11.22 - Type 2 diabetes mellitus with diabetic chronic kidney disease; N18.4 - Chronic kidney disease, stage 4 (severe); Z79.4 - jail (current) use of insulin Code(s): E11.9 - Type 2 diabetes mellitus without complications Status: Chronic Assessment and Plan: follow accuchecks glycemic control Will continue to follow. Subjective Date/time seen: 07/11/21 10:02 Interval history: Patient feels okay. No chest pain or shortness of breath. His belly is doing fine. No diarrhea or constipation. He is regular. He has been eating well he says. Exam Narrative: General: WD/WN male in NAD Heart: normal S1 and S2; no rub Or gallop Lungs: clear to auscultation Abdomen: soft, nontender, nondistended, positive bowel sounds Extremities: no cyanosis or clubbing; trace edema Skin: no rash Objective Data Vital Signs Vital Signs: Vital Signs - 24 hr 07/10/21 14:00 07/10/21 20:46 07/10/21 21:55 Temperature 36.5 C 36.9 C Pulse Rate 56 L 82 61 Respiratory Rate 18 18 Blood Pressure 150/54 H 154/85 H Pulse Oximetry 97 98 07/11/21 05:44 07/11/21 06:37 07/11/21 08:00 Temperature 36.7 C Pulse Rate 63 66 Respiratory Rate 18 18 Blood Pressure 165/85 H 157/50 H Pulse Oximetry 97 97 07/11/21 08:11 Temperature Pulse Rate 66 Respiratory Rate Blood Pressure Pulse Oximetry Intake/Output Intake/Output: Intake & Output 07/08/21 07/09/21 07/10/21 07/11/21 23:59 23:59 23:59 23:59 Intake Total 5038 2390 3000 Output Total 2150 1800 1900 1250 Balance 2888 590 1100 -1250 Meds/Results Medications: Active Medications Generic Name Dose Route Start Last Admin Trade Name Michelle PRN Reason Stop Dose Admin Acetaminophen 650 mg 07/01/21 18:34 07/10/21 09:25 Acetaminophen 325
[2021-07-11] MEDS: polyethylene glycoL 3350 17 GM POWD.PACK PO (10:49)
--- NOTE | 2021-07-11 11:20 | PC.NURSE ---
spoke with MD Davis about zosyn x10 days 07/12/21 , awaiting orders.
--- NOTE | 2021-07-11 11:23 | PC.NURSE ---
Md Galvan to discontinue zosyn and start PO abt therapy today, awaiting Md to place orders.
[2021-07-11 11:41] LABS: Glucose Point of Care 133 mg/dl (65-105)
[2021-07-11 16:36] LABS: Glucose Point of Care 164 mg/dl (65-105)
--- NOTE | 2021-07-11 16:37 | PC.NURSE ---
bm this shift stool sample sent to lab for analysis.
[2021-07-11] MEDS: ATORVASTATIN 40 MG TABLET PO (20:53)
[2021-07-11 21:31] LABS: Glucose Point of Care 191 mg/dl (65-105)
[2021-07-12 05:48] VITALS: BP 159/59; PULSE 80; RESP 16; TEMP 37.3; O2SAT 97
[2021-07-12 06:14] LABS: Basophils Absolute Auto 0.1 K/mm3 (0.0-0.1); Basophils Percent Auto 0.7 % (0.2-1.2); Eosinophils Absolute Auto 0.1 K/mm3 (0-0.3); Eosinophils Percent Auto 1.3 % (0-4.4); Hematocrit 29.5 % (42.0-52.0); Hemoglobin 9.5 g/dL (14.0-18.0); Immature Granulocyte Absolute 0.03 K/mm3 (0.00-0.031); Immature Granulocyte Percent A 0.3 % (0-0.5); Lymphocytes Percent Auto 15.7 % (18.3-44.2); Mean Corpuscular HGB Conc 32.2 g/dl (32-36); Mean Corpuscular Hemoglobin 31.8 pg (26-34); Mean Corpuscular Volume 98.7 fl (80-100); Mean Platelet Volume 9.6 fl (7.4-10.4); Monocytes Absolute Auto 0.8 K/mm3 (0.1-0.6); Monocytes Percent Auto 8.8 % (2.6-8.5); Neutrophils Absolute Auto 6.5 K/mm3 (1.3-6.7); Neutrophils Percent Auto 73.2 % (45.5-73.1); Platelet Count Result 244 k/mm3 (150-375); Red Blood Count 2.99 M/mm3 (4.6-6.20); Red Cell Distribution Width 12.9 % (11.5-14.5); White Blood Count 8.9 K/mm3 (4.5-10.0)
[2021-07-12 06:25] LABS: Potassium 3.3 mmol/L (3.4-5.0)
[2021-07-12 06:29] LABS: Alanine Aminotransferase 15 U/L (4-50); Albumin Level 3.2 g/dL (3.5-5.1); Alkaline Phosphatase 46 U/L (38-126); Anion Gap 9 mmol/L (8-16); Aspartate Amino Transferase 21 U/L (17-59); Bilirubin,Total 0.8 mg/dL (0.2-1.3); Blood Urea Nitrogen 49 mg/dL (9-20); Calcium 7.8 mg/dL (8.4-10.2); Carbon Dioxide 21 mmol/L (22-30); Chloride 108 mmol/L (98-107); Estimated CRCL calculation 22 ml/min; Estimated Glomerular Filt Rate 15; Glucose 71 mg/dL (65-110); Phosphorus 4.6 mg/dL (2.5-4.5); Sodium 138 mmol/L (137-145)
[2021-07-12 07:36] LABS: Glucose Point of Care 68 mg/dl (65-105)
[2021-07-12 08:06] VITALS: PULSE 80
[2021-07-12] MEDS: CHOLECALCIFEROL 1,000 UNITS TABLET 2000 UNITS PO (08:06)
[2021-07-12] MEDS: carvediloL 25 MG TABLET PO ×2 (08:06→20:48)
[2021-07-12] MEDS: FAMOTIDINE 20 MG/2 ML VIAL IV PUSH ×2 (08:07→20:50)
[2021-07-12] MEDS: DULoxetine HCL 60 MG CAPSULE.DR PO (08:07)
[2021-07-12] MEDS: amLODIPine BESYLATE 5 MG TABLET 10 MG PO (08:07)
[2021-07-12] MEDS: FLUTICASONE PROPIONATE 0.05% NA SPR 16 GM BTL (*BKC) 1 SPRAY NASAL ×2 (08:07→20:47)
[2021-07-12] MEDS: TAMSULOSIN HCL 0.4 MG CAPSULE PO (08:07)
[2021-07-12 08:20] LABS: Glucose Point of Care 89 mg/dl (65-105)
--- NOTE | 2021-07-12 09:36 | P.PNNP_ITS ---
Progress Note: A&P Assessment and Plan (1) SERGIO (acute kidney injury): Code(s): N17.9 - Acute kidney failure, unspecified Status: Acute Assessment and Plan: * acute kidney injury * possibly due to a combination of infection (colitis), volume depletion, and urinary retention/obstruction * evaluation to date: * most recent CT scan with mild bilateral hydronephrosis (done on 07/04/21) * renal ultrasound without any acute changes (done on 07/03/21) * urine electrolytes are non-prerenal * urine eosinophils are rare * renal scan shows uptake without excretion. * creatinine seems to be stabilizing at around 4. May have some improvement over the next few weeks. * there may be a component of kidney disease progression as well * He is off of his IV fluids. He is eating well. (2) Chronic kidney disease, stage IV (severe): Code(s): N18.4 - Chronic kidney disease, stage 4 (severe) Status: Chronic Assessment and Plan: * baseline creatinine runs 2.8 - 3.4mg/dl in the last couple of years * due to HTN, DM, and age-related change based on outpatient evaluation (3) Colitis: Code(s): K52.9 - Noninfective gastroenteritis and colitis, unspecified Status: Acute Assessment and Plan: * as evidence by initial CT scan * improvement noted by repeat CT scan * Symptoms better. * Gastroenterology following (4) Anemia: Code(s): D64.9 - Anemia, unspecified Status: Acute Assessment and Plan: * suspect due to several issues: * BRBPR * colitis * SERGIO * CKD * acute illness * Hemoglobin 9.5 Today. (5) Hypertension: Code(s): I10 - Essential (primary) hypertension Status: Chronic Assessment and Plan: * systolic 120 to 150. * He is on amlodipine 10 and carvedilol 25. (6) Diabetes: Qualifiers: Diabetes mellitus type: type 2 Diabetes mellitus balloon design printer insulin use: with balloon design printer use Diabetes mellitus complication status: with kidney complications Diabetes mellitus complication detail: with chronic kidney disease Chronic kidney disease stage: stage 4 (severe) Qualified Code(s): E11.22 - Type 2 diabetes mellitus with diabetic chronic kidney disease; N18.4 - Chronic kidney disease, stage 4 (severe); Z79.4 - correction (current) use of insulin Code(s): E11.9 - Type 2 diabetes mellitus without complications Status: Chronic Assessment and Plan: * follow accuchecks * glycemic control Will continue to follow. Subjective Date/time seen: 07/12/21 09:36 Interval history: Patient feels okay. Sitting up in a chair. Getting Occupation therapy. Exam Narrative: General: WD/WN male in NAD Heart: normal S1 and S2; no rub or gallop Lungs: clear Abdomen: soft, nontender, nondistended, positive bowel sounds Extremities: no cyanosis or clubbing; trace edema Skin: no rash or subcu nodule Objective Data Vital Signs Vital Signs: Vital Signs - 24 hr 07/11/21 14:00 07/11/21 14:38 07/11/21 20:53 Temperature 36.0 C L Pulse Rate 83 82 Respiratory Rate 20 Blood Pressure 123/55 L Pulse Oximetry 97 97 07/11/21 22:00 07/12/21 05:48 07/12/21 08:06 Temperature 36.7 C 37.3 C Pulse Rate 76 80 80 Respiratory Rate 16 16 Blood Pressure 125/100 H 159/59 H Pulse Oxim
--- NOTE | 2021-07-12 09:36 | PM.PNNEP ---
Progress Note: A&P Assessment and Plan (1) SERGIO (acute kidney injury): Code(s): N17.9 - Acute kidney failure, unspecified Status: Acute Assessment and Plan: acute kidney injury possibly due to a combination of infection (colitis), volume depletion, and urinary retention/obstruction evaluation to date: most recent CT scan with mild bilateral hydronephrosis (done on 07/04/21) renal ultrasound without any acute changes (done on 07/03/21) urine electrolytes are non-prerenal urine eosinophils are rare renal scan shows uptake without excretion. creatinine seems to be stabilizing at around 4. May have some improvement over the next few weeks. there may be a component of kidney disease progression as well He is off of his IV fluids. He is eating well. (2) Chronic kidney disease, stage IV (severe): Code(s): N18.4 - Chronic kidney disease, stage 4 (severe) Status: Chronic Assessment and Plan: baseline creatinine runs 2.8 - 3.4mg/dl in the last couple of years due to HTN, DM, and age-related change based on outpatient evaluation (3) Colitis: Code(s): K52.9 - Noninfective gastroenteritis and colitis, unspecified Status: Acute Assessment and Plan: as evidence by initial CT scan improvement noted by repeat CT scan Symptoms better. Gastroenterology following (4) Anemia: Code(s): D64.9 - Anemia, unspecified Status: Acute Assessment and Plan: suspect due to several issues: BRBPR colitis SERGIO CKD acute illness Hemoglobin 9.5 Today. (5) Hypertension: Code(s): I10 - Essential (primary) hypertension Status: Chronic Assessment and Plan: systolic 120 to 150. He is on amlodipine 10 and carvedilol 25. (6) Diabetes: Qualifiers: Diabetes mellitus type: type 2 Diabetes mellitus senior living insulin use: with termite technician use Diabetes mellitus complication status: with kidney complications Diabetes mellitus complication detail: with chronic kidney disease Chronic kidney disease stage: stage 4 (severe) Qualified Code(s): E11.22 - Type 2 diabetes mellitus with diabetic chronic kidney disease; N18.4 - Chronic kidney disease, stage 4 (severe); Z79.4 - rodent exterminator (current) use of insulin Code(s): E11.9 - Type 2 diabetes mellitus without complications Status: Chronic Assessment and Plan: follow accuchecks glycemic control Will continue to follow. Subjective Date/time seen: 07/12/21 09:36 Interval history: Patient feels okay. Sitting up in a chair. Getting Occupation therapy. Exam Narrative: General: WD/WN male in NAD Heart: normal S1 and S2; no rub or gallop Lungs: clear Abdomen: soft, nontender, nondistended, positive bowel sounds Extremities: no cyanosis or clubbing; trace edema Skin: no rash or subcu nodule Objective Data Vital Signs Vital Signs: Vital Signs - 24 hr 07/11/21 14:00 07/11/21 14:38 07/11/21 20:53 Temperature 36.0 C L Pulse Rate 83 82 Respiratory Rate 20 Blood Pressure 123/55 L Pulse Oximetry 97 97 07/11/21 22:00 07/12/21 05:48 07/12/21 08:06 Temperature 36.7 C 37.3 C Pulse Rate 76 80 80 Respiratory Rate 16 16 Blood Pressure 125/100 H 159/59 H Pulse Oximetry 97 97 Intake/Output Intake/Output: Intake & Output 07/09/21 07/10/21 07/11/21 07/12/21 23:59 23:59 23:59 23:59 Intake Total 2390 3000 1640 500 Output Total 1800 1900 2250 1400 Balance 590 1100 -610 -900 Meds/Results Medications: Active Medications Generic Name Dose Route Start Last Admin Trade Name Freq PRN Reason Stop Dose Admin Acetaminophen 650 mg 07/01/21 18:34 07/10/21 09:25 Acetaminophen 325 Mg Tablet PO 650 mg Q4H PRN Administration Mild Pain (1-3) or Fever Amlodipine Besylate 10 mg 07/12/21 09:00 07/12/21 08:07 Amlodipine Besylate 5 Mg Tablet PO 10 mg DAILY EMMA Administration A
[2021-07-12] MEDS: POTASSIUM CHLORIDE 20 MEQ TABLET PO (10:25)
[2021-07-12 11:54] LABS: Glucose Point of Care 138 mg/dl (65-105)
[2021-07-12] MEDS: INSULIN ASPART (*BKC) 100 UNITS/ML 6 UNITS SUB-Q ×2 (12:20→17:56)
[2021-07-12 14:00] VITALS: BP 135/63; PULSE 66; RESP 18; TEMP 36.5; O2SAT 96
--- NOTE | 2021-07-12 14:02 | PM.IMPN ---
Progress Note: A&P Additional Plan #Acute colitis likely infectious with associated bright red blood per rectum: improving -continue empiric antibiotic therapy with IV Zosyn (start date was 07/02/21) -stool cultures and blood cultures are in process. -Gastroenterology is following. -Monitoring H&H hold aspirin Plavix. -Bright red blood per rectum slowing down -Abdominal pain was persistent hence the patient has had 3 CT abdomen and pelvis exams for further evaluation. His CT scan noted improving colitis however noted to have bilateral mild hydronephrosis with bladder distention, lactic acid remained normal. -No tenderness on abdominal exam, no hematochezia/ melena. -today is day 10 of IV Zosyn, recommend to switch to PO antibiotics from tomorrow. #GI bleed with bright red blood per rectum. Likely due to underlying colitis. IV Zosyn as ordered stool cultures. GI is following; will continue to monitor his H&H. -no further bleeding. -Hb is stable between 9-10 #Acute on chronic renal failure likely due to colitis and diarrhea: slowly resolving, ? ATN VS CKD progression -Bladder scan demonstrated only 45 mL of postvoid residual. He is incontinent to his bladder. IV fluid and hydration. Baseline creatinine around 2-3. -Hold the patient's home lisinopril and diuretic therapy. -Continue gentle hydration. -Renal ultrasound ordered is negative for hydronephrosis. Creatinine slowly improved not back to baseline yet. Continue IV hydration -Repeat CT scan showed obstruction with bladder distention and bilateral hydronephrosis. Joseph has been placed 07/04/2021 which been draining well. -Renal failure is still persistent -Overlock Operator is following, the patient was on slow IV fluid of 50 cc an hour -Mildly congestion noted will add Flonase nasal spray. Chest x-ray negative for any congestion. -Stopped IV fluid 07/06/2021. -Creatinine is currently 4.0 from max of 5.2 on admission, per color grinder it is possibly ATN -renal scan on 07/09/21 reported decreased contrast clearance. -follow up BMP tomorrow. #Penile tip pain around his Joseph since 07/09/21: -likely local irritation hence lidocaine urojet X1 given on 07/09/21 with some temporary improvement. -urine culture from 07/07/21 finalized with no growth. -equivocal urinalysis on 07/09/21, the patient is already on IV Zosyn. -follow up urine culture from 07/09/21. -failed his trial of void on 07/10/21. -hence a fresh new Joseph was placed, patient stated that he no longer has pain with this new joseph. #Type 2 diabetes mellitus with hyperglycemia: #Fasting hypoglycemia today: -FBG of 65 hence his AM insulin was held and orange juice was giveen. -on long-term insulin therapy. Home Levemir sliding scale insulin. Adjust as needed #Acute hypomagnesemia: resolved -Mg of 1.5, related to diuresis--> managed with IV MgS 4gram, improved to 2.3 most recently #Acute encephalopathy likely due to all above. Continue to monitor recent CT head was negative. Delirium most likely. this has improved. # recurrent falls CT head was negative # acute nondisplaced nasal bone fractures bilaterally noted on CT 07/01/2021 # hypertension uncontrolled on admission resume home medication Coreg and Norvasc hydralazine p.r.n. as ordered # history of BPH # history of cerebrovascular accident 2017 # Chronic anemia # hypertension # hyperlipidemia # history of kidney stones # diabetic peripheral neuropathy # colon polyps # cervical spine surgery #Depression and Chronic pain: home Cymbalta restarted on 07/08/21. # DVT prophylaxis SCDs due to blood per rectum # code status full code # urinary retention with bilateral hydronephrosis: joseph placed 07/04/2021. 07/12/2021 Interval history: patient with acute kidney injury with baseline creatinine of 2.8 to 3.4 for last couple of fever however patient presented with acute on chronic kidney disease upon arrival his creatinine was 5.4 seen by Nephrology suspect sec
[2021-07-12 16:56] LABS: Glucose Point of Care 111 mg/dl (65-105)
[2021-07-12 20:33] LABS: Glucose Point of Care 147 mg/dl (65-105)
[2021-07-12 20:48] VITALS: PULSE 65
[2021-07-12] MEDS: ATORVASTATIN 40 MG TABLET PO (20:50)
[2021-07-12] MEDS: INSULIN GLARGINE (*BKC) 100 UNITS/ML 60 UNITS SUB-Q (20:50)
[2021-07-12 21:43] VITALS: BP 183/64; PULSE 63; RESP 16; TEMP 36.5; O2SAT 97
[2021-07-12] MEDS: AMOXICILLIN/CLAVULANATE K 500-125 MG TAB 1 TABLET PO (22:48)
[2021-07-13 05:53] VITALS: PULSE 79
[2021-07-13 05:54] VITALS: BP 163/67; RESP 16; TEMP 36.6; O2SAT 98
[2021-07-13] MEDS: AMOXICILLIN/CLAVULANATE K 500-125 MG TAB 1 TABLET PO (05:54)
[2021-07-13 06:19] LABS: Hematocrit 28.9 % (42.0-52.0); Hemoglobin 9.7 g/dL (14.0-18.0); Mean Corpuscular HGB Conc 33.6 g/dl (32-36); Mean Corpuscular Hemoglobin 31.9 pg (26-34); Mean Corpuscular Volume 95.1 fl (80-100); Mean Platelet Volume 9.6 fl (7.4-10.4); Platelet Count Result 258 k/mm3 (150-375); Red Blood Count 3.04 M/mm3 (4.6-6.20); Red Cell Distribution Width 12.5 % (11.5-14.5); White Blood Count 8.5 K/mm3 (4.5-10.0)
[2021-07-13 06:43] LABS: Anion Gap 7 mmol/L (8-16); Blood Urea Nitrogen 45 mg/dL (9-20); Calcium 7.9 mg/dL (8.4-10.2); Carbon Dioxide 23 mmol/L (22-30); Chloride 107 mmol/L (98-107); Estimated CRCL calculation 23 ml/min; Estimated Glomerular Filt Rate 16; Glucose 52 mg/dL (65-110); Magnesium 1.8 mg/dL (1.6-2.3); Phosphorus 4.7 mg/dL (2.5-4.5); Potassium 3.4 mmol/L (3.4-5.0); Sodium 137 mmol/L (137-145)
--- NOTE | 2021-07-13 07:32 | PC.NURSE ---
0640 Apple juice with sugar is given. 0700 recheck is done, blood sugar remains low, Peanut butter and apple juice is given.
[2021-07-13 07:39] LABS: Glucose Point of Care 90 mg/dl (65-105)
[2021-07-13 07:39] LABS: Glucose Point of Care 65 mg/dl (65-105)
[2021-07-13 07:50] VITALS: BP 154/62
--- NOTE | 2021-07-13 08:42 | P.PNNP_ITS ---
Progress Note: A&P Assessment and Plan (1) SERGIO (acute kidney injury): Code(s): N17.9 - Acute kidney failure, unspecified Status: Acute Assessment and Plan: * acute kidney injury * possibly due to a combination of infection (colitis), volume depletion, and urinary retention/obstruction * evaluation to date: * most recent CT scan with mild bilateral hydronephrosis (done on 07/04/21) * renal ultrasound without any acute changes (done on 07/03/21) * urine electrolytes are non-prerenal * urine eosinophils are rare * renal scan shows uptake without excretion. * creatinine seems to be stabilizing at around 4. this may be a new baseline or he may have some improvement over the next few weeks. * He is off of his IV fluids. He is eating well. * it is okay for discharge from the kidney standpoint. (2) Chronic kidney disease, stage IV (severe): Code(s): N18.4 - Chronic kidney disease, stage 4 (severe) Status: Chronic Assessment and Plan: * baseline creatinine runs 2.8 - 3.4mg/dl in the last couple of years * due to HTN, DM, and age-related change based on outpatient evaluation (3) Colitis: Code(s): K52.9 - Noninfective gastroenteritis and colitis, unspecified Status: Acute Assessment and Plan: * as evidence by initial CT scan * improvement noted by repeat CT scan * Symptoms better. * Gastroenterology following (4) Anemia: Code(s): D64.9 - Anemia, unspecified Status: Acute Assessment and Plan: * suspect due to several issues: * BRBPR * colitis * SERGIO * CKD * acute illness * Hemoglobin 9.5 Today. (5) Hypertension: Code(s): I10 - Essential (primary) hypertension Status: Chronic Assessment and Plan: * systolic 120 to 150. * He is on amlodipine 10 and carvedilol 25. (6) Diabetes: Qualifiers: Diabetes mellitus type: type 2 Diabetes mellitus manager long term care insulin use: with senior living use Diabetes mellitus complication status: with kidney complications Diabetes mellitus complication detail: with chronic kidney disease Chronic kidney disease stage: stage 4 (severe) Qualified Code(s): E11.22 - Type 2 diabetes mellitus with diabetic chronic kidney disease; N18.4 - Chronic kidney disease, stage 4 (severe); Z79.4 - long-term (current) use of insulin Code(s): E11.9 - Type 2 diabetes mellitus without complications Status: Chronic Assessment and Plan: * On Accu-Cheks and sliding-scale insulin per hospitalist. Will continue to follow. Subjective Date/time seen: 07/13/21 08:42 Interval history: Patient feels okay. he is lying in bed. He is about to eat breakfast. He is eager for discharge. He feels strong enough to go home. Exam Narrative: General: WD/WN male in NAD Heart: normal S1 and S2; no rub or gallop Lungs: clear to auscultation Abdomen: soft, nontender, nondistended, positive bowel sounds Extremities: no cyanosis or clubbing; trace edema Skin: no rash Objective Data Vital Signs Vital Signs: Vital Signs - 24 hr 07/12/21 14:00 07/12/21 20:48 07/12/21 21:43 Temperature 36.5 C 36.5 C Pulse Rate 66 65 63 Respiratory Rate 18 16 Blood Pressure 135/63 183/64 H Pulse Oximetry 96 97 07/13/21 05:53 07/13/21 05:54 07/13/21 07:50 Temperature 36.6 C Pulse Rate 79
--- NOTE | 2021-07-13 08:42 | PM.PNNEP ---
Progress Note: A&P Assessment and Plan (1) SERGIO (acute kidney injury): Code(s): N17.9 - Acute kidney failure, unspecified Status: Acute Assessment and Plan: acute kidney injury possibly due to a combination of infection (colitis), volume depletion, and urinary retention/obstruction evaluation to date: most recent CT scan with mild bilateral hydronephrosis (done on 07/04/21) renal ultrasound without any acute changes (done on 07/03/21) urine electrolytes are non-prerenal urine eosinophils are rare renal scan shows uptake without excretion. creatinine seems to be stabilizing at around 4. this may be a new baseline or he may have some improvement over the next few weeks. He is off of his IV fluids. He is eating well. it is okay for discharge from the kidney standpoint. (2) Chronic kidney disease, stage IV (severe): Code(s): N18.4 - Chronic kidney disease, stage 4 (severe) Status: Chronic Assessment and Plan: baseline creatinine runs 2.8 - 3.4mg/dl in the last couple of years due to HTN, DM, and age-related change based on outpatient evaluation (3) Colitis: Code(s): K52.9 - Noninfective gastroenteritis and colitis, unspecified Status: Acute Assessment and Plan: as evidence by initial CT scan improvement noted by repeat CT scan Symptoms better. Gastroenterology following (4) Anemia: Code(s): D64.9 - Anemia, unspecified Status: Acute Assessment and Plan: suspect due to several issues: BRBPR colitis SERGIO CKD acute illness Hemoglobin 9.5 Today. (5) Hypertension: Code(s): I10 - Essential (primary) hypertension Status: Chronic Assessment and Plan: systolic 120 to 150. He is on amlodipine 10 and carvedilol 25. (6) Diabetes: Qualifiers: Diabetes mellitus type: type 2 Diabetes mellitus oysterman insulin use: with oysterman use Diabetes mellitus complication status: with kidney complications Diabetes mellitus complication detail: with chronic kidney disease Chronic kidney disease stage: stage 4 (severe) Qualified Code(s): E11.22 - Type 2 diabetes mellitus with diabetic chronic kidney disease; N18.4 - Chronic kidney disease, stage 4 (severe); Z79.4 - nursing home (current) use of insulin Code(s): E11.9 - Type 2 diabetes mellitus without complications Status: Chronic Assessment and Plan: On Accu-Cheks and sliding-scale insulin per hospitalist. Will continue to follow. Subjective Date/time seen: 07/13/21 08:42 Interval history: Patient feels okay. he is lying in bed. He is about to eat breakfast. He is eager for discharge. He feels strong enough to go home. Exam Narrative: General: WD/WN male in NAD Heart: normal S1 and S2; no rub or gallop Lungs: clear to auscultation Abdomen: soft, nontender, nondistended, positive bowel sounds Extremities: no cyanosis or clubbing; trace edema Skin: no rash Objective Data Vital Signs Vital Signs: Vital Signs - 24 hr 07/12/21 14:00 07/12/21 20:48 07/12/21 21:43 Temperature 36.5 C 36.5 C Pulse Rate 66 65 63 Respiratory Rate 18 16 Blood Pressure 135/63 183/64 H Pulse Oximetry 96 97 07/13/21 05:53 07/13/21 05:54 07/13/21 07:50 Temperature 36.6 C Pulse Rate 79 Respiratory Rate 16 Blood Pressure 163/67 H 154/62 H Pulse Oximetry 98 Intake/Output Intake/Output: Intake & Output 07/10/21 07/11/21 07/12/21 07/13/21 23:59 23:59 23:59 23:59 Intake Total 3000 1640 1550 1720 Output Total 1900 2250 2700 1400 Balance 1100 -610 -1150 320 Meds/Results Medications: Active Medications Generic Name Dose Route Start Last Admin Trade Name Freq PRN Reason Stop Dose Admin Acetaminophen 650 mg 07/01/21 18:34 07/10/21 09:25 Acetaminophen 325 Mg Tablet PO 650 mg Q4H PRN Administration Mild Pain (1-3) or Fever Amlodipine Besylate 10 mg 0
[2021-07-13] MEDS: CHOLECALCIFEROL 1,000 UNITS TABLET 2000 UNITS PO (09:14)
[2021-07-13] MEDS: DULoxetine HCL 60 MG CAPSULE.DR PO (09:15)
[2021-07-13] MEDS: carvediloL 25 MG TABLET PO (09:15)
[2021-07-13] MEDS: amLODIPine BESYLATE 5 MG TABLET 10 MG PO (09:15)
[2021-07-13] MEDS: FAMOTIDINE 20 MG/2 ML VIAL IV PUSH (09:15)
[2021-07-13] MEDS: TAMSULOSIN HCL 0.4 MG CAPSULE PO (09:16)
[2021-07-13] MEDS: FLUTICASONE PROPIONATE 0.05% NA SPR 16 GM BTL (*BKC) 1 SPRAY NASAL (09:16)
--- NOTE | 2021-07-13 09:46 | PCOTNOTE ---
Attempted to see patient this am, however patient refused stating, I don't think that's a good idea. I just had diarrhea, and I don't think it's over yet.
--- NOTE | 2021-07-13 11:19 | PM.DS ---
DS: Admitting Diagnosis Discharge Date 07/13/2021 Admitting Diagnosis bloody stool DS: Discharge Diagnosis Discharge Diagnosis (1) Colitis: Code(s): K52.9 - Noninfective gastroenteritis and colitis, unspecified Status: Acute (2) Type 2 diabetes mellitus with hyperglycemia, with long-term current use of insulin: Code(s): E11.65 - Type 2 diabetes mellitus with hyperglycemia; Z79.4 - termite control servicer (current) use of insulin Status: Acute (3) Bright red blood per rectum: Code(s): K62.5 - Hemorrhage of anus and rectum Status: Acute (4) Acute renal failure superimposed on stage 4 chronic kidney disease: Qualifiers: Acute renal failure type: unspecified Qualified Code(s): N17.9 - Acute kidney failure, unspecified; N18.4 - Chronic kidney disease, stage 4 (severe) Code(s): N17.9 - Acute kidney failure, unspecified; N18.4 - Chronic kidney disease, stage 4 (severe) Status: Acute (5) Uncontrolled hypertension: Code(s): I10 - Essential (primary) hypertension Status: Acute DS: Summary Hospital Course Reason for hospitalization: Chief Complaint: Bloody stools Narrative: 70-year-old male with past medical history of short-term memory loss, CVA, insulin-dependent diabetes mellitus, chronic kidney disease, hypertension, and celiac disease who presented to the ER with bright red blood per rectum. Source of information is nursing report and review of past medical records. The patient is alert oriented x3 but cannot give details of current situation. 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 At the time of my evaluation the patient had actually denied having had recent falls. When he was initially evaluated in the ER he reported that he fell because he stood up too fast and was just clumsy. Later in the day the called EMS because the patient was becoming more weak. The noted that the patient had incontinent a bloody stools. According to nursing report patient has chronic urinary incontinence. Evidently the patient reported that he ?might have had a bloody stool earlier in the day? but did not mention it during his prior ER visit. EMS noted the patient's glucoses were around 400. The patient was unable to tell as if he had taken his insulin recently. The patient reports 1 time that his rectal bleeding has been going on for 3 weeks with associated diarrhea. When at the 2nd time the patient reported that is been going on for 3 days. Next and he told me that is been going on since last time he had come to the hospital which was earlier that morning. Hospital Course: patient with acute kidney injury with baseline creatinine of 2.8 to 3.4 for last couple of years however patient presented with acute on chronic kidney disease upon arrival his creatinine was 5.4 seen by Nephrology suspect secondary to hypertension and diabetes, and now with colitis, patient had been gently hydrated and his creatinine remains 4 this may be his new baseline per special machine operator, in terms of colitis patient was treated with Zosyn 10 days symptoms have improved pain is resolved is able to tolerate his diet, patient remains clinically stable will discharge the patient home tomorrow, patient family is present in the room. today patient is clinically stable discharge the patient today. Status at Discharge Functional status at discharge: uses cane/walker Overall status at discharge: patient is back to baseline Time Spent with Patient Time attestation: Total time spent providing and/or coordinating discharge services: Patient was seen and examined at the time of the discharge Condition at discharge is stable Code status: Full code. Time spent preparing discharge summary, discharge medications, discussing discharge planning with medical case worker and patient is 35 minutes. Time s
[2021-07-13 11:21] LABS: Glucose Point of Care 132 mg/dl (65-105)
[2021-07-13 16:20] LABS: Glucose Point of Care 102 mg/dl (65-105)
== END 2021-07-13 12:25 | disposition home health service (06) | DRG 391 ==
LOC: ANHED 18:52 → ANH3MEDSUR 07-02 07:51
PROVIDERS: Family Medicine; Internal Medicine; Internal Medicine Gastroenterology; Internal Medicine Nephrology; Admitting Provider Family Medicine; Emergency Provider Family Medicine; PCP Family Medicine; Visit Provider Internal Medicine
DX: A09 Infectious gastroenteritis and colitis, unspecified (principal); N17.0 Acute kidney failure with tubular necrosis; K62.5 Hemorrhage of anus and rectum; I69.954 Hemiplegia and hemiparesis following unspecified cerebrovascular disease affecting left non-dominant side; N18.4 Chronic kidney disease, stage 4 (severe); G93.40 Encephalopathy, unspecified; N13.30 Unspecified hydronephrosis; E11.65 Type 2 diabetes mellitus with hyperglycemia; I10 Essential (primary) hypertension; Z87.891 Personal history of nicotine dependence; E78.5 Hyperlipidemia, unspecified; E11.42 Type 2 diabetes mellitus with diabetic polyneuropathy; E11.22 Type 2 diabetes mellitus with diabetic chronic kidney disease; F32.9 Major depressive disorder, single episode, unspecified; F41.9 Anxiety disorder, unspecified; Z79.899 Other long term (current) drug therapy; S02.2XXA Fracture of nasal bones, initial encounter for closed fracture; Z79.4 Long term (current) use of insulin; Z82.49 Family history of ischemic heart disease and other diseases of the circulatory system; Z82.3 Family history of stroke; Z79.82 Long term (current) use of aspirin; R32 Unspecified urinary incontinence; Z91.81 History of falling; Z86.010 Personal history of colon polyps; W19.XXXA Unspecified fall, initial encounter; K90.0 Celiac disease; D72.829 Elevated white blood cell count, unspecified; E83.42 Hypomagnesemia; D64.9 Anemia, unspecified; N40.1 Benign prostatic hyperplasia with lower urinary tract symptoms; R33.9 Retention of urine, unspecified; E86.9 Volume depletion, unspecified
CPT/HCPCS: 36415; 36600; 70450; 70486; 70551; 71045; 72125; 74176; 76775; 78707; 80048; 80053; 80069; 81001; 81050; 82436; 82570; 82805; 82948; 83605; 83735; 84100; 84156; 84300; 85025; 85027; 85610; 85730; 85999; 87040; 87045; 87086; 87427; 93005; 96360; 97110; 97116; 97161; 97166; 97530; 97535; 99284; 99285; A9270; A9562; J0360; J1815; J2270; J2543; J3475; J7030; J7040

== ENCOUNTER 2021-08-06 14:11 | Outpatient (RCR) | payer MEDICARE, SELFPAY ==
[2021-08-06 14:30] LABS: Basophils Absolute Auto 0.1 K/mm3 (0.0-0.1); Basophils Percent Auto 0.5 % (0.2-1.2); Eosinophils Absolute Auto 0.2 K/mm3 (0-0.3); Eosinophils Percent Auto 2.2 % (0-4.4); Hematocrit 35.5 % (42.0-52.0); Hemoglobin 12.3 g/dL (14.0-18.0); Immature Granulocyte Absolute 0.05 K/mm3 (0.00-0.031); Immature Granulocyte Percent A 0.5 % (0-0.5); Lymphocytes Absolute Auto 1.62 K/mm3 (0.9-3.2); Lymphocytes Percent Auto 15.4 % (18.3-44.2); Mean Corpuscular HGB Conc 34.6 g/dl (32-36); Mean Corpuscular Hemoglobin 31.8 pg (26-34); Mean Corpuscular Volume 91.7 fl (80-100); Mean Platelet Volume 10.6 fl (7.4-10.4); Monocytes Absolute Auto 0.9 K/mm3 (0.1-0.6); Monocytes Percent Auto 8.6 % (2.6-8.5); Neutrophils Absolute Auto 7.7 K/mm3 (1.3-6.7); Neutrophils Percent Auto 72.8 % (45.5-73.1); Platelet Count Result 230 k/mm3 (150-375); Red Blood Count 3.87 M/mm3 (4.6-6.20); Red Cell Distribution Width 12.4 % (11.5-14.5); White Blood Count 10.5 K/mm3 (4.5-10.0)
[2021-08-06 14:39] LABS: Alanine Aminotransferase 12 U/L (6-50); Albumin Level 3.7 g/dL (3.5-5.1); Alkaline Phosphatase 89 U/L (38-126); Anion Gap 12 mmol/L (8-16); Aspartate Amino Transferase 19 U/L (17-59); Bilirubin,Total 0.8 mg/dL (0.2-1.3); Blood Urea Nitrogen 48 mg/dL (9-20); Calcium 8.6 mg/dL (8.4-10.2); Carbon Dioxide 26 mmol/L (22-30); Chloride 98 mmol/L (98-107); Estimated Glomerular Filt Rate 17; Glucose 184 mg/dL (65-110); Potassium 3.1 mmol/L (3.4-5.0); Sodium 136 mmol/L (137-145)
[2021-08-06 18:45] LABS: Hemoglobin A1C 6.9 % (<5.7)
== END 2021-11-04 23:59 | disposition home or self-care (01) ==
LOC: HOME HLTH 14:11
PROVIDERS: PCP Family Medicine; Visit Provider Family Medicine
DX: D64.9 Anemia, unspecified (principal); E11.9 Type 2 diabetes mellitus without complications
CPT/HCPCS: 80053; 83036; 85025

== ENCOUNTER 2021-08-12 07:00 | Emergency (ER) | payer MEDICARE, SELFPAY ==
--- NOTE | ~2021-08-12 | XR_ITS ---
EXAMINATION: XR chest 1V 08/12/2021 07:38 INDICATION: Syncope PROCEDURE: AP view of the chest COMPARISON: Comparison to multiple prior studies sequentially, with oldest reviewed study dated 09/2017. FINDINGS: The lungs are clear. The cardiomediastinal silhouette is within normal limits. There are no pleural effusions. There is no pneumothorax suspected. IMPRESSION: 1: NO ACUTE CARDIOPULMONARY DISEASE. Reviewed, dictated and finalized at location A.
--- NOTE | ~2021-08-12 | CT_ITS ---
EXAMINATION: CT cervical spine wo con DATE: 08/12/2021 07:32 INDICATION: CT dated 07/01/2021 TECHNIQUE: Computed tomography (CT) of the cervical spine was performed without intravenous contrast. The dose-length product was 630 mGy-cm. Automated exposure control and iterative reconstruction tech nique were employed. COMPARISON: CT dated 07/01/2021 FINDINGS: There is advanced degenerative disc disease at C3-4 through T1-2. No acute fracture or trau matic malalignment. There is an old T1 spinous process fracture. No acute fracture, subluxation or di slocation. Lung apices are normal. No paraspinal soft tissue abnormality. There is advanced multileve l uncinate hypertrophy. IMPRESSION: 1. No acute abnormality of the cervical spine. 2: Severe cervical spondylosis. Reviewed, dictated and finalized at location A.
--- NOTE | ~2021-08-12 | CT_ITS ---
EXAMINATION: CT brain wo con DATE: 08/12/2021 07:32 INDICATION: Status post fall. Head injury. TECHNIQUE: Computed tomography (CT) of the head was performed without intravenous contrast. The dose- length product was 605.33 mGy-cm. Automated exposure control and iterative reconstruction technique w ere employed. COMPARISON: CT dated 07/01/2021 FINDINGS: Generalized atrophy. There are scattered moderate periventricular and subcortical white mat ter changes, most likely related to small vessel ischemic disease (microangiopathy). No ventriculomeg roseann or midline shift. No acute intracranial hemorrhage, infarction, mass or mass effect. Paranasal si nuses and mastoids are pneumatized. No depressed skull fractures. Midline sagittal images are unremar kable. IMPRESSION: 1. No acute intracranial abnormality. 2: Chronic age-related findings. Reviewed, dictated and finalized at location A.
[2021-08-12 07:11] VITALS: BP 131/77; PULSE 95; RESP 13; TEMP 36.4; O2SAT 99
--- NOTE | 2021-08-12 07:14 | ECG_ITS ---
Measurements Intervals [place] Rate: 94 P: 38 VT: 221 QRS: -81 QRSD: 124 T: 18 QT: 367 QTc: 459 Interpretive Statements SINUS RHYTHM WITH FIRST DEGREE AV BLOCK WITH OCCASIONAL SUPRAVENTRICULAR PREMATURE COMPLEXES RIGHT BUNDLE BRANCH BLOCK [120+ ms QRS DURATION, UPRIGHT V1, 40+ ms S IN I/aVL/V4/V5/V6] LEFT ANTERIOR FASCICULAR BLOCK [QRS AXIS <= -45, QR IN I, RS IN II] ABNORMAL ECG COMPARED TO ECG 07/07/2021 16:01:54 NO SIGNIFICANT CHANGE Electronically Signed On 08-12-2021 11:33:25 CDT by Deep Ohara M.D.
--- NOTE | 2021-08-12 07:24 | ED.GENADULT ---
HPI - General Adult General Chief complaint: Syncope Stated complaint: syncope/ fall Time Seen by Provider: 08/12/21 07:06 History of Present Illness HPI narrative: Patient presents emergency department from home for syncopal episode. Patient states that he was on the toilet defecating when he had a syncopal episode. Per family this present episode lasted for approximately 5 seconds the patient was out the patient did fall off the toilet striking his right head will he also notes mild abrasion over his left finger he denies any other trauma or injury he denies having any chest pain or shortness of breath prior to the episode denies any symptoms following the episode he denies any numbness or tingling patient states last tetanus shot was this spring Related Data Home Medications Medication Instructions Recorded Confirmed amlodipine 2.5 mg tablet 2.5 mg PO DAILY 01/26/19 07/24/21 indapamide 2.5 mg tablet 2.5 mg PO DAILY 01/26/19 07/24/21 lisinopril 40 mg tablet 40 mg PO DAILY 06/08/19 07/24/21 aspirin 81 mg tablet,delayed 81 mg PO DAILY 03/05/20 07/24/21 release (Aspirin Low Dose) cholecalciferol (vitamin D3) 50 50 mcg PO DAILY 03/05/20 07/24/21 mcg (2,000 unit) tablet atorvastatin 40 mg tablet 40 mg PO HS 07/01/21 07/24/21 insulin detemir U-100 100 unit/mL 60 unit subcut HS 07/01/21 07/24/21 (3 mL) subcutaneous pen (Levemir FlexTouch U-100 Insulin) Allergies Allergy/AdvReac Type Severity Reaction Status Date / Time barley Allergy Severe abdominal Verified 08/12/21 07:15 pain wheat Allergy Severe abdominal Verified 08/12/21 07:15 pain pregabalin Allergy Unknown Confusion Verified 08/12/21 07:15 rosuvastatin Allergy Unknown Muscle pain Verified 08/12/21 07:15 Osohfcq-[id number] Reductase Allergy Unknown muscle Verified 08/12/21 07:15 Inhibitor crampin [Psayxkp-Ndt-Lts Reductase Inhibitor] Barley Flour Allergy Severe abdominal Uncoded 08/12/21 07:15 pain Oat Allergy Severe abdominal Uncoded 08/12/21 07:15 pain [place] Allergy Severe abdominal Uncoded 08/12/21 07:15 pain [place] Flour Allergy Severe abdominal Uncoded 08/12/21 07:15 pain Gluten Flour Allergy Intermediate Other Uncoded 08/12/21 07:15 Review of Systems Review of Systems: Gen.: Denies fevers or chills Eyes: Denies eye pain or visual change ENT: Denies congestion Respiratory: Denies shortness of breath or cough CV: See HPI GI: Denies abdominal pain nausea, emesis or diarrhea reports chronic indwelling Sutton catheter Musculoskeletal: Denies back pain or muscle pain Neuro: Denies numbness, tingling, weakness or focal weakness Skin: Reports abrasions Except as documented, all other systems reviewed and negative PMFSH Past Medical History Medical History Anxiety Arthritis Benign prostatic hyperplasia Carpal tunnel syndrome on both sides s/p release Celiac disease Cerebrovascular accident (~2018) 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 CAMILLA was unremarkable. Chronic anemia Chronic insomnia Chronic kidney disease, stage 4 (severe) Creatinine ranges between 2.8 and 3.30. Colon polyps Depression Diabetic peripheral neuropathy Diabetic retinopathy Fall History of stroke with current residual effects Hyperlipidemia Hypertension Insulin dependent type 2 diabetes mellitus Kidney stones Leukocytosis Nasal fracture Numbness of arm Surgical History Surgical History History of cataract extraction History of cervical spinal surgery History of surgical procedure on eye proper using laser History of vitrectomy Status post cataract extraction Family History Family History Father Celiac disease Son Celiac disease Sibling Family history of obesity Hypertension Cerebrovascular accident Family history of diabetes mellitus in f
[2021-08-12 07:27] LABS: Basophils Absolute Auto 0.1 K/mm3 (0.0-0.1); Basophils Percent Auto 0.8 % (0.2-1.2); Eosinophils Absolute Auto 0.2 K/mm3 (0-0.3); Eosinophils Percent Auto 2.4 % (0-4.4); Hematocrit 35.5 % (42.0-52.0); Hemoglobin 12.1 g/dL (14.0-18.0); Immature Granulocyte Absolute 0.03 K/mm3 (0.00-0.031); Immature Granulocyte Percent A 0.4 % (0-0.5); Lymphocytes Absolute Auto 1.22 K/mm3 (0.9-3.2); Mean Corpuscular HGB Conc 34.1 g/dl (32-36); Mean Corpuscular Hemoglobin 31.3 pg (26-34); Mean Platelet Volume 9.4 fl (7.4-10.4); Monocytes Absolute Auto 0.5 K/mm3 (0.1-0.6); Monocytes Percent Auto 5.9 % (2.6-8.5); Neutrophils Absolute Auto 5.7 K/mm3 (1.3-6.7); Neutrophils Percent Auto 74.5 % (45.5-73.1); Platelet Count Result 224 k/mm3 (150-375); Red Blood Count 3.86 M/mm3 (4.6-6.20); Red Cell Distribution Width 12.4 % (11.5-14.5); White Blood Count 7.6 K/mm3 (4.5-10.0)
[2021-08-12] MEDS: SODIUM CHLORIDE 0.9% IV 1,000 ML 999 ML IV CONT (07:37)
[2021-08-12 07:39] LABS: Alanine Aminotransferase 15 U/L (6-50); Albumin Level 3.6 g/dL (3.5-5.1); Alkaline Phosphatase 82 U/L (38-126); Anion Gap 7 mmol/L (8-16); Aspartate Amino Transferase 22 U/L (17-59); Bilirubin,Total 1.1 mg/dL (0.2-1.3); Blood Urea Nitrogen 47 mg/dL (9-20); Calcium 8.6 mg/dL (8.4-10.2); Carbon Dioxide 30 mmol/L (22-30); Chloride 98 mmol/L (98-107); Estimated CRCL calculation 23 ml/min; Estimated Glomerular Filt Rate 17; Glucose 222 mg/dL (65-110); Potassium 3.3 mmol/L (3.4-5.0); Sodium 135 mmol/L (137-145)
[2021-08-12 07:42] VITALS: PULSE 97
[2021-08-12 07:51] LABS: Troponin I 0.031 ng/mL (0.000-0.034)
[2021-08-12 07:55] LABS: INR 1.1; Prothrombin Time 13.7 Seconds (11.1-14.7)
[2021-08-12 07:56] LABS: Partial Thromboplastin Time 32.1 SECONDS (22.3-36.8)
[2021-08-12 08:42] VITALS: BP 128/75; PULSE 89; RESP 19; O2SAT 99
[2021-08-12 08:43] LABS: Appearance Urine Cloudy (Clear); Bilirubin Urine Negative (Negative); Blood Urine 2+ (Negative); Color Urine Yellow (Yellow); Glucose Urine UA Negative (Negative); Ketones Urine Negative (Negative); Leukocyte Esterase Ur 3+ LEU/UL (Negative); Nitrate Urine Negative (Negative); Protein Urine 3+ mg/dL (Negative)
[2021-08-12 08:52] LABS: Mucus Urine Rare /lpf; RBC Urine >75 /hpf (0-2); WBC Clumps Urine Present /HPF; WBC Urine >75 /hpf
[2021-08-12 08:55] LABS: Add Urine Microscopic? YES
[2021-08-12 08:56] LABS: Budding Yeast Urine Present /hpf
[2021-08-12 10:25] VITALS: BP 160/94; PULSE 91; RESP 13; O2SAT 100
[2021-08-12 11:14] LABS: Troponin I 0.031 ng/mL (0.000-0.034)
[2021-08-12 11:58] VITALS: BP 164/81; PULSE 85; RESP 15; O2SAT 96
== END 2021-08-12 12:01 | disposition home or self-care (01) ==
PROVIDERS: Emergency Provider Emergency Medicine; PCP Family Medicine
DX: R55 Syncope and collapse (principal); S00.83XA Contusion of other part of head, initial encounter; E11.22 Type 2 diabetes mellitus with diabetic chronic kidney disease; I12.9 Hypertensive chronic kidney disease with stage 1 through stage 4 chronic kidney disease, or unspecified chronic kidney disease; N18.4 Chronic kidney disease, stage 4 (severe); E11.319 Type 2 diabetes mellitus with unspecified diabetic retinopathy without macular edema; E11.42 Type 2 diabetes mellitus with diabetic polyneuropathy; I69.944 Monoplegia of lower limb following unspecified cerebrovascular disease affecting left non-dominant side; N40.0 Benign prostatic hyperplasia without lower urinary tract symptoms; K90.0 Celiac disease; E78.5 Hyperlipidemia, unspecified; D64.9 Anemia, unspecified; M19.90 Unspecified osteoarthritis, unspecified site; Z87.442 Personal history of urinary calculi; Z79.4 Long term (current) use of insulin; Z79.82 Long term (current) use of aspirin; Z98.49 Cataract extraction status, unspecified eye; Z87.891 Personal history of nicotine dependence; M47.812 Spondylosis without myelopathy or radiculopathy, cervical region; I44.0 Atrioventricular block, first degree; I45.2 Bifascicular block; I49.1 Atrial premature depolarization; W18.11XA Fall from or off toilet without subsequent striking against object, initial encounter
CPT/HCPCS: 36415; 70450; 71045; 72125; 80053; 81001; 84484; 85025; 85610; 85730; 87086; 87147; 87181; 87186; 93005; 96360; 99284; J7030

== ENCOUNTER 2021-08-21 09:31 | Outpatient (NON) | payer MEDICARE, SELFPAY ==
[2021-08-21 10:51] LABS: Anion Gap 9 mmol/L (8-16); Blood Urea Nitrogen 53 mg/dL (9-20); Calcium 8.4 mg/dL (8.4-10.2); Carbon Dioxide 27 mmol/L (22-30); Chloride 102 mmol/L (98-107); Estimated Glomerular Filt Rate 19; Glucose 180 mg/dL (65-110); Potassium 3.6 mmol/L (3.4-5.0); Sodium 138 mmol/L (137-145)
== END 2021-08-21 09:32 | disposition home or self-care (01) ==
PROVIDERS: PCP Family Medicine; Visit Provider Family Medicine
DX: N18.4 Chronic kidney disease, stage 4 (severe) (principal)
CPT/HCPCS: 80048

== ENCOUNTER 2021-10-30 23:55 | Observation (INO) | payer MEDICARE, SELFPAY ==
--- NOTE | ~2021-10-30 | XR_ITS ---
EXAMINATION: XR chest 2V DATE: 10/31/2021 00:59 INDICATION: Arrhythmia. TECHNIQUE: Frontal and lateral views of the chest were obtained. COMPARISON: Chest single view 08/12/2021, CT abdomen and pelvis 07/04/2021 FINDINGS: There is no pneumonia, pleural effusion, or pneumothorax. The heart size is normal. IMPRESSION: 1. No acute cardiopulmonary disease. Reviewed, dictated and finalized at location A.
[2021-10-30 23:57] VITALS: BP 155/76; PULSE 92; RESP 16; TEMP 36.6; O2SAT 97
[2021-10-31] VITALS (27 sets, daily range): BP systolic 128–163; BP diastolic 57–84; PULSE 57–93; RESP 11–18; TEMP 36.5–36.6; O2SAT 97–100; BMI 34.7
--- NOTE | 2021-10-31 00:03 | ECG_ITS ---
Measurements Intervals [place] Rate: 99 P: 36 DC: 211 QRS: -89 QRSD: 150 T: 29 QT: 390 QTc: 500 Interpretive Statements SINUS RHYTHM WITH FIRST DEGREE AV BLOCK WITH OCCASIONAL VENTRICULAR PREMATURE COMPLEXES RIGHT BUNDLE BRANCH BLOCK [120+ ms QRS DURATION, UPRIGHT V1, 40+ ms S IN I/aVL/V4/V5/V6] LEFT ANTERIOR FASCICULAR BLOCK POOR R-WAVE PROGRESSION NO SIGNIFICANT CHANGE COMPARED TO PRIOR TRACING Electronically Signed On 10-31-2021 13:38:23 CDT by Christianne Vieira M.D.
[2021-10-31 00:35] LABS: Basophils Absolute Auto 0.1 K/mm3 (0.0-0.1); Basophils Percent Auto 0.6 % (0.2-1.2); Eosinophils Absolute Auto 0.2 K/mm3 (0-0.3); Eosinophils Percent Auto 1.8 % (0-4.4); Hematocrit 33.4 % (42.0-52.0); Hemoglobin 11.1 g/dL (14.0-18.0); Immature Granulocyte Absolute 0.03 K/mm3 (0.00-0.031); Immature Granulocyte Percent A 0.3 % (0-0.5); Lymphocytes Percent Auto 19.4 % (18.3-44.2); Mean Corpuscular HGB Conc 33.2 g/dl (32-36); Mean Corpuscular Hemoglobin 31.1 pg (26-34); Mean Corpuscular Volume 93.6 fl (80-100); Mean Platelet Volume 9.5 fl (7.4-10.4); Monocytes Absolute Auto 0.8 K/mm3 (0.1-0.6); Monocytes Percent Auto 8.6 % (2.6-8.5); Neutrophils Absolute Auto 6.8 K/mm3 (1.3-6.7); Neutrophils Percent Auto 69.3 % (45.5-73.1); Platelet Count Result 256 k/mm3 (150-375); Red Blood Count 3.57 M/mm3 (4.6-6.20); Red Cell Distribution Width 14.1 % (11.5-14.5); White Blood Count 9.8 K/mm3 (4.5-10.0)
--- NOTE | 2021-10-31 00:35 | PC.NURSE ---
0020- RN called and spoke with Brina to get report on the cardiac event that happened at home, while wearing his halter monitor. July informed RN that pt had been in NSR for the day and then had an 11beat run of V-tach. RN notified Dr. Beal and requested report to be faxed over. 0- RN spoke with Dewayne at the [employer] and requested for the report to be faxed to the ER.
[2021-10-31 00:46] LABS: Prothrombin Time 12.5 Seconds (11.1-14.7)
--- NOTE | 2021-10-31 00:46 | ED.ARRPALP ---
HPI - Arrhythmia/Palpitations General Chief Complaint: Arrhythmia/Palpitations Stated Complaint: heart arrthymias Time Seen by Provider: 10/31/21 00:23 Source: RN notes reviewed History of Present Illness HPI narrative: Patient presents emergency department from home for Holter monitor arrhythmia. The patient states that he is wearing a 30-day Holter monitor is followed by Dr. Ohara. He states he received a call this evening to the ED, the emergency department secondary to an arrhythmia noted on his Holter monitor he states that he was sleeping during the time and does not recall any abnormalities he denies having chest pain shortness of breath. States he has been feeling fine otherwise. States he does have a history of stage IV kidney disease and is followed by Dr. Song Related Data Home Medications Medication Instructions Recorded Confirmed indapamide 2.5 mg tablet 2.5 mg PO DAILY 01/26/19 08/24/21 lisinopril 40 mg tablet 40 mg PO DAILY 06/08/19 08/24/21 aspirin 81 mg tablet,delayed 81 mg PO DAILY 03/05/20 08/24/21 release (Cheko Low Dose Aspirin) cholecalciferol (vitamin D3) 50 50 mcg PO DAILY 03/05/20 08/24/21 mcg (2,000 unit) tablet atorvastatin 40 mg tablet 40 mg PO HS 07/01/21 08/24/21 amlodipine 2.5 mg tablet 5 mg PO DAILY 08/17/21 08/24/21 Allergies Allergy/AdvReac Type Severity Reaction Status Date / Time barley Allergy Severe abdominal Verified 10/31/21 00:01 pain wheat Allergy Severe abdominal Verified 10/31/21 00:01 pain pregabalin AdvReac Unknown Confusion Verified 10/31/21 00:01 rosuvastatin AdvReac Unknown Muscle pain Verified 10/31/21 00:01 Ywyylhr-XXS-PgX Reductase AdvReac Unknown muscle Verified 10/31/21 00:01 Inhibitor crampin [Swrrgvf-Guq-Qqv Reductase Inhibitor] Barley Flour Allergy Severe abdominal Uncoded 10/31/21 00:02 pain Oat Allergy Severe abdominal Uncoded 10/31/21 00:02 pain [place] Allergy Severe abdominal Uncoded 10/31/21 00:02 pain [place] Flour Allergy Severe abdominal Uncoded 10/31/21 00:02 pain Gluten Flour Allergy Intermediate Other Uncoded 10/31/21 00:02 Review of Systems Review of Systems: Gen.: Denies fevers or chills ENT: Denies congestion Respiratory: Denies shortness of breath or cough CV HPI GI: Denies abdominal pain nausea, emesis or diarrhea Musculoskeletal: Denies back pain or muscle pain Neuro: Denies numbness, tingling, weakness or focal weakness Skin: Denies rash Except as documented, all other systems reviewed and negative [facility] Past Medical History Medical History Anxiety Arthritis Benign prostatic hyperplasia Carpal tunnel syndrome on both sides s/p release Celiac disease Cerebrovascular accident (~2018) 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 CAMILLA was unremarkable. Chronic anemia Chronic insomnia Chronic kidney disease, stage 4 (severe) Creatinine ranges between 2.8 and 3.30. Colon polyps Depression Diabetic peripheral neuropathy Diabetic retinopathy Fall History of stroke with current residual effects Hyperlipidemia Hypertension Insulin dependent type 2 diabetes mellitus Kidney stones Leukocytosis Nasal fracture Numbness of arm Surgical History Surgical History History of cataract extraction History of cervical spinal surgery History of surgical procedure on eye proper using laser History of vitrectomy Status post cataract extraction Family History Family History Father Celiac disease Son Celiac disease Sibling Family history of obesity Hypertension Cerebrovascular accident Family history of diabetes mellitus in first degree relative Family history of heart disease in male family member before age 55 Grandparent Family history of mental disorder Mother Cerebrovascular accident Family history of arth
[2021-10-31 00:47] LABS: Alanine Aminotransferase 13 U/L (6-50); Albumin Level 3.8 g/dL (3.5-5.1); Alkaline Phosphatase 90 U/L (38-126); Anion Gap 12 mmol/L (8-16); Aspartate Amino Transferase 29 U/L (17-59); Bilirubin,Total 0.5 mg/dL (0.2-1.3); Blood Urea Nitrogen 75 mg/dL (9-20); Calcium 8.3 mg/dL (8.4-10.2); Carbon Dioxide 26 mmol/L (22-30); Chloride 100 mmol/L (98-107); Estimated CRCL calculation 19 ml/min; Estimated Glomerular Filt Rate 14; Glucose 186 mg/dL (65-110); Lipase 179 U/L (23-300); Magnesium 1.8 mg/dL (1.6-2.3); Partial Thromboplastin Time 29.5 SECONDS (22.3-36.8); Potassium 3.2 mmol/L (3.4-5.0); Sodium 138 mmol/L (137-145)
[2021-10-31 01:13] LABS: Troponin I 0.041 ng/mL (0.000-0.034)
[2021-10-31] MEDS: POTASSIUM CHLORIDE 20 MEQ TABLET PO (02:05)
[2021-10-31] MEDS: METOPROLOL TARTRATE 25 MG TABLET PO (02:05)
[2021-10-31] MEDS: ASPIRIN 81 MG CHEWABLE TABLET 324 MG PO (02:05)
--- NOTE | 2021-10-31 02:45 | ADMGEN ---
This patient, Dewayne Fagan, was admitted to IMU Room 202-01 at 0245. Patient/family oriented to hospital policies and general routines including ID bracelet, bed and alarms, visiting hours, pain management, procedures, bathroom and other care routines, personal items, smoking policy, room service/diet, and visiting hours. Information on how to activate the Rapid Response Team has been discussed. Patient/Family are encouraged to report perceived risks to care and to ask questions if they do not understand what they are told or what they should do.
[2021-10-31 04:04] LABS: Troponin I 0.041 ng/mL (0.000-0.034)
--- NOTE | 2021-10-31 04:09 | PC.NURSE ---
This patient, Dewayne Fagan, was admitted to IMU Room 202-01 at 02:45. Patient/family oriented to hospital policies and general routines including ID bracelet, bed and alarms, visiting hours, pain management, procedures, bathroom and other care routines, personal items, smoking policy, room service/diet, and visiting hours. Information on how to activate the Rapid Response Team has been discussed. Patient/Family are encouraged to report perceived risks to care and to ask questions if they do not understand what they are told or what they should do.
[2021-10-31] MEDS: SODIUM CHLORIDE 0.9% IV 1,000 ML 100 ML IV CONT (04:31)
[2021-10-31 07:16] LABS: Troponin I 0.037 ng/mL (0.000-0.034)
--- NOTE | 2021-10-31 08:09 | PM.IMHP ---
H&P: HPI History of Present Illness Date/Time: 10/31/21 08:09 Chief Complaint: Abnormal heart rhythm Narrative: 70yo male with CKD, DM, CVA and HTN who was sent into the ED from the Holter monitor [employer] when patient had a 11 beat run of VTach. Patient has a Holter in place due to syncope. Review of Systems Review of Systems: All systems reviewed & are unremarkable except as noted in HPI and below PMFSH Past Medical History Medical History Anxiety Arthritis Benign prostatic hyperplasia Carpal tunnel syndrome on both sides s/p release Celiac disease Cerebrovascular accident (~2018) 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 CAMILLA was unremarkable. Chronic anemia Chronic insomnia Chronic kidney disease, stage 4 (severe) Creatinine ranges between 2.8 and 3.30. Colon polyps Depression Diabetic peripheral neuropathy Diabetic retinopathy Fall History of stroke with current residual effects Hyperlipidemia Hypertension Insulin dependent type 2 diabetes mellitus Kidney stones Leukocytosis Nasal fracture Numbness of arm Surgical History Surgical History History of cataract extraction History of cervical spinal surgery History of surgical procedure on eye proper using laser History of vitrectomy Status post cataract extraction Family History Family History Father Celiac disease Son Celiac disease Sibling Family history of obesity Hypertension Cerebrovascular accident Family history of diabetes mellitus in first degree relative Family history of heart disease in male family member before age 55 Grandparent Family history of mental disorder Mother Cerebrovascular accident Family history of arthritis Family history of hearing loss Father Family history of congestive heart failure Family history of heart disease in male family member before age 55 Social History Social History Social History: Surrogate decision maker: Monica Fagan, . Code status: Full code. Smoking packs per day: 1 Smoking cigarettes per day: 20.0 Years smoked: 6 Smoking pack-years: 6.00 Smoking status: Former smoker Tobacco type: cigarettes Second hand tobacco smoke exposure: No Smoking end date: 03/14/89 Alcohol intake: never Substance use: never Substance use type: does not use Additional living arrangements comments: Resides with his in [place]. Additional occupation/education comments: Retired from [employer]. Gender identity (if verbalized by the patient): Male Spiritual care concerns: No Agree to blood products: Yes Meds Home Medications and Allergies Home Medications Medication Instructions Recorded Confirmed Type indapamide 2.5 mg tablet 2.5 mg PO DAILY 01/26/19 10/31/21 History cholecalciferol (vitamin D3) 50 50 mcg PO DAILY 03/05/20 10/31/21 History mcg (2,000 unit) tablet flash glucose scanning reader #1 ea 06/16/20 10/31/21 Rx (FreeStyle Shital 2 [place]) insulin lispro 100 unit/mL See Rx Instructions subcut TIDWM 06/29/21 10/31/21 Rx subcutaneous pen (Humalog KwikPen #15 mL (U-100) Insulin) atorvastatin 40 mg tablet 40 mg PO HS 07/01/21 10/31/21 History pen needle, diabetic 32 gauge x #100 ea 07/20/21 10/31/21 Rx 1/4 duloxetine 60 mg capsule,delayed 60 mg PO DAILY #90 caps 07/30/21 10/31/21 Rx release amlodipine 2.5 mg tablet 5 mg PO DAILY 08/17/21 10/31/21 History eszopiclone 1 mg tablet ([place]) 1 mg PO HS #30 tabs 09/17/21 10/31/21 Rx eszopiclone 3 mg tablet ([place]) 3 mg PO .QHS #30 tabs 09/17/21 10/31/21 Rx flash glucose sensor (FreeStyle #1 ea 10/13/21 10/31/21 Rx Shital 2 Sensor kit) clopidogrel 75 mg PO 1XD 10/31/21 10/31/21 History insulin detemir U-100 100 unit/mL 70 u
--- NOTE | 2021-10-31 09:37 | P.CONCA_ITS ---
Assessment and Plan Assessment and plan (1) Nonsustained ventricular tachycardia: Code(s): I47.2 - Ventricular tachycardia Status: Acute Assessment and Plan: Patient with known nonsustained ventricular tachycardia, being evaluated for it significance and its relationship to an episode of syncope. Outpatient monitoring 09/2021 showed a 26 beat run of V-tach, rate in the 140s Thirty day monitor, last night, showed an 11 beat run of V-tach which prompted his ER visit and admission. * He has been asymptomatic with the nonsustained ventricular tachycardia. * He has good left ventricular systolic function * He had an episode of syncope with no prodrome which may or may not be related to his ventricular arrhythmia * He may have underlying CAD with stress testing showing an old inferior [place]. No clinical event. * His potassium was low which may predispose him to ventricular arrhythmias. * In view of the entire scenario, my index of suspicion that the ventricular tachycardia is malignant and may be the cause of the syncope, and possibility of future sudden cardiac , is overall low, though still possible. * Reviewed the situation with flight reservations manager Dr. Julius Johnston, who has not seen the pt but agreed w/ my assessment. Did not think a Live Vest was necessary. Rec OPT cardiac MRI to eval Anny findings and eval for other types of cardiomyopathy.. * Correct hypokalemia * Resume beta-goyo, carvedilol 12.5 mg BID. * Outpatient follow-up with Dr. Melo recommended. * Has appt w/ Dr. Ohara later this month (2) Syncope: Code(s): R55 - Syncope and collapse Status: Acute Assessment and Plan: One episode of syncope while straining at the toilet, perhaps vasovagal, r/o arrhtymogenic. * No recurrence (3) Abnormal stress test: Code(s): R94.39 - Abnormal result of other cardiovascular function study Status: Acute Assessment and Plan: Small fixed inferior defect with associated inferior wall hypokinesis suggesting an old inferior TX * No clinical event or anginal symptoms. * Continue to treat probable CAD with Plavix, rosuvastatin (4) Acute hypokalemia: Code(s): E87.6 - Hypokalemia Status: Acute Assessment and Plan: Prob induced by indapamide * Given 20 mEq of potassium last night, will give another 40 today * Discharge on 20 mEq daily * Outpatient follow-up of potassium (5) Elevated troponin: Code(s): R77.8 - Other specified abnormalities of plasma proteins Status: Acute Assessment and Plan: Minimally elevated troponin, flat curve, no evidence of ACS * Probably due to hypertension, chronic kidney disease, possible underlying chronic CAD. (6) Hypertension: Code(s): I10 - Essential (primary) hypertension Status: Chronic Assessment and Plan: Tends to run bit high since admission. However has not had his usual medica tions at this morning. * Resume carvedilol, since he is uuufamiliaor w/ it, at 12.5 mg BID (7) Acute renal failure superimposed on stage 4 chronic kidney disease: Qualifiers: Acute renal failure type: unspecified Qualified Code(s): N17.9 - Acute kidney failure, unspecified; N18.4 - Chronic kidney disease, stage 4 (severe) Code(s): N17.9 - Acute kidney failure, unspecified; N18.4 - Chronic kidney disease, stage 4 (severe) Status: Acute Assessment and Plan: Chronic kidney disease with worsening renal function noted. * Tx per Dr. Lockett and Dr. Song (8) Type 2 diabetes mellitus with hyperglycemia, with long-term
--- NOTE | 2021-10-31 09:37 | PM.CNCAR ---
Assessment and Plan Assessment and plan (1) Nonsustained ventricular tachycardia: Code(s): I47.2 - Ventricular tachycardia Status: Acute Assessment and Plan: Patient with known nonsustained ventricular tachycardia, being evaluated for it significance and its relationship to an episode of syncope. Outpatient monitoring 09/2021 showed a 26 beat run of V-tach, rate in the 140s Thirty day monitor, last night, showed an 11 beat run of V-tach which prompted his ER visit and admission. He has been asymptomatic with the nonsustained ventricular tachycardia. He has good left ventricular systolic function He had an episode of syncope with no prodrome which may or may not be related to his ventricular arrhythmia He may have underlying CAD with stress testing showing an old inferior [place]. No clinical event. His potassium was low which may predispose him to ventricular arrhythmias. In view of the entire scenario, my index of suspicion that the ventricular tachycardia is malignant and may be the cause of the syncope, and possibility of future sudden cardiac , is overall low, though still possible. Reviewed the situation with commercial fisherman Dr. Julius Johnston, who has not seen the pt but agreed w/ my assessment. Did not think a Live Vest was necessary. Rec OPT cardiac MRI to eval Anny findings and eval for other types of cardiomyopathy.. Correct hypokalemia Resume beta-goyo, carvedilol 12.5 mg BID. Outpatient follow-up with Dr. Melo recommended. Has appt w/ Dr. Ohara later this month (2) Syncope: Code(s): R55 - Syncope and collapse Status: Acute Assessment and Plan: One episode of syncope while straining at the toilet, perhaps vasovagal, r/o arrhtymogenic. No recurrence (3) Abnormal stress test: Code(s): R94.39 - Abnormal result of other cardiovascular function study Status: Acute Assessment and Plan: Small fixed inferior defect with associated inferior wall hypokinesis suggesting an old inferior PA No clinical event or anginal symptoms. Continue to treat probable CAD with Plavix, rosuvastatin (4) Acute hypokalemia: Code(s): E87.6 - Hypokalemia Status: Acute Assessment and Plan: Prob induced by indapamide Given 20 mEq of potassium last night, will give another 40 today Discharge on 20 mEq daily Outpatient follow-up of potassium (5) Elevated troponin: Code(s): R77.8 - Other specified abnormalities of plasma proteins Status: Acute Assessment and Plan: Minimally elevated troponin, flat curve, no evidence of ACS Probably due to hypertension, chronic kidney disease, possible underlying chronic CAD. (6) Hypertension: Code(s): I10 - Essential (primary) hypertension Status: Chronic Assessment and Plan: Tends to run bit high since admission. However has not had his usual medications at this morning. Resume carvedilol, since he is uuufamiliaor w/ it, at 12.5 mg BID (7) Acute renal failure superimposed on stage 4 chronic kidney disease: Qualifiers: Acute renal failure type: unspecified Qualified Code(s): N17.9 - Acute kidney failure, unspecified; N18.4 - Chronic kidney disease, stage 4 (severe) Code(s): N17.9 - Acute kidney failure, unspecified; N18.4 - Chronic kidney disease, stage 4 (severe) Status: Acute Assessment and Plan: Chronic kidney disease with worsening renal function noted. Tx per Dr. Lockett and Dr. Song (8) Type 2 diabetes mellitus with hyperglycemia, with long-term current use of insulin: Code(s): E11.65 - Type 2 diabetes mellitus with hyperglycemia; Z79.4 - longterm (current) use of insulin Status: Acute Assessment and Plan: Blood sugars are reasonably controlled during this hospital stay Plan Very long discussion and counseling w/ pt and his , who brought in an accurate medication list. Reviewed possible significanc
[2021-10-31] MEDS: POTASSIUM CHLORIDE 20 MEQ TABLET 40 MEQ PO (10:07)
[2021-10-31 12:49] LABS: Glucose Point of Care 229 mg/dl (65-105)
[2021-10-31 14:05] LABS: Anion Gap 11 mmol/L (8-16); Blood Urea Nitrogen 67 mg/dL (9-20); Calcium 8.2 mg/dL (8.4-10.2); Carbon Dioxide 27 mmol/L (22-30); Chloride 102 mmol/L (98-107); Estimated CRCL calculation 21 ml/min; Estimated Glomerular Filt Rate 15; Glucose 246 mg/dL (65-110); Potassium 3.4 mmol/L (3.4-5.0); Sodium 140 mmol/L (137-145)
[2021-10-31] MEDS: INSULIN ASPART (*BKC) 100 UNITS/ML 8 UNITS SUB-Q (14:33)
[2021-10-31] MEDS: INSULIN ASPART (*BKC) 100 UNITS/ML SUB-Q (14:33)
[2021-10-31] MEDS: MIRTAZAPINE 7.5 MG TABLET PO (14:34)
[2021-10-31] MEDS: CLOPIDOGREL BISULFATE 75 MG TABLET PO (14:34)
--- NOTE | 2021-10-31 15:38 | PM.SD2 ---
Same Day Admit/Disch: HPI History of Present Illness Chief complaint: Ventricular Tachycardia Narrative: Dewayne Fagan is a 70yo male with CKD, DM, CVA and HTN who was sent into the ED from the Holter monitor company when patient had a 11 beat run of VTach.? About 1 month ago, patient had a syncopal episode while straining on the toilet. Patient had a 2 day Holter monitor placed which showed a 26 beat nonsustained V-tach (felt to be real). Patient was asymptomatic from this. This occurred in the middle the day around 1:39 p.m.. Patient had a 30 day event recorder placed. He underwent a stress test which showed hypokinesis in the mid inferior segment, EF of 53%. It was felt that this was related to an old [place]. Echocardiogram showed normal LV systolic function. No focal wall motion abnormalities. EF was 69%. No significant valve disease. Around 11:00 p.m. the night before admission, patient was called by the Holter monitor company and was told to present to the emergency room. This was due to the fact the patient had a 11 beat run of nonsustained V-tach. Patient was sleeping at the time. He denies chest pain or palpiations. A complete review of systems was undertaken and there is no complaints with exception of poly urea for the past 2 weeks occasional foamy urine. Patient was seen in the emergency room and was admitted for further care. [facility] Past Medical History Medical History Anxiety Arthritis Benign prostatic hyperplasia Carpal tunnel syndrome on both sides s/p release Celiac disease Cerebrovascular accident (~2018) 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 CAMILLA was unremarkable. Chronic anemia Chronic insomnia Chronic kidney disease, stage 4 (severe) Creatinine ranges between 2.8 and 3.30. Colon polyps Depression Diabetic peripheral neuropathy Diabetic retinopathy Fall History of stroke with current residual effects Hyperlipidemia Hypertension Insulin dependent type 2 diabetes mellitus Kidney stones Leukocytosis Nasal fracture Nonsustained ventricular tachycardia Numbness of arm Syncope Surgical History Surgical History History of cataract extraction History of cervical spinal surgery History of surgical procedure on eye proper using laser History of vitrectomy Status post cataract extraction Family History Family History Father Celiac disease CHF (congestive heart failure) Many years of CHF, 80 y.o. 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 Acute myocardial infarction Small heart attacks Son Celiac disease Sibling Family history of obesity Hypertension Cerebrovascular accident Family history of diabetes mellitus in first degree relative Family history of heart disease in male family member before age 55 Grandparent Family history of mental disorder Mother Cerebrovascular accident Family history of arthritis Family history of hearing loss Father Family history of congestive heart failure Family history of heart disease in male family member before age 55 Social History Social History Social History: Worked for [employer] for 30 years. Two children, a daughter who works at the [employer] and a son Lilliana who was born premature, has some disabilities, and lives w/ pt and . Surrogate decision maker: Monica Fagan, . Code status: Full code. Smoking packs per day: 1 Smoking cigarettes per day: 20.0 Years smoked: 6 Smoking pack-years: 6.00 Smoking status: Former smoker Tobacco type: cigarettes Second hand tobacco smoke exposure: No Smoking end date: 03/14/89 Alcohol intake: never Substance use: never Substance use type: does not use Additional living arrangements comme
== END 2021-10-31 16:38 | disposition home or self-care (01) ==
LOC: ANHED 10-31 01:56 → ANHIMU 10-31 05:13
PROVIDERS: Admitting Provider Internal Medicine; Emergency Provider Emergency Medicine; PCP Family Medicine; Visit Provider Internal Medicine
DX: I12.9 Hypertensive chronic kidney disease with stage 1 through stage 4 chronic kidney disease, or unspecified chronic kidney disease (principal); E11.22 Type 2 diabetes mellitus with diabetic chronic kidney disease; N18.4 Chronic kidney disease, stage 4 (severe); F41.9 Anxiety disorder, unspecified; N40.0 Benign prostatic hyperplasia without lower urinary tract symptoms; D64.9 Anemia, unspecified; G47.00 Insomnia, unspecified; I47.2 Ventricular tachycardia; I45.2 Bifascicular block; I44.0 Atrioventricular block, first degree; R55 Syncope and collapse; F32.A Depression, unspecified; E11.65 Type 2 diabetes mellitus with hyperglycemia; E11.319 Type 2 diabetes mellitus with unspecified diabetic retinopathy without macular edema; N17.9 Acute kidney failure, unspecified; E11.42 Type 2 diabetes mellitus with diabetic polyneuropathy; E78.5 Hyperlipidemia, unspecified; R77.8 Other specified abnormalities of plasma proteins; I69.351 Hemiplegia and hemiparesis following cerebral infarction affecting right dominant side; E87.6 Hypokalemia; R94.39 Abnormal result of other cardiovascular function study; Z87.891 Personal history of nicotine dependence; Z79.4 Long term (current) use of insulin; Z79.02 Long term (current) use of antithrombotics/antiplatelets; Z82.49 Family history of ischemic heart disease and other diseases of the circulatory system; Z83.3 Family history of diabetes mellitus
CPT/HCPCS: 36415; 71046; 80048; 80053; 82948; 83690; 83735; 84484; 85025; 85610; 85730; 93005; 96360; 96361; 99285; A9270; G0378; J1815; J7030

== ENCOUNTER 2021-11-07 08:58 | Emergency (ER) | payer MEDICARE, SELFPAY ==
[2021-11-07] VITALS (9 sets, daily range): BP systolic 127–173; BP diastolic 60–90; PULSE 55–79; RESP 11–20; TEMP 36.7; O2SAT 97–100
[2021-11-07 09:17] LABS: Basophils Percent Auto 0.4 % (0.2-1.2); Eosinophils Absolute Auto 0.1 K/mm3 (0-0.3); Eosinophils Percent Auto 1.5 % (0-4.4); Hematocrit 30.1 % (42.0-52.0); Hemoglobin 9.9 g/dL (14.0-18.0); Immature Granulocyte Absolute 0.03 K/mm3 (0.00-0.031); Immature Granulocyte Percent A 0.3 % (0-0.5); Lymphocytes Absolute Auto 1.07 K/mm3 (0.9-3.2); Lymphocytes Percent Auto 11.6 % (18.3-44.2); Mean Corpuscular HGB Conc 32.9 g/dl (32-36); Mean Corpuscular Hemoglobin 30.3 pg (26-34); Mean Platelet Volume 9.5 fl (7.4-10.4); Monocytes Absolute Auto 0.7 K/mm3 (0.1-0.6); Neutrophils Absolute Auto 7.3 K/mm3 (1.3-6.7); Neutrophils Percent Auto 79.2 % (45.5-73.1); Platelet Count Result 280 k/mm3 (150-375); Red Blood Count 3.27 M/mm3 (4.6-6.20); Red Cell Distribution Width 13.6 % (11.5-14.5); White Blood Count 9.2 K/mm3 (4.5-10.0)
[2021-11-07 09:28] LABS: Alanine Aminotransferase 15 U/L (6-50); Albumin Level 3.8 g/dL (3.5-5.1); Alkaline Phosphatase 74 U/L (38-126); Anion Gap 12 mmol/L (8-16); Aspartate Amino Transferase 22 U/L (17-59); Bilirubin,Total 0.5 mg/dL (0.2-1.3); Blood Urea Nitrogen 80 mg/dL (9-20); Calcium 8.5 mg/dL (8.4-10.2); Carbon Dioxide 23 mmol/L (22-30); Chloride 100 mmol/L (98-107); Estimated CRCL calculation 16 ml/min; Estimated Glomerular Filt Rate 12; Glucose 121 mg/dL (65-110); Potassium 3.1 mmol/L (3.4-5.0); Sodium 135 mmol/L (137-145)
--- NOTE | 2021-11-07 09:35 | ED.MALEGU ---
HPI - Male Genitourinary General Chief complaint: Urogenital-Male Stated complaint: weak, frequent urination Time Seen by Provider: 11/07/21 09:23 History of Present Illness HPI Narrative: Patient is a 70-year-old male with a history of CKD 4, insulin dependent diabetes, HTN, here for evaluation at request of his to recheck my kidney numbers . Patient states that he was recently admitted in the hospital after a Holter monitor revealed that he had sustained V. tach. He was placed under observation, and was told to follow-up as an outpatient with an electrophysiology doctor. During his stay, his kidney function was slightly elevated, his creatinine was 4.2 on admission which improved with fluids. He followed up as an outpatient with his prosthetic lab technician, who expressed concern about his creatinine of 5.1. He does have a history of CKD [address] Song. spoke with on-call nephrology doctor Cassidy who recommended an ER visit. Patient states that he is currently asymptomatic aside from polyuria, notes that patient is at his baseline. Related Data Home Medications Medication Instructions Recorded Confirmed indapamide 2.5 mg tablet 2.5 mg PO DAILY 01/26/19 11/02/21 cholecalciferol (vitamin D3) 50 100 mcg PO HS 03/05/20 11/02/21 mcg (2,000 unit) tablet atorvastatin 40 mg tablet 40 mg PO HS 07/01/21 11/02/21 amlodipine 2.5 mg tablet 5 mg PO DAILY 08/17/21 11/02/21 clopidogrel 75 mg PO DAILY 10/31/21 11/02/21 duloxetine 60 mg capsule,delayed 60 mg PO HS 10/31/21 11/02/21 release insulin detemir U-100 100 unit/mL 40 unit subcut HS 10/31/21 11/02/21 (3 mL) subcutaneous pen (Levemir FlexTouch U-100 Insulin) mirtazapine 7.5 mg PO HS 10/31/21 11/02/21 Allergies Allergy/AdvReac Type Severity Reaction Status Date / Time barley Allergy Severe abdominal Verified 11/02/21 15:37 pain wheat Allergy Severe abdominal Verified 11/02/21 15:37 pain pregabalin AdvReac Unknown Confusion Verified 11/02/21 15:37 rosuvastatin AdvReac Unknown Muscle pain Verified 11/02/21 15:37 Ysqztxp-FYS-CqN Reductase AdvReac Unknown muscle Verified 11/02/21 15:37 Inhibitor crampin [Achcihg-Fbk-Xrf Reductase Inhibitor] Barley Flour Allergy Severe abdominal Uncoded 11/02/21 15:37 pain Oat Allergy Severe abdominal Uncoded 11/02/21 15:37 pain [place] Allergy Severe abdominal Uncoded 11/02/21 15:37 pain [place] Flour Allergy Severe abdominal Uncoded 11/02/21 15:37 pain Gluten Flour Allergy Intermediate Other Uncoded 11/02/21 15:37 Review of Systems Review of Systems: Gen: Denies fevers or chills Eyes: Denies eye pain or visual change ENT: Denies congestion Respiratory: Denies shortness of breath or cough CV: Denies chest pain or palpitations GI: Denies abdominal pain nausea, emesis or diarrhea : denies burning, urgency, frequency or hematuria Musculoskeletal: Denies back pain or muscle pain Neuro: Denies numbness, tingling, weakness or focal weakness Skin: Denies rash Except as documented, all other systems reviewed and negative [facility] Past Medical History Medical History Anxiety Arthritis Benign prostatic hyperplasia Carpal tunnel syndrome on both sides s/p release Celiac disease Cerebrovascular accident (~2018) 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 CAMILLA was unremarkable. Chronic anemia Chronic insomnia Chronic kidney disease, stage 4 (severe) Creatinine ranges between 2.8 and 3.30. Colon polyps Depression Diabetic peripheral neuropathy Diabetic retinopathy DM renal manif type II Fall History of stroke with current residual effects Hyperlipidemia Hypertension Insulin dependent type 2 diabetes mellitus Kidney stones Leukocytosis Nasal fracture Nonsustained ventricular tachycardia Numbness of arm Syncope Surgical History Surgical History (Reviewed 11/07/21 @ 09:37 by Diana Dickerson,
[2021-11-07 09:53] LABS: Magnesium 1.8 mg/dL (1.6-2.3); Phosphorus 4.8 mg/dL (2.5-4.5)
[2021-11-07] MEDS: POTASSIUM CHLORIDE 20 MEQ PACKET (FOR LIQUID) 40 MEQ PO (09:56)
--- NOTE | 2021-11-07 09:59 | PC.NURSE ---
Patient given urinal to attempt to give urine specimen. Patient refusing straight catheter.
[2021-11-07 10:26] LABS: Appearance Urine Clear (Clear); Bilirubin Urine Negative (Negative); Blood Urine 2+ (Negative); Color Urine Yellow (Yellow); Glucose Urine UA Negative (Negative); Ketones Urine Negative (Negative); Leukocyte Esterase Ur 1+ LEU/UL (Negative); Nitrate Urine Negative (Negative); Protein Urine 3+ mg/dL (Negative); Specific Grav Ur 1.015 (1.001-1.035); Urobilinogen Urine 0.2 mg/dL (<2.0); pH Urine 5.5 (5.0-9.0)
[2021-11-07] MEDS: SODIUM CHLORIDE 0.9% IV 1,000 ML 999 ML IV CONT (10:35)
[2021-11-07 10:55] LABS: Add Urine Microscopic? YES; RBC Urine 0-2 /hpf (0-2); Squamous Epithelial Cell Urine Rare /hpf (Few); WBC Urine 51-75 /hpf
== END 2021-11-07 12:15 | disposition home or self-care (01) ==
PROVIDERS: Physician Assistant; Emergency Provider Emergency Medicine; PCP Family Medicine
DX: E11.22 Type 2 diabetes mellitus with diabetic chronic kidney disease (principal); N18.4 Chronic kidney disease, stage 4 (severe); N39.0 Urinary tract infection, site not specified; I12.9 Hypertensive chronic kidney disease with stage 1 through stage 4 chronic kidney disease, or unspecified chronic kidney disease; E11.42 Type 2 diabetes mellitus with diabetic polyneuropathy; E11.319 Type 2 diabetes mellitus with unspecified diabetic retinopathy without macular edema; I69.90 Unspecified sequelae of unspecified cerebrovascular disease; N40.0 Benign prostatic hyperplasia without lower urinary tract symptoms; K90.0 Celiac disease; D64.9 Anemia, unspecified; M19.90 Unspecified osteoarthritis, unspecified site; F41.9 Anxiety disorder, unspecified; F32.A Depression, unspecified; F51.04 Psychophysiologic insomnia; Z86.010 Personal history of colon polyps; Z79.4 Long term (current) use of insulin; Z87.442 Personal history of urinary calculi; Z98.49 Cataract extraction status, unspecified eye
CPT/HCPCS: 36415; 80053; 81001; 83735; 84100; 85025; 87086; 87147; 87181; 87186; 99283; A9270; J7030

== ENCOUNTER → 2021-11-11 13:20 | Outpatient (CLI) | payer MEDICARE, SELFPAY ==
--- NOTE | ~2021-11-11 | US_ITS ---
EXAMINATION: US renal BI DATE: 11/11/2021 13:43 INDICATION: Chronic kidney disease, stage 4 (severe) TECHNIQUE: Multiple grayscale and Doppler ultrasound images of the kidneys were obtained. COMPARISON: 07/04/2021 FINDINGS: The right kidney measures 10.5 x 4.9 x 5.6 cm. The left kidney measures 10.4 x 5.8 x 6.4 cm. The kidn eys demonstrate slightly increased parenchymal echogenicity, with mild scarring/atrophy. No renal mas s detected. There is no hydronephrosis. The bladder wall measures 8mm. IMPRESSION: Medical renal disease. Mild cortical atrophy/scar. Bladder wall thickening may reflect outlet comprom ise or cystitis. Reviewed, dictated and finalized at location K. IMPRESSION: Medical renal disease. Mild cortical atrophy/scar. Bladder wall thickening may reflect outlet compromise or cystitis.
== END ==
PROVIDERS: PCP Internal Medicine Nephrology; Visit Provider Internal Medicine Nephrology
DX: N18.4 Chronic kidney disease, stage 4 (severe) (principal); R93.41 Abnormal radiologic findings on diagnostic imaging of renal pelvis, ureter, or bladder
CPT/HCPCS: 76775

== ENCOUNTER 2021-11-14 09:49 | Emergency (ER) | payer MEDICARE, SELFPAY ==
[2021-11-14 10:20] VITALS: BP 163/76; PULSE 88; RESP 16; TEMP 36.8; O2SAT 99
--- NOTE | 2021-11-14 11:30 | ED.GENADULT ---
HPI - General Adult General Chief complaint: Urogenital-Male Stated complaint: frequent urination Source: patient and family Mode of arrival: ambulatory Limitations: no limitations History of Present Illness HPI narrative: Patient presents for evaluation of generally not feeling well. He states that he feels lousy with symptom onset yesterday. He has a difficult time articulating his specific symptoms. He does endorse hot flashes, and some generalized body aches. He has some urinary frequency which is chronic and unchanged. He was evaluated in the emergency department on 11/07/2021 after he had routine labs drawn that showed an elevation of his creatinine to 5.1 from baseline of 3.5-4. He has underlying chronic kidney disease for which she is under the care of Dr. Song. During the ER stay he had a finding of urinary tract infection on urinalysis. He was treated with Bactrim. Nephrology consultation was obtained and patient was discharged home. Prior to the ER presentation, he had been admitted to the hospital. During that hospital admission he was sustained ventricular tachycardia. He states he had a follow-up appointment with cardiology who has a loop recorder planned for later this month. At the present time he denies any chest pain, shortness of breath, cough, abdominal pain, low back pain, chills, nausea, vomiting, diarrhea. He states he has had multiple prostate exams by urology recently all of which were normal. He has some chronic urinary frequency, urgency, incontinence. He thought he may currently have a urinary tract infection due to generally not feeling well. Therefore he came in for further evaluation. Related Data Home Medications Medication Instructions Recorded Confirmed indapamide 2.5 mg tablet 2.5 mg PO DAILY 01/26/19 11/02/21 cholecalciferol (vitamin D3) 50 100 mcg PO HS 03/05/20 11/02/21 mcg (2,000 unit) tablet atorvastatin 40 mg tablet 40 mg PO HS 07/01/21 11/02/21 amlodipine 2.5 mg tablet 5 mg PO DAILY 08/17/21 11/02/21 clopidogrel 75 mg PO DAILY 10/31/21 11/02/21 duloxetine 60 mg capsule,delayed 60 mg PO HS 10/31/21 11/02/21 release insulin detemir U-100 100 unit/mL 40 unit subcut HS 10/31/21 11/02/21 (3 mL) subcutaneous pen (Levemir FlexTouch U-100 Insulin) mirtazapine 7.5 mg PO HS 10/31/21 11/02/21 sulfamethoxazole 800 tablet 11/14/21 mg-trimethoprim 160 mg tablet Allergies Allergy/AdvReac Type Severity Reaction Status Date / Time barley Allergy Severe abdominal Verified 11/02/21 15:37 pain wheat Allergy Severe abdominal Verified 11/02/21 15:37 pain pregabalin AdvReac Unknown Confusion Verified 11/02/21 15:37 rosuvastatin AdvReac Unknown Muscle pain Verified 11/02/21 15:37 Qljnggd-VAC-EjD Reductase AdvReac Unknown muscle Verified 11/02/21 15:37 Inhibitor crampin [Lgbaxfz-Vvm-Fpf Reductase Inhibitor] Barley Flour Allergy Severe abdominal Uncoded 11/02/21 15:37 pain Oat Allergy Severe abdominal Uncoded 11/02/21 15:37 pain [place] Allergy Severe abdominal Uncoded 11/02/21 15:37 pain [place] Flour Allergy Severe abdominal Uncoded 11/02/21 15:37 pain Gluten Flour Allergy Intermediate Other Uncoded 11/02/21 15:37 Review of Systems Review of Systems: CONSTITUTIONAL: Reports hot flashes and feeling lousy . Denies fever, chills EYES: Denies visual changes, redness, or discharge. ENT: Denies rhinorrhea, congestion, sore throat, or otalgia. CARDIOVASCULAR: Denies chest pain, palpitations, or edema. RESPIRATORY: Denies cough or dyspnea. GASTROINTESTINAL: Denies abdominal pain, nausea, vomiting, or diarrhea. GENITOURINARY: Reports urinary frequency, urgency, incontinence. SKIN: Denies rash or itching. MUSCULOSKELETAL: Reports generalized body aches NEUROLOGIC: Denies headache, numbness, dizziness, or weakness. PSYCHIATRIC: Denies anxiety or depression. [facility] Past Medical History Medical History (Reviewed 11/14/21 @ 11:40 by Quinton Tinoco
== END 2021-11-14 11:36 | disposition home or self-care (01) ==
PROVIDERS: Emergency Provider Nurse Practitioner; PCP Family Medicine
DX: R35.0 Frequency of micturition (principal); R31.29 Other microscopic hematuria; R80.9 Proteinuria, unspecified; I12.9 Hypertensive chronic kidney disease with stage 1 through stage 4 chronic kidney disease, or unspecified chronic kidney disease; E11.22 Type 2 diabetes mellitus with diabetic chronic kidney disease; N18.4 Chronic kidney disease, stage 4 (severe); Z79.4 Long term (current) use of insulin; M19.90 Unspecified osteoarthritis, unspecified site; N40.0 Benign prostatic hyperplasia without lower urinary tract symptoms; D64.9 Anemia, unspecified; E11.42 Type 2 diabetes mellitus with diabetic polyneuropathy; E11.319 Type 2 diabetes mellitus with unspecified diabetic retinopathy without macular edema; E78.5 Hyperlipidemia, unspecified; I69.351 Hemiplegia and hemiparesis following cerebral infarction affecting right dominant side
CPT/HCPCS: 81003; 99212; G0463

== ENCOUNTER 2022-01-27 15:10 | Outpatient (CLI) | payer MEDICARE, SELFPAY ==
--- NOTE | ~2022-01-27 | US_ITS ---
US venous doppler LE RT DATE: 01/27/2022 15:47 INDICATION: Swelling right leg TECHNIQUE: Real-time and color flow imaging and Doppler analysis of the veins of the right lower extr emity COMPARISON: None FINDINGS: There is an approximately 2.6 x 2.6 x 1.3 cm popliteal cyst. There is edema of the right lower extremity. The right greater saphenous vein is patent. There is spontaneous staining is some phasic flow of the right common femoral, femoral and popliteal veins. The peroneal and posterior tibial veins are not demonstrated, likely due to the edema. IMPRESSION: No deep venous thrombosis is detected; the posterior tibial and peroneal veins are nonvis ualized, likely due to edema Right popliteal cyst Reviewed, dictated and finalized at Location A. Reviewed, dictated and finalized at location A. GAUGER IMPRESSION: No deep venous thrombosis is detected; the posterior tibial and per balderas veins are nonvisualized, likely due to edema Right popliteal cyst
== END 2022-01-27 15:11 | disposition home or self-care (01) ==
PROVIDERS: PCP Family Medicine; Visit Provider Nurse Practitioner Family
DX: R60.0 Localized edema (principal); M71.21 Synovial cyst of popliteal space [Baker], right knee
CPT/HCPCS: 93971

== ENCOUNTER 2022-05-26 13:48 | Outpatient (CLI) | payer MEDICARE, SELFPAY ==
--- NOTE | ~2022-05-26 | XR_ITS ---
EXAMINATION: XR chest 2V Exam Date/Time: 05/26/2022 14:15 CDT HISTORY: N18.5 - Chronic kidney disease, stage 5, PRE-OP Comparison: 10/31/2021. RESULT: Lines, tubes, and devices: Loop recorder. Lungs and pleura: Low volumes with crowding. Senescent change. Calcified granulomas. Cardiomediastinal silhouette: Stable. Other: No acute osseous or upper abdominal finding. IMPRESSION: No acute cardiopulmonary process. Reviewed, dictated and finalized at location K.
== END 2022-05-26 13:49 | disposition home or self-care (01) ==
PROVIDERS: PCP Family Medicine; Visit Provider Internal Medicine Nephrology
DX: Z01.811 Encounter for preprocedural respiratory examination (principal); N18.5 Chronic kidney disease, stage 5
CPT/HCPCS: 71046

== ENCOUNTER 2022-06-16 08:01 | Outpatient (CLI) | payer MEDICARE, SELFPAY ==
--- NOTE | 2022-07-12 10:54 | WPDSLEEPSTUD ---
Sleep Study Date of Study: 06/16/22 Ordering Provider: Chente Bateman APRN Interpreting Physician: Lily Aviles MD Sleep Study Type: CPAP Titration Height: 1.88 m Weight: 117.934 kg Body Mass Index: 33.3 Neck Circumference (inches): 16 Artemas: 0 Reason for Sleep Study Obstructive sleep apnea, has not been able to tolerate current pressures; presents for CPAP titration * PSG 01/06/22 @ [facility] ? moderate obstructive sleep apnea, AHI 21.8, events worst in supine position. PLMD noted. Sleep History Dewayne youngblood is a 71-year-old man with a diagnosis of obstructive sleep apnea syndrome, has been on CPAP but has not been able to tolerate the pressures. He has other medical co-morbidities including NIDDM-IR w/ neuropathy and retinopathy, HTN, HLD, CKD IV, h/o CVA, metabolic syndrome, BPH w/ LUTS, and chronic knee pain. He has depression which is controlled on medication. His high blood pressure is controlled. He takes Lunesta 1+3mg for insomnia at night and feels it helps; been on this for around 3 years. Takes melatonin at times. There is a family history of sleep apnea, his son uses CPAP. The patient does not awaken from sleep feeling short of breath. He does not awaken at night with heartburn, belching or coughing. He frequently snores, rarely loud enough that others complain about it. Does not have trouble sleeping with a cold. He does not wake up gasping for breath at night. He does not sweat excessively at night or notice his heart pounding or beating irregularly night. He does not fall asleep during the day, does not fall asleep involuntarily or while driving. He does not have loss of muscle tone with strong emotion. He does not have daytime difficulties due to excessive sleepiness. Does not feel paralyzed on waking or falling asleep. Does not have vivid dreamlike scenes on waking or falling asleep. He does not feel afraid to go to sleep. He rarely has nightmares. He does not remember his dreams. He does not have racing thoughts. He denies feelings of sadness, depression or anxiety. He does not have muscular tension. He does not notice parts of his body jerking. He does not kick at night. He denies having crawling or aching feelings in his legs or any kind of leg pain at night. He does not have morning jaw pain. He does not grind his teeth during sleep. He frequently is bothered by pain during the day but never awakened by pain at night. He does not wake up feeling stiff in the morning with sore achy muscles or pain in the neck and spine. Normal bedtime is 7:00 p.m. falling asleep within 20 minutes waking 4 times at night to urinate. Able to return to sleep easily. These awakenings occur in the middle of the night. He wakes the morning at 9:00 a.m.. Weekend schedule is the same. He estimates getting 8 hours of sleep regularly. He does not take naps in the afternoon or evening. Habits: Former smoker, quit 34 years ago and smoked for 25 years around 1 pack per day.? Denies caffeine use.? No alcohol or recreational substances. 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 CAMILLA was unremarkable. Chronic anemia Chronic insomnia Chronic kidney disease, stage 4 (severe) Creatinine ranges between 2.8 and 3.30. Colon polyps Depression Diabetic peripheral neuropathy Diabetic retinopathy DM renal manif type II Fall History of stroke with current residual effects Hyperlipidemia Hypertension Insulin dependent type 2 diabetes mellitus Kidney stones Leukocytosis Nasal fracture Nonsustained ventricular tachycardia Numbness of arm Obstructive sleep apnea Syncope Surgical History Surgical History
[2022-07-12 12:10] VITALS: BMI 33.3
== END 2022-06-17 06:18 | disposition home or self-care (01) ==
LOC: ANHCSM 08:02
PROVIDERS: PCP Family Medicine; Visit Provider Nurse Practitioner Family
DX: G47.33 Obstructive sleep apnea (adult) (pediatric) (principal); G47.61 Periodic limb movement disorder; N18.4 Chronic kidney disease, stage 4 (severe); E11.22 Type 2 diabetes mellitus with diabetic chronic kidney disease; E78.5 Hyperlipidemia, unspecified; I12.9 Hypertensive chronic kidney disease with stage 1 through stage 4 chronic kidney disease, or unspecified chronic kidney disease; Z87.891 Personal history of nicotine dependence
CPT/HCPCS: 95811

== ENCOUNTER 2022-08-13 10:11 | Outpatient (CLI) | payer MEDICARE, SELFPAY ==
--- NOTE | ~2022-08-13 | XR_ITS ---
EXAMINATION: XR abdomen/kub 1V INDICATION: Abdominal distention, poorly functioning peritoneal dialysis catheter. TECHNIQUE: Supine views of the abdomen were obtained on 2 radiographs. COMPARISON: 05/22/2009 FINDINGS: A peritoneal dialysis catheter coils in the right lower quadrant. Small bowel loops of the left midabdomen are upper limits of normal in diameter. No free intraperitoneal gas is identified. Th ere is moderate osteoarthritis of the hips. Calcified atherosclerosis is noted. A moderate volume of colonic stool is present. IMPRESSION: 1. No radiographic correlate for the patient's symptoms. Reviewed, dictated and finalized at location B.
== END 2022-08-13 10:12 | disposition home or self-care (01) ==
PROVIDERS: PCP Family Medicine; Visit Provider Internal Medicine Nephrology
DX: R14.0 Abdominal distension (gaseous) (principal)
CPT/HCPCS: 74018

== ENCOUNTER 2022-09-07 14:06 | Inpatient (IN) | payer MEDICARE, SELFPAY ==
--- NOTE | ~2022-09-07 | MR_ITS ---
EXAMINATION: MRA brain wo con DATE: 09/08/2022 12:32 INDICATION: Concern for acute stroke presenting with vertigo and multiple falls. TECHNIQUE: Magnetic resonance angiography (MRA) of the brain was performed without intravenous contrast by the 3 D [id number] technique. COMPARISON: Head CT dated 09/07/2022 and MRI dated 07/07/2021 FINDINGS: There is normal flow related signal seen within the vertebral, basilar and internal carotid arteries. There is no proximal stenosis. There are no aneurysms identified. Both A1 and P1 segments are pat ent. Flow in the cerebral arteries is symmetric. A few small old lacunar infarcts at the bilateral t halami and in the right central doron. IMPRESSION: 1. Normal MR angiogram of the cerebral vessels with no hemodynamically significant stenosis or aneury sm. 2. Small old lacunar infarcts at the bilateral thalami and right central doron. Reviewed, dictated and finalized at location A. IMPRESSION: 1. Normal MR angiogram of the cerebral vessels with no hemodynamically signific ant stenosis or aneurysm. 2. Small old lacunar infarcts at the bilateral thalami and right central doron.
--- NOTE | ~2022-09-07 | CT_ITS ---
EXAMINATION: CT brain wo con DATE: 09/07/2022 14:58 INDICATION: head injury . TECHNIQUE: Computed tomography (CT) of the head was performed without intravenous contrast. The mA wa s adjusted according to patient size. Iterative reconstruction technique was employed. The dose-lengt h product was 756.67 mGy-cm. COMPARISON: 08/12/21. FINDINGS: No acute intracranial hemorrhage or extra-axial fluid collection. No hydrocephalus, mass, or herniation. No acute ischemic infarct. Unremarkable dural venous sinus attenuation. No acute osseous abnormality. Small posterior scalp contusions. The aerated spaces are clear. Moderate atrophy and severe chronic white matter change. Atherosclerotic intracranial calcification. Left basal ganglia calcification. Old right thalamic lacunar infarct. Likely small old focal pontine infarct. Bilateral lens replacements. IMPRESSION: No acute intracranial process. Reviewed, dictated and finalized at location K.
--- NOTE | ~2022-09-07 | MR_ITS ---
MRI of the brain Clinical History: Vertigo, CVA Technique: Axial and sagittal T1-weighted images were acquired. These were followed by axial T2-weigh arlene, diffusion weighted, gradient, and FLAIR images. Findings: There is no acute infarct, intracranial hemorrhage, or mass lesion. There is extensive wellness nurse rn edwige white matter disease throughout the periventricular white matter bilaterally. Ventricles and subarachnoid spaces are dilated. Orbits are unremarkable. Paranasal sinuses and mastoi d air cells are clear. Major intracranial flow voids are intact. Sagittal midline structures are intact. IMPRESSION: No acute infarct, intracranial hemorrhage, or mass lesion. Extensive chronic microvascular ischemic change and mild to moderate generalized atrophy. Reviewed, dictated and finalized at location . IMPRESSION: No acute infarct, intracranial hemorrhage, or mass lesion. Extensive chronic microvascular ischemic change and mild to moderate generalize d atrophy.
--- NOTE | ~2022-09-07 | CT_ITS ---
EXAMINATION: CT cervical spine wo con DATE: 09/07/2022 14:58 INDICATION: Multiple falls today. Left-sided weakness. TECHNIQUE: Computed tomography (CT) of the cervical spine was performed without intravenous contrast. Automated exposure control and iterative reconstruction technique were employed. The dose-length pro duct was 497.98 mGy-cm. COMPARISON: 08/12/2021 FINDINGS: Alignment is normal. There is anterior fusion across the C6-C7 disc space. Unchanged minimal chronic anterior wedging at T1 and T2. Cervical vertebral body heights are normal. No acute fracture. There i s moderate disc height loss at C3-C4, C4-C5, C5-C6 and C7-T1, mild disc height loss at C2-C3 and mode rate to severe disc height loss at T1-T2 and T2-T3. Moderate osteoarthritis at the atlantoaxial artic ulation. Atherosclerotic calcifications at the bilateral carotid bulbs. Cervical soft tissues are oth erwise unremarkable. The following disc levels are specifically discussed: C2-C3: Disc is bulging. There is old right and moderate left uncovertebral joint osteoarthritis. Ther e is mild left and right and severe facet joint osteoarthritis. There is mild left neural foraminal s tenosis. There is mild central canal stenosis. C3-C4: Posterior disc osteophyte complex. There is severe bilateral uncovertebral joint osteoarthriti s. There is mild bilateral facet joint osteoarthritis. There is moderate bilateral neural foraminal s tenosis. There is mild central canal stenosis. C4-C5: Posterior disc osteophyte complex. There is severe bilateral uncovertebral joint osteoarthriti s. There is moderate left and severe right facet joint osteoarthritis. There is moderate bilateral ne ural foraminal stenosis. There is mild central canal stenosis. C5-C6: Posterior disc osteophyte complex. There is severe bilateral uncovertebral joint osteoarthriti s. There is moderate bilateral facet joint osteoarthritis. There is mild to moderate right and mild l eft neural foraminal stenosis. There is mild central canal stenosis. C6-C7: Moderate hypertrophic change along the fused disc space and uncovertebral joints. There is mod erate left and severe right facet joint osteoarthritis, the latter with likely fusion. There is bilat eral neural foraminal stenosis. There is no central canal stenosis. C7-T1: The disc does not extend beyond the endplate margin. There is mild bilateral uncovertebral maciej nt osteoarthritis. There is moderate bilateral facet joint osteoarthritis. There is no neural foramin al stenosis. There is no central canal stenosis. IMPRESSION: 1. Severe cervical spondylosis. No acute osseous abnormality. Reviewed, dictated and finalized at location A.
--- NOTE | ~2022-09-07 | US_ITS ---
EXAMINATION: US carotid duplex BI DATE: 09/08/2022 12:58 INDICATION: Stroke presenting with vertigo TECHNIQUE: Grayscale, color Doppler, and pulsed Doppler images of the cervical carotid arteries were obtained. The degree of vessel stenosis is placed in one of the following categories: normal, <50%, 5 0-69%, >=70% but less than near-occlusion, near-occlusion, or total occlusion. Note that percent sten osis relative to normal distal artery lumen diameter is indirectly measured from velocity measurement s as described by Sukh, et al. Radiology 2003; 229:340-346. COMPARISON: None. FINDINGS: RIGHT: The right common carotid artery (CCA) peak systolic velocity (PSV) is 76 cm/s. The right internal car otid artery (ICA) PSV is 142 cm/s. The right ICA end-diastolic velocity (EDV) is 17 cm/s. The right I CA/CCA PSV ratio is 1.9. Grayscale and color Doppler images yield an estimate of 50-69% diameter redu ction from plaque in the ICA. The external carotid artery (ECA) PSV is 116 cm/s. There is antegrade f low in the right vertebral artery. LEFT: The left CCA PSV is 122 cm/s. The left ICA PSV is 96 cm/s. The left ICA EDV is 24 cm/s. The left ICA/ CCA PSV ratio is 0.8. Grayscale and color Doppler images yield an estimate of <50% diameter reduction from plaque in the ICA. The ECA PSV is 196 cm/s. There is antegrade flow in the left vertebral arter y. IMPRESSION: 1. 50-69% stenosis in the right internal carotid artery. 2. <50% stenosis in the left internal carotid artery. Reviewed, dictated and finalized at location A.
[2022-09-07 14:12] VITALS: BP 127/90; PULSE 65; RESP 16; O2SAT 99
[2022-09-07 16:12] VITALS: BP 128/72; PULSE 59; RESP 16; O2SAT 98
--- NOTE | 2022-09-07 16:12 | PC.NURSE ---
pt is requesting to see a provider
--- NOTE | 2022-09-07 16:30 | ED.FALL ---
HPI - Fall General Chief Complaint: Fall Stated Complaint: fall Time Seen by Provider: 09/07/22 15:07 History of Present Illness HPI Narrative: 71-year-old male presented to the emergency department for evaluation after he had 2 falls today. Patient states when he woke up this morning he had some unsteady gait which caused him to fall and strike his head. While patient was being assisted by his son he had a second fall resulting in a skin tear of his left arm. Patient does do peritoneal dialysis, and follows up with Dr. Song. Patient does have prior history of CVA and does take Plavix. Patient Related Data Home Medications Medication Instructions Recorded Confirmed mirtazapine 7.5 mg tablet 7.5 mg PO HS ##0 10/31/21 09/07/22 cholecalciferol (vitamin D3) 125 125 mcg PO DAILY 07/19/22 09/07/22 mcg (5,000 unit) capsule duloxetine 30 mg capsule,delayed 60 mg PO DAILY 07/19/22 09/07/22 release insulin detemir U-100 100 unit/mL 60 unit subcut HS 08/20/22 09/07/22 (3 mL) subcutaneous pen (Levemir FlexTouch U-100 Insulin) lactulose 10 gram/15 mL oral 30 ml PO BID 09/02/22 09/07/22 solution atorvastatin 40 mg tablet 40 mg PO HS 09/07/22 09/07/22 clopidogrel 75 mg tablet 75 mg PO DAILY 09/07/22 09/07/22 insulin lispro 100 unit/mL 1 sliding scale dose subcut TIDWM 09/07/22 09/07/22 subcutaneous pen insulin lispro 100 unit/mL 10 unit subcut TIDWM 09/07/22 09/07/22 subcutaneous pen (Humalog KwikPen (U-100) Insulin) Allergies Allergy/AdvReac Type Severity Reaction Status Date / Time barley Allergy Severe abdominal Verified 09/02/22 13:56 pain wheat Allergy Severe abdominal Verified 09/02/22 13:56 pain pregabalin AdvReac Unknown Confusion Verified 09/02/22 13:56 rosuvastatin AdvReac Unknown Muscle pain Verified 09/02/22 13:56 Actgjhl-JZJ-WpJ Reductase AdvReac Unknown muscle Verified 09/02/22 13:56 Inhibitor crampin [Slmcwgz-Ymy-Jah Reductase Inhibitor] Barley Flour Allergy Severe abdominal Uncoded 09/02/22 13:56 pain Oat Allergy Severe abdominal Uncoded 09/02/22 13:56 pain [place] Allergy Severe abdominal Uncoded 09/02/22 13:56 pain [place] Flour Allergy Severe abdominal Uncoded 09/02/22 13:56 pain Gluten Flour Allergy Intermediate Other Uncoded 09/02/22 13:56 Review of Systems Review of Systems: All systems reviewed & are unremarkable except as noted in HPI and below PMFSH Past Medical History Medical History Anxiety Arthritis Benign prostatic hyperplasia Carpal tunnel syndrome on both sides s/p release Celiac disease Cerebrovascular accident (~2018) 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 CAMILLA was unremarkable. Chronic anemia Chronic insomnia Chronic kidney disease, stage 4 (severe) Creatinine ranges between 2.8 and 3.30. Colon polyps Depression Diabetic peripheral neuropathy Diabetic retinopathy Dialysis patient DM renal manif type II ESRD (end stage renal disease) Fall History of stroke with current residual effects Hyperlipidemia Hypertension Insulin dependent type 2 diabetes mellitus Kidney stones Leukocytosis Nasal fracture Nonsustained ventricular tachycardia Numbness of arm Obstructive sleep apnea Syncope Surgical History Surgical History History of cataract extraction History of cervical spinal surgery History of surgical procedure on eye proper using laser History of vitrectomy Status post cataract extraction Family History Family History Father Celiac disease CHF (congestive heart failure) Many years of CHF, 80 y.o. 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 Acute myocardial infarction Small heart attacks Son Celiac disease Sibling Family history of obesity Hypertension Cerebrovascular accident
[2022-09-07 16:59] LABS: Basophils Absolute Auto 0.1 K/mm3 (0.0-0.1); Basophils Percent Auto 0.6 % (0.2-1.2); Eosinophils Absolute Auto 0.2 K/mm3 (0-0.3); Eosinophils Percent Auto 1.8 % (0-4.4); Hematocrit 38.8 % (42.0-52.0); Hemoglobin 12.6 g/dL (14.0-18.0); Immature Granulocyte Absolute 0.06 K/mm3 (0.00-0.031); Immature Granulocyte Percent A 0.5 % (0-0.5); Lymphocytes Absolute Auto 1.71 K/mm3 (0.9-3.2); Lymphocytes Percent Auto 15.3 % (18.3-44.2); Mean Corpuscular HGB Conc 32.5 g/dl (32-36); Mean Corpuscular Hemoglobin 31.6 pg (26-34); Mean Corpuscular Volume 97.2 fl (80-100); Monocytes Absolute Auto 0.9 K/mm3 (0.1-0.6); Monocytes Percent Auto 7.9 % (2.6-8.5); Neutrophils Absolute Auto 8.3 K/mm3 (1.3-6.7); Neutrophils Percent Auto 73.9 % (45.5-73.1); Platelet Count Result 244 k/mm3 (150-375); Red Blood Count 3.99 M/mm3 (4.6-6.20); Red Cell Distribution Width 13.5 % (11.5-14.5); White Blood Count 11.2 K/mm3 (4.5-10.0)
[2022-09-07 17:08] LABS: Alanine Aminotransferase 33 U/L (6-50); Albumin Level 3.7 g/dL (3.5-5.1); Alkaline Phosphatase 116 U/L (38-126); Anion Gap 12 mmol/L (8-16); Aspartate Amino Transferase 28 U/L (17-59); Bilirubin,Total 0.5 mg/dL (0.2-1.3); Blood Urea Nitrogen 43 mg/dL (9-20); Calcium 7.9 mg/dL (8.4-10.2); Carbon Dioxide 28 mmol/L (22-30); Chloride 96 mmol/L (98-107); Estimated CRCL calculation 12 ml/min; Estimated Glomerular Filt Rate 8; Glucose 193 mg/dL (65-110); Potassium 2.9 mmol/L (3.4-5.0); Sodium 136 mmol/L (137-145)
[2022-09-07] MEDS: ONDANSETRON INJ 4 MG/2 ML VIAL (17:10)
[2022-09-07 17:17] LABS: INR 0.9; Prothrombin Time 12.8 Seconds (11.1-14.7)
[2022-09-07 17:18] LABS: Partial Thromboplastin Time 29.7 SECONDS (22.3-36.8)
[2022-09-07] MEDS: POTASSIUM CHLORIDE 20 MEQ PACKET (FOR LIQUID) 40 MEQ PO (18:07)
[2022-09-07 18:26] VITALS: BP 129/78; PULSE 58; RESP 18; O2SAT 99
[2022-09-07 19:26] LABS: Glucose Point of Care 211 mg/dl (65-105)
[2022-09-07] MEDS: MECLIZINE HCL 25 MG TABLET PO (20:11)
[2022-09-07 21:41] VITALS: BP 118/64; PULSE 66; RESP 14; O2SAT 99
[2022-09-07] MEDS: ONDANSETRON INJ 4 MG/2 ML VIAL IV PUSH (22:04)
[2022-09-07 22:07] VITALS: BMI 33.7
[2022-09-07 22:17] VITALS: BP 135/58; PULSE 109; RESP 20; TEMP 36.1; O2SAT 98
[2022-09-07 22:18] VITALS: BMI 33.7
--- NOTE | 2022-09-07 22:20 | ADMGEN ---
This patient, Dewayne Fagan, was admitted to IMU Room 232-01. Patient/family oriented to hospital policies and general routines including ID bracelet, bed and alarms, visiting hours, pain management, procedures, bathroom and other care routines, personal items, smoking policy, room service/diet, and visiting hours. Information on how to activate the Rapid Response Team has been discussed. Patient/Family are encouraged to report perceived risks to care and to ask questions if they do not understand what they are told or what they should do.
[2022-09-07 23:19] VITALS: BP 134/55; PULSE 74; RESP 20; TEMP 36.1; O2SAT 99
--- NOTE | 2022-09-07 23:24 | ECG_ITS ---
Measurements Intervals [place] Rate: 76 P: 39 IN: 281 QRS: -87 QRSD: 144 T: 27 QT: 447 QTc: 504 Interpretive Statements SINUS RHYTHM WITH FIRST DEGREE AV BLOCK MARKED LEFT AXIS DEVIATION [QRS AXIS < -30] RIGHT BUNDLE BRANCH BLOCK [120+ ms QRS DURATION, UPRIGHT V1, 40+ ms S IN I/aVL/V4/V5/V6] POSSIBLE SEPTAL MYOCARDIAL INFARCTION [30 ms Q WAVE IN V1/V2], PROBABLY OLD ABNORMAL ECG COMPARED TO ECG 10/31/2021 00:09:44 LEFT-AXIS DEVIATION NOW PRESENT Electronically Signed On 09-08-2022 11:56:22 CDT by Quinton Morataya M.D.
--- NOTE | 2022-09-07 23:38 | PC.NURSE ---
Patient called in to report that he is taking Furosemide 80mg BID and that it wasn't on his med list. It has been added to current medication list.
[2022-09-08] VITALS (15 sets, daily range): BP systolic 116–150; BP diastolic 50–68; PULSE 55–86; RESP 18–20; TEMP 36.2–37.2; O2SAT 95–99
[2022-09-08 00:41] LABS: Glucose Point of Care 188 mg/dl (65-105)
--- NOTE | 2022-09-08 02:23 | PM.IMHP ---
H&P: HPI History of Present Illness Date/Time: 09/08/22 02:23 Chief Complaint: Multiple falls Narrative: 71-year-old male with a past medical history of end-stage renal disease on peritoneal dialysis, insulin-dependent diabetes mellitus, and prior CVA who presented to the ER after having 2 falls. The patient woke up in the morning and seemed more unsteady on his feet. He fell and struck his head. CT in the ER was negative. The patient was being assisted by son to walk and had another fall which resulted in him having a skin tear to his left arm. He reports that he was not nauseous until nursing staff was trying to repair the skin tear on his left arm. Then he became acutely nauseous. Since that time he has been having severe bouts of nausea about every 1 and half to 2 hours. While I was at the bedside the patient suddenly began having vomiting of greater than 200 mL at once. Emesis consisted of the water that he had been drinking. He had received Zofran on arrival to the IMU. His the is nausea did not seem to improve with the Zofran. Nursing staff called asked me for more antiemetics. The patient had not had a prior EKG performed in the ER. I ordered EKG it demonstrates some mild QT prolongation. Med time I called the nurse to tell and I could not provide any more antiemetics the patient's nausea had resolved. But again by the time I arrived to the patient's bedside he was vomiting again. He denies any headache or vision changes. He denies any dizziness or lightheadedness. However when he is sitting in the bed he is tending to lean towards the right. Staff has reposition the patient multiple times and he repetitively ends up falling towards the right. The patient has chronic left leg weakness from his prior CVA. The the patient does receive peritoneal dialysis but his abdomen is soft and benign. His potassium was mildly low in the ER he any received 40 mEq in replacement. Patient could not have a CTA of the head and neck due to his history of being on peritoneal dialysis. He was admitted to the hospital for further evaluation neurology and Nephrology were consulted. Patient's blood pressures were controlled. The patient states that he has been taking all of his medications as directed. He thinks that his current symptoms are due to him starting Lasix which was reportedly initiated on the 26th per the patient report. Review of Systems Review of Systems: 12 systems were reviewed with pertinent positives and negatives per HPI. Except as documented in the HPI, all other systems were reviewed and are negative. 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 CAMILLA was unremarkable. Chronic anemia Chronic insomnia Colon polyps Depression Diabetic peripheral neuropathy Diabetic retinopathy Dialysis patient DM renal manif type II End-stage renal disease on peritoneal dialysis History of stroke with current residual effects Hyperlipidemia Hypertension Implantable loop recorder present Insulin dependent type 2 diabetes mellitus Kidney stones Nasal fracture Nonsustained ventricular tachycardia Obstructive sleep apnea Proliferative diabetic retinopathy Status post placement of implantable loop recorder Syncope Surgical History Surgical History (Updated 09/08/22 @ 08:32 by Kirti Montana DO) History of bilateral carpal tunnel release History of cataract extraction History of cervical spinal surgery History of surgical procedure on eye proper using laser History of vitrectomy Status post cataract extraction Family History Family History Father Celiac disease CHF (congestive heart failure) Many years of CHF
--- NOTE | 2022-09-08 03:39 | ECG_ITS ---
Measurements Intervals [place] Rate: 81 P: 35 ND: 271 QRS: -81 QRSD: 132 T: 5 QT: 418 QTc: 486 Interpretive Statements SINUS RHYTHM WITH FIRST DEGREE AV BLOCK RIGHT BUNDLE BRANCH BLOCK [120+ ms QRS DURATION, UPRIGHT V1, 40+ ms S IN I/aVL/V4/V5/V6] LEFT ANTERIOR FASCICULAR BLOCK [QRS AXIS <= -45, QR IN I, RS IN II] POSSIBLE SEPTAL MYOCARDIAL INFARCTION [30 ms Q WAVE IN V1/V2], OF INDETERMINATE AGE ABNORMAL ECG COMPARED TO ECG 09/07/2022 23:31:52 LEFT ANTERIOR FASCICULAR BLOCK NOW PRESENT Electronically Signed On 09-08-2022 11:57:40 CDT by Quinton Morataya M.D.
[2022-09-08 03:46] LABS: Appearance Urine Clear (Clear); Bacteria Urine None Seen /hpf; Bilirubin Urine Negative (Negative); Blood Urine Trace (Negative); Color Urine Yellow (Yellow); Glucose Urine UA Trace mg/dL (Negative); Ketones Urine Negative (Negative); Leukocyte Esterase Ur Negative LEU/UL (Negative); Nitrate Urine Negative (Negative); Protein Urine 2+ mg/dL (Negative); RBC Urine 0-2 /hpf (0-2); Specific Grav Ur 1.014 (1.001-1.035); Squamous Epithelial Cell Urine Occasional /hpf (Few); Urobilinogen Urine 0.2 mg/dL (<2.0); WBC Urine 0-5 /hpf
[2022-09-08] MEDS: diazePAM INJ (*CRX) 10 MG/2 ML SYRINGE 5 MG IV PUSH (03:49)
[2022-09-08 03:53] LABS: Add Urine Microscopic? YES
[2022-09-08 04:53] LABS: Basophils Absolute Auto 0.1 K/mm3 (0.0-0.1); Basophils Percent Auto 0.6 % (0.2-1.2); Eosinophils Absolute Auto 0.1 K/mm3 (0-0.3); Eosinophils Percent Auto 0.8 % (0-4.4); Hemoglobin 12.9 g/dL (14.0-18.0); Immature Granulocyte Absolute 0.06 K/mm3 (0.00-0.031); Immature Granulocyte Percent A 0.5 % (0-0.5); Lymphocytes Absolute Auto 1.56 K/mm3 (0.9-3.2); Lymphocytes Percent Auto 14.1 % (18.3-44.2); Mean Corpuscular HGB Conc 32.3 g/dl (32-36); Mean Corpuscular Hemoglobin 31.6 pg (26-34); Mean Platelet Volume 9.8 fl (7.4-10.4); Monocytes Absolute Auto 0.7 K/mm3 (0.1-0.6); Monocytes Percent Auto 6.5 % (2.6-8.5); Neutrophils Absolute Auto 8.6 K/mm3 (1.3-6.7); Neutrophils Percent Auto 77.5 % (45.5-73.1); Platelet Count Result 236 k/mm3 (150-375); Red Blood Count 4.08 M/mm3 (4.6-6.20); Red Cell Distribution Width 13.4 % (11.5-14.5); White Blood Count 11.1 K/mm3 (4.5-10.0)
[2022-09-08 05:06] LABS: Anion Gap 12 mmol/L (8-16); Blood Urea Nitrogen 48 mg/dL (9-20); Calcium 7.8 mg/dL (8.4-10.2); Carbon Dioxide 26 mmol/L (22-30); Chloride 97 mmol/L (98-107); Estimated CRCL calculation 13 ml/min; Estimated Glomerular Filt Rate 8; Glucose 216 mg/dL (65-110); Magnesium 2.1 mg/dL (1.6-2.3); Phosphorus 6.6 mg/dL (2.5-4.5); Potassium 3.2 mmol/L (3.4-5.0); Sodium 135 mmol/L (137-145)
[2022-09-08 08:04] LABS: Glucose Point of Care 233 mg/dl (65-105)
[2022-09-08] MEDS: PROMETHAZINE HCL 25 MG/ML AMPUL IM (08:44)
--- NOTE | 2022-09-08 09:37 | WPDNEURCNPN ---
Assessment and Plan Assessment and plan (1) Multiple falls: Code(s): R29.6 - Repeated falls Status: Chronic (2) History of CVA (cerebrovascular accident): Code(s): Z86.73 - Personal history of transient ischemic attack (TIA), and cerebral infarction without residual deficits Status: Acute (3) Type 2 diabetes mellitus with diabetic neuropathy, unspecified: Code(s): E11.40 - Type 2 diabetes mellitus with diabetic neuropathy, unspecified Status: Acute (4) ESRD (end stage renal disease): Code(s): N18.6 - End stage renal disease Status: Acute (5) HLD (hyperlipidemia): Qualifiers: Hyperlipidemia type: unspecified Qualified Code(s): E78.5 - Hyperlipidemia, unspecified Code(s): E78.5 - Hyperlipidemia, unspecified Status: Chronic (6) Intractable nausea and vomiting: Code(s): R11.2 - Nausea with vomiting, unspecified Status: Acute Plan Mr. Fagan is a 71 year old male with a history of ESRD and prior stroke presenting due to recurrent fall, dizziness, and leaning to the right. Concern for possible stroke. - Please obtain MRI brain w/o contrast and MRA brain without contrast as well as carotid doppler studies Consult date: 09/08/22 Time Seen: 09:37 Reason for consult: Concern for stroke HPI: Dewayne Fagan is a 71 year old male with a history of ESRD on peritoneal dialysis, diabetes mellitus, prior stroke presenting due to falls. Patient woke up on the day of presentation and seemed more unsteady on his feet. He had a second fall while being assisted by his son to walk which resulted in a laceration on his left arm. When he presented to [facility] ED his CT head was negative. CTA could not be obtained due to his history of peritoneal dialysis. He takes Plavix 75mg daily and Atorvastatin 40mg daily. Most recent A1c was 7.0 and most recent LDL was in the 50s. Patient was subsequently admitted for further evaluation. He was slightly hypokalemic on admission (2.9), which was repleted orally. He has been leaning to the right and falling to the right even while in bed. At baseline he has chronic left lower extremity weakness due to his prior stroke. MRI brain has been ordered but not completed yet. Patient denies any complaints this morning other than nausea and vomiting that he has had since admission. At baseline, due to the prior stroke, his left upper and left lower extremity is weaker. Review of Systems Constitutional: Constitutional: Denies chills, Denies fever(s) and Denies weight loss Eyes: Eyes: Denies diplopia and Denies loss of vision ENT: Reports dizziness, Denies hearing loss and Denies tinnitus Cardiovascular: Cardiovascular: Denies chest pain, Denies syncope and Denies dyspnea Respiratory: Respiratory: Denies cough, Denies dyspnea and Denies wheezing Gastrointestinal: Gastrointestinal: Denies abdominal pain, Denies change in bowel habits, Reports nausea and Reports vomiting Genitourinary: Genitourinary: Denies urinary incontinence Musculoskeletal: Musculoskeletal: Denies arthralgias and Denies joint swelling Integumentary/Breasts: Skin/Breast: Reports new lesions, Denies rash and Reports wounds Neurologic: Reports as per HPI, Reports dizziness, Denies syncope and Denies loss of vision Psychiatric: Psychiatric: Denies anxiety and Denies depression Endocrine: Endocrine: Denies cold intolerance and Denies heat intolerance Hematologic/Lymphatic: Hematologic/Lymphatic: Denies easy bleeding and Denies easy bruising Allergic/Immunologic: Allergic/Immunologic: Denies no additional allergic/immunologic complaints and Denies wheezing PMFSH Past Medical History Medical History Anxiety Arthritis Benign prostatic hyperplasia Carpal tunnel syndrome on both sides s/p release Celiac disease Cerebrovascular accident (~2018) 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 CAMILLA
--- NOTE | 2022-09-08 12:53 | PM.IMPN ---
Progress Note: A&P Assessment and Plan (1) Gait instability: Code(s): R26.81 - Unsteadiness on feet Status: Acute Assessment and Plan: ? related to furosemide, monitor mesa pending appreciate neuro eval (2) Skin tear: Status: Acute (3) Head injury: Qualifiers: Encounter type: initial encounter Qualified Code(s): S09.90XA - Unspecified injury of head, initial encounter Code(s): S09.90XA - Unspecified injury of head, initial encounter Status: Acute (4) Intractable nausea and vomiting: Code(s): R11.2 - Nausea with vomiting, unspecified Status: Acute Assessment and Plan: ? related to furosemide - symptoms occured immediately after starting fuosemide, which is now on hold (5) Diabetes: Qualifiers: Diabetes mellitus type: type 2 Diabetes mellitus long term care pharmacist insulin use: with long term care pharmacist use Diabetes mellitus complication status: with kidney complications Diabetes mellitus complication detail: with chronic kidney disease Chronic kidney disease stage: stage 4 (severe) Qualified Code(s): E11.22 - Type 2 diabetes mellitus with diabetic chronic kidney disease; N18.4 - Chronic kidney disease, stage 4 (severe); Z79.4 - penitentiary (current) use of insulin Code(s): E11.9 - Type 2 diabetes mellitus without complications Status: Chronic Assessment and Plan: monitor bs Subjective Date/time seen: 09/08/22 12:53 Interval history: still having nausea Exam Narrative: Weight 113 kg BMI 33.8 Const: Other: Chronically ill-appearing, obese, mild acute distress with active vomiting, sitting in bed with head of bed at 30? and patient listing to the right side HENMT: Other: Head is normocephalic atraumatic, mucous membranes are tacky, good dentition in upper and lower jaw Eyes: Other: No conjunctival pallor, no scleral icterus, pupils are equal and reactive Neck: Other: Large neck circumference, no JVD Resp: Other: Clear to auscultation bilaterally, no increased work of breathing Cardio: Other: Regular rate, regular rhythm, 2+ bilateral radial pulses, palpable pedal pulses GI: Other: Soft, nontender, nondistended, dialysis catheter in the lower abdomen without drainage Skin: Other: Normal temperature to touch, non jaundice, no pallor Neuro: Other: Alert oriented, speech is clear, no no facial asymmetry, patient has baseline cranial nerve palsy, 5/5 bilateral upper extremity strength, neuro exam was limited as the patient was actively vomiting and retching during my evaluation Extrem: Other: 5/5 upper extremity strength, chronic left lower extremity weakness, normal tone Psych: Other: Appropriate mood and affect, pleasant and cooperative, judgment and insight intact Objective Data Vital Signs Vital Signs: Vital Signs - 24 hr 09/07/22 14:12 09/07/22 16:12 09/07/22 18:26 Temperature Pulse Rate 65 59 L 58 L Respiratory Rate 16 16 18 Blood Pressure 127/90 128/72 129/78 Pulse Oximetry 99 98 99 Oxygen Delivery Room Air 09/07/22 21:41 09/07/22 22:17 09/07/22 23:19 Temperature 97 F L 97 F L Pulse Rate 66 109 H 74 Respiratory Rate 14 20 20 Blood Pressure 118/64 135/58 L 134/55 L Pulse Oximetry 99 98 99 Oxygen Delivery 09/08/22 00:00 09/08/22 02:00 09/08/22 04:00 Temperature 97.9 F Pulse Rate 75 78 82 Respiratory Rate 20 Blood Pressure 139/68 Pulse Oximetry 99 Oxygen Delivery 09/08/22 04:00 09/08/22 06:00 09/08/22 08:00 Temperature 97.4 F L Pulse Rate 84 86 85 Respiratory Rate 18 Blood Pressure 116/50 L Pulse Oximetry 99 Oxygen Delivery Intake/Output Intake/Output: Intake & Output 09/05/22 09/06/22 09/07/22 09/08/22 23:59 23:59 23:59 23:59 Output Total 300 Balance -300 Meds/Results Medications: Active Medications Generic Name Dose Route Start Last Admin Trade Name Freq IA
--- NOTE | 2022-09-08 13:15 | PM.CNNEP ---
Assessment and Plan Assessment and plan (1) ESRD (end stage renal disease): Code(s): N18.6 - End stage renal disease Status: Acute Assessment and Plan: continue nightly peritoneal dialysis follow electroltytes, volume status, and clearance (2) Gait instability: Code(s): R26.81 - Unsteadiness on feet Status: Acute Assessment and Plan: concern is for possible stroke Neurology following with recommendations noted follow-up on pending testing/imaging (3) Hypokalemia: Code(s): E87.6 - Hypokalemia Status: Acute Assessment and Plan: repleted in the ER exacerbated by nausea and vomiting along with dialysis replete PRN may need chronic supplementation (4) Intractable nausea and vomiting: Code(s): R11.2 - Nausea with vomiting, unspecified Status: Acute Assessment and Plan: unclear on etiology likely precipitating factor with regard to hypokalemia antimemetics PRN supportive therapy (5) Diabetes: Qualifiers: Chronic kidney disease stage: stage 4 (severe) Diabetes mellitus complication detail: with chronic kidney disease Diabetes mellitus complication status: with kidney complications Diabetes mellitus nursing home insulin use: with parts counterman use Diabetes mellitus type: type 2 Qualified Code(s): E11.22 - Type 2 diabetes mellitus with diabetic chronic kidney disease; N18.4 - Chronic kidney disease, stage 4 (severe); Z79.4 - buttermaker continuous churn (current) use of insulin Code(s): E11.9 - Type 2 diabetes mellitus without complications Status: Chronic Assessment and Plan: follow accu-cheks glycemic control per hospitalists I will continue follow patient with you while he remains hospitalized and make further recommendations during his hospital course. Thank you for allowing me to participate in care this patient. History of Present Illness Reason for Consult Consult date: 09/08/22 Reason for consult: end stage renal disease Chief Complaint Chief complaint: CVA,Gait Instability,Peritoneal Dialysis,Hypokalem History of Present Illness Narrative: The patient is a 71-year-old male with a past medical history as outlined below who presented to [facility] Emergency room for further evaluation after sustaining 2 falls. Apparently, on the day of admission, the patient was up earlier in the morning and he seemed to be more unsteady on his feet than usual. He apparently fell and struck his head. He did not appear to have any acute trauma from that fall and was being assisted by his son to get up and walk around when he apparently fell again resulting in a skin tear to his left arm. Given the recurrent falls, he presented to the ER for further assessment. Workup and evaluation emergency room demonstrated the patient be hemodynamically stable and he did not have any other acute focal deficits noted. One nursing staff attempted to address the skin tear on his left arm, he became acutely nauseous and had several bouts of nausea and vomiting in the ER. No apparent coffee-ground emesis was noted and it seemed to be just clear liquids/ water that he vomited when he was in the ER. IV antiemetics were administered his seem to help the situation. Routine blood test demonstrated labs consistent with his known history of end-stage renal disease although he was found to be somewhat hypokalemic. CT scan of his head did not demonstrate any acute intracranial pathology. Prior to or after the fall, the patient denies any headaches, vision loss, dizziness, lightheadedness blurry vision palpitations, lightheadedness, or any other systemic symptoms. While he was in the ER, nursing staff had to sit up the patient several times at the scene he was leaning towards his right. As there were concerns that the patient may have had an acute TIA or possible CVA despite the negative CT scan of the head, he was admitted the hospital for further
--- NOTE | 2022-09-08 14:29 | PM.CNCAR ---
Assessment and Plan Assessment and plan (1) Heart block: Code(s): I45.9 - Conduction disorder, unspecified Status: Acute Assessment and Plan: Patient did have a transient episode of complete heart block while undergoing a carotid ultrasound. Episode was brief and not symptomatic. This does not warrant pacemaker implantation. Continue telemetry monitoring any does have a loop recorder in place and follows with Dr. Ohara. No further cardiac workup indicated at this point (2) History of CVA (cerebrovascular accident): Code(s): Z86.73 - Personal history of transient ischemic attack (TIA), and cerebral infarction without residual deficits Status: Acute Assessment and Plan: Workup in progress. Continue anti-platelet agents (3) Syncope: Code(s): R55 - Syncope and collapse Status: Acute Assessment and Plan: History of syncope while straining on the toilet the past. Loop recorder is in place. Likely related to vagal response (4) ESRD (end stage renal disease): Code(s): N18.6 - End stage renal disease Status: Acute Assessment and Plan: Continue peritoneal dialysis History of Present Illness History of Present Illness Consult date/time: 09/08/22 14:29 Requesting physician: Tariq Pierce MD Consult reason: Other (heart block) Reason For Visit: CVA,Gait Instability,Peritoneal Dialysis,Hypokalem Narrative: Date of service 09/08/2022 Reason for consultation: Heart block during carotid ultrasound Requesting provider: Dr. Pierce History patient is a 71-year-old male who has a history of syncope. He follows with Dr. Ohara does have a loop recorder in place. Loop recorder was implanted because he had a syncopal episode 1 and half to 2 years ago while straining on the toilet. He came to the hospital following a fall. Patient stood up in was walking to the bathroom and fell. He did not pass out. He was having difficulty walking straight and was walking to the left. He thinks he was dizzy at the time and fell on his head. This happened on 2 occasions. The 2nd episode was witnessed by his . There was no loss of consciousness. There is concern about stroke/TIA and patient was in the process of having carotid ultrasound performed today whenever he went to a transient complete heart block. It was at the exact time of having external carotid compression. There was no syncopal event or dizziness at that time. He otherwise has been feeling fine from a cardiac perspective and denies any chest pain, shortness of breath, syncope, paroxysmal nocturnal dyspnea, orthopnea, presyncope, palpitations or edema. Review of Systems Review of Systems: All systems reviewed & are unremarkable except as noted in HPI and below Constitutional: Constitutional: Denies chills Eyes: Eyes: Denies blurry vision ENT: Reports Normal hearing present Cardiovascular: Cardiovascular: Denies chest pain, Denies lightheadedness and Denies palpitations Respiratory: Respiratory: Denies dyspnea Gastrointestinal: Gastrointestinal: Denies abdominal pain Genitourinary: Genitourinary: Denies hematuria Musculoskeletal: Musculoskeletal: Denies back pain Integumentary/Breasts: Skin/Breast: Denies erythema Neurologic: Reports abnormal gait Psychiatric: Psychiatric: Denies anxiety and Denies behavioral changes Endocrine: Endocrine: Denies excessive sweating Hematologic/Lymphatic: Hematologic/Lymphatic: Denies easy bleeding Allergic/Immunologic: Allergic/Immunologic: Denies GI upset with certain foods PMFSH Past Medical History Medical History Anxiety Arthritis Benign prostatic hyperplasia Carpal tunnel syndrome on both sides s/p release Celiac disease Cerebrovascular accident (~2018) 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 CAMILLA was unremarkable. Chronic anemia Chronic insomnia Colon poly
[2022-09-08 16:28] LABS: Glucose Point of Care 258 mg/dl (65-105)
[2022-09-08 16:31] LABS: Glucose Point of Care 245 mg/dl (65-105)
[2022-09-08] MEDS: INSULIN ASPART (*BKC) 100 UNITS/ML 10 UNITS SUB-Q (17:37)
[2022-09-08] MEDS: INSULIN ASPART (*BKC) 100 UNITS/ML SUB-Q (17:37)
[2022-09-08] MEDS: LACTULOSE 20 GM/30 ML UDC PO (17:40)
[2022-09-08 20:04] LABS: Glucose Point of Care 241 mg/dl (65-105)
[2022-09-08] MEDS: INSULIN GLARGINE (*BKC) 100 UNITS/ML 60 UNITS SUB-Q (20:39)
[2022-09-08] MEDS: ATORVASTATIN 40 MG TABLET PO (22:00)
[2022-09-08] MEDS: carvediloL 12.5 MG TABLET PO (22:00)
[2022-09-08] MEDS: TRIMETHOBENZAMIDE HCL 200 MG/2 ML VIAL IM (22:00)
[2022-09-08] MEDS: MIRTAZAPINE 7.5 MG TABLET PO (22:00)
[2022-09-09] VITALS (17 sets, daily range): BP systolic 118–158; BP diastolic 51–75; PULSE 65–85; RESP 16–20; TEMP 35.8–36.4; O2SAT 93–98
[2022-09-09] MEDS: diazePAM INJ (*CRX) 10 MG/2 ML SYRINGE 5 MG IV PUSH ×2 (03:06→09:29)
[2022-09-09 09:30] LABS: Glucose Point of Care 184 mg/dl (65-105)
[2022-09-09 09:38] LABS: Hematocrit 39.1 % (42.0-52.0); Hemoglobin 13.1 g/dL (14.0-18.0); Mean Corpuscular HGB Conc 33.5 g/dl (32-36); Mean Corpuscular Volume 95.6 fl (80-100); Mean Platelet Volume 9.6 fl (7.4-10.4); Platelet Count Result 242 k/mm3 (150-375); Red Blood Count 4.09 M/mm3 (4.6-6.20); Red Cell Distribution Width 13.5 % (11.5-14.5)
[2022-09-09 09:47] LABS: Anion Gap 9 mmol/L (8-16); Blood Urea Nitrogen 46 mg/dL (9-20); Calcium 8.3 mg/dL (8.4-10.2); Carbon Dioxide 32 mmol/L (22-30); Chloride 96 mmol/L (98-107); Estimated CRCL calculation 13 ml/min; Estimated Glomerular Filt Rate 9; Glucose 164 mg/dL (65-110); Potassium 2.9 mmol/L (3.4-5.0); Sodium 137 mmol/L (137-145)
[2022-09-09] MEDS: INSULIN ASPART (*BKC) 100 UNITS/ML 10 UNITS SUB-Q ×3 (10:24→17:25)
[2022-09-09] MEDS: amLODIPine BESYLATE 5 MG TABLET PO (10:26)
[2022-09-09] MEDS: DULoxetine HCL 30 MG CAPSULE.DR 60 MG PO (10:26)
[2022-09-09] MEDS: carvediloL 12.5 MG TABLET PO ×2 (10:26→20:06)
[2022-09-09] MEDS: CHOLECALCIFEROL 1,000 UNITS TABLET 5000 UNITS PO (10:27)
[2022-09-09] MEDS: CLOPIDOGREL BISULFATE 75 MG TABLET PO (10:27)
[2022-09-09] MEDS: polyethylene glycoL 3350 17 GM POWD.PACK PO (10:28)
[2022-09-09] MEDS: LACTULOSE 20 GM/30 ML UDC PO ×2 (10:28→17:25)
[2022-09-09 12:14] LABS: Glucose Point of Care 182 mg/dl (65-105)
--- NOTE | 2022-09-09 12:30 | WPDNEUROPN ---
Progress Note: A&P Assessment and Plan (1) Intractable nausea and vomiting: Code(s): R11.2 - Nausea with vomiting, unspecified Status: Acute (2) Type 2 diabetes mellitus with diabetic neuropathy, unspecified: Code(s): E11.40 - Type 2 diabetes mellitus with diabetic neuropathy, unspecified Status: Acute (3) HLD (hyperlipidemia): Qualifiers: Hyperlipidemia type: unspecified Qualified Code(s): E78.5 - Hyperlipidemia, unspecified Code(s): E78.5 - Hyperlipidemia, unspecified Status: Chronic (4) History of CVA (cerebrovascular accident): Code(s): Z86.73 - Personal history of transient ischemic attack (TIA), and cerebral infarction without residual deficits Status: Acute Plan Mr. Fagan is a 71 year old male with a history of ESRD and prior stroke presenting due to recurrent fall, dizziness, and leaning to the right. MRI brain negative for acute stroke. No further neurological work-up needed during this admission. Subjective Date/time seen: 09/09/22 12:30 Interval history: Dewayne Fagan is a 71 year old male with a history of ESRD on peritoneal dialysis, diabetes mellitus, prior stroke presenting due to falls. Patient woke up on the day of presentation and seemed more unsteady on his feet. He had a second fall while being assisted by his son to walk which resulted in a laceration on his left arm. When he presented to [facility] his CT head was negative. CTA could not be obtained due to his history of peritoneal dialysis. He takes Plavix 75mg daily and Atorvastatin 40mg daily. Most recent A1c was 7.0 and most recent LDL was in the 50s. Patient was subsequently admitted for further evaluation. He was slightly hypokalemic on admission (2.9), which was repleted orally. He has been leaning to the right and falling to the right even while in bed. At baseline he has chronic left lower extremity weakness due to his prior stroke. MRI brain negative for acute stroke -- showed chronic microvascular changes. Carotid doppler study showed 50-69% stenosis of R ICA and <50% stenosis of L ICA. MRA brain was negative for stenosis or occlusion. Review of Systems Constitutional: Constitutional: Denies chills, Denies fever(s) and Denies weight loss Eyes: Eyes: Denies diplopia and Denies loss of vision ENT: Reports dizziness, Denies hearing loss and Denies tinnitus Cardiovascular: Cardiovascular: Denies chest pain, Denies syncope and Denies dyspnea Respiratory: Respiratory: Denies cough, Denies dyspnea and Denies wheezing Gastrointestinal: Gastrointestinal: Denies abdominal pain, Denies change in bowel habits, Reports nausea and Reports vomiting Genitourinary: Genitourinary: Denies urinary incontinence Musculoskeletal: Musculoskeletal: Denies arthralgias and Denies joint swelling Integumentary/Breasts: Skin/Breast: Reports new lesions, Denies rash and Reports wounds Neurologic: Reports as per HPI, Reports dizziness, Denies syncope and Denies loss of vision Psychiatric: Psychiatric: Denies anxiety and Denies depression Endocrine: Endocrine: Denies cold intolerance and Denies heat intolerance Hematologic/Lymphatic: Hematologic/Lymphatic: Denies easy bleeding and Denies easy bruising Allergic/Immunologic: Allergic/Immunologic: Denies no additional allergic/immunologic complaints and Denies wheezing Exam Const: General: comfortable and no acute distress Resp: Effort & Inspection: normal respiratory effort Skin: Lesions: lesion noted Wounds: wounds noted Neuro: Other: Awake, alert, face appears symmetric, able to sit up with support. Extrem: General: normal to inspection Psych: Mental Status: mental status grossly normal Affect: normal affect Objective Data Vital Signs Vital Signs: Vital Signs - 24 hr 09/08/22 13:00 09/08/22 14:00 09/08/22 16:00 Temperature 37.2 C Pulse Rate 82 81 77 Respiratory Rate 18 Blood Pressure 150/63 H Pulse Oximetr
[2022-09-09] MEDS: POTASSIUM CHLORIDE INJ 40 MEQ in SODIUM CHLORIDE 0.9% IV 500 ML 130 MEQ IVPB ×2 (12:31→20:05)
--- NOTE | 2022-09-09 12:47 | PM.PNNEP ---
Progress Note: A&P Assessment and Plan (1) ESRD (end stage renal disease): Code(s): N18.6 - End stage renal disease Status: Acute Assessment and Plan: continue nightly peritoneal dialysis follow electroltytes, volume status, and clearance (2) Gait instability: Code(s): R26.81 - Unsteadiness on feet Status: Acute Assessment and Plan: concern is for possible stroke Neurology following with recommendations noted MRI brain negative for acute stroke Carotid doppler study showed 50-69% stenosis of R ICA and <50% stenosis of L ICA MRA brain was negative for stenosis or occlusion. continue medical management (3) Hypokalemia: Code(s): E87.6 - Hypokalemia Status: Acute Assessment and Plan: continue to replace as needed exacerbated by nausea and vomiting along with ongoing dialysis needs may need chronic supplementation (4) Intractable nausea and vomiting: Code(s): R11.2 - Nausea with vomiting, unspecified Status: Acute Assessment and Plan: doing better at this time unclear on etiology likely precipitating factor with regard to hypokalemia antimemetics PRN supportive therapy (5) Diabetes: Qualifiers: Chronic kidney disease stage: stage 4 (severe) Diabetes mellitus complication detail: with chronic kidney disease Diabetes mellitus complication status: with kidney complications Diabetes mellitus usp insulin use: with jailkeeper use Diabetes mellitus type: type 2 Qualified Code(s): E11.22 - Type 2 diabetes mellitus with diabetic chronic kidney disease; N18.4 - Chronic kidney disease, stage 4 (severe); Z79.4 - senior living (current) use of insulin Code(s): E11.9 - Type 2 diabetes mellitus without complications Status: Chronic Assessment and Plan: follow accu-cheks glycemic control per hospitalists Will continue to follow. Subjective Date/time seen: 09/09/22 12:47 Interval history: Follow-up for end stage renal disease on peritoneal dialysis. Tolerated peritoneal dialysis treatment overnight without any issues or problems although no significant ultrafiltration noted (however, volume status seems quite stable); no apparent distress noted at the time of my visit; still having some on/off nausea and vomiting. Exam Narrative: General: WD/WN male in NAD Heart: normal S1 and S2; no rub Lungs: clear to auscultation Abdomen: soft, nontender, nondistended, positive bowel sounds Extremities: no cyanosis or clubbing; no edema Skin: warm and dry Objective Data Vital Signs Vital Signs: Vital Signs Temp Pulse Resp BP Pulse Ox O2 Del Method 09/09/22 12:00 97.1 F L 76 18 125/67 95 09/09/22 08:00 74 09/09/22 07:00 97.6 F 80 18 135/57 L 09/09/22 10:26 85 09/09/22 08:57 93 Room Air 09/09/22 08:00 97.1 F L 75 18 158/75 H 95 09/09/22 06:00 77 09/09/22 04:00 97.6 F 80 18 135/57 L 95 09/09/22 04:00 85 09/09/22 02:00 73 09/09/22 00:00 70 09/08/22 22:00 77 09/09/22 00:00 97.6 F 70 16 134/63 97 09/08/22 22:00 70 09/08/22 20:00 76 09/08/22 20:00 97.1 F L 55 L 20 138/66 97 09/08/22 18:00 79 09/08/22 18:05 97.7 F 78 18 150/62 H 95 Room Air 09/08/22 16:00 97.7 F 77 18 150/62 H 96 09/08/22 16:00 Room Air 09/08/22 16:00 77 09/08/22 14:00 81 Intake/Output Intake/Output: Intake & Output 09/06/22 09/07/22 09/08/22 09/09/22 23:59 23:59 23:59 23:59 Intake Total 100 400 Output Total 310 301 Balance -210 99 Meds/Results Medications: Active Medications Generic Name Dose Route Start Last Admin Trade Name Freq PRN Reason Stop Dose Admin Amlodipine Besylate 5 mg 09/08/22 09:00 09/09/22 10:26 Amlodipine Besylate 5 Mg Tablet PO 5 mg DAILY EMMA Administration Atorvastatin Calcium 40 mg 09/08/22 21:00
--- NOTE | 2022-09-09 12:47 | P.PNNP_ITS ---
Progress Note: A&P Assessment and Plan (1) ESRD (end stage renal disease): Code(s): N18.6 - End stage renal disease Status: Acute Assessment and Plan: * continue nightly peritoneal dialysis * follow electroltytes, volume status, and clearance (2) Gait instability: Code(s): R26.81 - Unsteadiness on feet Status: Acute Assessment and Plan: * concern is for possible stroke * Neurology following with recommendations noted * MRI brain negative for acute stroke * Carotid doppler study showed 50-69% stenosis of R ICA and <50% stenosis of L ICA * MRA brain was negative for stenosis or occlusion. * continue medical management (3) Hypokalemia: Code(s): E87.6 - Hypokalemia Status: Acute Assessment and Plan: * continue to replace as needed * exacerbated by nausea and vomiting along with ongoing dialysis needs * may need chronic supplementation (4) Intractable nausea and vomiting: Code(s): R11.2 - Nausea with vomiting, unspecified Status: Acute Assessment and Plan: * doing better at this time * unclear on etiology * likely precipitating factor with regard to hypokalemia * antimemetics PRN * supportive therapy (5) Diabetes: Qualifiers: Chronic kidney disease stage: stage 4 (severe) Diabetes mellitus complication detail: with chronic kidney disease Diabetes mellitus complication status: with kidney complications Diabetes mellitus retirement insulin use: with watermelon inspector use Diabetes mellitus type: type 2 Qualified Code(s): E11.22 - Type 2 diabetes mellitus with diabetic chronic kidney disease; N18.4 - Chronic kidney disease, stage 4 (severe); Z79.4 - [facility] (current) use of insulin Code(s): E11.9 - Type 2 diabetes mellitus without complications Status: Chronic Assessment and Plan: * follow accu-cheks * glycemic control per hospitalists Will continue to follow. Subjective Date/time seen: 09/09/22 12:47 Interval history: Follow-up for end stage renal disease on peritoneal dialysis. Tolerated peritoneal dialysis treatment overnight without any issues or problems although no significant ultrafiltration noted (however, volume status seems quite stable); no apparent distress noted at the time of my visit; still having some on/off nausea and vomiting. Exam Narrative: General: WD/WN male in NAD Heart: normal S1 and S2; no rub Lungs: clear to auscultation Abdomen: soft, nontender, nondistended, positive bowel sounds Extremities: no cyanosis or clubbing; no edema Skin: warm and dry Objective Data Vital Signs Vital Signs: Vital Signs Temp Pulse Resp BP Pulse Ox O2 Del Method 09/09/22 12:00 97.1 F L 76 18 125/67 95 09/09/22 08:00 74 09/09/22 07:00 97.6 F 80 18 135/57 L 09/09/22 10:26 85 09/09/22 08:57 93 Room Air 09/09/22 08:00 97.1 F L 75 18 158/75 H 95 09/09/22 06:00 77 09/09/22 04:00 97.6 F 80 18 135/57 L 95 09/09/22 04:00 85 09/09/22 02:00 73 09/09/22 00:00 70 09/08/22 22:00 77 09/09/22 00:00 97.6 F 70 16 134/63 97 09/08/22 22:00 70 09/08/22 20:00 76 09/08/22 20:00 97.1 F L 55 L 20 138/66 97 09/08/22 18:00 79 09/08/22 18:05
[2022-09-09 14:47] LABS: Hepatitis B Surface Antigen Negative (Negative)
[2022-09-09 15:04] LABS: Hepatitis B Surface Anti Res Negative
--- NOTE | 2022-09-09 15:23 | PM.IMPN ---
Progress Note: A&P Assessment and Plan (1) Gait instability: Code(s): R26.81 - Unsteadiness on feet Status: Acute Assessment and Plan: ? related to furosemide, monitor mesa pending appreciate neuro eval (2) Skin tear: Status: Acute (3) Head injury: Qualifiers: Encounter type: initial encounter Qualified Code(s): S09.90XA - Unspecified injury of head, initial encounter Code(s): S09.90XA - Unspecified injury of head, initial encounter Status: Acute (4) Intractable nausea and vomiting: Code(s): R11.2 - Nausea with vomiting, unspecified Status: Acute Assessment and Plan: ? related to furosemide - symptoms occured immediately after starting fuosemide, which is now on hold (5) Diabetes: Qualifiers: Diabetes mellitus type: type 2 Diabetes mellitus continuous churn buttermaker insulin use: with continuous churn buttermaker use Diabetes mellitus complication status: with kidney complications Diabetes mellitus complication detail: with chronic kidney disease Chronic kidney disease stage: stage 4 (severe) Qualified Code(s): E11.22 - Type 2 diabetes mellitus with diabetic chronic kidney disease; N18.4 - Chronic kidney disease, stage 4 (severe); Z79.4 - care home (current) use of insulin Code(s): E11.9 - Type 2 diabetes mellitus without complications Status: Chronic Assessment and Plan: monitor bs Subjective Date/time seen: 09/09/22 15:23 Interval history: Feeling a little better Exam Narrative: Weight 113 kg BMI 33.8 Const: Other: Chronically ill-appearing, obese, mild acute distress with active vomiting, sitting in bed with head of bed at 30? and patient listing to the right side HENMT: Other: Head is normocephalic atraumatic, mucous membranes are tacky, good dentition in upper and lower jaw Eyes: Other: No conjunctival pallor, no scleral icterus, pupils are equal and reactive Neck: Other: Large neck circumference, no JVD Resp: Other: Clear to auscultation bilaterally, no increased work of breathing Cardio: Other: Regular rate, regular rhythm, 2+ bilateral radial pulses, palpable pedal pulses GI: Other: Soft, nontender, nondistended, dialysis catheter in the lower abdomen without drainage Skin: Other: Normal temperature to touch, non jaundice, no pallor Neuro: Other: Alert oriented, speech is clear, no no facial asymmetry, patient has baseline cranial nerve palsy, 5/5 bilateral upper extremity strength, neuro exam was limited as the patient was actively vomiting and retching during my evaluation Extrem: Other: 5/5 upper extremity strength, chronic left lower extremity weakness, normal tone Psych: Other: Appropriate mood and affect, pleasant and cooperative, judgment and insight intact Objective Data Vital Signs Vital Signs: Vital Signs - 24 hr 09/08/22 16:00 09/08/22 16:00 09/08/22 16:00 Temperature 97.7 F Pulse Rate 77 77 Respiratory Rate 18 Blood Pressure 150/62 H Pulse Oximetry 96 Oxygen Delivery Room Air 09/08/22 18:05 09/08/22 18:00 09/08/22 20:00 Temperature 97.7 F 97.1 F L Pulse Rate 78 79 55 L Respiratory Rate 18 20 Blood Pressure 150/62 H 138/66 Pulse Oximetry 95 97 Oxygen Delivery Room Air 09/08/22 20:00 09/08/22 22:00 09/09/22 00:00 Temperature 97.6 F Pulse Rate 76 70 70 Respiratory Rate 16 Blood Pressure 134/63 Pulse Oximetry 97 Oxygen Delivery 09/08/22 22:00 09/09/22 00:00 09/09/22 02:00 Temperature Pulse Rate 77 70 73 Respiratory Rate Blood Pressure Pulse Oximetry Oxygen Delivery 09/09/22 04:00 09/09/22 04:00 09/09/22 06:00 Temperature 97.6 F Pulse Rate 85 80 77 Respiratory Rate 18 Blood Pressure 135/57 L Pulse Oximetry 95 Oxygen Delivery 09/09/22 08:00 09/09/22 08:57 09/09/22 10:26 Temperature 97.1 F L Pulse Rate 75 85 Respiratory Rate 18 Blood Pr
[2022-09-09 16:31] LABS: Glucose Point of Care 103 mg/dl (65-105)
[2022-09-09 18:41] LABS: Potassium 2.9 mmol/L (3.4-5.0)
[2022-09-09 19:28] LABS: Magnesium 2.2 mg/dL (1.6-2.3)
[2022-09-09] MEDS: POTASSIUM CHLORIDE 20 MEQ PACKET (FOR LIQUID) 40 MEQ PO (20:06)
[2022-09-09] MEDS: ATORVASTATIN 40 MG TABLET PO (20:06)
[2022-09-09] MEDS: MIRTAZAPINE 7.5 MG TABLET PO (20:06)
[2022-09-09 20:33] LABS: Glucose Point of Care 173 mg/dl (65-105)
[2022-09-09] MEDS: INSULIN GLARGINE (*BKC) 100 UNITS/ML 60 UNITS SUB-Q (21:13)
[2022-09-10] VITALS (13 sets, daily range): BP systolic 114–152; BP diastolic 60–80; PULSE 66–90; RESP 16–67; TEMP 36.1–36.8; O2SAT 91–99
[2022-09-10 04:05] LABS: Potassium 3.6 mmol/L (3.4-5.0)
[2022-09-10 05:00] LABS: Hematocrit 41.1 % (42.0-52.0); Hemoglobin 13.1 g/dL (14.0-18.0); Mean Corpuscular HGB Conc 31.9 g/dl (32-36); Mean Corpuscular Hemoglobin 31.8 pg (26-34); Mean Corpuscular Volume 99.8 fl (80-100); Mean Platelet Volume 9.7 fl (7.4-10.4); Platelet Count Result 201 k/mm3 (150-375); Red Blood Count 4.12 M/mm3 (4.6-6.20); Red Cell Distribution Width 13.5 % (11.5-14.5); White Blood Count 9.2 K/mm3 (4.5-10.0)
[2022-09-10 05:09] LABS: Anion Gap 10 mmol/L (8-16); Blood Urea Nitrogen 41 mg/dL (9-20); Calcium 8.2 mg/dL (8.4-10.2); Carbon Dioxide 28 mmol/L (22-30); Chloride 102 mmol/L (98-107); Estimated CRCL calculation 14 ml/min; Estimated Glomerular Filt Rate 10; Glucose 219 mg/dL (65-110); Magnesium 2.2 mg/dL (1.6-2.3); Potassium 3.3 mmol/L (3.4-5.0); Sodium 140 mmol/L (137-145)
[2022-09-10 08:13] LABS: Glucose Point of Care 175 mg/dl (65-105)
[2022-09-10] MEDS: amLODIPine BESYLATE 5 MG TABLET PO (08:38)
[2022-09-10] MEDS: CLOPIDOGREL BISULFATE 75 MG TABLET PO (08:38)
[2022-09-10] MEDS: POTASSIUM CHLORIDE 20 MEQ ER TABLET 40 MEQ PO (08:38)
[2022-09-10] MEDS: carvediloL 12.5 MG TABLET PO ×2 (08:39→19:54)
[2022-09-10] MEDS: DULoxetine HCL 30 MG CAPSULE.DR 60 MG PO (08:39)
[2022-09-10] MEDS: LACTULOSE 20 GM/30 ML UDC PO ×2 (08:40→17:20)
[2022-09-10] MEDS: CHOLECALCIFEROL 1,000 UNITS TABLET 5000 UNITS PO (08:40)
[2022-09-10] MEDS: polyethylene glycoL 3350 17 GM POWD.PACK PO (08:40)
[2022-09-10] MEDS: INSULIN ASPART (*BKC) 100 UNITS/ML 10 UNITS SUB-Q ×3 (08:40→17:20)
[2022-09-10] MEDS: SULFAMETHOXAZOLE/TRIMETHOPRIM 800/160 MG DS TABLET 1 TAB PO (10:45)
--- NOTE | 2022-09-10 11:30 | PM.PNNEP ---
Progress Note: A&P Assessment and Plan (1) ESRD (end stage renal disease): Code(s): N18.6 - End stage renal disease Status: Acute Assessment and Plan: continue nightly peritoneal dialysis follow electroltytes, volume status, and clearance (2) Gait instability: Code(s): R26.81 - Unsteadiness on feet Status: Acute Assessment and Plan: concern is for possible stroke Neurology following with recommendations noted MRI brain negative for acute stroke Carotid doppler study showed 50-69% stenosis of R ICA and <50% stenosis of L ICA MRA brain was negative for stenosis or occlusion. continue medical management (3) Hypokalemia: Code(s): E87.6 - Hypokalemia Status: Acute Assessment and Plan: continue to replace as needed exacerbated by nausea and vomiting along with ongoing dialysis needs may need chronic supplementation (4) Intractable nausea and vomiting: Code(s): R11.2 - Nausea with vomiting, unspecified Status: Acute Assessment and Plan: doing better at this time unclear on etiology -- due to lasix? likely precipitating factor with regard to hypokalemia antiemetics PRN supportive therapy (5) Diabetes: Qualifiers: Chronic kidney disease stage: stage 4 (severe) Diabetes mellitus complication detail: with chronic kidney disease Diabetes mellitus complication status: with kidney complications Diabetes mellitus senior living insulin use: with senior living use Diabetes mellitus type: type 2 Qualified Code(s): E11.22 - Type 2 diabetes mellitus with diabetic chronic kidney disease; N18.4 - Chronic kidney disease, stage 4 (severe); Z79.4 - terminal computer operator (current) use of insulin Code(s): E11.9 - Type 2 diabetes mellitus without complications Status: Chronic Assessment and Plan: follow accu-cheks glycemic control per hospitalists Will continue to follow. Subjective Date/time seen: 09/10/22 11:30 Interval history: Follow-up for end stage renal disease on peritoneal dialysis. Tolerated peritoneal dialysis treatment yesterday evening without any issues or problems; nausea and vomiting appear to be doing better - he thinks it was lasix that caused these symptoms; potassium improving with supplementation; no apparent distress voiced at this time; no issues/events overnight or earlier today; family at bedside and discussed the situation. Exam Narrative: General: WD/WN male in NAD Heart: normal S1 and S2; no rub Lungs: clear to auscultation Abdomen: soft, nontender, nondistended, positive bowel sounds Extremities: no cyanosis or clubbing; no edema Skin: warm and intact Objective Data Vital Signs Vital Signs: Vital Signs Temp Pulse Resp BP Pulse Ox O2 Del Method 09/10/22 10:00 97 F L 86 18 134/80 98 09/10/22 08:00 71 09/10/22 07:30 97.9 F 71 16 152/67 H 09/10/22 08:00 97.3 F L 68 18 150/71 H 97 09/10/22 08:39 71 09/10/22 04:00 97.4 F L 67 67 H 142/63 H 97 09/10/22 04:00 66 09/10/22 04:00 Room Air 09/10/22 02:00 90 09/10/22 00:00 97.7 F 68 18 124/60 91 09/10/22 00:00 69 09/09/22 23:45 Room Air 09/09/22 20:00 66 09/09/22 21:11 69 98 Room Air 09/09/22 20:00 Room Air 09/09/22 20:00 97.4 F L 66 20 131/70 98 09/09/22 20:06 65 09/09/22 18:00 69 09/09/22 16:00 70 09/09/22 16:45 96.5 F L 68 18 118/51 L 95 09/09/22 14:00 70 09/09/22 16:00 96.5 F L 68 18 118/51 L 98 Intake/Output Intake/Output: Intake & Output 09/07/22 09/08/22 09/09/22 09/10/22 23:59 23:59 23:59 23:59 Intake Total 100 1585 680 Output Total 310 301 729 Balance -210 1284 -49 Meds/Results Medications: Active Medications Generic Name Dose Route Start Last Admin Trade Name Freq PRN Reason Stop Dose Admin Amlodipine Besylate 5 mg 09/08/22 09:00 0
--- NOTE | 2022-09-10 11:30 | P.PNNP_ITS ---
Progress Note: A&P Assessment and Plan (1) ESRD (end stage renal disease): Code(s): N18.6 - End stage renal disease Status: Acute Assessment and Plan: * continue nightly peritoneal dialysis * follow electroltytes, volume status, and clearance (2) Gait instability: Code(s): R26.81 - Unsteadiness on feet Status: Acute Assessment and Plan: * concern is for possible stroke * Neurology following with recommendations noted * MRI brain negative for acute stroke * Carotid doppler study showed 50-69% stenosis of R ICA and <50% stenosis of L ICA * MRA brain was negative for stenosis or occlusion. * continue medical management (3) Hypokalemia: Code(s): E87.6 - Hypokalemia Status: Acute Assessment and Plan: * continue to replace as needed * exacerbated by nausea and vomiting along with ongoing dialysis needs * may need chronic supplementation (4) Intractable nausea and vomiting: Code(s): R11.2 - Nausea with vomiting, unspecified Status: Acute Assessment and Plan: * doing better at this time * unclear on etiology -- due to lasix? * likely precipitating factor with regard to hypokalemia * antiemetics PRN * supportive therapy (5) Diabetes: Qualifiers: Chronic kidney disease stage: stage 4 (severe) Diabetes mellitus complication detail: with chronic kidney disease Diabetes mellitus complication status: with kidney complications Diabetes mellitus internet marketing consultant insulin use: with internet marketing consultant use Diabetes mellitus type: type 2 Qualified Code(s): E11.22 - Type 2 diabetes mellitus with diabetic chronic kidney disease; N18.4 - Chronic kidney disease, stage 4 (severe); Z79.4 - financial sales manager (current) use of insulin Code(s): E11.9 - Type 2 diabetes mellitus without complications Status: Chronic Assessment and Plan: * follow accu-cheks * glycemic control per hospitalists Will continue to follow. Subjective Date/time seen: 09/10/22 11:30 Interval history: Follow-up for end stage renal disease on peritoneal dialysis. Tolerated peritoneal dialysis treatment yesterday evening without any issues or problems; nausea and vomiting appear to be doing better - he thinks it was lasix that caused these symptoms; potassium improving with supplementation; no apparent distress voiced at this time; no issues/events overnight or earlier today; family at bedside and discussed the situation. Exam Narrative: General: WD/WN male in NAD Heart: normal S1 and S2; no rub Lungs: clear to auscultation Abdomen: soft, nontender, nondistended, positive bowel sounds Extremities: no cyanosis or clubbing; no edema Skin: warm and intact Objective Data Vital Signs Vital Signs: Vital Signs Temp Pulse Resp BP Pulse Ox O2 Del Method 09/10/22 10:00 97 F L 86 18 134/80 98 09/10/22 08:00 71 09/10/22 07:30 97.9 F 71 16 152/67 H 09/10/22 08:00 97.3 F L 68 18 150/71 H 97 09/10/22 08:39 71 09/10/22 04:00 97.4 F L 67 67 H 142/63 H 97 09/10/22 04:00 66 09/10/22 04:00 Room Air 09/10/22 02:00 90 09/10/22 00:00 97.7 F 68 18 124/60 91 09/10/22 00:00 69 09/09/22 23:45 Room Air 09/09/22 20:00 66 09/09/22 21:11 69 98 Room Air 09/09/22 20:00
--- NOTE | 2022-09-10 11:44 | PM.IMPN ---
Progress Note: A&P Assessment and Plan (1) Gait instability: Code(s): R26.81 - Unsteadiness on feet Status: Acute Assessment and Plan: Somewhat better Improved. (2) Skin tear: Status: Acute (3) Head injury: Qualifiers: Encounter type: initial encounter Qualified Code(s): S09.90XA - Unspecified injury of head, initial encounter Code(s): S09.90XA - Unspecified injury of head, initial encounter Status: Acute (4) Intractable nausea and vomiting: Code(s): R11.2 - Nausea with vomiting, unspecified Status: Acute Assessment and Plan: Improved. (5) Diabetes: Qualifiers: Diabetes mellitus type: type 2 Diabetes mellitus usp insulin use: with usp use Diabetes mellitus complication status: with kidney complications Diabetes mellitus complication detail: with chronic kidney disease Chronic kidney disease stage: stage 4 (severe) Qualified Code(s): E11.22 - Type 2 diabetes mellitus with diabetic chronic kidney disease; N18.4 - Chronic kidney disease, stage 4 (severe); Z79.4 - senior living (current) use of insulin Code(s): E11.9 - Type 2 diabetes mellitus without complications Status: Chronic Assessment and Plan: monitor bs (6) Vertigo: Code(s): R42 - Dizziness and giddiness Status: Acute Assessment and Plan: Will add meclizine. Subjective Date/time seen: 09/10/22 11:44 Interval history: Nausea and vomiting improved. Mild dizziness this morning. Exam Narrative: Weight 113 kg BMI 33.8 Const: Other: Chronically ill-appearing, obese, mild acute distress with active vomiting, sitting in bed with head of bed at 30? and patient listing to the right side HENMT: Other: Head is normocephalic atraumatic, mucous membranes are tacky, good dentition in upper and lower jaw Eyes: Other: No conjunctival pallor, no scleral icterus, pupils are equal and reactive Neck: Other: Large neck circumference, no JVD Resp: Other: Clear to auscultation bilaterally, no increased work of breathing Cardio: Other: Regular rate, regular rhythm, 2+ bilateral radial pulses, palpable pedal pulses GI: Other: Soft, nontender, nondistended, dialysis catheter in the lower abdomen without drainage Skin: Other: Normal temperature to touch, non jaundice, no pallor Neuro: Other: Alert oriented, speech is clear, no no facial asymmetry, patient has baseline cranial nerve palsy, 5/5 bilateral upper extremity strength, neuro exam was limited as the patient was actively vomiting and retching during my evaluation Extrem: Other: 5/5 upper extremity strength, chronic left lower extremity weakness, normal tone Psych: Other: Appropriate mood and affect, pleasant and cooperative, judgment and insight intact Objective Data Vital Signs Vital Signs: Vital Signs - 24 hr 09/09/22 12:00 09/09/22 12:00 09/09/22 16:00 Temperature 97.1 F L 96.5 F L Pulse Rate 76 74 68 Respiratory Rate 18 18 Blood Pressure 125/67 118/51 L Pulse Oximetry 95 98 Oxygen Delivery 09/09/22 14:00 09/09/22 16:45 09/09/22 16:00 Temperature 96.5 F L Pulse Rate 70 68 70 Respiratory Rate 18 Blood Pressure 118/51 L Pulse Oximetry 95 Oxygen Delivery 09/09/22 18:00 09/09/22 20:06 09/09/22 20:00 Temperature 97.4 F L Pulse Rate 69 65 66 Respiratory Rate 20 Blood Pressure 131/70 Pulse Oximetry 98 Oxygen Delivery 09/09/22 20:00 09/09/22 21:11 09/09/22 20:00 Temperature Pulse Rate 69 66 Respiratory Rate Blood Pressure Pulse Oximetry 98 Oxygen Delivery Room Air Room Air 09/09/22 23:45 09/10/22 00:00 09/10/22 00:00 Temperature 97.7 F Pulse Rate 69 68 Respiratory Rate 18 Blood Pressure 124/60 Pulse Oximetry 91 Oxygen Delivery Room Air 09/10/22 02:00 09/10/22 04:00 09/10/22 04:00 Temperature Pulse Rate 9
[2022-09-10 15:37] LABS: Glucose Point of Care 172 mg/dl (65-105)
[2022-09-10 16:43] LABS: Glucose Point of Care 222 mg/dl (65-105)
[2022-09-10] MEDS: INSULIN ASPART (*BKC) 100 UNITS/ML SUB-Q (17:20)
[2022-09-10] MEDS: INSULIN GLARGINE (*BKC) 100 UNITS/ML 60 UNITS SUB-Q (19:54)
[2022-09-10] MEDS: MIRTAZAPINE 7.5 MG TABLET PO (19:54)
[2022-09-10] MEDS: ATORVASTATIN 40 MG TABLET PO (19:54)
[2022-09-10 20:02] LABS: Glucose Point of Care 272 mg/dl (65-105)
--- NOTE | 2022-09-11 02:21 | PC.NURSE ---
pt did not recieve pertioneal dialysis, certified recreational therapist called to . [facility].
[2022-09-11 05:23] VITALS: BP 125/58; PULSE 69; RESP 16; TEMP 36.9; O2SAT 96
[2022-09-11 06:12] LABS: Albumin Level 3.4 g/dL (3.5-5.1); Anion Gap 12 mmol/L (8-16); Blood Urea Nitrogen 46 mg/dL (9-20); Calcium 8.2 mg/dL (8.4-10.2); Carbon Dioxide 29 mmol/L (22-30); Chloride 100 mmol/L (98-107); Estimated CRCL calculation 15 ml/min; Estimated Glomerular Filt Rate 10; Glucose 122 mg/dL (65-110); Phosphorus 5.5 mg/dL (2.5-4.5); Potassium 3.2 mmol/L (3.4-5.0); Sodium 141 mmol/L (137-145)
[2022-09-11] MEDS: POTASSIUM CHLORIDE 20 MEQ ER TABLET 40 MEQ PO (07:00)
[2022-09-11 07:28] LABS: Glucose Point of Care 98 mg/dl (65-105)
[2022-09-11 08:31] VITALS: BP 125/58; PULSE 69; RESP 16; TEMP 36.9
[2022-09-11 08:54] VITALS: PULSE 64
[2022-09-11] MEDS: CHOLECALCIFEROL 1,000 UNITS TABLET 5000 UNITS PO (08:54)
[2022-09-11] MEDS: LACTULOSE 20 GM/30 ML UDC PO (08:54)
[2022-09-11] MEDS: carvediloL 12.5 MG TABLET PO (08:54)
[2022-09-11] MEDS: DULoxetine HCL 30 MG CAPSULE.DR 60 MG PO (08:54)
[2022-09-11] MEDS: SULFAMETHOXAZOLE/TRIMETHOPRIM 800/160 MG DS TABLET 1 TAB PO (08:55)
[2022-09-11] MEDS: amLODIPine BESYLATE 5 MG TABLET PO (08:55)
[2022-09-11] MEDS: polyethylene glycoL 3350 17 GM POWD.PACK PO (08:56)
[2022-09-11] MEDS: CLOPIDOGREL BISULFATE 75 MG TABLET PO (08:56)
[2022-09-11] MEDS: INSULIN ASPART (*BKC) 100 UNITS/ML 10 UNITS SUB-Q (08:56)
--- NOTE | 2022-09-11 10:00 | PM.DS ---
DS: Admitting Diagnosis Discharge Date 09/11/22 Admitting Diagnosis gait instability, uti DS: Discharge Diagnosis Discharge Diagnosis (1) Gait instability: Code(s): R26.81 - Unsteadiness on feet Status: Acute Assessment and Plan: Somewhat better Improved. (2) Skin tear: Status: Acute (3) Head injury: Qualifiers: Encounter type: initial encounter Qualified Code(s): S09.90XA - Unspecified injury of head, initial encounter Code(s): S09.90XA - Unspecified injury of head, initial encounter Status: Acute (4) Intractable nausea and vomiting: Code(s): R11.2 - Nausea with vomiting, unspecified Status: Acute Assessment and Plan: Improved. (5) Diabetes: Qualifiers: Diabetes mellitus type: type 2 Diabetes mellitus group home insulin use: with long term acute care registered nurse use Diabetes mellitus complication status: with kidney complications Diabetes mellitus complication detail: with chronic kidney disease Chronic kidney disease stage: stage 4 (severe) Qualified Code(s): E11.22 - Type 2 diabetes mellitus with diabetic chronic kidney disease; N18.4 - Chronic kidney disease, stage 4 (severe); Z79.4 - longterm (current) use of insulin Code(s): E11.9 - Type 2 diabetes mellitus without complications Status: Chronic Assessment and Plan: monitor bs (6) Vertigo: Code(s): R42 - Dizziness and giddiness Status: Acute Assessment and Plan: Will add meclizine. DS: Summary Hospital Course Hospital Course: admitted for gait issues - stroke mesa n egative uti noted, bactrim on dc otherwise patient is stable and can be dc Time Spent with Patient Time attestation: Total time spent providing and/or coordinating discharge services: Exam Narrative: Weight 113 kg BMI 33.8 Const: Other: Chronically ill-appearing, obese, mild acute distress with active vomiting, sitting in bed with head of bed at 30? and patient listing to the right side HENMT: Other: Head is normocephalic atraumatic, mucous membranes are tacky, good dentition in upper and lower jaw Eyes: Other: No conjunctival pallor, no scleral icterus, pupils are equal and reactive Neck: Other: Large neck circumference, no JVD Resp: Other: Clear to auscultation bilaterally, no increased work of breathing Cardio: Other: Regular rate, regular rhythm, 2+ bilateral radial pulses, palpable pedal pulses GI: Other: Soft, nontender, nondistended, dialysis catheter in the lower abdomen without drainage Skin: Other: Normal temperature to touch, non jaundice, no pallor Neuro: Other: Alert oriented, speech is clear, no no facial asymmetry, patient has baseline cranial nerve palsy, 5/5 bilateral upper extremity strength, neuro exam was limited as the patient was actively vomiting and retching during my evaluation Extrem: Other: 5/5 upper extremity strength, chronic left lower extremity weakness, normal tone Psych: Other: Appropriate mood and affect, pleasant and cooperative, judgment and insight intact DS: Data Data Completed and Pending Labs on day of discharge: Labs from last 24 hours 09/11/22 09/11/22 09/10/22 07:16 05:22 19:49 Sodium 141 Potassium 3.2 L Chloride 100 Carbon Dioxide 29 Anion Gap 12 BUN 46 H Creatinine 5.60 H Estim Creat Clear Calc 15 Estimated GFR 10 L Glucose 122 H POC Capillary Glucose 98 272 H Calcium 8.2 L Phosphorus 5.5 H Albumin 3.4 L 09/10/22 09/10/22 16:37 11:44 Sodium Potassium Chloride Carbon Dioxide Anion Gap BUN Creatinine Estim Creat Clear Calc Estimated GFR Glucose POC Capillary Glucose 222 H 172 H Calcium Phosphorus Albumin Discharge Plan Discharge Attending physician on discharge: Tariq Pierce Consulting providers: Jennifer Benjamin; Iris Reveles; Akanksha Morataya
[2022-09-11 11:15] LABS: Glucose Point of Care 70 mg/dl (65-105)
[2022-09-12 04:05] LABS: Hepatitis B Core Ab Total Nonreactive (Nonreactive); Hepatitis Be Antibody Nonreactive; Hepatitis Be Antigen Nonreactive
== END 2022-09-11 13:00 | disposition home health service (06) | DRG 91 ==
LOC: ANHED 15:07 → ANHIMU 21:25 → ANH3MEDSUR 09-11 09:52 → ANHIMU 09-13 15:05
PROVIDERS: Hospitalist; Internal Medicine Nephrology; Nurse Practitioner; Admitting Provider Internal Medicine; Emergency Provider Emergency Medicine; PCP Family Medicine; Visit Provider Chiropractor
DX: R26.81 Unsteadiness on feet (principal); N18.6 End stage renal disease; I12.0 Hypertensive chronic kidney disease with stage 5 chronic kidney disease or end stage renal disease; I44.2 Atrioventricular block, complete; R42 Dizziness and giddiness; I69.344 Monoplegia of lower limb following cerebral infarction affecting left non-dominant side; E11.22 Type 2 diabetes mellitus with diabetic chronic kidney disease; E11.42 Type 2 diabetes mellitus with diabetic polyneuropathy; E11.319 Type 2 diabetes mellitus with unspecified diabetic retinopathy without macular edema; R11.2 Nausea with vomiting, unspecified; E78.5 Hyperlipidemia, unspecified; G47.33 Obstructive sleep apnea (adult) (pediatric); N40.0 Benign prostatic hyperplasia without lower urinary tract symptoms; M19.90 Unspecified osteoarthritis, unspecified site; R29.6 Repeated falls; E87.6 Hypokalemia; S41.112A Laceration without foreign body of left upper arm, initial encounter; S09.90XA Unspecified injury of head, initial encounter; W19.XXXA Unspecified fall, initial encounter; Z79.02 Long term (current) use of antithrombotics/antiplatelets; Z79.4 Long term (current) use of insulin; Z99.2 Dependence on renal dialysis; Z87.442 Personal history of urinary calculi; Z98.1 Arthrodesis status; Z87.891 Personal history of nicotine dependence; E66.9 Obesity, unspecified; Z68.34 Body mass index [BMI] 34.0-34.9, adult
CPT/HCPCS: 36415; 70450; 70544; 70551; 72125; 80048; 80053; 80069; 81001; 82948; 83735; 84100; 84132; 85025; 85027; 85610; 85730; 86704; 86706; 86707; 87340; 87350; 90945; 93005; 93880; 96372; 96374; 96375; 96376; 97161; 97165; 97530; 99285; A9270; G0378; J1815; J2405; J2550; J3250; J3360; J3480; J7040

== ENCOUNTER 2022-11-17 13:05 | Outpatient (CLI) | payer MEDICARE, SELFPAY ==
--- NOTE | ~2022-11-17 | XR_ITS ---
EXAMINATION: XR knee LT min 4V DATE: 11/17/2022 13:46 INDICATION: Primary osteoarthritis of the left knee TECHNIQUE: Anteroposterior, oblique, sunrise, and flexed lateral views of the left knee were obtained COMPARISON: 09/22/2017 FINDINGS: Alignment is normal. No fracture. There are marginal osteophytes in all 3 compartments with mild maciej nt space narrowing in the medial compartment and at the lateral aspect of the patellofemoral compartm ent. Small left knee joint effusion. Small amount of scattered atherosclerotic calcifications. IMPRESSION: 1. Mild medial and patellofemoral compartment predominant tricompartmental osteoarthritis of the left knee with small knee joint effusion. Reviewed, dictated and finalized at location A. IMPRESSION: 1. Mild medial and patellofemoral compartment predominant tricompartmental oste oarthritis of the left knee with small knee joint effusion.
== END 2022-11-17 13:06 | disposition home or self-care (01) ==
LOC: ANHIMG 13:13
PROVIDERS: PCP Family Medicine; Visit Provider Orthopaedic Surgery
DX: M17.12 Unilateral primary osteoarthritis, left knee (principal); M25.462 Effusion, left knee
CPT/HCPCS: 73564

== ENCOUNTER 2022-12-10 12:39 | Emergency (ER) | payer MEDICARE, SELFPAY ==
[2022-12-10] VITALS (17 sets, daily range): BP systolic 121–152; BP diastolic 59–69; PULSE 53–66; RESP 7–16; O2SAT 98–100
--- NOTE | ~2022-12-10 | CT_ITS ---
EXAMINATION: CT brain wo con DATE: 12/10/2022 14:29 INDICATION: Status post fall. Head injury. TECHNIQUE: Computed tomography (CT) of the head was performed without intravenous contrast. The dose- length product was 605.33 mGy-cm. Automated exposure control and iterative reconstruction technique w ere employed. COMPARISON: CT dated 09/07/2022 FINDINGS: There are chronic right occipital lobe infarctions. Chronic right thalamic infarction. Ther e are scattered moderate periventricular and subcortical white matter changes, most likely related to small vessel ischemic disease (microangiopathy). No ventriculomegaly or midline shift. There is intr acranial atherosclerosis. Paranasal sinuses and mastoids are pneumatized. No depressed skull fracture s. No acute infarction, hemorrhage, mass or mass effect. IMPRESSION: 1. No acute intracranial abnormality. 2: Chronic right thalamic and occipital lobe infarctions. 3: Chronic age-related findings. Reviewed, dictated and finalized at location B.
--- NOTE | ~2022-12-10 | CT_ITS ---
EXAMINATION: CT cervical spine wo con DATE: 12/10/2022 14:29 INDICATION: Neck pain after fall TECHNIQUE: Computed tomography (CT) of the cervical spine was performed without intravenous contrast. The dose-length product was 487 mGy-cm. Automated exposure control and iterative reconstruction tech nique were employed. COMPARISON: None FINDINGS: Craniovertebral junction within normal limits. Odontoid process is normal. There is disc na rrowing at C3-4 through C7-T1. There is fusion at C6-7. There is advanced multilevel uncinate and fac et. No evidence for perched facet. IMPRESSION: 1. No acute abnormality of the cervical spine. 2: Severe cervical spondylosis. Reviewed, dictated and finalized at location B.
--- NOTE | ~2022-12-10 | CT_ITS ---
EXAMINATION: CT lumbar spine wo con DATE: 12/10/2022 14:30 INDICATION: Low back pain after fall TECHNIQUE: Computed tomography (CT) of the lumbar spine was performed without intravenous contrast. Oneyda rivera dose-length product was 1170.56 mGy-cm. Automated exposure control and iterative reconstruction te chelique were employed. COMPARISON: None FINDINGS: There is severe degenerative disc disease at all lumbar levels with the exception of L5-S1. No acute fracture or traumatic malalignment. No evidence for spondylolysis or spondylolisthesis. Ther e is hypertrophy of the spinous processes. There is mild levocurvature of the lumbar spine. No signif icant paraspinal soft tissue abnormalities. There are calcified granulomas of the spleen. IMPRESSION: 1. No acute fracture. 2: Severe lumbar spondylosis. Reviewed, dictated and finalized at location B.
--- NOTE | 2022-12-10 14:45 | ED.FALL ---
HPI - Fall General Chief Complaint: Fall Stated Complaint: GLF LBP Time Seen by Provider: 12/10/22 13:47 Source: patient, family and EMS Mode of arrival: EMS Limitations: no limitations History of Present Illness HPI Narrative: 72 years old white male came to the emergency room by ambulance with his complaining of lower back pain after a fall this morning. Patient had history of frequent falls on average 2-3 times a week since August 2022. History of CVA with left hemiplegia 5 years ago, left knee pain, status post cortisone injection by his orthopedic few weeks ago, patient reported that his left knee gave out while trying to walk. Been doing that for quite a bit of time. Possible head injury, complaining of lower back pain, denies loss of consciousness or other injuries. Currently on home health with physical therapy, Related Data Home Medications Medication Instructions Recorded Confirmed mirtazapine 7.5 mg tablet 7.5 mg PO HS ##0 10/31/21 11/23/22 cholecalciferol (vitamin D3) 125 125 mcg PO DAILY 07/19/22 11/23/22 mcg (5,000 unit) capsule insulin lispro 100 unit/mL 1 sliding scale dose subcut TIDWM 09/07/22 11/23/22 subcutaneous pen polyethylene glycol 3350 17 17 g PO DAILY 09/08/22 11/23/22 gram/dose oral powder (Miralax) acetaminophen 650 mg 1,300 mg PO ONCE 11/17/22 11/23/22 tablet,extended release (Tylenol Arthritis Pain) bupropion HCl 100 mg tablet 100 mg PO ONCE 11/17/22 11/23/22 lactulose 10 gram/15 mL oral 30 ml PO ONCE 11/17/22 11/23/22 solution melatonin 10 mg capsule 10 mg PO QHS 11/17/22 11/23/22 Allergies Allergy/AdvReac Type Severity Reaction Status Date / Time barley Allergy Severe abdominal Verified 12/10/22 12:52 pain wheat Allergy Severe abdominal Verified 12/10/22 12:52 pain furosemide [From Lasix] AdvReac Intermediate Nausea and Verified 12/10/22 12:52 Vomiting pregabalin AdvReac Unknown Confusion Verified 12/10/22 12:52 rosuvastatin AdvReac Unknown Muscle pain Verified 12/10/22 12:52 Xisdywk-PAI-LgI Reductase AdvReac Unknown muscle Verified 12/10/22 12:52 Inhibitor crampin [Qcscahn-Hku-Svf Reductase Inhibitor] Barley Flour Allergy Severe abdominal Uncoded 12/10/22 12:52 pain Oat Allergy Severe abdominal Uncoded 12/10/22 12:52 pain [place] Allergy Severe abdominal Uncoded 12/10/22 12:52 pain [place] Flour Allergy Severe abdominal Uncoded 12/10/22 12:52 pain Gluten Flour Allergy Intermediate Other Uncoded 12/10/22 12:52 Review of Systems Review of Systems: All systems reviewed & are unremarkable except as noted in HPI and below PMFSH Past Medical History Medical History Anxiety Arthritis Benign prostatic hyperplasia Carpal tunnel syndrome on both sides s/p release Celiac disease Cerebrovascular accident (~2018) 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 CAMILLA was unremarkable. Chronic anemia Chronic insomnia Colon polyps Depression Diabetic peripheral neuropathy Diabetic retinopathy Dialysis patient DM renal manif type II End-stage renal disease on peritoneal dialysis History of stroke with current residual effects Hyperlipidemia Hypertension Implantable loop recorder present Insulin dependent type 2 diabetes mellitus Kidney stones Nasal fracture Nonsustained ventricular tachycardia Obstructive sleep apnea Proliferative diabetic retinopathy Status post placement of implantable loop recorder Syncope Surgical History Surgical History History of bilateral carpal tunnel release History of cataract extraction History of cervical spinal surgery History of surgical procedure on eye proper using laser History of vitrectomy Status post cataract extraction Family History Family History Father Celiac disease CHF (congestive heart failu
--- NOTE | 2022-12-10 14:53 | PCCCNOTE ---
CC consulted for rehab placement for patient. CC met with patient and bedside. patient is alert and oriented x 4, has a walker and cane at home, is on peritoneal dialysis, and lives with his . patient has been having frequent falls at home which is why he was brought to the ER. patient and state that they have used [facility] recently, however they feel that patients mobility decreased as the home health PT would not show up for scheduled appointments. patients stated that [facility]. At this time patient will not be admitted as there is not an admitting diagnosis. Patient and made aware that Medicare AB would not cover a detention facility (SNF), as he will not have a 3 INPT stay in the hospital. CC offered to send referrals to rehab facilities and made patient and aware that this would be a private pay stay in the rehab and patient/ declined at this time as they are no able to pay for the facility. patients asked if we could set up home health with [facility]. referral was sent, CC spoke with Lisbet at [facility] whom accepted and stated they have availability December 20.Patient and aware. MD also made aware of plan. CC will continue to follow for any other needs that may arise.
== END 2022-12-10 16:39 | disposition home or self-care (01) ==
PROVIDERS: Emergency Provider Emergency Medicine; PCP Family Medicine
DX: S39.92XA Unspecified injury of lower back, initial encounter (principal); I69.954 Hemiplegia and hemiparesis following unspecified cerebrovascular disease affecting left non-dominant side; M25.562 Pain in left knee; R29.6 Repeated falls; E11.22 Type 2 diabetes mellitus with diabetic chronic kidney disease; N18.6 End stage renal disease; D64.9 Anemia, unspecified; Z99.2 Dependence on renal dialysis; E11.42 Type 2 diabetes mellitus with diabetic polyneuropathy; E11.3599 Type 2 diabetes mellitus with proliferative diabetic retinopathy without macular edema, unspecified eye; N40.0 Benign prostatic hyperplasia without lower urinary tract symptoms; K90.0 Celiac disease; M19.90 Unspecified osteoarthritis, unspecified site; F41.9 Anxiety disorder, unspecified; F32.A Depression, unspecified; F51.04 Psychophysiologic insomnia; G47.33 Obstructive sleep apnea (adult) (pediatric); Z86.010 Personal history of colon polyps; Z87.442 Personal history of urinary calculi; Z87.891 Personal history of nicotine dependence; Z98.49 Cataract extraction status, unspecified eye; Z79.4 Long term (current) use of insulin; M47.812 Spondylosis without myelopathy or radiculopathy, cervical region; M47.816 Spondylosis without myelopathy or radiculopathy, lumbar region; W18.39XA Other fall on same level, initial encounter
CPT/HCPCS: 70450; 72125; 72131; 99284

== ENCOUNTER 2022-12-27 19:09 | Emergency (ER) | payer MEDICARE, SELFPAY ==
--- NOTE | ~2022-12-27 | CT_ITS ---
EXAMINATION: CT brain wo con DATE: 12/27/2022 20:29 INDICATION: Head injury. TECHNIQUE: Computed tomography (CT) of the head was performed without intravenous contrast. The mA wa s adjusted according to patient size. Iterative reconstruction technique was employed. The dose-lengt h product was 605.33 mGy-cm. COMPARISON: Head CT 12/10/2022, brain MRI 08/31/2022 FINDINGS: There is an old infarct in the right thalamus. There is an old infarct in the doron. There i s no intracranial hemorrhage, acute infarction, or abnormal intracranial mass lesion. There are scatt ered areas of low attenuation in the cerebral white matter. The ventricles are normal in size. There are likely changes of ocular lens replacement surgeries. There is mild mucosal thickening in the para nasal sinuses. The mastoid air cells are normal. IMPRESSION: 1. Old infarcts in the right thalamus and doron. 2. Stable extensive nonspecific cerebral white matter disease, which likely represents chronic small vessel ischemic disease. Reviewed, dictated and finalized at location E. IMPRESSION: 1. Old infarcts in the right thalamus and doron. 2. Stable extensive nonspecific cerebral white matter disease, which likely rep resents chronic small vessel ischemic disease.
[2022-12-27 19:07] VITALS: BP 123/65; PULSE 67; RESP 16; TEMP 36.5; O2SAT 100
[2022-12-27] MEDS: ACETAMINOPHEN 325 MG TABLET 650 MG PO (20:05)
--- NOTE | 2022-12-27 21:01 | ED.FALL ---
HPI - Fall General Chief Complaint: Fall Stated Complaint: GLF History of Present Illness HPI Narrative: Patient presents the emergency department with his after a fall at home. He was standing on the scale and when he stepped back he tripped hitting the back of his head on the ground. Only complaint of occipital head discomfort. Denies neck or back pain. Patient is on Plavix so is concerned about a head bleed. Patient is acting appropriately. They are both very pleasant. She denies loss of consciousness after the fall. Has ambulated since with stable gait Related Data Home Medications Medication Instructions Recorded Confirmed mirtazapine 7.5 mg tablet 7.5 mg PO HS ##0 10/31/21 11/23/22 cholecalciferol (vitamin D3) 125 125 mcg PO DAILY 07/19/22 11/23/22 mcg (5,000 unit) capsule insulin lispro 100 unit/mL 1 sliding scale dose subcut TIDWM 09/07/22 11/23/22 subcutaneous pen polyethylene glycol 3350 17 17 g PO DAILY 09/08/22 11/23/22 gram/dose oral powder (Miralax) acetaminophen 650 mg 1,300 mg PO ONCE 11/17/22 11/23/22 tablet,extended release (Tylenol Arthritis Pain) bupropion HCl 100 mg tablet 100 mg PO ONCE 11/17/22 11/23/22 lactulose 10 gram/15 mL oral 30 ml PO ONCE 11/17/22 11/23/22 solution melatonin 10 mg capsule 10 mg PO QHS 11/17/22 11/23/22 Allergies Allergy/AdvReac Type Severity Reaction Status Date / Time barley Allergy Severe abdominal Verified 12/24/22 09:22 pain wheat Allergy Severe abdominal Verified 12/24/22 09:22 pain furosemide [From Lasix] AdvReac Intermediate Nausea and Verified 12/24/22 09:22 Vomiting pregabalin AdvReac Unknown Confusion Verified 12/24/22 09:22 rosuvastatin AdvReac Unknown Muscle pain Verified 12/24/22 09:22 Cxjvuol-CKA-KcD Reductase AdvReac Unknown muscle Verified 12/24/22 09:22 Inhibitor crampin [Cinfkzf-Rge-Qti Reductase Inhibitor] Barley Flour Allergy Severe abdominal Uncoded 12/24/22 09:22 pain Oat Allergy Severe abdominal Uncoded 12/24/22 09:22 pain [place] Allergy Severe abdominal Uncoded 12/24/22 09:22 pain [place] Flour Allergy Severe abdominal Uncoded 12/24/22 09:22 pain Gluten Flour Allergy Intermediate Other Uncoded 12/24/22 09:22 Review of Systems Review of Systems: Negative except what is documented in the [facility] Past Medical History Medical History (Updated 12/27/22 @ 21:07 by Nisreen Joseph MD) Anxiety Arthritis Benign prostatic hyperplasia Carpal tunnel syndrome on both sides s/p release Celiac disease Cerebrovascular accident (~2018) 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 CAMILLA was unremarkable. Chronic anemia Chronic insomnia Colon polyps Depression Diabetic peripheral neuropathy Diabetic retinopathy Dialysis patient DM renal manif type II End-stage renal disease on peritoneal dialysis History of stroke with current residual effects Hyperlipidemia Hypertension Implantable loop recorder present Insulin dependent type 2 diabetes mellitus Kidney stones Nasal fracture Nonsustained ventricular tachycardia Obstructive sleep apnea Proliferative diabetic retinopathy Statin intolerance Status post placement of implantable loop recorder Syncope Surgical History Surgical History History of bilateral carpal tunnel release History of cataract extraction History of cervical spinal surgery History of surgical procedure on eye proper using laser History of vitrectomy Status post cataract extraction Family History Family History Father Celiac disease CHF (congestive heart failure) Many years of CHF, 80 y.o. 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 Acute myocardial infarction Small heart attacks Son Celiac disease Sibling Family history of obesity Hypertension Cerebrovascular accident Family
[2022-12-27 21:16] VITALS: BP 148/77; PULSE 63; RESP 14; TEMP 36.6; O2SAT 98
== END 2022-12-27 21:17 | disposition home or self-care (01) ==
PROVIDERS: Emergency Provider Emergency Medicine; PCP Family Medicine
DX: S09.90XA Unspecified injury of head, initial encounter (principal); E11.22 Type 2 diabetes mellitus with diabetic chronic kidney disease; I12.0 Hypertensive chronic kidney disease with stage 5 chronic kidney disease or end stage renal disease; N18.6 End stage renal disease; E11.42 Type 2 diabetes mellitus with diabetic polyneuropathy; E11.3599 Type 2 diabetes mellitus with proliferative diabetic retinopathy without macular edema, unspecified eye; I69.944 Monoplegia of lower limb following unspecified cerebrovascular disease affecting left non-dominant side; N40.0 Benign prostatic hyperplasia without lower urinary tract symptoms; K90.0 Celiac disease; D64.9 Anemia, unspecified; E78.5 Hyperlipidemia, unspecified; G47.33 Obstructive sleep apnea (adult) (pediatric); M19.90 Unspecified osteoarthritis, unspecified site; F51.04 Psychophysiologic insomnia; Z99.2 Dependence on renal dialysis; Z86.010 Personal history of colon polyps; Z87.442 Personal history of urinary calculi; Z87.891 Personal history of nicotine dependence; Z98.49 Cataract extraction status, unspecified eye; Z79.4 Long term (current) use of insulin; W01.0XXA Fall on same level from slipping, tripping and stumbling without subsequent striking against object, initial encounter
CPT/HCPCS: 70450; 99284; A9270

== ENCOUNTER 2022-12-31 11:31 | Outpatient (NON) | payer MEDICARE, SELFPAY ==
[2022-12-31 14:03] LABS: Prostate Specific Antigen 4.9 ng/mL (< OR = 4.0)
== END 2022-12-31 11:32 | disposition home or self-care (01) ==
PROVIDERS: PCP Family Medicine; Visit Provider Urology
DX: R97.20 Elevated prostate specific antigen [PSA] (principal)
CPT/HCPCS: 84153

== ENCOUNTER 2023-04-21 12:46 | Outpatient (CLI) | payer MEDICARE, SELFPAY ==
--- NOTE | ~2023-04-21 | US_ITS ---
EXAMINATION: US venous doppler LE RT DATE: 04/21/2023 13:35 INDICATION: Right lower limb swelling TECHNIQUE: Downs scale images without and with compression and Doppler images of the right lower extre mity veins were obtained. COMPARISON: 01/27/2022 FINDINGS: The right common femoral vein, profunda femoral vein, femoral vein, popliteal vein, peronea l trunk, posterior tibial veins, and greater saphenous vein are patent. A Keita's cyst is noted in th e right popliteal fossa. IMPRESSION: 1. Patent right lower extremity veins. No evidence of deep venous thrombosis. 2. Right Keita's cyst. Reviewed, dictated and finalized at location L. 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
== END 2023-04-21 12:47 | disposition home or self-care (01) ==
LOC: ANHIMG 12:46
PROVIDERS: PCP Family Medicine; Visit Provider Internal Medicine Nephrology
DX: M71.21 Synovial cyst of popliteal space [Baker], right knee (principal); M79.89 Other specified soft tissue disorders; E11.40 Type 2 diabetes mellitus with diabetic neuropathy, unspecified
CPT/HCPCS: 93971

== ENCOUNTER 2023-05-03 09:37 | Day surgery (SDC) | payer MEDICARE, SELFPAY ==
--- NOTE | ~2023-05-03 | XR_ITS ---
EXAMINATION: XR fluoroscopy no charge INDICATION: Bilateral genicular nerve block TECHNIQUE: 19 intraoperative fluoroscopic images are submitted for review. Total fluoroscopic time wa s 34.0 seconds. COMPARISON: None available FINDINGS: Fluoroscopic images demonstrate bilateral genicular block injections. Please refer to proce dure note for full details. IMPRESSION: 1. Please refer to procedure note for full details. Reviewed, dictated and finalized at location L. FITTER
--- NOTE | 2023-05-03 06:47 | PM.HPGS ---
History of Present Illness History of Present Illness Consent: Risks, benefits, and alternatives have been discussed and questions answered. Patient agrees to proceed with procedure. Chief complaint: Bilateral Primary Osteoarthritis of Knees Narrative: Dewayne Fagan is a 72 year old male with chronic, recalcitrant and disabling bilateral knee pain secondary to degenerative osteoarthritis with failure to respond to aggressive conservative measures including PT, oral and topical analgesics, opioid and nonopioid analgesics, rest, time and activity/behavioral modification over the past 1-2 years who presents for diagnostic/prognostic genicular /vastus intermedius nerve blocks under fluoroscopic guidance and with contrast control. Review of Systems Review of Systems: Patient denies any new infectious, allergic, cardiopulmonary, neurologic or constitutional symptoms or changes in activity tolerance or exercise capacity including new or progressive SOB/DE LEON, peripheral edema, productive cough, dysuria, nausea/vomiting, diarrhea, weight change, fevers/chills/night sweats, new or progressive neurologic deficit, cognitive or mood changes since last seen, except as documented in the HPI. All systems reviewed & are unremarkable except as noted in HPI and below PMFSH Past Medical History Medical History Anxiety Arthritis Benign prostatic hyperplasia Carpal tunnel syndrome on both sides s/p release Celiac disease Cerebrovascular accident (~2018) 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 CAMILLA was unremarkable. Chronic anemia Chronic insomnia Colon polyps Depression Diabetic peripheral neuropathy Diabetic retinopathy Dialysis patient DM renal manif type II End-stage renal disease on peritoneal dialysis History of stroke with current residual effects Hyperlipidemia Hypertension Implantable loop recorder present Insulin dependent type 2 diabetes mellitus Kidney stones Nasal fracture Nonsustained ventricular tachycardia Obstructive sleep apnea Proliferative diabetic retinopathy Statin intolerance Status post placement of implantable loop recorder Syncope Surgical History Surgical History History of bilateral carpal tunnel release History of cataract extraction History of cervical spinal surgery History of surgical procedure on eye proper using laser History of vitrectomy Status post cataract extraction Family History Family History Father Celiac disease CHF (congestive heart failure) Many years of CHF, 80 y.o. 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 Acute myocardial infarction Small heart attacks Son Celiac disease Sibling Family history of obesity Hypertension Cerebrovascular accident Family history of diabetes mellitus in first degree relative Family history of heart disease in male family member before age 55 Grandparent Family history of mental disorder Mother Cerebrovascular accident Family history of arthritis Family history of hearing loss Father Family history of congestive heart failure Family history of heart disease in male family member before age 55 Social History Social History Social History: Worked for [employer] for 30 years. Two children, a daughter who works at the [employer] and a son Lilliana who was born premature, has some disabilities, and lives w/ pt and . Surrogate decision maker: Monica Fagan, . Code status: Full code. Smoking packs per day: 1 Smoking cigarettes per day: 20.0 Years smoked: 15 Smoking pack-years: 15.00 Smoking status: Former smoker Tobacco type: cigarettes Second hand tobacco smoke exposure: No Smoking end date: 03/14/89 Additional smoking
--- NOTE | 2023-05-03 06:51 | WPDHPUPDATE1 ---
History and Physical Update Update Date/Time: 05/03/23 06:51 History and Physical has been reviewed, including an updated exam of the patient. There are NO changes in the patient's condition. Risks, benefits, and alternatives have been discussed and questions answered. Patient agrees to proceed with procedure.
--- NOTE | 2023-05-03 06:52 | W.PM.PROC2 ---
Procedure Note - Detailed Date of Procedure 05/03/23 Pre-op Diagnosis Bilateral Primary Osteoarthritis of Knees Post-op Diagnosis Same Procedure Performed bilateral diagnostic/ prognostic genicular / vastus intermedius nerves ( 8 nerves total ) under fluoroscopic guidance and contrast control Surgeon Dejon Salcedo MD Anesthesia Local Description of Procedure INFORMED CONSENT: Risks, benefits and alternatives to the procedure were discussed in detail with the patient who expressed explicit understanding and consent to proceed. Patient was informed verbally and in written form regarding the risks associated with the procedure including the low risk of serious infection, bleeding/bruising, allergic reaction, nerve injury, paralysis, procedural site pain or discomfort, worsening pain and/or mobility, failure to treat and disfigurement. The patient expressed explicit understanding and consent to proceed. All materials required for the procedure were available prior to procedure start. Site and side was marked prior to procedure and confirmed in the presence of the patient. PROCEDURE IN DETAIL: The patient was brought to the procedural suite and placed in the supine position. Patient was made comfortable with use of pillows under the head/shoulder, knees and ankles. Skin overlying anterior, medial and lateral surface of the knee joint on the right side was prepared broadly with ChloraPrep applicator and draped in a sterile manner. Aseptic technique was used throughout. The intersection between the femoral shaft and the medial femoral condyle, lateral femoral condyle and between the medial tibial plateau and tibial shaft were visualized in the AP view, as well as the line bisecting the femur and perpendicular to the short axis of the joint space 6cm proximal to the superior border of the patella with the knee partially flexed at 120 degrees. Local anesthesia was established by infiltration with approximately 3 mL of 2% lidocaine via a 1-1/2 inch 27-gauge needle at the skin and soft tissues overlying each site. A 25-gauge 3.5 inch quincke spinal needle was advanced until the needle tip contacted periosteum at each location, and was then walked off medially to approximate the position of the Superior and Inferior Medial Genicular nerves or laterally to approximate the position of the Superior Lateral Genicular nerve, and just superficial to femoral periosteum 6cm proximal to the patella to block the Vastus intermedius nerve. Needle depth was verified in the lateral view revealing appropriate needle positioning at each location. 0.5ml of Omnipaque 300 contrast medium was injected at each site confirming appropriate perineural spread of contrast without evidence of intravascular or intra-articular spread. After repeat negative aspiration, 0.5-1.0ml of 0.5% PF Bupivacaine was injected at each site to block the respective nerves. Needle was removed completely intact without difficulty. Images were saved and documented in the patient chart. Patient's skin was cleansed and sterile bandage applied. The patient tolerated the procedure well. The patient was transported to the recovery area in stable condition where they were observed for an appropriate amount of time prior to discharge, without evidence of complication. Patient was instructed on the appropriate completion of a pain diary over the next 12-24 hours. The patient was instructed to avoid excessive activity for the next 48 hours, including climbing and frequent use of stairs. Showers only for 48 hours. They were instructed not to drive or operate heavy machinery for 24 hours. They are to monitor for severe headaches, fevers, chills, night sweats, erythema/swelling at the site or any other signs of infection, bleeding/bruising, bowel or bladder changes as well as new pain, weakness or numbness in the upper or lower extremity. Should they notice these changes, they are instructed to call our office immediately or report direct
[2023-05-03 11:22] VITALS: BP 121/62; PULSE 69; RESP 20; TEMP 36.8; O2SAT 100
[2023-05-03 11:53] VITALS: BP 166/77; PULSE 68; RESP 20; O2SAT 96
[2023-05-03 12:03] VITALS: BP 146/76; PULSE 66; RESP 20; O2SAT 96
[2023-05-03 12:05] VITALS: BP 158/85; PULSE 73; RESP 20; O2SAT 97
[2023-05-03 12:10] VITALS: BP 153/85; PULSE 71; RESP 20; O2SAT 99
[2023-05-03] MEDS: BUPivacaine HCL 0.5% 10 ML AMP 5 ML INFILTRATE (12:14)
[2023-05-03] MEDS: LIDOCAINE HCL 1% PF INJ 5 ML VIAL INFILTRATE (12:15)
[2023-05-03 12:46] VITALS: BP 146/73; PULSE 77; RESP 20; O2SAT 94
== END 2023-05-03 12:38 | disposition home or self-care (01) ==
PROVIDERS: PCP Family Medicine; Visit Provider Anesthesiology Pain Medicine
PROC: (CPT 64454; principal; 2023-05-03 11:30)
DX: M17.0 Bilateral primary osteoarthritis of knee (principal)
CPT/HCPCS: 64454; 99199

== ENCOUNTER 2023-06-07 13:37 | Outpatient (CLI) | payer MEDICARE, SELFPAY ==
--- NOTE | ~2023-06-07 | MR_ITS ---
EXAMINATION: MR lumbar spine wo con DATE: 06/07/2023 14:44 INDICATION: Lumbar spinal stenosis with neurogenic claudication and radiculopathy TECHNIQUE: Magnetic resonance imaging (MRI) of the lumbar spine was performed without intravenous con trast. Sequences included sagittal T2-weighted FSE, sagittal T2-weighted FS FSE, sagittal T1-weighted FSE, and axial T2-weighted FSE. COMPARISON: CT dated 12/10/2022 and MRI dated 01/11/2017 FINDINGS: 3 mm retrolisthesis L3 on L4 and 2 mm retrolisthesis L4 on L5 and L5 on S1. Again seen are multiple S chmorl's nodes along the endplates on both sides of T11-T12 through L4-L5. Vertebral body heights are otherwise normal. Severe right-sided disc height loss at L3-L4 and severe left-sided disc height los s at L4-L5 each with associated degenerative fibrovascular and Modic type III sclerotic endplate cueto ges. Moderate disc height loss at: L2 and L2-L3. Mild disc height loss at T11-T12 and T12-L1. The con us medullaris terminates at L1. There is normal signal in the caudal spinal cord. There is epidural l ipomatosis in the mid to lower lumbar spine which contributes to central canal stenosis which will be detailed below. Paravertebral soft tissues are unremarkable. The following disc levels are specifica lly discussed: T12-L1: Minimal disc bulge. There is moderate bilateral facet joint osteoarthritis. There is minimal right neural foraminal stenosis. There is no central canal stenosis. L1-L2: Disc is minimally bulging with superimposed right foraminal zone disc protrusion. There is mil d bilateral facet joint osteoarthritis. There is mild right and minimal left neural foraminal stenosi s. There is minimal central canal stenosis. L2-L3: There are diffuse disc bulge with annular fissure. There is mild bilateral facet joint osteoar thritis. There is mild bilateral neural foraminal stenosis. There is mild central canal stenosis. L3-L4: Annular fissure with broad-based disc extrusion extending from foraminal zone to foraminal zon e with disc material extending a few millimeter caudal to the level of the superior endplate of L4. T here is moderate bilateral facet joint osteoarthritis. There is moderate bilateral neural foraminal s tenosis. There is severe central canal stenosis. L4-L5: Annular fissure with broad-based disc extrusion extending from foraminal zone to foraminal zon e with disc material extending a few millimeter caudal to the level of the superior endplate of L5. T here is left and severe right facet joint osteoarthritis. There is moderate right and moderate to sev ere left neural foraminal stenosis. There is moderate to severe central canal stenosis. L5-S1: Disc is moderately bulging. There is mild right and mild to moderate left facet joint osteoart hritis. There is moderate bilateral neural foraminal stenosis. There is no central canal stenosis. IMPRESSION: 1. Minimal progression of severe lumbar spondylosis. Reviewed, dictated and finalized at location A.
== END 2023-06-07 13:38 | disposition home or self-care (01) ==
PROVIDERS: PCP Family Medicine; Visit Provider Anesthesiology Pain Medicine
DX: M54.17 Radiculopathy, lumbosacral region (principal); M48.062 Spinal stenosis, lumbar region with neurogenic claudication; M43.06 Spondylolysis, lumbar region
CPT/HCPCS: 72148

== ENCOUNTER 2023-06-11 16:45 | Emergency (ER) | payer MEDICARE, SELFPAY ==
--- NOTE | ~2023-06-11 | XR_ITS ---
EXAMINATION: [id number]_CR DATE: 06/11/2023 20:23 INDICATION: Left rib pain. Fall. TECHNIQUE: A frontal view of the chest and 2 views on 4 radiographs of the left ribs were obtained. COMPARISON: Chest 2 views 05/26/2022 FINDINGS: The lung volumes are small. There is mild atelectasis in right lower lung zone. No pleural effusion or pneumothorax. The heart size is normal. An electronic implant overlies left chest. There are multiple old left rib fractures. IMPRESSION: 1. No acute rib fracture. Reviewed, dictated and finalized at location A. IMPRESSION: 1. No acute rib fracture.
[2023-06-11 19:31] VITALS: BP 121/76; PULSE 72; RESP 18; TEMP 36.7; O2SAT 100
--- NOTE | 2023-06-11 19:58 | ECG_ITS ---
Measurements Intervals [place] Rate: 66 P: 53 DC: 249 QRS: -83 QRSD: 135 T: 42 QT: 412 QTc: 434 Interpretive Statements SINUS RHYTHM WITH FIRST DEGREE AV BLOCK RIGHT BUNDLE BRANCH BLOCK LEFT ANTERIOR FASCICULAR BLOCK BASELINE ARTIFACT- I, II, AVR, V1-V2 ABNORMAL ECG COMPARED TO ECG 09/08/2022 04:06:07 NO SIGNIFICANT CHANGES Electronically Signed On 06-11-2023 21:16:06 CDT by Yury Lawrence D.O.
--- NOTE | 2023-06-11 19:59 | ED.FALL ---
HPI - Fall General Chief Complaint: Fall Stated Complaint: fall Time Seen by Provider: 06/11/23 19:52 Source: patient and family Mode of arrival: EMS Limitations: no limitations History of Present Illness HPI Narrative: patient presents after an accidental fall. He was in the bathroom and reaching to grab the grab bar for extra stability but he missed it and ended up falling and wedging himself between the wall and the toilet. In the process of falling he struck his left chest on Vick is complaining of left-sided rib pain. He states he initially had difficulty breathing but denies any at present. No loss of consciousness. Incident occurred at approximately 3:00 p.m.. Patient required ambulance to help him get out from between wall and toilet. he has a history of a stroke (2018) which leaves him with some left arm weakness. Patient is on clopidogrel. 5 out of 10 pain. Related Data Home Medications Medication Instructions Recorded Confirmed mirtazapine 7.5 mg tablet 7.5 mg PO HS ##0 10/31/21 04/25/23 cholecalciferol (vitamin D3) 125 125 mcg PO DAILY 07/19/22 05/03/23 mcg (5,000 unit) capsule insulin lispro 100 unit/mL 1 sliding scale dose subcut TIDWM 09/07/22 05/03/23 subcutaneous pen polyethylene glycol 3350 17 17 g PO DAILY 09/08/22 04/25/23 gram/dose oral powder (Miralax) acetaminophen 650 mg 1,300 mg PO ONCE 11/17/22 05/03/23 tablet,extended release (Tylenol Arthritis Pain) lactulose 10 gram/15 mL oral 30 ml PO ONCE 11/17/22 04/25/23 solution melatonin 10 mg capsule 10 mg PO QHS 11/17/22 05/03/23 bupropion HCl 100 mg tablet 150 mg PO ONCE 01/12/23 05/03/23 atorvastatin 40 mg tablet 40 mg PO DIRECTED 04/25/23 05/03/23 potassium chloride 10 mEq 10 meq PO DAILY 04/25/23 04/25/23 tablet,extended release Allergies Allergy/AdvReac Type Severity Reaction Status Date / Time barley Allergy Severe abdominal Verified 05/03/23 10:58 pain wheat Allergy Severe abdominal Verified 05/03/23 10:58 pain furosemide [From Lasix] AdvReac Intermediate Nausea and Verified 05/03/23 10:58 Vomiting pregabalin AdvReac Unknown Confusion Verified 05/03/23 10:58 rosuvastatin AdvReac Unknown Muscle pain Verified 05/03/23 10:58 Wjissdu-PMZ-ApO Reductase AdvReac Unknown muscle Verified 05/03/23 10:58 Inhibitor crampin [Qtesnfy-Zwl-Snw Reductase Inhibitor] Barley Flour Allergy Severe abdominal Uncoded 05/03/23 10:58 pain Oat Allergy Severe abdominal Uncoded 05/03/23 10:58 pain [place] Allergy Severe abdominal Uncoded 05/03/23 10:58 pain [place] Flour Allergy Severe abdominal Uncoded 05/03/23 10:58 pain Gluten Flour Allergy Intermediate Other Uncoded 05/03/23 10:58 PMF Past Medical History Medical History (Updated 06/12/23 @ 00:02 by Jarvis Del Rio) Anxiety Arthritis Benign prostatic hyperplasia Carpal tunnel syndrome on both sides s/p release Celiac disease Cerebrovascular accident (~2018) 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 CAIMLLA was unremarkable. Chronic anemia Chronic insomnia Colon polyps Depression Diabetic peripheral neuropathy Diabetic retinopathy Dialysis patient DM renal manif type II End-stage renal disease on peritoneal dialysis History of stroke with current residual effects Hyperlipidemia Hypertension Implantable loop recorder present Insulin dependent type 2 diabetes mellitus Kidney stones Nasal fracture Nonsustained ventricular tachycardia Obstructive sleep apnea Peritoneal dialysis catheter in place Proliferative diabetic retinopathy Statin intolerance Status post placement of implantable loop recorder Syncope Surgical History Surgical History History of bilateral carpal tunnel release History of cataract extraction History of cervical spinal surgery History of surgical procedure on eye proper using laser History of vitrectomy Status post cataract extraction
[2023-06-11 20:36] LABS: Basophils Absolute Auto 0.1 K/mm3 (0.0-0.1); Basophils Percent Auto 0.6 % (0.2-1.2); Eosinophils Absolute Auto 0.2 K/mm3 (0-0.3); Eosinophils Percent Auto 1.8 % (0-4.4); Hematocrit 40.8 % (42.0-52.0); Hemoglobin 13.1 g/dL (14.0-18.0); Immature Granulocyte Absolute 0.04 K/mm3 (0.00-0.031); Immature Granulocyte Percent A 0.4 % (0-0.5); Lymphocytes Absolute Auto 1.46 K/mm3 (0.9-3.2); Lymphocytes Percent Auto 13.9 % (18.3-44.2); Mean Corpuscular HGB Conc 32.1 g/dl (32-36); Mean Corpuscular Hemoglobin 31.7 pg (26-34); Mean Corpuscular Volume 98.8 fl (80-100); Mean Platelet Volume 9.8 fl (7.4-10.4); Monocytes Absolute Auto 0.9 K/mm3 (0.1-0.6); Monocytes Percent Auto 8.5 % (2.6-8.5); Neutrophils Absolute Auto 7.8 K/mm3 (1.3-6.7); Neutrophils Percent Auto 74.8 % (45.5-73.1); Platelet Count Result 214 k/mm3 (150-375); Red Blood Count 4.13 M/mm3 (4.6-6.20); Red Cell Distribution Width 13.3 % (11.5-14.5); White Blood Count 10.5 K/mm3 (4.5-10.0)
[2023-06-11] MEDS: ACETAMINOPHEN 500 MG TABLET 1000 MG PO (20:40)
[2023-06-11 20:45] LABS: Alanine Aminotransferase 25 U/L (6-50); Albumin Level 3.8 g/dL (3.5-5.1); Alkaline Phosphatase 109 U/L (38-126); Anion Gap 9 mmol/L (4-12); Aspartate Amino Transferase 32 U/L (17-59); Bilirubin,Total 0.6 mg/dL (0.2-1.3); Blood Urea Nitrogen 43 mg/dL (9-20); Calcium 8.4 mg/dL (8.4-10.2); Carbon Dioxide 31 mmol/L (22-30); Chloride 96 mmol/L (98-107); Estimated CRCL calculation 10 ml/min; Estimated Glomerular Filt Rate 6; Glucose 192 mg/dL (65-110); Magnesium 2.6 mg/dL (1.6-2.3); Potassium 4.1 mmol/L (3.4-5.0); Sodium 136 mmol/L (137-145)
[2023-06-11 20:46] LABS: Prothrombin Time 13.2 Seconds (11.1-14.7)
[2023-06-11 20:47] LABS: Partial Thromboplastin Time 29.6 Seconds (22.3-36.8)
[2023-06-11 21:36] VITALS: BP 138/84; PULSE 67; RESP 11; O2SAT 100
--- NOTE | 2023-06-11 21:47 | PC.NURSE ---
upon discharge pt family member questioned discharge and asked to speak with EDp Dr. Henao. This rn notified edp dr. henao.
== END 2023-06-11 22:00 | disposition home or self-care (01) ==
PROVIDERS: Emergency Provider Student in an Organized Health Care Education/Training Program; PCP Family Medicine
DX: R07.89 Other chest pain (principal); W19.XXXA Unspecified fall, initial encounter; I44.0 Atrioventricular block, first degree; I45.2 Bifascicular block; D72.829 Elevated white blood cell count, unspecified; D64.9 Anemia, unspecified; E11.65 Type 2 diabetes mellitus with hyperglycemia; Z79.4 Long term (current) use of insulin; I12.0 Hypertensive chronic kidney disease with stage 5 chronic kidney disease or end stage renal disease; E11.22 Type 2 diabetes mellitus with diabetic chronic kidney disease; N18.6 End stage renal disease; Z99.2 Dependence on renal dialysis; Z87.891 Personal history of nicotine dependence; N40.0 Benign prostatic hyperplasia without lower urinary tract symptoms; E11.42 Type 2 diabetes mellitus with diabetic polyneuropathy; Z86.73 Personal history of transient ischemic attack (TIA), and cerebral infarction without residual deficits; E78.5 Hyperlipidemia, unspecified; M19.90 Unspecified osteoarthritis, unspecified site; F41.9 Anxiety disorder, unspecified; F32.A Depression, unspecified
CPT/HCPCS: 36415; 71101; 80053; 83735; 85025; 85610; 85730; 93005; 99283; A9270

== ENCOUNTER 2023-06-30 18:46 | Inpatient (IN) | payer MEDICARE, SELFPAY ==
--- NOTE | ~2023-06-30 | CT_ITS ---
EXAMINATION: CT brain wo con DATE: 06/30/2023 20:45 INDICATION: Altered mental status. TECHNIQUE: Computed tomography (CT) of the head was performed without intravenous contrast. The mA wa s adjusted according to patient size. Iterative reconstruction technique was employed. The dose-lengt h product was 605.33 mGy-cm. COMPARISON: Head CT 12/27/2022 FINDINGS: There are old infarcts in the doron and right thalamus. There are scattered areas of low att enuation in the cerebral white matter. There is no intracranial hemorrhage, acute infarction, or abno rmal intracranial mass lesion. The ventricles are normal in size. There are likely changes of ocular lens replacement surgeries. There is mild mucosal thickening in the paranasal sinuses. The mastoid ai r cells are normal. IMPRESSION: 1. Old infarcts in the right thalamus and doron. 2. Stable extensive nonspecific cerebral white matter disease, which likely represents chronic small vessel ischemic disease. Reviewed, dictated and finalized at location E. IMPRESSION: 1. Old infarcts in the right thalamus and doron. 2. Stable extensive nonspecific cerebral white matter disease, which likely rep resents chronic small vessel ischemic disease.
[2023-06-30 19:20] VITALS: BP 131/112; PULSE 85; RESP 22; TEMP 36.6; O2SAT 97
--- NOTE | 2023-06-30 19:43 | ECG_ITS ---
SEE SCANNED COPY FOR CONFIRMED REPORT MTDD
[2023-06-30 20:12] LABS: Basophils Absolute Auto 0.1 K/mm3 (0.0-0.1); Basophils Percent Auto 0.7 % (0.2-1.2); Eosinophils Absolute Auto 0.2 K/mm3 (0-0.3); Eosinophils Percent Auto 2.2 % (0-4.4); Hemoglobin 12.9 g/dL (14.0-18.0); Immature Granulocyte Absolute 0.04 K/mm3 (0.00-0.031); Immature Granulocyte Percent A 0.5 % (0-0.5); Lymphocytes Absolute Auto 1.69 K/mm3 (0.9-3.2); Lymphocytes Percent Auto 19.9 % (18.3-44.2); Mean Corpuscular HGB Conc 32.3 g/dl (32-36); Mean Corpuscular Volume 99.3 fl (80-100); Monocytes Absolute Auto 0.9 K/mm3 (0.1-0.6); Monocytes Percent Auto 10.7 % (2.6-8.5); Neutrophils Absolute Auto 5.6 K/mm3 (1.3-6.7); Platelet Count Result 204 k/mm3 (150-375); Red Blood Count 4.03 M/mm3 (4.6-6.20); Red Cell Distribution Width 14.1 % (11.5-14.5); White Blood Count 8.5 K/mm3 (4.5-10.0)
[2023-06-30 20:21] LABS: Alanine Aminotransferase 19 U/L (6-50); Albumin Level 3.9 g/dL (3.5-5.1); Alkaline Phosphatase 111 U/L (38-126); Anion Gap 8 mmol/L (4-12); Aspartate Amino Transferase 25 U/L (17-59); Bilirubin,Total 0.6 mg/dL (0.2-1.3); Blood Urea Nitrogen 44 mg/dL (9-20); Calcium 8.6 mg/dL (8.4-10.2); Carbon Dioxide 31 mmol/L (22-30); Chloride 99 mmol/L (98-107); Estimated CRCL calculation 10 ml/min; Estimated Glomerular Filt Rate 6; Glucose 142 mg/dL (65-110); Potassium 3.5 mmol/L (3.4-5.0); Sodium 138 mmol/L (137-145)
[2023-06-30 20:49] LABS: Prothrombin Time 13.9 Seconds (11.1-14.7)
--- NOTE | 2023-06-30 20:52 | ED.AMS ---
HPI - Altered Mental Status General Chief Complaint: Altered Mental Status Stated Complaint: unable to urinate confusion Time Seen by Provider: 06/30/23 19:58 History of Present Illness HPI narrative: Patient is a 72-year-old male who presents ER with his for a new altered mental status. Ongoing for 2-3 days. Patient is alert to self and place but cannot provide the date. He is on peritoneal dialysis. No change in dialysis fluid color. No abdominal pain. He has had decreased urine output over last 48 hours. 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 reports he usually has a pretty saturated diaper twice a day. No reports of fever or discomfort. Related Data Home Medications Medication Instructions Recorded Confirmed mirtazapine 7.5 mg tablet 7.5 mg PO HS ##0 10/31/21 07/01/23 cholecalciferol (vitamin D3) 125 125 mcg PO DAILY 07/19/22 07/01/23 mcg (5,000 unit) capsule insulin lispro 100 unit/mL 1 sliding scale dose subcut TIDWM 09/07/22 07/01/23 subcutaneous pen polyethylene glycol 3350 17 17 g PO DAILY 09/08/22 07/01/23 gram/dose oral powder (Miralax) acetaminophen 650 mg 1,300 mg PO ONCE 11/17/22 07/01/23 tablet,extended release (Tylenol Arthritis Pain) lactulose 10 gram/15 mL oral 30 ml PO ONCE 11/17/22 07/01/23 solution melatonin 10 mg capsule 10 mg PO QHS 11/17/22 07/01/23 bupropion HCl 100 mg tablet 150 mg PO ONCE 01/12/23 07/01/23 atorvastatin 40 mg tablet 40 mg PO DAILY 04/25/23 07/01/23 potassium chloride 10 mEq 10 meq PO DAILY 04/25/23 07/01/23 tablet,extended release Allergies Allergy/AdvReac Type Severity Reaction Status Date / Time barley Allergy Severe abdominal Verified 06/30/23 21:10 pain wheat Allergy Severe abdominal Verified 06/30/23 21:10 pain furosemide [From Lasix] AdvReac Intermediate Nausea and Verified 06/30/23 21:10 Vomiting pregabalin AdvReac Unknown Confusion Verified 06/30/23 21:10 rosuvastatin AdvReac Unknown Muscle pain Verified 06/30/23 21:10 Iyauqtv-CEW-YzD Reductase AdvReac Unknown muscle Verified 06/30/23 21:10 Inhibitor crampin [Ijegmzr-Trw-Omg Reductase Inhibitor] Barley Flour Allergy Severe abdominal Uncoded 06/30/23 21:10 pain Oat Allergy Severe abdominal Uncoded 06/30/23 21:10 pain [place] Allergy Severe abdominal Uncoded 06/30/23 21:10 pain [place] Flour Allergy Severe abdominal Uncoded 06/30/23 21:10 pain Gluten Flour Allergy Intermediate Other Uncoded 05/03/23 10:58 Review of Systems Review of Systems: ROS unobtainable: Yes unobtainable due to mental status [facility] Past Medical History Medical History (Updated 07/01/23 @ 01:11 by Rk Webber MD) Anxiety Arthritis Benign prostatic hyperplasia Carpal tunnel syndrome on both sides s/p release Celiac disease Cerebrovascular accident (~2017) 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 CAMILLA was unremarkable. Chronic anemia Chronic insomnia Colon polyps Depression Diabetic peripheral neuropathy Diabetic retinopathy Dialysis patient DM renal manif type II End-stage renal disease on peritoneal dialysis History of stroke with current residual effects Hyperlipidemia Hypertension Implantable loop recorder present Insomnia Insulin dependent type 2 diabetes mellitus Kidney stones Nasal fracture Nonsustained ventricular tachycardia Obstructive sleep apnea Peritoneal dialysis catheter in place Proliferative diabetic retinopathy Statin intolerance Status post placement of implantable loop recorder Syncope Surgical History Surgical History History of bilateral carpal tunnel release History of cataract extraction History of cervical spinal surgery History of surgical procedure on eye proper using laser History of vitrectomy Status post cataract extraction Family History Family History (Reviewed 03/21/23 @ 09:31 by Dona
[2023-06-30 21:06] VITALS: PULSE 73
[2023-06-30 21:08] VITALS: BP 175/86; PULSE 71; RESP 18; O2SAT 100; O2SAT 98
[2023-06-30 21:15] LABS: Add Urine Microscopic? YES; Appearance Urine Clear (Clear); Bacteria Urine None Seen /hpf; Bilirubin Urine Negative (Negative); Blood Urine Negative (Negative); Color Urine Yellow (Yellow); Glucose Urine UA Trace mg/dL (Negative); Ketones Urine Negative (Negative); Leukocyte Esterase Ur 2+ LEU/UL (Negative); Nitrate Urine Negative (Negative); Non Pathogenic Casts 0-2; Protein Urine 3+ mg/dL (Negative); RBC Urine 0-2 /hpf (0-2); Specific Grav Ur 1.018 (1.001-1.035); Squamous Epithelial Cell Urine Occasional /hpf (Few); Urobilinogen Urine 0.2 mg/dL (<2.0); WBC Urine 51-100 /hpf (0-3)
[2023-06-30] MEDS: SODIUM CHLORIDE 0.9% IV 500 ML 999 ML IV CONT (21:20)
[2023-06-30 22:17] LABS: Ammonia < 9 umol/L (9-30)
[2023-06-30 22:29] LABS: Alveolar/Arterial O2 Gradient 23.5 mmHg; Base Excess ABG -1.4 mEq/l (+/-2.0); Fractional Inspired Oxygen 21 %; HCO3 ABG 22.9 mEq/l (22.0-26.0); Oxygen Content ABG 16.7 %vol (16.0-22.0); Oxygen Saturation ABG 96.2 % (95.0-100.0); Oxyhemoglobin 94.1 % THb (90.0-100.0); PCO2 ABG 37.1 mmHg (35.0-45.0); PO2 ABG 81.8 mmHg (80.0-100.0); Total Hemoglobin 12.6 g/dL (12.0-18.0); pH ABG 7.408 (7.350-7.450)
[2023-06-30 22:31] LABS: Modified Allen's Test Pass; Site Drawn RIGHT RADIAL
--- NOTE | 2023-06-30 23:02 | PC.NURSE ---
this rn assumed care of patient. this rn took patient report from CARMELA Marshall.
--- NOTE | 2023-06-30 23:31 | PM.IMHP ---
H&P: HPI History of Present Illness Date/Time: 06/30/23 23:31 Chief Complaint: Altered mental status Narrative: 72-year-old male with past medical history insomnia disorder, CVA with slight left-sided weakness residual, ESRD on peritoneal dialysis,Osteoarthritis and spinal stenosis and lumbar sacral radiculopathy, diabetic retinopathy, diabetic neuropathy, insulin dependent diabetes mellitus, obesity, depression and anxiety, chronic anemia, hyperlipidemia, hypertension, SADAF presenting with altered mental status. He lives at home with his Moinca and she brings in min as he seems to be confused. Upon evaluation he does not know what month or year it is otherwise knows he is confused and is able to converse. Even complains that he wants to go home. reports that the patient not take any pain meds for his DJD. He does take 4 mg eszopiclone nightly and that has not changed. She thinks that he gets like this sometimes when he is tired and otherwise when he had his last stroke to which she reports he has a residual left-sided weakness. There has been no change in his peritoneal dialysis in fact they saw Dr. Song yesterday. Has been no change in the PD fluid. He does usually so himself twice per day but the last 24 hours he has only made in of urine for urine sample in the ER. The patient denies any complaints whatsoever including cough chest pain shortness of breath abdominal pain nausea or vomiting diarrhea. He does take acetaminophen sometimes but he has not done so in weeks. Review of Systems Review of Systems: All systems reviewed & are unremarkable except as noted in HPI and below (Subjective) [facility] Past Medical History Medical History (Updated 06/30/23 @ 23:40 by Yeny Aguilar MD) Anxiety Arthritis Benign prostatic hyperplasia Carpal tunnel syndrome on both sides s/p release Celiac disease Cerebrovascular accident (~2018) 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 CAMILLA was unremarkable. Chronic anemia Chronic insomnia Colon polyps Depression Diabetic peripheral neuropathy Diabetic retinopathy Dialysis patient DM renal manif type II End-stage renal disease on peritoneal dialysis History of stroke with current residual effects Hyperlipidemia Hypertension Implantable loop recorder present Insomnia Insulin dependent type 2 diabetes mellitus Kidney stones Nasal fracture Nonsustained ventricular tachycardia Obstructive sleep apnea Peritoneal dialysis catheter in place Proliferative diabetic retinopathy Statin intolerance Status post placement of implantable loop recorder Syncope Surgical History Surgical History History of bilateral carpal tunnel release History of cataract extraction History of cervical spinal surgery History of surgical procedure on eye proper using laser History of vitrectomy Status post cataract extraction Family History Family History Father Celiac disease CHF (congestive heart failure) Many years of CHF, 80 y.o. 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 Acute myocardial infarction Small heart attacks Son Celiac disease Sibling Family history of obesity Hypertension Cerebrovascular accident Family history of diabetes mellitus in first degree relative Family history of heart disease in male family member before age 55 Grandparent Family history of mental disorder Mother Cerebrovascular accident Family history of arthritis Family history of hearing loss Father Family history of congestive heart failure Family history of heart disease in male family member before age 55 Social History Social History Social History: Worked for [employer] for 30 years. Two children, a daughter who works at the [employer] and a son Lilliana who was bor
[2023-06-30 23:33] VITALS: BP 142/77; PULSE 74; RESP 16; O2SAT 96
[2023-07-01 00:09] VITALS: BMI 38.2
--- NOTE | 2023-07-01 00:19 | ADMGEN ---
This patient, Dewayne Fagan, was admitted to [facility] Surg Room 303-01. Patient/family oriented to hospital policies and general routines including ID bracelet, bed and alarms, visiting hours, pain management, procedures, bathroom and other care routines, personal items, smoking policy, room service/diet, and visiting hours. Information on how to activate the Rapid Response Team has been discussed. Patient/Family are encouraged to report perceived risks to care and to ask questions if they do not understand what they are told or what they should do.
[2023-07-01] MEDS: VANCOMYCIN 2,000 MG/NS 500 ML 2,000 MG/500 ML BAG 250 MG IVPB (01:30)
[2023-07-01 04:57] VITALS: BP 135/64; PULSE 70; RESP 16; TEMP 37.1; O2SAT 98
[2023-07-01 06:30] LABS: Basophils Absolute Auto 0.1 K/mm3 (0.0-0.1); Basophils Percent Auto 0.7 % (0.2-1.2); Eosinophils Absolute Auto 0.2 K/mm3 (0-0.3); Eosinophils Percent Auto 2.3 % (0-4.4); Hematocrit 36.9 % (42.0-52.0); Hemoglobin 11.4 g/dL (14.0-18.0); Immature Granulocyte Absolute 0.02 K/mm3 (0.00-0.031); Immature Granulocyte Percent A 0.2 % (0-0.5); Lymphocytes Absolute Auto 1.84 K/mm3 (0.9-3.2); Lymphocytes Percent Auto 21.4 % (18.3-44.2); Mean Corpuscular HGB Conc 30.9 g/dl (32-36); Mean Corpuscular Hemoglobin 31.1 pg (26-34); Mean Corpuscular Volume 100.8 fl (80-100); Mean Platelet Volume 10.3 fl (7.4-10.4); Monocytes Absolute Auto 0.9 K/mm3 (0.1-0.6); Monocytes Percent Auto 10.2 % (2.6-8.5); Neutrophils Absolute Auto 5.6 K/mm3 (1.3-6.7); Neutrophils Percent Auto 65.2 % (45.5-73.1); Platelet Count Result 184 k/mm3 (150-375); Red Blood Count 3.66 M/mm3 (4.6-6.20); Red Cell Distribution Width 13.9 % (11.5-14.5); White Blood Count 8.6 K/mm3 (4.5-10.0)
[2023-07-01 06:43] LABS: Anion Gap 7 mmol/L (4-12); Blood Urea Nitrogen 45 mg/dL (9-20); Calcium 8.2 mg/dL (8.4-10.2); Carbon Dioxide 27 mmol/L (22-30); Chloride 102 mmol/L (98-107); Estimated CRCL calculation 11 ml/min; Estimated Glomerular Filt Rate 6; Glucose 209 mg/dL (65-110); Magnesium 2.3 mg/dL (1.6-2.3); Potassium 3.6 mmol/L (3.4-5.0); Sodium 136 mmol/L (137-145)
[2023-07-01 07:27] LABS: Procalcitonin 0.2 ng/mL
[2023-07-01 07:55] LABS: Glucose Point of Care 178 mg/dl (65-105)
--- NOTE | 2023-07-01 11:27 | PM.IMPN ---
Progress Note: A&P Assessment and Plan (1) Obstructive sleep apnea: Code(s): G47.33 - Obstructive sleep apnea (adult) (pediatric) Status: Acute (2) History of CVA (cerebrovascular accident): Code(s): Z86.73 - Personal history of transient ischemic attack (TIA), and cerebral infarction without residual deficits Status: Acute (3) ESRD (end stage renal disease): Code(s): N18.6 - End stage renal disease Status: Acute (4) Altered mental status: Code(s): R41.82 - Altered mental status, unspecified Status: Acute (5) Insomnia: Code(s): G47.00 - Insomnia, unspecified Status: Inactive Plan 72-year-old male with past medical history insomnia disorder, CVA with slight left-sided weakness residual, ESRD on peritoneal dialysis,Osteoarthritis and spinal stenosis and lumbar sacral radiculopathy, diabetic retinopathy, diabetic neuropathy, insulin dependent diabetes mellitus, obesity, depression and anxiety, chronic anemia, hyperlipidemia, hypertension, SADAF presenting with altered mental status. He lives at home with his Monica and she brings him in as he seems to be confused. Upon evaluation he does not know what month or year it is otherwise knows he is confused and is able to converse. Even complains that he wants to go home. reports that the patient not take any pain meds for his DJD. He does take 4 mg eszopiclone nightly and that has not changed. She thinks that he gets like this sometimes when he is tired and otherwise when he had his last stroke to which she reports he has a residual left-sided weakness. There has been no change in his peritoneal dialysis in fact they saw Dr. Song yesterday. Has been no change in the PD fluid. He does usually urinate himself twice per day but the last 24 hours he has only made in of urine for urine sample in the ER. The patient denies any complaints whatsoever including cough chest pain shortness of breath abdominal pain nausea or vomiting diarrhea. He does take acetaminophen sometimes but he has not done so in weeks. In [place] ER he was found to have an abnormal urinalysis. Normal ammonia level, reports he takes lactulose only for constipation and has no history of liver disease. Normal ABG. CT head without contrast demonstrating old infarcts in the right thalamus and doron along with chronic small-vessel ischemic disease. Patient given ceftriaxone. Nephrology consulted. The patient does not have urinary complaints in urinalysis is abnormal however could be contaminated. does not remember the patient have any intra-abdominal or bladder infections however on the precautionary side the patient was given ceftriaxone. He does have a history of positive urine cultures for Enterococcus and coag-negative staph which are both sensitive to vancomycin so that will be added. Urine culture is pending. Continue on ceftriaxone and vancomycin as ordered CT head without any acute findings but does reveal stable extensive nonspecific cerebral white matter disease which likely represents chronic small vessel ischemic disease. There is noted old infarcts in the right thalamus and doron. He does have insomnia disorder and reports when he is tired he can be confused sometimes. There have been no medication changes, he does take melatonin 10 mg 4 mg of Eszopiclone so at the very least these could be decreased and he be monitored for improvement. Nephrology has been consulted for inpatient peritoneal dialysis to resume. FEN: Saline lock IV, heart healthy diabetic diet GI prophylaxis: DVT prophylaxis: SCDs Lines: Peripheral IV Code Status: Full code Dispo: Stable. Subjective Date/time seen: 07/01/23 11:27 Interval history: No overnight events. Confusion has resolved. Back to his baseline. Has right foot ulcers chronic. Gets peritoneal dialysis at night which he did on get last night. States the reason he came to the hospital wa
[2023-07-01 12:14] LABS: Glucose Point of Care 249 mg/dl (65-105)
[2023-07-01] MEDS: polyethylene glycoL 3350 17 GM POWD.PACK PO (12:45)
[2023-07-01] MEDS: buPROPion HCL XL (24 HR) 150 MG TABCR PO (12:45)
[2023-07-01] MEDS: POTASSIUM CHLORIDE 10 MEQ ER TABLET PO (12:45)
[2023-07-01] MEDS: INSULIN ASPART (*BKC) 100 UNITS/ML 10 UNITS SUB-Q (12:46)
[2023-07-01] MEDS: NEOMYCIN/POLYMYXIN/BACITRACIN OINTMENT 15 GM TUBE 1 APPLIC TOPICAL (12:47)
[2023-07-01] MEDS: INSULIN ASPART (*BKC) 100 UNITS/ML SUB-Q (12:47)
[2023-07-01 14:00] VITALS: BP 157/81; PULSE 69; RESP 16; TEMP 37.1; O2SAT 99
--- NOTE | 2023-07-01 14:20 | PM.CNNEP ---
Assessment and Plan Assessment and plan (1) ESRD (end stage renal disease): Code(s): N18.6 - End stage renal disease Status: Acute Assessment and Plan: resume nightly peritoneal dialysis follow electroltytes, volume status, and clearance (2) Altered mental status: Code(s): R41.82 - Altered mental status, unspecified Status: Acute Assessment and Plan: as noted by patient and family head CT negative for any acute pathology normal ABG normal ammonia possibly secondary to UTI (?) follow mentation (3) Acute UTI: Code(s): N39.0 - Urinary tract infection, site not specified Status: Acute Assessment and Plan: admission UA suggestive follow culture data on antibiotics (4) Hypertension: Code(s): I10 - Essential (primary) hypertension Status: Chronic Assessment and Plan: a bit higher than baseline at this time follow trend of hemodynamics (5) Diabetes: Qualifiers: Chronic kidney disease stage: stage 4 (severe) Diabetes mellitus complication detail: with chronic kidney disease Diabetes mellitus complication status: with kidney complications Diabetes mellitus usp insulin use: with terminal superintendent use Diabetes mellitus type: type 2 Qualified Code(s): E11.22 - Type 2 diabetes mellitus with diabetic chronic kidney disease; N18.4 - Chronic kidney disease, stage 4 (severe); Z79.4 - penitentiary (current) use of insulin Code(s): E11.9 - Type 2 diabetes mellitus without complications Status: Chronic Assessment and Plan: follow accu-cheks glycemic control per hospitalists I will continue follow patient with you while he remains hospitalized and make further recommendations during his hospital course. Thank you for allowing me to participate in care this patient. History of Present Illness Reason for Consult Consult date: 07/01/23 Reason for consult: end stage renal disease Chief Complaint Chief complaint: AMS, UTI History of Present Illness Narrative: The patient is a 72-year-old male with a past medical history as outlined below who presented to [facility] Emergency room for further evaluation of altered mental status. Apparently, the patient's as well as home health noted the patient seemed to be somewhat confused. The patient self also seem to realize that he was not his baseline mentation as well. He had difficulty stating the month as well as the year but was clear on who he was. Given this is a significant change from his baseline, his family brought him into the emergency room for further assessment. Workup and evaluation emergency room demonstrated the patient be hemodynamically stable and in no apparent distress. He reports his peritoneal dialysis has been going reasonably well and the fluid is clear. Aside from the confusion, he had no other specific complaints with regard to shortness of breath, chest pain, cough, abdominal pain, nausea, vomiting, or diarrhea. Routine blood test demonstrated labs consistent with his known history of end-stage renal disease and his CBC was otherwise unremarkable. His urinalysis was somewhat suggestive of possible urinary tract infection and is felt this may be the reason for his acute confusion. After appropriate cultures were obtained, he was started on antibiotic therapy and subsequently admitted to the hospital for further evaluation and therapy. Renal consultation was requested due to the patient's end-stage renal disease. The patient normally does nightly peritoneal dialysis under the care of Dr. Segun Song through [facility]. He has been compliant with his dialysis treatments and reports compliance with his medications as well. He was just recently seen earlier this week in clinic with Dr. Song. Unfortunately, given the lateness of his admission yesterday evening, he did not receive dialysis overnight. He is tent
[2023-07-01 16:18] VITALS: BP 157/81; PULSE 69; RESP 16; TEMP 37.1
[2023-07-01 16:57] LABS: Glucose Point of Care 97 mg/dl (65-105)
--- NOTE | 2023-07-01 17:42 | PHAR ---
HOME MEDICATIONS VERIFIED: LUNESTA 3 MG TAB LUNESTA 1 MG TAB
[2023-07-01 20:14] VITALS: BP 143/80; PULSE 75; RESP 16; TEMP 36.4; O2SAT 98
[2023-07-01] MEDS: MIRTAZAPINE 7.5 MG TABLET PO (20:29)
[2023-07-01] MEDS: DULoxetine HCL 60 MG CAPSULE.DR PO (20:29)
[2023-07-01] MEDS: ATORVASTATIN 40 MG TABLET PO (20:30)
[2023-07-01] MEDS: MELATONIN 5 MG TABLET 10 MG PO (20:30)
[2023-07-01] MEDS: carvediloL 12.5 MG TABLET PO (20:30)
[2023-07-01 20:43] LABS: Glucose Point of Care 197 mg/dl (65-105)
[2023-07-01] MEDS: INSULIN GLARGINE (*BKC) 100 UNITS/ML 35 UNITS SUB-Q (20:45)
[2023-07-01 23:56] LABS: Vancomycin Random 14.4 ug/mL (10-20)
[2023-07-02] MEDS: VANCOMYCIN 1,250 MG/NS 250 ML 1,250 MG/250 ML BAG 166.67 MG IVPB (02:38)
[2023-07-02 04:59] VITALS: BP 111/43; PULSE 62; RESP 18; TEMP 36.6; O2SAT 98
[2023-07-02 05:36] LABS: Estimated CRCL calculation 10 ml/min; Estimated Glomerular Filt Rate 6
[2023-07-02 07:32] LABS: Glucose Point of Care 177 mg/dl (65-105)
[2023-07-02] MEDS: buPROPion HCL XL (24 HR) 150 MG TABCR PO (08:31)
[2023-07-02] MEDS: CHOLECALCIFEROL 1,000 UNITS TABLET 5000 UNITS PO (08:31)
[2023-07-02] MEDS: polyethylene glycoL 3350 17 GM POWD.PACK PO (08:31)
[2023-07-02] MEDS: INSULIN ASPART (*BKC) 100 UNITS/ML 10 UNITS SUB-Q (08:31)
[2023-07-02] MEDS: CLOPIDOGREL BISULFATE 75 MG TABLET PO (08:31)
[2023-07-02] MEDS: NEOMYCIN/POLYMYXIN/BACITRACIN OINTMENT 15 GM TUBE 1 APPLIC TOPICAL (08:32)
[2023-07-02] MEDS: carvediloL 12.5 MG TABLET PO (08:32)
[2023-07-02] MEDS: POTASSIUM CHLORIDE 10 MEQ ER TABLET PO (08:32)
[2023-07-02 11:17] LABS: Glucose Point of Care 192 mg/dl (65-105)
--- NOTE | 2023-07-02 11:34 | PM.DS ---
DS: Admitting Diagnosis Discharge Date 07/02/2023 Admitting Diagnosis Altered mental status DS: Discharge Diagnosis Discharge Diagnosis (1) Obstructive sleep apnea: Code(s): G47.33 - Obstructive sleep apnea (adult) (pediatric) Status: Acute (2) History of CVA (cerebrovascular accident): Code(s): Z86.73 - Personal history of transient ischemic attack (TIA), and cerebral infarction without residual deficits Status: Acute (3) ESRD (end stage renal disease): Code(s): N18.6 - End stage renal disease Status: Acute (4) Altered mental status: Code(s): R41.82 - Altered mental status, unspecified Status: Acute (5) Insomnia: Code(s): G47.00 - Insomnia, unspecified Status: Inactive DS: Summary Hospital Course Hospital Course: 72-year-old male with past medical history insomnia disorder, CVA with slight left-sided weakness residual, ESRD on peritoneal dialysis,Osteoarthritis and spinal stenosis and lumbar sacral radiculopathy, diabetic retinopathy, diabetic neuropathy, insulin dependent diabetes mellitus, obesity, depression and anxiety, chronic anemia, hyperlipidemia, hypertension, SADAF presenting with altered mental status.? He lives at home with his Monica and she brings him in as he seems to be confused.? Upon evaluation he does not know what month or year it is otherwise knows he is confused and is able to converse.? Even complains that he wants to go home.? reports that the patient not take any pain meds for his DJD.? He does take 4 mg eszopiclone nightly and that has not changed.? She thinks that he gets like this sometimes when he is tired and otherwise when he had his last stroke to which she reports he has a residual left-sided weakness.? There has been no change in his peritoneal dialysis in fact they saw Dr. Song yesterday.? Has been no change in the PD fluid.? He does usually urinate himself twice per day but the last 24 hours he has only made in of urine for urine sample in the ER.? The patient denies any complaints whatsoever including cough chest pain shortness of breath abdominal pain nausea or vomiting diarrhea.? He does take acetaminophen sometimes but he has not done so in weeks. In [place] ER he was found to have an abnormal urinalysis.? Normal ammonia level, reports he takes lactulose only for constipation and has no history of liver disease.? Normal ABG.? CT head without contrast demonstrating old infarcts in the right thalamus and doron along with chronic small-vessel ischemic disease.? Patient given ceftriaxone.? Nephrology consulted.? The patient does not have urinary complaints in urinalysis is abnormal however could be contaminated.? does not remember the patient have any intra-abdominal or bladder infections however on the precautionary side the patient was given ceftriaxone.? He does have a history of positive urine cultures for Enterococcus and coag-negative staph which are both sensitive to vancomycin so that will be added.? Urine culture is pending.? Continue on ceftriaxone and vancomycin as ordered urine culture finalized as less than 10,000 CFU of single Gram-positive organism. Will switch to oral antibiotics at discharge. CT head without any acute findings but does reveal stable extensive nonspecific cerebral white matter disease which likely represents chronic small vessel ischemic disease.? There is noted old infarcts in the right thalamus and doron. He does have insomnia disorder and reports when he is tired he can be confused sometimes.? There have been no medication changes, he does take melatonin 10 mg 4 mg of Eszopiclone so at the very least these could be decreased and he be monitored for improvement. Nephrology has been consulted for inpatient peritoneal dialysis to resume. Peritoneal dialysis was continued during the hospital stay. DVT prophylaxis:? SCDs Lines:? Peripheral IV Code Status:? Full code Dispo:? Stable. Time Spent wi
== END 2023-07-02 12:23 | disposition home or self-care (01) | DRG 689 ==
LOC: ANHED 21:01 → ANH3MEDSUR 23:34
PROVIDERS: Admitting Provider General Practice; Emergency Provider Emergency Medicine; PCP Family Medicine; Visit Provider Internal Medicine
DX: N39.0 Urinary tract infection, site not specified (principal); N18.6 End stage renal disease; I69.354 Hemiplegia and hemiparesis following cerebral infarction affecting left non-dominant side; I12.0 Hypertensive chronic kidney disease with stage 5 chronic kidney disease or end stage renal disease; B96.89 Other specified bacterial agents as the cause of diseases classified elsewhere; E11.42 Type 2 diabetes mellitus with diabetic polyneuropathy; E11.319 Type 2 diabetes mellitus with unspecified diabetic retinopathy without macular edema; E11.22 Type 2 diabetes mellitus with diabetic chronic kidney disease; E78.5 Hyperlipidemia, unspecified; F32.A Depression, unspecified; G47.00 Insomnia, unspecified; G47.33 Obstructive sleep apnea (adult) (pediatric); M54.16 Radiculopathy, lumbar region; N40.0 Benign prostatic hyperplasia without lower urinary tract symptoms; Z99.2 Dependence on renal dialysis; Z79.4 Long term (current) use of insulin; Z98.49 Cataract extraction status, unspecified eye; Z87.891 Personal history of nicotine dependence
CPT/HCPCS: 36415; 36600; 70450; 80048; 80053; 80202; 81001; 82140; 82565; 82805; 82948; 83735; 84145; 85025; 85610; 85730; 87086; 87088; 90945; 93005; 96361; 96365; 96375; 99285; A9270; G0378; J0696; J1815; J3370; J7040

== ENCOUNTER 2023-08-26 11:19 | Inpatient (IN) | payer MEDICARE, SELFPAY ==
[2023-08-26] VITALS (9 sets, daily range): BP systolic 108–170; BP diastolic 53–69; PULSE 67–86; RESP 11–24; TEMP 36.2–36.9; O2SAT 96–98; BMI 36.0
--- NOTE | ~2023-08-26 | XR_ITS ---
EXAMINATION: XR chest 2V DATE: 08/26/2023 12:14 INDICATION: Weakness TECHNIQUE: frontal and lateral views of the chest were obtained. COMPARISON: Chest radiograph dated 05/26/2022 FINDINGS: Lung volumes appear decreased in the frontal projection due to lordotic positioning. No focal airspac e opacities, pulmonary edema, pleural effusion or pneumothorax. The cardiomediastinal silhouette is n ormal. Left pectoral implantable cardiac rehabilitation specialist. IMPRESSION: 1. No acute cardiopulmonary disease. Reviewed, dictated and finalized at location A.
--- NOTE | 2023-08-26 11:26 | ECG_ITS ---
Test Date: 2023-08-26 11:33:21 Measurements Intervals [place] Rate: 78 P: 24 AL: 248 QRS: -77 QRSD: 138 T: 20 QT: 383 QTc: 436 Interpretive Statements SINUS RHYTHM WITH FIRST DEGREE AV BLOCK RIGHT BUNDLE BRANCH BLOCK [120+ ms QRS DURATION, UPRIGHT V1, 40+ ms S IN I/aVL/V4/V5/V6] LEFT ANTERIOR FASCICULAR BLOCK [QRS AXIS <= -45, QR IN I, RS IN II] PROBABLE ANTEROSEPTAL MYOCARDIAL INFARCTION , OF INDETERMINATE AGE [35 ms Q WAVE IN V1-V4] No previous ECG available for comparison Electronically Signed On 08-27-2023 15:50:20 CDT by Pascual Ashton M.D.
[2023-08-26 11:37] LABS: Glucose Point of Care 180 mg/dl (65-105)
[2023-08-26 11:54] LABS: Basophils Absolute Auto 0.1 K/mm3 (0.0-0.1); Basophils Percent Auto 0.4 % (0.2-1.2); Eosinophils Absolute Auto 0.1 K/mm3 (0-0.3); Eosinophils Percent Auto 0.5 % (0-4.4); Hematocrit 40.1 % (42.0-52.0); Hemoglobin 13.2 g/dL (14.0-18.0); Immature Granulocyte Absolute 0.08 K/mm3 (0.00-0.031); Immature Granulocyte Percent A 0.6 % (0-0.5); Lymphocytes Absolute Auto 1.04 K/mm3 (0.9-3.2); Lymphocytes Percent Auto 7.4 % (18.3-44.2); Mean Corpuscular HGB Conc 32.9 g/dl (32-36); Mean Corpuscular Hemoglobin 32.7 pg (26-34); Mean Corpuscular Volume 99.3 fl (80-100); Mean Platelet Volume 9.9 fl (7.4-10.4); Monocytes Absolute Auto 1.1 K/mm3 (0.1-0.6); Monocytes Percent Auto 7.8 % (2.6-8.5); Neutrophils Absolute Auto 11.7 K/mm3 (1.3-6.7); Neutrophils Percent Auto 83.3 % (45.5-73.1); Platelet Count Result 186 k/mm3 (150-375); Red Blood Count 4.04 M/mm3 (4.6-6.20); Red Cell Distribution Width 14.6 % (11.5-14.5); White Blood Count 14.1 K/mm3 (4.5-10.0)
[2023-08-26 12:10] LABS: Alanine Aminotransferase 22 U/L (6-50); Albumin Level 3.7 g/dL (3.5-5.1); Alkaline Phosphatase 100 U/L (38-126); Anion Gap 10 mmol/L (4-12); Aspartate Amino Transferase 20 U/L (17-59); Blood Urea Nitrogen 49 mg/dL (9-20); Calcium 8.6 mg/dL (8.4-10.2); Carbon Dioxide 29 mmol/L (22-30); Chloride 99 mmol/L (98-107); Estimated Glomerular Filt Rate 6; Glucose 178 mg/dL (65-110); Potassium 3.6 mmol/L (3.4-5.0); Sodium 138 mmol/L (137-145)
[2023-08-26 12:18] LABS: Appearance Urine Cloudy (Clear); Bacteria Urine 4+ /hpf; Bilirubin Urine Negative (Negative); Blood Urine 2+ (Negative); Color Urine Yellow (Yellow); Glucose Urine UA Negative (Negative); Ketones Urine Negative (Negative); Leukocyte Esterase Ur 2+ LEU/UL (Negative); Nitrate Urine Negative (Negative); Protein Urine 3+ mg/dL (Negative); Specific Grav Ur 1.018 (1.001-1.035); Squamous Epithelial Cell Urine None Seen /hpf (Few); Urobilinogen Urine 0.2 mg/dL (<2.0); WBC Urine >100 /hpf (0-3); pH Urine 5.5 (5.0-9.0)
[2023-08-26 12:25] LABS: Add Urine Microscopic? YES
--- NOTE | 2023-08-26 15:13 | ED.WEAKNESS ---
HPI - Weakness General Chief complaint: Weakness Stated complaint: weakness Time Seen by Provider: 08/26/23 11:26 Source: family History of Present Illness HPI Narrative: Patient is a 72-year-old male who presents ER with weakness. Typically can get up and helped transfer on his own but has been on too weak to stand up and transfer since last night. He has memory issues and is currently going through her the process of being diagnosed with dementia. There is no reports of fevers or chills or cough. He has been getting his regular peritoneal dialysis. Related Data Home Medications Medication Instructions Recorded Confirmed mirtazapine 7.5 mg tablet 7.5 mg PO HS ##0 10/31/21 07/01/23 cholecalciferol (vitamin D3) 125 125 mcg PO DAILY 07/19/22 07/01/23 mcg (5,000 unit) capsule insulin lispro 100 unit/mL 1 sliding scale dose subcut TIDWM 09/07/22 07/01/23 subcutaneous pen polyethylene glycol 3350 17 17 g PO DAILY 09/08/22 07/01/23 gram/dose oral powder (Miralax) acetaminophen 650 mg 1,300 mg PO ONCE 11/17/22 07/01/23 tablet,extended release (Tylenol Arthritis Pain) lactulose 10 gram/15 mL oral 30 ml PO ONCE 11/17/22 07/01/23 solution melatonin 10 mg capsule 10 mg PO QHS 11/17/22 07/01/23 bupropion HCl 100 mg tablet 150 mg PO ONCE 01/12/23 07/01/23 atorvastatin 40 mg tablet 40 mg PO DAILY 04/25/23 07/01/23 potassium chloride 10 mEq 10 meq PO DAILY 04/25/23 07/01/23 tablet,extended release Allergies Allergy/AdvReac Type Severity Reaction Status Date / Time barley Allergy Severe abdominal Verified 06/30/23 21:10 pain wheat Allergy Severe abdominal Verified 06/30/23 21:10 pain furosemide [From Lasix] AdvReac Intermediate Nausea and Verified 06/30/23 21:10 Vomiting pregabalin AdvReac Unknown Confusion Verified 06/30/23 21:10 rosuvastatin AdvReac Unknown Muscle pain Verified 06/30/23 21:10 [id number]-[id number]-[id number] Reductase AdvReac Unknown muscle Verified 06/30/23 21:10 Inhibitor crampin [Ezlntek-Dug-Lyy Reductase Inhibitor] Barley Flour Allergy Severe abdominal Uncoded 06/30/23 21:10 pain Oat Allergy Severe abdominal Uncoded 06/30/23 21:10 pain Aynor Allergy Severe abdominal Uncoded 06/30/23 21:10 pain Aynor Flour Allergy Severe abdominal Uncoded 06/30/23 21:10 pain Gluten Flour Allergy Intermediate Other Uncoded 05/03/23 10:58 Review of Systems Review of Systems: ROS unobtainable: Yes unobtainable due to mental status [facility] Past Medical History Medical History (Updated 08/26/23 @ 17:26 by Rk Webber MD) Anxiety Arthritis Benign prostatic hyperplasia Celiac disease Cerebrovascular accident (~2018) 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 CAMILLA was unremarkable. Chronic anemia Chronic insomnia Colon polyps Depression Diabetic peripheral neuropathy Diabetic retinopathy End-stage renal disease on peritoneal dialysis Hyperlipidemia Hypertension Insomnia Insulin dependent type 2 diabetes mellitus Kidney stones Nonsustained ventricular tachycardia Obstructive sleep apnea Proliferative diabetic retinopathy Statin intolerance Syncope Vascular dementia Surgical History Surgical History (Updated 08/26/23 @ 17:06 by Cara De Leon PA-C) History of bilateral carpal tunnel release History of cataract extraction History of cervical spinal surgery History of loop recorder History of surgical procedure on eye proper using laser History of vitrectomy Family History Family History Father Celiac disease CHF (congestive heart failure) Many years of CHF, 80 y.o. 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 Acute myocardial infarction Small heart attacks Son Celiac disease Sibling Family history of obesity Hypertension Cerebrovascular accident Family history of diabetes mellitus in first degree relative Family history of heart di
--- NOTE | 2023-08-26 16:38 | PM.IMHP ---
H&P: HPI History of Present Illness Date/Time: 08/26/23 16:50 Chief Complaint: Weakness. Narrative: This is a 72-year-old male with cerebrovascular accident and residual left-sided weakness, recent diagnosis of vascular dementia, end-stage renal disease on peritoneal dialysis, heart failure with preserved ejection fraction, hypertension, hyperlipidemia, insulin-dependent type 2 diabetes mellitus, obstructive sleep apnea, and chronic anemia who presented to the emergency department via EMS from home for evaluation of weakness. The patient provides the following history however his provides the majority of the following information. He is known to the hospitalist service from a 2 day stay in mid June at which time he was treated for a UTI. He presented to [facility] on 07/11/2023 with altered mental status and was hospitalized at their facility for nearly 3 weeks. Ultimately it was thought his confusion was due to delirium in the setting of polypharmacy, recent hospitalization, disrupted sleep patterns, and baseline cognitive impairment. He was seen by Geriatrics and their assessments were consistent with dementia. Melatonin, mirtazapine, aripiprazole, and eszopiclone were discontinued and his duloxetine dose was decreased. He was discharged for halfway but did not think he was getting good care (1 day she found him on the floor when she went to visit) and she signed him out against medical advice. Is my understanding and he is been doing okay at home the last couple of weeks and this morning he was in his usual state of health when he awoke. As the day progressed however he became less responsive and weak. She called 911 on EMS arrival his blood pressure was reportedly 80/40. He received a 400 mL bolus with improvement. In the ED: He was afebrile on arrival with stable vital signs. Labs were significant for a WBC count of 14.1, hemoglobin 13.2, BUN 49, creatinine 8.40, glucose 180. Electrolytes were within normal limits. Urine was positive for 3+ protein, 2+ blood, 2+ leukocyte esterase, 6 to 10 RBC, greater than 100 WBC, and 4+ bacteria. Chest x-ray showed no acute cardiopulmonary disease. He was given a dose of ceftriaxone and is being admitted in this setting for further treatment and evaluation. At the time my evaluation he is alert and has no complaints. He does not remember what happened today or why he was brought to the hospital. He denies headache, sinus congestion, sore throat, chest pain, shortness of breath, abdominal pain, nausea, vomiting, diarrhea, and dysuria. Review of Systems Review of Systems: 12 systems were reviewed and are negative except for as per HPI. [facility] Past Medical History Medical History Anxiety Arthritis Benign prostatic hyperplasia Celiac disease Cerebrovascular accident (~2018) 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 CAMILLA was unremarkable. Chronic anemia Chronic insomnia Colon polyps Depression Diabetic peripheral neuropathy Diabetic retinopathy End-stage renal disease on peritoneal dialysis Hyperlipidemia Hypertension Insomnia Insulin dependent type 2 diabetes mellitus Kidney stones Nonsustained ventricular tachycardia Obstructive sleep apnea Proliferative diabetic retinopathy Statin intolerance Syncope Vascular dementia Surgical History Surgical History (Updated 08/26/23 @ 17:06 by Cara De Leon PA-C) History of bilateral carpal tunnel release History of cataract extraction History of cervical spinal surgery History of loop recorder History of surgical procedure on eye proper using laser History of vitrectomy Family History Family History Father Celiac disease CHF (congestive heart failure) Many years of CHF, 80 y.o. 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 Acute myocardial infarction
--- NOTE | 2023-08-26 18:13 | ADMGEN ---
This patient, Dewayne Fagan, was admitted to 3 [facility] Surg Room 309-01 @ 1813. Patient/family oriented to hospital policies and general routines including ID bracelet, bed and alarms, visiting hours, pain management, procedures, bathroom and other care routines, personal items, smoking policy, room service/diet, and visiting hours. Information on how to activate the Rapid Response Team has been discussed. Patient/Family are encouraged to report perceived risks to care and to ask questions if they do not understand what they are told or what they should do.
[2023-08-26 20:25] LABS: Lactic Acid Reflex 1.4 mmol/L (0.7-2.0)
[2023-08-26] MEDS: WATER FOR IRRIGATION, STERILE 500 ML BOTTLE (22:13)
[2023-08-26 23:14] LABS: Glucose Point of Care 118 mg/dl (65-105)
[2023-08-27] VITALS (7 sets, daily range): BP systolic 111–127; BP diastolic 59–70; PULSE 60–72; RESP 15–20; TEMP 36.2–36.4; O2SAT 93–98
[2023-08-27 07:10] LABS: Anion Gap 10 mmol/L (4-12); Blood Urea Nitrogen 53 mg/dL (9-20); Calcium 8.3 mg/dL (8.4-10.2); Carbon Dioxide 28 mmol/L (22-30); Chloride 98 mmol/L (98-107); Estimated CRCL calculation 9 ml/min; Estimated Glomerular Filt Rate 5; Glucose 117 mg/dL (65-110); Magnesium 2.1 mg/dL (1.6-2.3); Phosphorus 4.3 mg/dL (2.5-4.5); Potassium 3.4 mmol/L (3.4-5.0); Sodium 136 mmol/L (137-145)
[2023-08-27 07:13] LABS: Hematocrit 36.9 % (42.0-52.0); Mean Corpuscular HGB Conc 32.5 g/dl (32-36); Mean Corpuscular Hemoglobin 32.3 pg (26-34); Mean Corpuscular Volume 99.2 fl (80-100); Mean Platelet Volume 10.3 fl (7.4-10.4); Platelet Count Result 181 k/mm3 (150-375); Red Blood Count 3.72 M/mm3 (4.6-6.20); Red Cell Distribution Width 14.6 % (11.5-14.5); White Blood Count 13.3 K/mm3 (4.5-10.0)
--- NOTE | 2023-08-27 08:28 | PM.IMPN ---
Progress Note: A&P Assessment and Plan (1) Urinary tract infection: Code(s): N39.0 - Urinary tract infection, site not specified Status: Inactive Assessment and Plan: - UA: cloudy appearance with 3+ protein, 2+ blood, 2+ leukocytes, 6-10 RBC, >100 WBC, 4+ bacteria - UC obtained on 08/25: Ecoli pending senstivities - previous micro reviewed 11/07/21: enterococcus species pansensitive - started on rocephin (08/26-) (2) Hypotension: Code(s): I95.9 - Hypotension, unspecified Status: Acute Assessment and Plan: EMS reports a BP 80/40 on arrival. He received 400 mL bolus with improvement. Unclear why his blood pressure dropped, consider early sepsis verses orthostasis. Initiate fall precautions. Monitor orthostatic vital signs. - Blood pressures remain stable since that time. Continue to monitor. - Holding home blood pressure medications: Coreg 12.5 mg BID (3) End-stage renal disease on peritoneal dialysis: Code(s): N18.6 - End stage renal disease; Z99.2 - Dependence on renal dialysis Status: Acute Assessment and Plan: Patient is on PD BID. Of note he did not receive dialysis at all yesterday. Dialysis resumed by Nephrology today. They also plan on doing an extra night dwell and a last fill instead of the daytime exchange, as there is no dialysis staff present during the day on Tuesday especially. - BUN/Cr 49/8.4 on admission, noted to be 53/9.50 on am labs. Increase likely due to patient not receiving his dialysis overnight. - Nephrology consulted, PD ordered - Monitor vital signs, I&Os, BUN/creatinine, daily weights, neuro status and patient is a fall risk - Monitor serum electrolytes, Keep serum Potassium>4 and serum Magnesium>2 and CBC (4) Insulin dependent type 2 diabetes mellitus: Code(s): E11.9 - Type 2 diabetes mellitus without complications; Z79.4 - skilled nursing (current) use of insulin Status: Acute Assessment and Plan: - hypoglycemia protocol - POC blood glucose ACHS - home medication - lispro sliding scale and 10 units TIDWM, detemir 50 units QMWF - correct regimen ordered - moderate dose SSI TIDWM - A1C 03/16/23: 6.5 (5) Hypertension: Code(s): I10 - Essential (primary) hypertension Status: Chronic Assessment and Plan: Chronic, currently borderline hypotensive. - Continue holding antihypertensive, monitor BP. Time Spent With Patient Time with patient: 25 - 35 minutes Subjective Date/time seen: 08/27/23 08:28 Interval history: 72-year-old male with cerebrovascular accident and residual left-sided weakness, recent diagnosis of vascular dementia, end-stage renal disease on peritoneal dialysis, heart failure with preserved ejection fraction, hypertension, hyperlipidemia, insulin-dependent type 2 diabetes mellitus, obstructive sleep apnea, and chronic anemia who presented to the emergency department via EMS from home for evaluation of weakness. Patient is pleasant lying comfortably in bed with at bedside. BUN/Cr 49/8.4 on admission, noted to be 53/9.50 on am labs. Patient is on PD BID. Of note he did not receive dialysis at all yesterday. Dialysis resumed by Nephrology today. They also plan on doing an extra night dwell and a last fill and set the daytime exchange, as there is no dialysis staff present during the day on Tuesday especially. Urine cultures growing ecoli, sensitivities pending. Will continue rocephin and adjust antbiotic treatment according to culture. mentions that patient had a recent fall at an outside facility where he slid out of bad. Patient remived from that facility and taken home. He has since been receiving PT/OT through home health and this has been going well. Will consult PT/OT. Review of Systems Review of Systems: All systems reviewed & are unremarkable except as noted in HPI and below Exam Narrative: AF HR 72 RR 15 SpO2 97 BP 111/59 General: male in no acute respiratory distress who is nontoxic a
[2023-08-27] MEDS: buPROPion HCL XL (24 HR) 150 MG TABCR PO (09:53)
[2023-08-27] MEDS: POTASSIUM CHLORIDE 20 MEQ ER TABLET PO (09:53)
[2023-08-27] MEDS: carvediloL 12.5 MG TABLET PO ×2 (09:53→21:35)
[2023-08-27] MEDS: CHOLECALCIFEROL 1,000 UNITS TABLET 4000 UNITS PO (09:53)
[2023-08-27] MEDS: CLOPIDOGREL BISULFATE 75 MG TABLET PO (09:53)
[2023-08-27 10:00] LABS: Hepatitis B Surface Antigen Negative (Negative)
[2023-08-27 10:18] LABS: Hepatitis B Surface Anti Res Negative
--- NOTE | 2023-08-27 11:47 | PM.CNNEP ---
Assessment and Plan Assessment and plan (1) End-stage renal disease on peritoneal dialysis: Code(s): N18.6 - End stage renal disease; Z99.2 - Dependence on renal dialysis Status: Acute Assessment and Plan: the patient is on peritoneal dialysis. He did not receive his dialysis last night. We were only notified of his admission today. Will resume dialysis tonight. We will also do an extra night dwell and do a last fill instead of a daytime exchange because daytime exchanges are difficult to do since there is no dialysis staff here during the day on Tuesday especially. Volume status looks okay. His blood pressure was low in the field so will just do 1.5% Dianeal for tonight. (2) Acute UTI: Code(s): N39.0 - Urinary tract infection, site not specified Status: Acute Assessment and Plan: The patient has pyuria. He is on antibiotics. Cultures are pending (3) Vascular dementia: Code(s): F01.50 - Vascular dementia, unspecified severity, without behavioral disturbance, psychotic disturbance, mood disturbance, and anxiety Status: Acute Assessment and Plan: this seems stable to me right now. (4) Hypotension: Code(s): I95.9 - Hypotension, unspecified Status: Acute Assessment and Plan: Blood pressure is better after he got IV fluids (5) Type 2 diabetes mellitus with diabetic neuropathy, unspecified: Code(s): E11.40 - Type 2 diabetes mellitus with diabetic neuropathy, unspecified Status: Acute Assessment and Plan: on Accu-Cheks. Hospitalists to control this. (6) HLD (hyperlipidemia): Qualifiers: Hyperlipidemia type: unspecified Qualified Code(s): E78.5 - Hyperlipidemia, unspecified Code(s): E78.5 - Hyperlipidemia, unspecified Status: Chronic Assessment and Plan: he is on atorvastatin at home (7) Anemia: Code(s): D64.9 - Anemia, unspecified Status: Acute Assessment and Plan: hemoglobin is 12. Will hold off on Epogen treatment for now. (8) Hypertension: Code(s): I10 - Essential (primary) hypertension Status: Chronic Assessment and Plan: Blood pressure is under good control (9) Renal osteodystrophy: Code(s): N25.0 - Renal osteodystrophy Status: Acute Assessment and Plan: will check a phosphorus level in the morning History of Present Illness Reason for Consult Consult date: 08/27/23 Chief Complaint Chief complaint: UTI History of Present Illness Narrative: Dewayne is a very pleasant 72-year-old gentleman who has multiple medical problems including end-stage renal disease on peritoneal dialysis nightly, congestive heart failure, hypertension, hyperlipidemia, diabetes, sleep apnea, anemia, CVA, vascular dementia, and recent bladder infections. He was in the hospital last month with a bladder infection. He was treated with antibiotics and discharged. Then he went to [facility] and they did a bladder culture but apparently this did not show much but gave him antibiotics can case it was a bladder infection. He was sent to rehab at [facility] in [place]. . There he was getting physical therapy and his peritoneal dialysis. Unfortunately there was short staff and the patient was getting up before this staff could get to him. His became concerned and took him home. By then he had improved some and so was okay from the fpc standpoint to send him home as well. He did well at home because he has a lot of help from his and his son. He was getting his dialysis routinely. he gets on at night and then has a daytime exchange. Yesterday the patient became confused and then unresponsive. They called 911 and his blood pressure was only 80. He received some IV fluids and was sent to the ER. In the ER his blood pressure was better. Evaluation showed pyuria. Urine cultures are pending. He was placed on antibiotics fo
[2023-08-27 11:53] LABS: Glucose Point of Care 198 mg/dl (65-105)
--- NOTE | 2023-08-27 11:57 | PM.EVENT ---
Event Note Event Note Event Note: patient is on peritoneal dialysis. He is tolerating this well. Will use 1.5% Dianeal tonight. He was seen at 11:00 a.m.
[2023-08-27 11:59] LABS: Cortisol Random 9.47 ug/dL
--- NOTE | 2023-08-27 12:24 | PC.NURSE ---
This RN called [facility] dialysis to notify of peritoneal dialysis for this patient per MD order.
--- NOTE | 2023-08-27 14:29 | PC.NURSE ---
On 08/27/23, the STEREO EQUIPMENT REPAIRER, Elsy, provided care and completed [facility] documentation on this patient. I have reviewed the STEREO EQUIPMENT REPAIRER's documentation and agree with the findings.
[2023-08-27] MEDS: polyethylene glycoL 3350 17 GM POWD.PACK PO (15:15)
[2023-08-27 16:43] LABS: Glucose Point of Care 242 mg/dl (65-105)
[2023-08-27] MEDS: DULoxetine HCL 30 MG CAPSULE.DR PO (17:00)
[2023-08-27] MEDS: INSULIN ASPART (*BKC) 100 UNITS/ML SUB-Q (17:11)
[2023-08-27] MEDS: SEVELAMER CARBONATE 800 MG TABLET PO (17:16)
[2023-08-27 20:54] LABS: Glucose Point of Care 185 mg/dl (65-105)
[2023-08-28 06:00] VITALS: BP 127/66; PULSE 67; RESP 20; TEMP 36.2; O2SAT 95
[2023-08-28 06:23] LABS: Albumin Level 3.5 g/dL (3.5-5.1); Anion Gap 12 mmol/L (4-12); Blood Urea Nitrogen 55 mg/dL (9-20); Calcium 8.5 mg/dL (8.4-10.2); Carbon Dioxide 26 mmol/L (22-30); Chloride 97 mmol/L (98-107); Estimated CRCL calculation 9 ml/min; Estimated Glomerular Filt Rate 6; Glucose 217 mg/dL (65-110); Phosphorus 4.5 mg/dL (2.5-4.5); Potassium 3.4 mmol/L (3.4-5.0); Sodium 135 mmol/L (137-145)
[2023-08-28 08:00] VITALS: BP 136/61; PULSE 71; RESP 16; TEMP 36.1; O2SAT 97
[2023-08-28 08:25] VITALS: BP 153/65; PULSE 65; RESP 18; TEMP 36.3
[2023-08-28 08:32] LABS: Glucose Point of Care 203 mg/dl (65-105)
[2023-08-28 09:23] LABS: Basophils Absolute Auto 0.1 K/mm3 (0.0-0.1); Basophils Percent Auto 0.4 % (0.2-1.2); Eosinophils Absolute Auto 0.2 K/mm3 (0-0.3); Eosinophils Percent Auto 2.1 % (0-4.4); Hemoglobin 11.9 g/dL (14.0-18.0); Immature Granulocyte Absolute 0.04 K/mm3 (0.00-0.031); Immature Granulocyte Percent A 0.4 % (0-0.5); Lymphocytes Absolute Auto 1.72 K/mm3 (0.9-3.2); Lymphocytes Percent Auto 15.2 % (18.3-44.2); Mean Corpuscular HGB Conc 32.2 g/dl (32-36); Mean Corpuscular Hemoglobin 32.1 pg (26-34); Mean Corpuscular Volume 99.7 fl (80-100); Mean Platelet Volume 10.7 fl (7.4-10.4); Monocytes Absolute Auto 0.8 K/mm3 (0.1-0.6); Monocytes Percent Auto 7.1 % (2.6-8.5); Neutrophils Absolute Auto 8.5 K/mm3 (1.3-6.7); Neutrophils Percent Auto 74.8 % (45.5-73.1); Platelet Count Result 187 k/mm3 (150-375); Red Blood Count 3.71 M/mm3 (4.6-6.20); Red Cell Distribution Width 14.5 % (11.5-14.5); White Blood Count 11.3 K/mm3 (4.5-10.0)
--- NOTE | 2023-08-28 09:29 | PM.PNNEP ---
Progress Note: A&P Assessment and Plan (1) End-stage renal disease on peritoneal dialysis: Code(s): N18.6 - End stage renal disease; Z99.2 - Dependence on renal dialysis Status: Acute Assessment and Plan: the patient is on peritoneal dialysis. he did well on dialysis last night. Fluid is clear. Not much fluid was removed but I did not want to because his blood pressure had been low. Volume status looks okay. His blood pressure is a little bit high this morning. If it continues to rise will put him back on greens. (2) Acute UTI: Code(s): N39.0 - Urinary tract infection, site not specified Status: Acute Assessment and Plan: The patient has pyuria. He is on antibiotics. Blood cultures are negative. Urine culture shows E coli. Sensitivities pending. He is on ceftriaxone. Clinically improved. (3) Vascular dementia: Code(s): F01.50 - Vascular dementia, unspecified severity, without behavioral disturbance, psychotic disturbance, mood disturbance, and anxiety Status: Acute Assessment and Plan: this seems stable to me right now. (4) Hypotension: Code(s): I95.9 - Hypotension, unspecified Status: Acute Assessment and Plan: Blood pressure is better . I asked the dialysis nurse to call me with his blood pressure readings for the day to decide what kind of dialysis we do tonight. (5) Type 2 diabetes mellitus with diabetic neuropathy, unspecified: Code(s): E11.40 - Type 2 diabetes mellitus with diabetic neuropathy, unspecified Status: Acute Assessment and Plan: on Accu-Cheks. Hospitalists to control this. (6) HLD (hyperlipidemia): Qualifiers: Hyperlipidemia type: unspecified Qualified Code(s): E78.5 - Hyperlipidemia, unspecified Code(s): E78.5 - Hyperlipidemia, unspecified Status: Chronic Assessment and Plan: he is on atorvastatin at home (7) Anemia: Code(s): D64.9 - Anemia, unspecified Status: Acute Assessment and Plan: hemoglobin is 12. Will hold off on Epogen treatment for now. (8) Hypertension: Code(s): I10 - Essential (primary) hypertension Status: Chronic Assessment and Plan: Blood pressure is under good control (9) Renal osteodystrophy: Code(s): N25.0 - Renal osteodystrophy Status: Acute Assessment and Plan: will check a phosphorus level in the morning Subjective Date/time seen: 08/28/23 09:29 Interval history: Patient feels better today. No chest pain or shortness of breath mental status is good fluid is clear Review of Systems Cardiovascular: Cardiovascular: Reports no additional cardiovascular complaints Respiratory: Respiratory: Reports no additional respiratory complaints Gastrointestinal: Gastrointestinal: Reports no additional gastrointestinal complaints Genitourinary: Genitourinary: Reports no additional male genitourinary complaints Exam Narrative: WDWN in NAD skin no rash head ncat lungs clear cor reg no rub abd BS+ nontender and soft ext no edema. Objective Data Vital Signs Vital Signs: Vital Signs - 24 hr 08/27/23 09:53 08/27/23 09:50 08/27/23 14:00 Temperature 97.1 F L Pulse Rate 72 69 Respiratory Rate 16 Blood Pressure 127/62 Pulse Oximetry 98 Oxygen Delivery Room Air 08/27/23 21:35 08/27/23 20:00 08/27/23 22:00 Temperature 97.1 F L 97.1 F L Pulse Rate 60 72 66 Respiratory Rate 20 20 Blood Pressure 124/70 114/68 Pulse Oximetry 94 94 Oxygen Delivery 08/27/23 20:00 08/28/23 06:00 08/28/23 08:25 Temperature 97.1 F L 97.3 F L Pulse Rate 66 67 65 Respiratory Rate 20 20 18 Blood Pressure 127/66 153/65 H Pulse Oximetry 94 95 Oxygen Delivery Room Air Intake/Output Intake/Output: Intake & Output 08/25/23 08/26/23 08/27/23 08/28/23 23:59 23:59 23:59 23:59 Intake Total 50 845 Output Total
[2023-08-28 09:33] LABS: Alanine Aminotransferase 20 U/L (6-50); Albumin Level 3.5 g/dL (3.5-5.1); Alkaline Phosphatase 97 U/L (38-126); Anion Gap 12 mmol/L (4-12); Aspartate Amino Transferase 23 U/L (17-59); Bilirubin,Total 0.7 mg/dL (0.2-1.3); Blood Urea Nitrogen 55 mg/dL (9-20); Calcium 8.5 mg/dL (8.4-10.2); Carbon Dioxide 26 mmol/L (22-30); Chloride 97 mmol/L (98-107); Estimated CRCL calculation 10 ml/min; Estimated Glomerular Filt Rate 6; Glucose 219 mg/dL (65-110); Potassium 3.5 mmol/L (3.4-5.0); Sodium 135 mmol/L (137-145)
[2023-08-28] MEDS: INSULIN ASPART (*BKC) 100 UNITS/ML SUB-Q (09:38)
[2023-08-28] MEDS: POTASSIUM CHLORIDE 20 MEQ ER TABLET PO (09:40)
[2023-08-28] MEDS: CLOPIDOGREL BISULFATE 75 MG TABLET PO (09:40)
[2023-08-28] MEDS: buPROPion HCL XL (24 HR) 150 MG TABCR PO (09:40)
[2023-08-28] MEDS: CHOLECALCIFEROL 1,000 UNITS TABLET 4000 UNITS PO (09:40)
[2023-08-28] MEDS: SEVELAMER CARBONATE 800 MG TABLET PO (09:40)
[2023-08-28] MEDS: carvediloL 12.5 MG TABLET PO (09:40)
[2023-08-28 10:14] VITALS: BP 146/72
[2023-08-28 10:15] VITALS: BP 132/57
[2023-08-28 11:52] LABS: Glucose Point of Care 189 mg/dl (65-105)
[2023-08-28] MEDS: ACETAMINOPHEN 325 MG TABLET 650 MG PO (12:00)
--- NOTE | 2023-08-28 13:09 | PM.DS ---
DS: Admitting Diagnosis Discharge Date 08/28/23 Admitting Diagnosis UTI Hypotension End stage renal disease Diabetes mellitus Hypertension DS: Discharge Diagnosis Discharge Diagnosis (1) Urinary tract infection: Code(s): N39.0 - Urinary tract infection, site not specified Status: Inactive (2) Hypotension: Code(s): I95.9 - Hypotension, unspecified Status: Acute (3) End-stage renal disease on peritoneal dialysis: Code(s): N18.6 - End stage renal disease; Z99.2 - Dependence on renal dialysis Status: Acute (4) Insulin dependent type 2 diabetes mellitus: Code(s): E11.9 - Type 2 diabetes mellitus without complications; Z79.4 - [facility] (current) use of insulin Status: Acute (5) Hypertension: Code(s): I10 - Essential (primary) hypertension Status: Chronic DS: Summary Hospital Course Reason for hospitalization: UTI Hypotension End stage renal disease Diabetes mellitus Hypertension Hospital Course: 72-year-old male with cerebrovascular accident and residual left-sided weakness, recent diagnosis of vascular dementia, end-stage renal disease on peritoneal dialysis, heart failure with preserved ejection fraction, hypertension, hyperlipidemia, insulin-dependent type 2 diabetes mellitus, obstructive sleep apnea, and chronic anemia who presented to the emergency department via EMS from home for evaluation of weakness. EMS reports a BP 80/40 on arrival. He received 400 mL bolus with improvement. Unclear why his blood pressure dropped, however this has resolved throughout admission. Patient found to have a UTI. Urine culture grew pansensitive ecoli. He was transitioned from IV rocephin to PO augmentin at discharge. Patient is on PD BID. Of note he did not receive dialysis at all yesterday. Nephrology consulted and PD resumed. Creatinine level remains elevated above baseline at time of discharge discussed this with nephrology and they state patient is fine to discharge with those levels. Patient will remain on PD as scheduled. Patient discharged in a stable condition with family. Status at Discharge Functional status at discharge: independent ambulation Time Spent with Patient Time attestation: Total time spent providing and/or coordinating discharge services: Time spent: Greater than 30 minutes Exam Narrative: AF HR 67 RR 18 SpO2 100 BP 121/60 General: male in no acute respiratory distress who is nontoxic appearing, lying semi recumbent in bed. HEENT: Normocephalic. Atraumatic. Pupils equal round reactive to light. Extraocular movement intact. Sclera clear and anicteric. No facial asymmetry. Chest: Lungs are clear to auscultation bilaterally. No wheezes or crackles. CV: Heart was regular rate and rhythm. S1/S2. No murmurs, gallops, or rubs. Abd: Abdomen was soft. Nontender. Nondistended. Positive bowel sounds. No organomegaly or masses. Ext: No clubbing, cyanosis, or edema. 2+ DP pulses bilaterally. Neuro: Patient is alert and oriented x4. Cranial nerves 2-12 are intact. Speech is clear. Psych: Normal mood and affect. Patient is pleasant and cooperative. Skin: Warm and dry. No rashes noted. DS: Data Data Completed and Pending Completed studies during hospitalization: Chest XR Labs on day of discharge: Labs from last 24 hours 08/28/23 08/28/23 08/28/23 11:49 08:28 05:32 WBC RBC Hgb Hct MCV MCH MCHC RDW Plt Count MPV Immature Gran % (Auto) Neut % (Auto) Lymph % (Auto) [place]field % (Auto) Eos % (Auto) Baso % (Auto) Lymph # (Auto) [place]field # (Auto) Eos # (Auto) Baso # (Auto) Abs Immat Gran (auto) Absolute Neuts (auto) Absolute Nucleated RBC Nucleated RBC % Sodium 135 L Potassium 3.4 Chloride 97 L Carbon Dioxide 26 Anion Gap 12 BUN 55 H Creatinine 8.80 H Estim Creat Clear Calc 9 Estimated GFR 6 L Glucose 217 H POC Capillary Glucose 189 H 203 H
[2023-08-28 14:00] VITALS: BP 121/60; PULSE 67; RESP 18; TEMP 36.1; O2SAT 100
== END 2023-08-28 14:56 | disposition home or self-care (01) | DRG 689 ==
LOC: ANHED 17:26 → ANH3MEDSUR 17:35
PROVIDERS: Internal Medicine Nephrology; Physician Assistant; Student in an Organized Health Care Education/Training Program; Admitting Provider Internal Medicine; Emergency Provider Emergency Medicine; PCP Family Medicine; Visit Provider Internal Medicine
DX: N39.0 Urinary tract infection, site not specified (principal); N18.6 End stage renal disease; I69.354 Hemiplegia and hemiparesis following cerebral infarction affecting left non-dominant side; I13.2 Hypertensive heart and chronic kidney disease with heart failure and with stage 5 chronic kidney disease, or end stage renal disease; B96.20 Unspecified Escherichia coli [E. coli] as the cause of diseases classified elsewhere; I50.9 Heart failure, unspecified; E11.22 Type 2 diabetes mellitus with diabetic chronic kidney disease; I95.9 Hypotension, unspecified; F01.50 Vascular dementia, unspecified severity, without behavioral disturbance, psychotic disturbance, mood disturbance, and anxiety; G47.33 Obstructive sleep apnea (adult) (pediatric); D64.9 Anemia, unspecified; E78.5 Hyperlipidemia, unspecified; N40.0 Benign prostatic hyperplasia without lower urinary tract symptoms; M19.90 Unspecified osteoarthritis, unspecified site; K90.0 Celiac disease; E11.42 Type 2 diabetes mellitus with diabetic polyneuropathy; E11.3599 Type 2 diabetes mellitus with proliferative diabetic retinopathy without macular edema, unspecified eye; Z99.2 Dependence on renal dialysis; Z79.4 Long term (current) use of insulin; Z98.49 Cataract extraction status, unspecified eye; Z87.891 Personal history of nicotine dependence; F41.9 Anxiety disorder, unspecified; F32.A Depression, unspecified
CPT/HCPCS: 36415; 71046; 80048; 80053; 80069; 81001; 82533; 82948; 83605; 83735; 84100; 85025; 85027; 86706; 87040; 87077; 87086; 87088; 87186; 87340; 90945; 93005; 96365; 97161; 97165; 99285; A9270; G0378; J0696; J1815

== ENCOUNTER 2023-10-11 16:18 | Emergency (ER) | payer MEDICARE, SELFPAY ==
--- NOTE | ~2023-10-11 | CT_ITS ---
EXAMINATION: CT brain wo con DATE: 10/11/2023 18:02 INDICATION: Altered mental status TECHNIQUE: Computed tomography (CT) of the head was performed without intravenous contrast. Sagittal and coronal reconstructions were performed. The mA was adjusted according to patient size. Iterative reconstruction technique was employed. The dose-length product was 681.00 mGy-cm. COMPARISON: head CT dated 06/30/2023 FINDINGS: Unchanged small old lacunar infarct at the right central doron and at the right thalamus. No acute int racranial hemorrhage, acute infarction or abnormal extra axial fluid collection. There is unchanged e xtensive scattered white matter hypoattenuation consistent with chronic small vessel ischemic disease . Symmetric prominence of the sulci and ventricles consistent with moderate age-appropriate diffuse c erebral volume loss. No mass/mass effect. Changes of bilateral intraocular lens replacement. The orbi ts and paranasal sinuses are normal. Mastoid air cells are clear with hypopneumatized left mastoid. IMPRESSION: 1. Small old infarcts in the right thalamus and doron. No acute intracranial process. 2. Age-related changes including moderate diffuse volume loss and extensive scattered white matter hy poattenuation consistent with chronic small vessel ischemic disease. Reviewed, dictated and finalized at location A. IMPRESSION: 1. Small old infarcts in the right thalamus and doron. No acute intracranial pro cess. 2. Age-related changes including moderate diffuse volume loss and extensive sca ttered white matter hypoattenuation consistent with chronic small vessel ischem ic disease.
--- NOTE | ~2023-10-11 | XR_ITS ---
EXAMINATION: XR chest 1V DATE: 10/11/2023 18:06 INDICATION: Weakness with urinary tract infection TECHNIQUE: frontal view of the chest was obtained. COMPARISON: Chest radiograph dated 08/26/2023 FINDINGS: Lung volumes remain small particularly on the right with some elevation the right hemidiaphragm. This may be exaggerated by lordotic positioning. No focal airspace opacities, pulmonary edema, pleural ef fusion or pneumothorax. The cardiomediastinal silhouette is normal. 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 IMPRESSION: 1. Persistent small lung volumes particularly on the right with some elevation the right hemidiaphrag m. No acute cardiopulmonary disease. Reviewed, dictated and finalized at location A. IMPRESSION: 1. Persistent small lung volumes particularly on the right with some elevation the right hemidiaphragm. No acute cardiopulmonary disease.
[2023-10-11 16:18] VITALS: BP 104/68; PULSE 75; RESP 14; TEMP 36.6; O2SAT 96
[2023-10-11 16:22] VITALS: PULSE 71; O2SAT 97
--- NOTE | 2023-10-11 16:22 | ECG_ITS ---
Test Date: 2023-10-11 16:27:58 Measurements Intervals [place] Rate: 73 P: 16 WV: 241 QRS: -87 QRSD: 142 T: 31 QT: 420 QTc: 466 Interpretive Statements SINUS RHYTHM WITH SINUS ARRHYTHMIA WITH FIRST DEGREE AV BLOCK RIGHT BUNDLE BRANCH BLOCK LEFT ANTERIOR FASCICULAR BLOCK BASELINE ARTIFACT- I, III, AVR, AVL, V1-V2 ABNORMAL ECG Compared to ECG 08/26/2023 11:33:21 No significant changes Electronically Signed On 10-11-2023 16:29:33 CDT by Yury Lawrence D.O.
[2023-10-11 16:46] LABS: Basophils Absolute Auto 0.1 K/mm3 (0.0-0.1); Basophils Percent Auto 0.8 % (0.2-1.2); Eosinophils Absolute Auto 0.2 K/mm3 (0-0.3); Eosinophils Percent Auto 2.1 % (0-4.4); Hematocrit 38.2 % (42.0-52.0); Hemoglobin 12.6 g/dL (14.0-18.0); Immature Granulocyte Absolute 0.04 K/mm3 (0.00-0.031); Immature Granulocyte Percent A 0.5 % (0-0.5); Lymphocytes Absolute Auto 1.59 K/mm3 (0.9-3.2); Lymphocytes Percent Auto 18.6 % (18.3-44.2); Mean Corpuscular Hemoglobin 33.6 pg (26-34); Mean Corpuscular Volume 101.9 fl (80-100); Mean Platelet Volume 10.2 fl (7.4-10.4); Monocytes Percent Auto 11.7 % (2.6-8.5); Neutrophils Absolute Auto 5.7 K/mm3 (1.3-6.7); Neutrophils Percent Auto 66.3 % (45.5-73.1); Platelet Count Result 239 k/mm3 (150-375); Red Blood Count 3.75 M/mm3 (4.6-6.20); Red Cell Distribution Width 15.1 % (11.5-14.5); White Blood Count 8.5 K/mm3 (4.5-10.0)
[2023-10-11 17:04] LABS: Alanine Aminotransferase 30 U/L (6-50); Albumin Level 3.8 g/dL (3.5-5.1); Alkaline Phosphatase 107 U/L (38-126); Anion Gap 14 mmol/L (4-12); Aspartate Amino Transferase 26 U/L (17-59); Bilirubin,Total 0.6 mg/dL (0.2-1.3); Blood Urea Nitrogen 43 mg/dL (9-20); Calcium 9.2 mg/dL (8.4-10.2); Carbon Dioxide 28 mmol/L (22-30); Chloride 96 mmol/L (98-107); Estimated CRCL calculation 10 ml/min; Estimated Glomerular Filt Rate 6; Glucose 121 mg/dL (65-110); Potassium 4.3 mmol/L (3.4-5.0); Sodium 138 mmol/L (137-145)
[2023-10-11 17:17] VITALS: BP 108/78; PULSE 73; RESP 18; O2SAT 97
--- NOTE | 2023-10-11 17:31 | ED.WEAKNESS ---
HPI - Weakness General Chief complaint: Weakness Stated complaint: weakness & low BP Time Seen by Provider: 10/11/23 16:59 History of Present Illness HPI Narrative: 72-year-old male with a history of ESRD on peritoneal dialysis, hypertension, insulin-dependent type 2 diabetes, SADAF, CVA, vascular dementia hyperlipidemia presents to the emergency department with his / POA at bedside for hypotension, generalized weakness and confusion. Patient's provides the following history. States the patient Has seen more weak over the past few days and normal. States she was at her pain management appointment this morning while the patient was at home with his son. The morning PT came over to evaluate the patient in the patient seemed confused. States the patient was talking about his getting a Juanjo which is not true. They checked the patient's vitals and his blood pressure was low. The patient's states that the PT recommended to come to the ED for further evaluation. States that the time she got home and checked his blood pressure was 70s/50s Around 3:00 p.m. while he was undergoing his peritoneal dialysis. States she contacted the patient's tailer off office and was advised to come to the ED. Her tailer off is Dr. Song. The patient has no complaints at this time to me but does state he felt short of breath when he arrived to the ED. He was satting 89% on room air and was placed on 2 L nasal cannula by nursing staff. he is now satting 96%. He denies chest pain, cough, abdominal pain, N/ V/ D, dysuria or hematuria. Denies lightheadedness, dizziness, headache, Vision changes, focal numbness or weakness, syncope. He does make a small amount of urine a day. patient's also states the patient has been congested recently.The patient is A&2-3 at bedside since he had a stroke in 2018. Patient's also notes that the patient is undergoing treatment for prostatitis and is on a 30 day course of Bactrim. Pt is wheel chair bound. I discussed goals of care with patient's and his today who would like a full workup and treatment but would like the patient to be DNR/DNI. Related Data Home Medications Medication Instructions Recorded Confirmed cholecalciferol (vitamin D3) 125 4,000 unit PO DAILY 07/19/22 10/06/23 mcg (5,000 unit) capsule insulin lispro 100 unit/mL 1 sliding scale dose subcut TIDWM 09/07/22 10/06/23 subcutaneous pen polyethylene glycol 3350 17 17 g PO DAILY PRN Constipation 09/08/22 10/06/23 gram/dose oral powder (Miralax) atorvastatin 40 mg tablet 40 mg PO DAILY 04/25/23 10/06/23 calcitriol 0.25 mcg capsule 0.25 mcg PO QMWF 08/26/23 10/06/23 donepezil 5 mg tablet 5 mg PO QMWF 08/26/23 10/06/23 insulin detemir U-100 100 unit/mL 50 unit subcut QMWF 08/26/23 10/06/23 (3 mL) subcutaneous pen sevelamer carbonate 800 mg tablet 800 mg PO TIDWMEAL 08/27/23 10/06/23 bupropion HCl 150 mg 24 hr tablet, mg PO DAILY 09/01/23 10/06/23 extended release duloxetine 30 mg capsule,delayed mg PO DAILY 09/01/23 10/06/23 release food supplemt, lactose-reduced ea PO 09/01/23 10/06/23 0.04 gram-1 kcal/mL oral liquid potassium chloride 20 mEq meq PO DAILY 09/01/23 10/06/23 tablet,extended release Allergies Allergy/AdvReac Type Severity Reaction Status Date / Time barley Allergy Severe abdominal Verified 10/11/23 16:35 pain wheat Allergy Severe abdominal Verified 10/11/23 16:35 pain furosemide [From Lasix] AdvReac Intermediate Nausea and Verified 10/11/23 16:35 Vomiting pregabalin AdvReac Unknown Confusion Verified 10/11/23 16:35 rosuvastatin AdvReac Unknown Muscle pain Verified 10/11/23 16:35 [id number] Reductase AdvReac Unknown muscle Verified 10/11/23 16:35 Inhibitor crampin [[id number] Reductase Inhibitor] Barley Flour Allergy Severe abdominal Uncoded 10/11/23 16:35 pain Oat Allergy Severe abdominal Uncoded 10/11/23 16:35 pain [place] Allergy Sever
[2023-10-11 17:48] LABS: Prothrombin Time 13.9 Seconds (11.1-14.7)
[2023-10-11 17:49] LABS: Partial Thromboplastin Time 28.5 Seconds (22.3-36.8)
[2023-10-11 17:57] LABS: Creatine Kinase 51 U/L (55-170); Magnesium 2.5 mg/dL (1.6-2.3); Phosphorus 5.4 mg/dL (2.5-4.5)
[2023-10-11 18:10] LABS: Troponin I < 0.012 ng/mL (0.000-0.034)
--- NOTE | 2023-10-11 18:10 | PC.NURSE ---
Pt produces small amount of urine daily due to renal failure. Ana CARL informed unable to obtain UA at this time. Pt reluctant with staff, verbally aggressive at times. states pt on fluid restriction of 32 ounces of fluid a day
[2023-10-11 18:22] LABS: Alveolar/Arterial O2 Gradient 52.5 mmHg; Base Excess ABG 0.6 mEq/l (+/-2.0); Fractional Inspired Oxygen 28 %; HCO3 ABG 25.3 mEq/l (22.0-26.0); Oxygen Saturation ABG 97.5 % (95.0-100.0); Oxyhemoglobin 95.9 % THb (90.0-100.0); PO2 ABG 98.8 mmHg (80.0-100.0); PO2 FiO2 Ratio Arterial Blood 3.53 %; Total Hemoglobin 13.3 g/dL (12.0-18.0); pH ABG 7.409 (7.350-7.450)
[2023-10-11 18:23] LABS: Device NASAL CANNULA; Modified Allen's Test Pass; Site Drawn LEFT BRACHIAL
[2023-10-11 18:44] LABS: D Dimer 0.54 ug/mL (<0.48)
[2023-10-11 19:22] LABS: Influenza A QL RT-PCR Negative (Negative); Influenza B QL RT-PCR Negative (Negative); RSV RNA, RT-PCR Negative (Negative); SARS-CoV-2 RNA PCR Negative (Negative)
[2023-10-11 19:35] VITALS: BP 120/67; PULSE 68; RESP 16; O2SAT 100
[2023-10-11 21:55] VITALS: BP 129/71; PULSE 74; RESP 16; O2SAT 96
== END 2023-10-11 20:40 | disposition home or self-care (01) ==
PROVIDERS: Student in an Organized Health Care Education/Training Program; Emergency Provider Physician Assistant; PCP Family Medicine
DX: I95.9 Hypotension, unspecified (principal); R41.0 Disorientation, unspecified; Z20.822 Contact with and (suspected) exposure to COVID-19; E11.22 Type 2 diabetes mellitus with diabetic chronic kidney disease; I12.0 Hypertensive chronic kidney disease with stage 5 chronic kidney disease or end stage renal disease; N18.6 End stage renal disease; Z99.2 Dependence on renal dialysis; F01.50 Vascular dementia, unspecified severity, without behavioral disturbance, psychotic disturbance, mood disturbance, and anxiety; I69.954 Hemiplegia and hemiparesis following unspecified cerebrovascular disease affecting left non-dominant side; E11.42 Type 2 diabetes mellitus with diabetic polyneuropathy; E78.5 Hyperlipidemia, unspecified; E11.3599 Type 2 diabetes mellitus with proliferative diabetic retinopathy without macular edema, unspecified eye; E55.9 Vitamin D deficiency, unspecified; D64.9 Anemia, unspecified; K90.0 Celiac disease; M19.90 Unspecified osteoarthritis, unspecified site; G47.33 Obstructive sleep apnea (adult) (pediatric); F41.9 Anxiety disorder, unspecified; F32.A Depression, unspecified; Z87.891 Personal history of nicotine dependence; Z87.442 Personal history of urinary calculi; Z86.010 Personal history of colon polyps; Z98.49 Cataract extraction status, unspecified eye; Z79.4 Long term (current) use of insulin; Z79.899 Other long term (current) drug therapy
CPT/HCPCS: 36415; 36600; 70450; 71045; 80053; 82550; 82805; 83735; 84100; 84443; 84484; 85025; 85380; 85610; 85730; 87637; 93005; 99284